=== PATIENT | male | born 1945 | race Caucasian/White ===

== ENCOUNTER 2017-10-12 08:45 | Outpatient (CLI) | payer OTHER, MEDICARE ==
[~2017-10-12 08:45] MED LIST: ATOR40TA PO; COLC0.6T66 PO; DILT180C66 PO; FENO145T38 PO; FOLI-43 PO; FURO-150 PO; GLIM4TAB79 PO; INSU100V12 SQ; LANS30CA56 PO; LOSA25TA96 PO; MELA3TAB PO; MULT1TAB74 PO; PIOG30TA2 PO; RIVA20TA PO
[2017-10-12 09:16] LABS: BASOPHILS % (AUTO) 0.2 % (0-1); EOSINOPHILS # (AUTO) 0.3 X10'3 (0-0.9); EOSINOPHILS % (AUTO) 2.7 % (0-6); HEMATOCRIT 40.8 % (42.0-52.0); HEMOGLOBIN 13.6 g/dl (14.0-17.9); LYMPHOCYTES # (AUTO) 1.4 X10'3 (1.1-4.8); LYMPHOCYTES % (AUTO) 12.9 % (21-51); MEAN CORPUSCULAR HEMOGLOBIN 31.5 PG (27.0-31.0); MEAN CORPUSCULAR HGB CONC 33.4 % (33.0-36.5); MEAN CORPUSCULAR VOLUME 94.3 FL (78-98); MEAN PLATELET VOLUME 8.3 FL (7.4-10.4); MONOCYTES # (AUTO) 0.9 X10'3 (0-0.9); NEUTROPHILS # (AUTO) 8.3 X10'3 (1.8-7.7); NEUTROPHILS % (AUTO) 76.2 % (42-75); PLATELET COUNT 307 X10'3 (140-440); RED BLOOD COUNT 4.33 X10'6 (4.70-6.10); RED CELL DISTRIBUTION WIDTH 14.1 % (11.5-14.5); WHITE BLOOD COUNT 10.9 X10'3 (4.5-11.0)
[2017-10-12 09:22] LABS: CLARITY,URINE CLEAR (Clear); COLOR,URINE STRAW (Yellow); GLUCOSE, URINE NEGATIVE (Neg); KETONES,URINE NEGATIVE (Neg); LEUKOCYTE ESTERASE ,URINE NEGATIVE (Neg); NITRITES, URINE NEGATIVE (Neg); OCCULT BLOOD,URINE TRACE-LYSED (Neg); PROTEIN,URINE 30 mg/dl (Neg); UROBILINOGEN,URINE 0.2 E.U/dL (0.2-1.0)
[2017-10-12 09:37] LABS: UA COLLECTION TYPE CLN CATCH MIDSTREAM
[2017-10-12 09:38] LABS: HYALINE CASTS 0-3 /LPF (NEGATIVE); MUCUS STRANDS FEW /LPF (Neg); SQUAMOUS EPITHELIAL CELL,UR FEW /LPF (FEW)
[2017-10-12 09:39] LABS: BACTERIA,URINE FEW /HPF (Neg); RBC,URINE 0-2 /HPF (0-2); WBC,URINE 0-4 /HPF (0-4)
[2017-10-12 09:49] LABS: ALANINE AMINOTRANSFERASE 32 U/L (12-78); ALBUMIN 4.1 G/DL (3.4-5.0); ALBUMIN/GLOBULIN RATIO 1.2 (1.1-1.5); ALKALINE PHOSPHATASE 63 IU/L (46-116); ANION GAP 7 (8-16); ASPARTATE AMINO TRANSFERASE 24 U/L (10-37); BILIRUBIN,TOTAL 0.8 MG/DL (0.1-1.0); BLOOD UREA NITROGEN 34 MG/DL (7-18); BUN/CREATININE RATIO 21.4 (5.4-32.0); CALCIUM 9.5 MG/DL (8.5-10.1); CHLORIDE 104 MMOL/L (99-107); CHOL/HDL RATIO 4.4 (0.00-4.99); CHOLESTEROL 150 MG/DL (0-200); CREATININE 1.59 MG/DL (0.60-1.10); GLUCOSE 161 MG/DL (70-104); HDL CHOLESTEROL 34 MG/DL (35-60); LDL CHOLESTEROL 100 MG/DL (50-100); SODIUM 140 MMOL/L (135-145); TOTAL CARBON DIOXIDE 28.6 MMOL/L (24-32); TOTAL PROTEIN 7.6 G/DL (6.4-8.2); TRIGLYCERIDES 135 MG/DL (20-135); eGFR 43 ML/MIN
[2017-10-12 09:50] LABS: HEMOGLOBIN A1C 8.8 % (4.5-6.2)
== END 2017-10-12 23:59 | disposition home or self-care (01) ==
LOC: LAB 08:45
PROVIDERS: ATTEND Internal Medicine
DX: I48.91 Unspecified atrial fibrillation (principal); E11.22 Type 2 diabetes mellitus with diabetic chronic kidney disease; I13.0 Hypertensive heart and chronic kidney disease with heart failure and stage 1 through stage 4 chronic kidney disease, or unspecified chronic kidney disease; N18.9 Chronic kidney disease, unspecified
CPT/HCPCS: 36415; 80053; 80061; 81001; 83036; 84550; 85025

== ENCOUNTER 2017-11-08 08:30 | Outpatient (CLI) | payer OTHER, MEDICARE ==
[2017-11-08 09:05] LABS: BASOPHILS % (AUTO) 0.3 % (0-1); EOSINOPHILS # (AUTO) 0.3 X10'3 (0-0.9); EOSINOPHILS % (AUTO) 5.5 % (0-6); HEMATOCRIT 40.3 % (42.0-52.0); HEMOGLOBIN 13.8 g/dl (14.0-17.9); LYMPHOCYTES # (AUTO) 1.7 X10'3 (1.1-4.8); LYMPHOCYTES % (AUTO) 28.2 % (21-51); MEAN CORPUSCULAR HEMOGLOBIN 31.8 PG (27.0-31.0); MEAN CORPUSCULAR HGB CONC 34.2 % (33.0-36.5); MEAN PLATELET VOLUME 8.1 FL (7.4-10.4); MONOCYTES # (AUTO) 0.6 X10'3 (0-0.9); MONOCYTES % (AUTO) 10.3 % (2-12); NEUTROPHILS # (AUTO) 3.3 X10'3 (1.8-7.7); NEUTROPHILS % (AUTO) 55.7 % (42-75); PLATELET COUNT 215 X10'3 (140-440); RED BLOOD COUNT 4.33 X10'6 (4.70-6.10); RED CELL DISTRIBUTION WIDTH 13.9 % (11.5-14.5); WHITE BLOOD COUNT 5.9 X10'3 (4.5-11.0)
[2017-11-08 09:21] LABS: ALANINE AMINOTRANSFERASE 35 U/L (12-78); ALBUMIN 4.4 G/DL (3.4-5.0); ALBUMIN/GLOBULIN RATIO 1.5 (1.1-1.5); ALKALINE PHOSPHATASE 45 IU/L (46-116); ANION GAP 8 (8-16); ASPARTATE AMINO TRANSFERASE 20 U/L (10-37); BILIRUBIN,TOTAL 0.6 MG/DL (0.1-1.0); BLOOD UREA NITROGEN 34 MG/DL (7-18); BUN/CREATININE RATIO 16.2 (5.4-32.0); CALCIUM 9.2 MG/DL (8.5-10.1); CHLORIDE 106 MMOL/L (99-107); CHOL/HDL RATIO 4.6 (0.00-4.99); CHOLESTEROL 138 MG/DL (0-200); GLUCOSE 161 MG/DL (70-104); HDL CHOLESTEROL 30 MG/DL (35-60); LDL CHOLESTEROL 79 MG/DL (50-100); POTASSIUM 4.5 MMOL/L (3.5-5.1); SODIUM 141 MMOL/L (135-145); TOTAL CARBON DIOXIDE 26.8 MMOL/L (24-32); TOTAL PROTEIN 7.3 G/DL (6.4-8.2); TRIGLYCERIDES 176 MG/DL (20-135); eGFR 31 ML/MIN
== END 2017-11-08 23:59 | disposition home or self-care (01) ==
LOC: LAB 08:30
PROVIDERS: ATTEND Internal Medicine
DX: E78.5 Hyperlipidemia, unspecified (principal); I13.0 Hypertensive heart and chronic kidney disease with heart failure and stage 1 through stage 4 chronic kidney disease, or unspecified chronic kidney disease; E11.22 Type 2 diabetes mellitus with diabetic chronic kidney disease; N18.9 Chronic kidney disease, unspecified
CPT/HCPCS: 36415; 80053; 80061; 85025

== ENCOUNTER 2017-11-08 08:40 | Outpatient (CLI) | payer OTHER, MEDICARE | END 2017-11-08 23:59 | disposition home or self-care (01) | LOC: RAD 08:40 | PROVIDERS: ATTEND Internal Medicine Critical Care Medicine | DX: J84.10 Pulmonary fibrosis, unspecified (principal); I13.0 Hypertensive heart and chronic kidney disease with heart failure and stage 1 through stage 4 chronic kidney disease, or unspecified chronic kidney disease; E11.22 Type 2 diabetes mellitus with diabetic chronic kidney disease; N18.9 Chronic kidney disease, unspecified; I50.9 Heart failure, unspecified | CPT/HCPCS: 71046 ==

== ENCOUNTER 2017-11-16 07:19 | Outpatient (CLI) | payer OTHER, MEDICARE ==
[~2017-11-16] VITALS: Ht 177.8 cm; Wt 108.0 kg
[2017-11-16] MEDS ORDERED: albuterol 2.5 MG/3 ML nebule NEB PRN (07:50)
== END 2017-11-16 23:59 | disposition home or self-care (01) ==
LOC: RT 07:19
PROVIDERS: ATTEND Internal Medicine Critical Care Medicine
DX: J84.10 Pulmonary fibrosis, unspecified (principal)
CPT/HCPCS: 94060; 94640; 94760

== ENCOUNTER 2018-01-02 08:48 | Outpatient (CLI) | payer OTHER, MEDICARE ==
[~2018-01-02 08:48] MED LIST changes: +ASPI-1265 PO; +CLOP75TA35 PO; +NITR0.4T51 SL
[2018-01-02 09:23] LABS: BASOPHILS % (AUTO) 0.3 % (0-1); EOSINOPHILS # (AUTO) 0.3 X10'3 (0-0.9); EOSINOPHILS % (AUTO) 4.5 % (0-6); HEMATOCRIT 38.3 % (42.0-52.0); HEMOGLOBIN 13.4 g/dl (14.0-17.9); LYMPHOCYTES # (AUTO) 1.6 X10'3 (1.1-4.8); LYMPHOCYTES % (AUTO) 26.1 % (21-51); MEAN CORPUSCULAR HEMOGLOBIN 31.9 PG (27.0-31.0); MEAN CORPUSCULAR HGB CONC 35.1 % (33.0-36.5); MEAN CORPUSCULAR VOLUME 91.1 FL (78-98); MEAN PLATELET VOLUME 8.2 FL (7.4-10.4); MONOCYTES # (AUTO) 0.9 X10'3 (0-0.9); MONOCYTES % (AUTO) 14.7 % (2-12); NEUTROPHILS # (AUTO) 3.3 X10'3 (1.8-7.7); NEUTROPHILS % (AUTO) 54.4 % (42-75); PLATELET COUNT 234 X10'3 (140-440); RED CELL DISTRIBUTION WIDTH 14.1 % (11.5-14.5)
[2018-01-02 09:24] LABS: CLARITY,URINE CLEAR (Clear); COLOR,URINE YELLOW (Yellow); GLUCOSE, URINE NEGATIVE (Neg); KETONES,URINE NEGATIVE (Neg); LEUKOCYTE ESTERASE ,URINE NEGATIVE (Neg); NITRITES, URINE NEGATIVE (Neg); OCCULT BLOOD,URINE NEGATIVE (Neg); PROTEIN,URINE TRACE mg/dl (Neg); UROBILINOGEN,URINE 0.2 E.U/dL (0.2-1.0)
[2018-01-02 09:34] LABS: UA COLLECTION TYPE CLN CATCH MIDSTREAM
[2018-01-02 09:35] LABS: MUCUS STRANDS NONE SEEN /LPF (Neg); SQUAMOUS EPITHELIAL CELL,UR NONE SEEN /LPF (FEW); TRANSITIONAL EPI CELLS,URINE FEW /HPF
[2018-01-02 09:37] LABS: BACTERIA,URINE NONE SEEN /HPF (Neg); RBC,URINE 0-2 /HPF (0-2); WBC,URINE 0-4 /HPF (0-4)
[2018-01-02 09:55] LABS: ALANINE AMINOTRANSFERASE 29 U/L (12-78); ALBUMIN/GLOBULIN RATIO 1.1 (1.1-1.5); ALKALINE PHOSPHATASE 54 IU/L (46-116); ANION GAP 9 (8-16); ASPARTATE AMINO TRANSFERASE 24 U/L (10-37); BILIRUBIN,TOTAL 0.4 MG/DL (0.1-1.0); BLOOD UREA NITROGEN 37 MG/DL (7-18); BUN/CREATININE RATIO 19.3 (5.4-32.0); CALCIUM 9.7 MG/DL (8.5-10.1); CHLORIDE 106 MMOL/L (99-107); CHOL/HDL RATIO 3.8 (0.00-4.99); CHOLESTEROL 117 MG/DL (0-200); CREATININE 1.92 MG/DL (0.60-1.10); GLUCOSE 138 MG/DL (70-104); HDL CHOLESTEROL 31 MG/DL (35-60); LDL CHOLESTEROL 69 MG/DL (50-100); POTASSIUM 4.3 MMOL/L (3.5-5.1); SODIUM 142 MMOL/L (135-145); TOTAL CARBON DIOXIDE 27.3 MMOL/L (24-32); TOTAL PROTEIN 7.5 G/DL (6.4-8.2); TRIGLYCERIDES 98 MG/DL (20-135); eGFR 34 ML/MIN
== END 2018-01-02 23:59 | disposition home or self-care (01) ==
LOC: LAB 08:48
PROVIDERS: ATTEND Internal Medicine
DX: N42.9 Disorder of prostate, unspecified (principal); I13.0 Hypertensive heart and chronic kidney disease with heart failure and stage 1 through stage 4 chronic kidney disease, or unspecified chronic kidney disease; I50.9 Heart failure, unspecified; E11.22 Type 2 diabetes mellitus with diabetic chronic kidney disease; N18.9 Chronic kidney disease, unspecified; E78.5 Hyperlipidemia, unspecified
CPT/HCPCS: 36415; 80053; 80061; 81001; 82043; 84550; 85025

== ENCOUNTER 2018-01-31 06:12 | Outpatient (CLI) | payer OTHER, MEDICARE ==
[2018-01-31 07:11] LABS: BASOPHILS % (AUTO) 0.5 % (0-1); EOSINOPHILS # (AUTO) 0.3 X10'3 (0-0.9); EOSINOPHILS % (AUTO) 4.6 % (0-6); HEMATOCRIT 40.8 % (42.0-52.0); HEMOGLOBIN 14.1 g/dl (14.0-17.9); LYMPHOCYTES # (AUTO) 1.6 X10'3 (1.1-4.8); LYMPHOCYTES % (AUTO) 28.7 % (21-51); MEAN CORPUSCULAR HEMOGLOBIN 31.8 PG (27.0-31.0); MEAN CORPUSCULAR HGB CONC 34.5 % (33.0-36.5); MEAN CORPUSCULAR VOLUME 92.1 FL (78-98); MEAN PLATELET VOLUME 8.3 FL (7.4-10.4); MONOCYTES # (AUTO) 0.8 X10'3 (0-0.9); MONOCYTES % (AUTO) 14.4 % (2-12); NEUTROPHILS # (AUTO) 2.9 X10'3 (1.8-7.7); NEUTROPHILS % (AUTO) 51.8 % (42-75); PLATELET COUNT 241 X10'3 (140-440); RED BLOOD COUNT 4.44 X10'6 (4.70-6.10); RED CELL DISTRIBUTION WIDTH 14.6 % (11.5-14.5); WHITE BLOOD COUNT 5.6 X10'3 (4.5-11.0)
[2018-01-31 07:21] LABS: CLARITY,URINE CLEAR (Clear); COLOR,URINE YELLOW (Yellow); GLUCOSE, URINE NEGATIVE (Neg); KETONES,URINE NEGATIVE (Neg); LEUKOCYTE ESTERASE ,URINE NEGATIVE (Neg); NITRITES, URINE NEGATIVE (Neg); OCCULT BLOOD,URINE NEGATIVE (Neg); PH,URINE 5.5 (4.8-8.0); PROTEIN,URINE TRACE mg/dl (Neg); UROBILINOGEN,URINE 0.2 E.U/dL (0.2-1.0)
[2018-01-31 07:33] LABS: UA COLLECTION TYPE VOIDED
[2018-01-31 07:35] LABS: ALANINE AMINOTRANSFERASE 27 U/L (12-78); ALBUMIN 4.5 G/DL (3.4-5.0); ALBUMIN/GLOBULIN RATIO 1.6 (1.1-1.5); ALKALINE PHOSPHATASE 50 IU/L (46-116); ANION GAP 11 (8-16); ASPARTATE AMINO TRANSFERASE 22 U/L (10-37); BILIRUBIN,TOTAL 0.7 MG/DL (0.1-1.0); BLOOD UREA NITROGEN 42 MG/DL (7-18); BUN/CREATININE RATIO 21.3 (5.4-32.0); CALCIUM 9.5 MG/DL (8.5-10.1); CHLORIDE 105 MMOL/L (99-107); CHOL/HDL RATIO 3.9 (0.00-4.99); CHOLESTEROL 131 MG/DL (0-200); CREATININE 1.97 MG/DL (0.60-1.10); GLUCOSE 153 MG/DL (70-104); HDL CHOLESTEROL 34 MG/DL (35-60); LDL CHOLESTEROL 81 MG/DL (50-100); POTASSIUM 4.5 MMOL/L (3.5-5.1); SODIUM 141 MMOL/L (135-145); TOTAL CARBON DIOXIDE 25.3 MMOL/L (24-32); TOTAL PROTEIN 7.4 G/DL (6.4-8.2); TRIGLYCERIDES 87 MG/DL (20-135); eGFR 33 ML/MIN
[2018-01-31 07:40] LABS: BACTERIA,URINE NONE SEEN /HPF (Neg); MUCUS STRANDS NONE SEEN /LPF (Neg); RBC,URINE NONE SEEN /HPF (0-2); SQUAMOUS EPITHELIAL CELL,UR NONE SEEN /LPF (FEW); WBC,URINE NONE SEEN /HPF (0-4)
== END 2018-01-31 23:59 | disposition home or self-care (01) ==
LOC: LAB 06:12
PROVIDERS: ATTEND Internal Medicine
DX: E11.9 Type 2 diabetes mellitus without complications (principal); I10 Essential (primary) hypertension; E78.5 Hyperlipidemia, unspecified
CPT/HCPCS: 36415; 80053; 80061; 81001; 82043; 84550; 85025

== ENCOUNTER 2018-03-27 11:41 | Outpatient (CLI) | payer OTHER, MEDICARE | END 2018-03-27 23:59 | disposition home or self-care (01) | LOC: CARD DIAG 11:41 | PROVIDERS: ATTEND Internal Medicine Cardiovascular Disease | DX: I08.3 Combined rheumatic disorders of mitral, aortic and tricuspid valves (principal); J84.10 Pulmonary fibrosis, unspecified; I48.0 Paroxysmal atrial fibrillation; I50.9 Heart failure, unspecified; E11.9 Type 2 diabetes mellitus without complications | CPT/HCPCS: 93306 ==

== ENCOUNTER 2018-05-16 08:16 | Outpatient (CLI) | payer OTHER, MEDICARE ==
[2018-05-16 09:15] LABS: BASOPHILS % (AUTO) 0.4 % (0-1); EOSINOPHILS # (AUTO) 0.1 X10'3 (0-0.9); HEMATOCRIT 45.1 % (42.0-52.0); HEMOGLOBIN 15.3 g/dl (14.0-17.9); LYMPHOCYTES # (AUTO) 1.6 X10'3 (1.1-4.8); LYMPHOCYTES % (AUTO) 22.6 % (21-51); MEAN CORPUSCULAR HEMOGLOBIN 31.3 PG (27.0-31.0); MEAN CORPUSCULAR HGB CONC 33.9 % (33.0-36.5); MEAN CORPUSCULAR VOLUME 92.4 FL (78-98); MEAN PLATELET VOLUME 8.8 FL (7.4-10.4); MONOCYTES # (AUTO) 0.8 X10'3 (0-0.9); MONOCYTES % (AUTO) 11.2 % (2-12); NEUTROPHILS # (AUTO) 4.6 X10'3 (1.8-7.7); NEUTROPHILS % (AUTO) 63.8 % (42-75); PLATELET COUNT 237 X10'3 (140-440); RED BLOOD COUNT 4.88 X10'6 (4.70-6.10); RED CELL DISTRIBUTION WIDTH 14.1 % (11.5-14.5); WHITE BLOOD COUNT 7.3 X10'3 (4.5-11.0)
[2018-05-16 09:34] LABS: ALANINE AMINOTRANSFERASE 34 U/L (12-78); ALBUMIN 4.1 G/DL (3.4-5.0); ALBUMIN/GLOBULIN RATIO 1.2 (1.1-1.5); ALKALINE PHOSPHATASE 66 IU/L (46-116); ANION GAP 11 (8-16); ASPARTATE AMINO TRANSFERASE 32 U/L (10-37); BILIRUBIN,TOTAL 0.6 MG/DL (0.1-1.0); BLOOD UREA NITROGEN 25 MG/DL (7-18); BUN/CREATININE RATIO 15.7 (5.4-32.0); CALCIUM 9.5 MG/DL (8.5-10.1); CHLORIDE 101 MMOL/L (99-107); CHOL/HDL RATIO 5.3 (0.00-4.99); CHOLESTEROL 165 MG/DL (0-200); CREATININE 1.59 MG/DL (0.60-1.10); GLUCOSE 144 MG/DL (70-104); HDL CHOLESTEROL 31 MG/DL (35-60); LDL CHOLESTEROL 109 MG/DL (50-100); POTASSIUM 3.9 MMOL/L (3.5-5.1); SODIUM 138 MMOL/L (135-145); TOTAL CARBON DIOXIDE 25.9 MMOL/L (24-32); TOTAL PROTEIN 7.6 G/DL (6.4-8.2); TRIGLYCERIDES 141 MG/DL (20-135); eGFR 43 ML/MIN
[2018-05-16 09:41] LABS: HEMOGLOBIN A1C 9.4 % (4.5-6.2)
[2018-05-17 11:29] LABS: PSA, ULTRASENSITIVE W/O SERIAL 0.668 ng/mL (0.000-4.000); VITAMIN D, 25-HYDROXY 28.7 ng/mL (30.0-100.0)
== END 2018-05-16 23:59 | disposition home or self-care (01) ==
LOC: LAB 08:16
PROVIDERS: ATTEND Internal Medicine
DX: M10.9 Gout, unspecified (principal); I13.0 Hypertensive heart and chronic kidney disease with heart failure and stage 1 through stage 4 chronic kidney disease, or unspecified chronic kidney disease; I50.9 Heart failure, unspecified; E11.22 Type 2 diabetes mellitus with diabetic chronic kidney disease; N18.2 Chronic kidney disease, stage 2 (mild); E78.5 Hyperlipidemia, unspecified; N42.9 Disorder of prostate, unspecified; Z79.899 Other long term (current) drug therapy; Z98.890 Other specified postprocedural states
CPT/HCPCS: 36415; 80053; 80061; 82306; 83036; 84153; 84550; 85025

== ENCOUNTER 2018-07-19 08:37 | Outpatient (CLI) | payer OTHER, MEDICARE ==
[2018-07-19 10:14] LABS: ALANINE AMINOTRANSFERASE 33 U/L (12-78); ALBUMIN 3.9 G/DL (3.4-5.0); ALKALINE PHOSPHATASE 71 IU/L (46-116); ANION GAP 10 (8-16); ASPARTATE AMINO TRANSFERASE 31 U/L (10-37); BILIRUBIN,TOTAL 0.5 MG/DL (0.1-1.0); BLOOD UREA NITROGEN 29 MG/DL (7-18); BUN/CREATININE RATIO 17.2 (5.4-32.0); CALCIUM 9.1 MG/DL (8.5-10.1); CHLORIDE 102 MMOL/L (99-107); CHOL/HDL RATIO 3.8 (0.00-4.99); CHOLESTEROL 129 MG/DL (0-200); CREATININE 1.69 MG/DL (0.60-1.10); GLUCOSE 205 MG/DL (70-104); HDL CHOLESTEROL 34 MG/DL (35-60); LDL CHOLESTEROL 82 MG/DL (50-100); POTASSIUM 4.4 MMOL/L (3.5-5.1); SODIUM 139 MMOL/L (135-145); TOTAL CARBON DIOXIDE 27.3 MMOL/L (24-32); TOTAL PROTEIN 7.7 G/DL (6.4-8.2); TRIGLYCERIDES 117 MG/DL (20-135); eGFR 40 ML/MIN
== END 2018-07-19 23:59 | disposition home or self-care (01) ==
LOC: LAB 08:37
PROVIDERS: ATTEND Internal Medicine
DX: E78.5 Hyperlipidemia, unspecified (principal); E11.8 Type 2 diabetes mellitus with unspecified complications; I11.0 Hypertensive heart disease with heart failure; I50.9 Heart failure, unspecified; I25.2 Old myocardial infarction; Z79.82 Long term (current) use of aspirin; Z79.4 Long term (current) use of insulin
CPT/HCPCS: 36415; 80053; 80061; 82043

== ENCOUNTER 2018-07-19 08:44 | Outpatient (CLI) | payer OTHER, MEDICARE ==
[2018-07-19 09:58] LABS: BASOPHILS % (AUTO) 0.4 % (0-1); EOSINOPHILS # (AUTO) 0.1 X10'3 (0-0.9); EOSINOPHILS % (AUTO) 3.2 % (0-6); HEMATOCRIT 42.6 % (42.0-52.0); HEMOGLOBIN 14.4 g/dl (14.0-17.9); LYMPHOCYTES # (AUTO) 1.3 X10'3 (1.1-4.8); LYMPHOCYTES % (AUTO) 29.1 % (21-51); MEAN CORPUSCULAR HEMOGLOBIN 31.7 PG (27.0-31.0); MEAN CORPUSCULAR HGB CONC 33.8 % (33.0-36.5); MEAN CORPUSCULAR VOLUME 93.7 FL (78-98); MEAN PLATELET VOLUME 8.7 FL (7.4-10.4); MONOCYTES # (AUTO) 0.6 X10'3 (0-0.9); MONOCYTES % (AUTO) 13.2 % (2-12); NEUTROPHILS # (AUTO) 2.3 X10'3 (1.8-7.7); NEUTROPHILS % (AUTO) 54.1 % (42-75); PLATELET COUNT 284 X10'3 (140-440); RED BLOOD COUNT 4.54 X10'6 (4.70-6.10); RED CELL DISTRIBUTION WIDTH 14.1 % (11.5-14.5); WHITE BLOOD COUNT 4.3 X10'3 (4.5-11.0)
[2018-07-19 10:24] LABS: MAGNESIUM 1.8 MG/DL (1.5-2.4)
[2018-07-19 10:30] LABS: HEMOGLOBIN A1C 9.9 % (4.5-6.2)
[2018-07-19 10:30] LABS: TOTAL PROTEIN,URINE RANDOM 20.9 MG/DL; UA PROTEIN/CREATININE RATIO 0.9 mg/mg Cr (0-0.16)
[2018-07-19 10:32] LABS: CLARITY,URINE CLEAR (Clear); COLOR,URINE STRAW (Yellow); GLUCOSE, URINE 100 mg/dl (Neg); KETONES,URINE NEGATIVE (Neg); LEUKOCYTE ESTERASE ,URINE NEGATIVE (Neg); NITRITES, URINE NEGATIVE (Neg); OCCULT BLOOD,URINE NEGATIVE (Neg); PH,URINE 5.5 (4.8-8.0); PROTEIN,URINE NEGATIVE (Neg); UA COLLECTION TYPE CLN CATCH MIDSTREAM; UROBILINOGEN,URINE 0.2 E.U/dL (0.2-1.0)
[2018-07-19 10:35] LABS: PHOSPHORUS 3.3 MG/DL (2.3-4.5)
[2018-07-20 06:58] LABS: PARATHYROID HORMONE 57.4 PG/ML (11-67)
== END 2018-07-19 23:59 | disposition home or self-care (01) ==
LOC: LAB 08:44
PROVIDERS: ATTEND Internal Medicine Critical Care Medicine
DX: E11.22 Type 2 diabetes mellitus with diabetic chronic kidney disease (principal); N18.3 Chronic kidney disease, stage 3 (moderate); D50.9 Iron deficiency anemia, unspecified; R80.9 Proteinuria, unspecified; E55.9 Vitamin D deficiency, unspecified; R94.4 Abnormal results of kidney function studies; E78.5 Hyperlipidemia, unspecified; M10.9 Gout, unspecified; I50.9 Heart failure, unspecified; I25.2 Old myocardial infarction; Z79.82 Long term (current) use of aspirin; Z79.4 Long term (current) use of insulin
CPT/HCPCS: 36415; 81003; 82306; 82570; 82728; 83036; 83540; 83550; 83735; 83970; 84100; 84156; 84550; 85025; 87088

== ENCOUNTER 2018-07-19 12:43 | Outpatient (CLI) | payer OTHER, MEDICARE ==
[~2018-07-19] VITALS: Ht 177.8 cm; Wt 105.7 kg
[2018-07-19] MEDS ORDERED: albuterol 2.5 MG/3 ML nebule NEB ONE (13:10)
== END 2018-07-19 23:59 | disposition home or self-care (01) ==
LOC: RT 12:43
PROVIDERS: ATTEND Internal Medicine Critical Care Medicine
DX: J84.10 Pulmonary fibrosis, unspecified (principal); I25.2 Old myocardial infarction; I50.9 Heart failure, unspecified; E11.9 Type 2 diabetes mellitus without complications; Z79.899 Other long term (current) drug therapy; Z79.82 Long term (current) use of aspirin; Z79.4 Long term (current) use of insulin
CPT/HCPCS: 94060; 94727; 94729; 94760

== ENCOUNTER 2018-10-06 08:00 | Outpatient (CLI) | payer OTHER ==
[2018-10-06 08:57] LABS: BASOPHILS % (AUTO) 0.3 % (0-1); EOSINOPHILS # (AUTO) 0.1 X10'3 (0-0.9); HEMATOCRIT 40.1 % (42.0-52.0); HEMOGLOBIN 13.2 g/dl (14.0-17.9); LYMPHOCYTES # (AUTO) 1.1 X10'3 (1.1-4.8); LYMPHOCYTES % (AUTO) 17.5 % (21-51); MEAN CORPUSCULAR HEMOGLOBIN 30.8 PG (27.0-31.0); MEAN CORPUSCULAR VOLUME 93.4 FL (78-98); MEAN PLATELET VOLUME 8.3 FL (7.4-10.4); MONOCYTES # (AUTO) 0.7 X10'3 (0-0.9); MONOCYTES % (AUTO) 11.9 % (2-12); NEUTROPHILS # (AUTO) 4.4 X10'3 (1.8-7.7); NEUTROPHILS % (AUTO) 68.3 % (42-75); PLATELET COUNT 306 X10'3 (140-440); RED CELL DISTRIBUTION WIDTH 13.6 % (11.5-14.5); WHITE BLOOD COUNT 6.3 X10'3 (4.5-11.0)
[2018-10-06 09:07] LABS: CLARITY,URINE CLEAR (Clear); COLOR,URINE YELLOW (Yellow); GLUCOSE, URINE NEGATIVE (Neg); KETONES,URINE NEGATIVE (Neg); LEUKOCYTE ESTERASE ,URINE NEGATIVE (Neg); NITRITES, URINE NEGATIVE (Neg); OCCULT BLOOD,URINE NEGATIVE (Neg); PROTEIN,URINE 100 mg/dl (Neg); UROBILINOGEN,URINE 0.2 E.U/dL (0.2-1.0)
[2018-10-06 09:13] LABS: UA COLLECTION TYPE NON-SPECIFIED
[2018-10-06 09:15] LABS: BACTERIA,URINE NONE SEEN /HPF (Neg); MUCUS STRANDS NONE SEEN /LPF (Neg); RBC,URINE NONE SEEN /HPF (0-2); SQUAMOUS EPITHELIAL CELL,UR NONE SEEN /LPF (FEW); WBC,URINE 0-4 /HPF (0-4)
[2018-10-06 09:23] LABS: ALANINE AMINOTRANSFERASE 34 U/L (12-78); ALBUMIN 3.6 G/DL (3.4-5.0); ALKALINE PHOSPHATASE 61 IU/L (46-116); ANION GAP 13 (8-16); ASPARTATE AMINO TRANSFERASE 34 U/L (10-37); BILIRUBIN,TOTAL 0.6 MG/DL (0.1-1.0); BLOOD UREA NITROGEN 26 MG/DL (7-18); BUN/CREATININE RATIO 16.6 (5.4-32.0); CHLORIDE 104 MMOL/L (99-107); CHOL/HDL RATIO 4.1 (0.00-4.99); CHOLESTEROL 119 MG/DL (0-200); CREATININE 1.57 MG/DL (0.60-1.10); GLUCOSE 146 MG/DL (70-104); HDL CHOLESTEROL 29 MG/DL (35-60); LDL CHOLESTEROL 73 MG/DL (50-100); POTASSIUM 3.9 MMOL/L (3.5-5.1); SODIUM 141 MMOL/L (135-145); TOTAL CARBON DIOXIDE 24.3 MMOL/L (24-32); TOTAL PROTEIN 7.1 G/DL (6.4-8.2); TRIGLYCERIDES 100 MG/DL (20-135); eGFR 43 ML/MIN
[2018-10-06 09:27] LABS: HEMOGLOBIN A1C 8.6 % (4.5-6.2)
== END 2018-10-06 23:59 | disposition home or self-care (01) ==
LOC: LAB 08:00
PROVIDERS: ATTEND Internal Medicine
DX: I13.0 Hypertensive heart and chronic kidney disease with heart failure and stage 1 through stage 4 chronic kidney disease, or unspecified chronic kidney disease (principal); E11.22 Type 2 diabetes mellitus with diabetic chronic kidney disease; N18.2 Chronic kidney disease, stage 2 (mild); I50.9 Heart failure, unspecified; I48.91 Unspecified atrial fibrillation; I25.2 Old myocardial infarction; M10.9 Gout, unspecified; Z98.890 Other specified postprocedural states; Z95.5 Presence of coronary angioplasty implant and graft; Z79.899 Other long term (current) drug therapy
CPT/HCPCS: 36415; 80053; 80061; 81001; 83036; 84550; 85025

== ENCOUNTER 2018-10-30 09:42 | Outpatient (CLI) | payer OTHER, MEDICARE ==
[2018-10-30] VITALS (8 sets, daily range): BP systolic 123–156; BP diastolic 65–110
[~2018-10-30] VITALS: Ht 177.8 cm; Wt 104.0 kg
[2018-10-30] MEDS ORDERED: regadenoson 0.4mg/5ml syringe IV ONE ×2 (10:55→12:05)
[2018-10-30] MEDS ORDERED: nitroGLYCERIN 0.4mg SUBLingual tab SL PRN (11:00)
[2018-10-30] MEDS ORDERED: aminophylline 250mg/10ml inj. IV PRN (11:00)
[2018-10-30] MEDS ORDERED: aminophylline inj. 10 ML IV ONE (12:05)
[2018-10-31] MEDS ORDERED: ACAR100T2 PO (14:37)
[2018-10-31] MEDS ORDERED: CLOP75TA33 PO (14:37)
[2018-10-31] MEDS ORDERED: LINA5TAB4 PO (14:37)
[2018-10-31] MEDS ORDERED: DILT240C92 PO (14:37)
[2018-10-31] MEDS ORDERED: INSU100I25 SQ (14:37)
[2018-10-31] MEDS ORDERED: EXEN2AUT PO (14:37)
[2018-10-31] MEDS ORDERED: POTA20TA19 PO (14:37)
== END 2018-10-30 23:59 | disposition home or self-care (01) ==
LOC: RAD 09:42
PROVIDERS: ATTEND Internal Medicine Cardiovascular Disease
DX: I51.7 Cardiomegaly (principal); G24.9 Dystonia, unspecified; I50.22 Chronic systolic (congestive) heart failure; I25.2 Old myocardial infarction; E11.9 Type 2 diabetes mellitus without complications; Z79.899 Other long term (current) drug therapy
CPT/HCPCS: 78452; 93017; A9500; J0280

== ENCOUNTER 2018-10-31 12:08 | Inpatient (IN) | payer OTHER, MEDICARE ==
[~2018-10-31] VITALS: Ht 177.8 cm; Wt 105.5 kg
[2018-10-31 13:12] LABS: BASOPHILS % (AUTO) 0.4 % (0-1); EOSINOPHILS # (AUTO) 0.2 X10'3 (0-0.9); EOSINOPHILS % (AUTO) 2.9 % (0-6); HEMATOCRIT 40.6 % (42.0-52.0); HEMOGLOBIN 13.8 g/dl (14.0-17.9); LYMPHOCYTES # (AUTO) 1.5 X10'3 (1.1-4.8); LYMPHOCYTES % (AUTO) 25.7 % (21-51); MEAN CORPUSCULAR HEMOGLOBIN 31.3 PG (27.0-31.0); MEAN PLATELET VOLUME 8.5 FL (7.4-10.4); MONOCYTES # (AUTO) 0.8 X10'3 (0-0.9); MONOCYTES % (AUTO) 13.2 % (2-12); NEUTROPHILS # (AUTO) 3.4 X10'3 (1.8-7.7); NEUTROPHILS % (AUTO) 57.8 % (42-75); PLATELET COUNT 254 X10'3 (140-440); RED BLOOD COUNT 4.41 X10'6 (4.70-6.10); RED CELL DISTRIBUTION WIDTH 14.7 % (11.5-14.5); WHITE BLOOD COUNT 5.9 X10'3 (4.5-11.0)
[2018-10-31 13:27] LABS: ALANINE AMINOTRANSFERASE 37 U/L (12-78); ALBUMIN/GLOBULIN RATIO 1.1 (1.1-1.5); ALKALINE PHOSPHATASE 65 IU/L (46-116); ANION GAP 10 (8-16); ASPARTATE AMINO TRANSFERASE 24 U/L (10-37); BILIRUBIN,TOTAL 0.6 MG/DL (0.1-1.0); BLOOD UREA NITROGEN 28 MG/DL (7-18); BUN/CREATININE RATIO 16.7 (5.4-32.0); CALCIUM 9.4 MG/DL (8.5-10.1); CHLORIDE 102 MMOL/L (99-107); CREATININE 1.68 MG/DL (0.60-1.10); GLUCOSE 220 MG/DL (70-104); POTASSIUM 4.3 MMOL/L (3.5-5.1); SODIUM 138 MMOL/L (135-145); TOTAL CARBON DIOXIDE 26.1 MMOL/L (24-32); TOTAL PROTEIN 7.7 G/DL (6.4-8.2); eGFR 40 ML/MIN
[2018-10-31 13:30] LABS: INR 1.3 INR; PARTIAL THROMBOPLASTIN TIME 32 SECONDS (22-32)
[2018-10-31] MEDS ORDERED: nitroGLYCERIN 0.4mg SUBLingual tab SL PRN (13:35)
[2018-10-31] MEDS ORDERED: heparin 10,000 units/1 ML INJ IV ONE (13:35)
[2018-10-31] MEDS ORDERED: aspirin 81mg tab.chew PO ONE (13:35)
[2018-10-31 14:02] LABS: D-DIMER 0.21 MG/L FEU (0-0.50)
[2018-10-31] MEDS: heparin 25,000 UNIT/250ml bag 250 ML IV SCH ×2 (14:10→23:16)
[2018-10-31] MEDS ORDERED: EXEN2AUT PO (14:37)
[2018-10-31] MEDS ORDERED: ACAR100T2 PO (14:37)
[2018-10-31] MEDS ORDERED: INSU100I25 SQ (14:37)
[2018-10-31] MEDS ORDERED: CLOP75TA33 PO (14:37)
[2018-10-31] MEDS ORDERED: LINA5TAB4 PO (14:37)
[2018-10-31] MEDS ORDERED: POTA20TA19 PO (14:37)
[2018-10-31] MEDS ORDERED: DILT240C92 PO (14:37)
[2018-10-31] MEDS ORDERED: potassium Cl 40MEQ/NS 500ml 500 ML IV PRN ×2 (15:40)
[2018-10-31] MEDS ORDERED: morphine 4 MG/ML inj SYRINge IV PRN (15:40)
[2018-10-31] MEDS ORDERED: magnesium 2GM in 50ml NS 50 ML IV PRN (15:40)
[2018-10-31] MEDS ORDERED: glucagon, human recombinant 1mg kit SUBCUT PRN (15:40)
[2018-10-31] MEDS ORDERED: dextrose 50%-water 50ml dispensing syringe IV PRN ×2 (15:40)
[2018-10-31] MEDS ORDERED: dextrose ORAL solution 15 GM/59 ML bottle PO PRN ×2 (15:40)
[2018-10-31] MEDS ORDERED: potassium Cl 20 mEq SR tablet PO PRN (15:40)
[2018-10-31] MEDS ORDERED: magnesium 4gm in 100ml NS 100 ML IV PRN (15:40)
[2018-10-31] MEDS ORDERED: ondansetron/PF 4mg/2ml inj IV PRN (15:40)
[2018-10-31] MEDS ORDERED: MESSAGE TO PHARMACY PO ONE (15:40)
--- NOTE | 2018-10-31 16:46 | NUR ---
Received report from DELILAH Love. Awaiting patient arrival to room 349b.
--- NOTE | 2018-10-31 17:24 | NUR ---
Received patient to room 349B accompanied by x1 staff and spouse. Patient is alert and oriented and in no apparent distress. He denies any chest pain or discomfort at this time. Oriented patient to room and call light. Call light placed within patient's reach, bed is low and locked.
[2018-10-31 17:28] VITALS: BP 127/87
[2018-10-31 18:00] VITALS: BP 141/97
--- NOTE | 2018-10-31 18:53 | NUR ---
Problems reprioritized. Patient report given, questions answered & plan of care reviewed with DELILAH Long.
--- NOTE | 2018-10-31 18:54 | NUR ---
Patient in room AD 349. I have received report from DELILAH Handy and had the opportunity to ask questions and assume patient care.
--- NOTE | 2018-10-31 21:30 | NUR ---
dr wesley called about patient status; she ordered to have trop x3 q6h if last 12 hr trop elevated. she also ordered to stop plavix and xeralto at this time since patient is on heparin gtt.
[2018-10-31] MEDS: insulin glargine (Lantus) pen - multi-dose SQ SCH (21:34)
[2018-10-31] MEDS: atorvastatin 20mg tablet PO SCH (21:36)
[2018-10-31] MEDS: Melatonin 3mg tablet PO SCH (21:36)
[2018-10-31] MEDS: furosemide 20MG tablet PO SCH (21:37)
[2018-10-31] MEDS: colchicine 0.6mg tablet PO SCH (21:37)
[2018-10-31] MEDS: acarbose 50mg tablet PO SCH (21:38)
[2018-10-31 22:00] VITALS: BP 103/67
--- NOTE | 2018-10-31 22:06 | NUR ---
Problems reprioritized. Patient report given, questions answered & plan of care reviewed with DELILAH Torres.
[2018-10-31] MEDS: heparin 10,000 units/1 ML INJ IV PRN (23:09)
--- NOTE | 2018-10-31 23:22 | NUR ---
PAGER ID: [phone] MESSAGE: pcu [id number]; Carlos lopez is having some cp of 3/10; ekg done not showing changes; he has no order for nitro. dr lupillo roach;led about putting nitro paste on. thanks yareli Addendum: 11/01/18 at 0106 by Marta Crow RN dr dobson arrived to floor assessed patient; ordered nitro paste and read ekg. no stemi after nitro paste placed patient reported no chest pain anymore bp 148/78
[2018-10-31] MEDS ORDERED: nitroGLYCERIN 1gm ointment UD TP PRN (23:30)
--- NOTE | 2018-11-01 01:05 | NUR ---
Spoke with Dr. Cheung while he was on the Telemetry unit regarding Troponin of 3.43 from lab draw at 0020. Dr. Cheung is texting Dr. Roque, forklift picker. Dr. Cheung orders new troponin level to be drawn again in six hours, 12 hours and 18 hours from the time of this value. No new orders at this time.
--- NOTE | 2018-11-01 01:41 | NUR ---
dr dobson came back to floor and ordered to place patient npo in case pt goes to flue dust laborer in am; dr dobson stated dr key has still not replied to his text Addendum: 11/01/18 at 0142 by Marta Crow RN patient reporting no chest pain at this time
[2018-11-01 03:00] VITALS: BP 125/74
--- NOTE | 2018-11-01 05:29 | NUR ---
DR HOLGUIN CALLED BACK STATING DR GARCIA CALLED BACK AND ORDERED PATIENT TO BE ON BOTH HEPARIN AND AGGRASTAT GTT
[2018-11-01] MEDS: tirofiban 5mg in NS 100mL 100 ML IV SCH ×3 (05:54→17:59)
[2018-11-01 06:13] LABS: BASOPHILS % (AUTO) 0.4 % (0-1); EOSINOPHILS # (AUTO) 0.2 X10'3 (0-0.9); EOSINOPHILS % (AUTO) 3.2 % (0-6); HEMATOCRIT 38.4 % (42.0-52.0); HEMOGLOBIN 13.1 g/dl (14.0-17.9); LYMPHOCYTES # (AUTO) 1.3 X10'3 (1.1-4.8); LYMPHOCYTES % (AUTO) 19.3 % (21-51); MEAN CORPUSCULAR HEMOGLOBIN 31.4 PG (27.0-31.0); MEAN CORPUSCULAR HGB CONC 34.2 % (33.0-36.5); MEAN CORPUSCULAR VOLUME 91.7 FL (78-98); MEAN PLATELET VOLUME 8.5 FL (7.4-10.4); MONOCYTES # (AUTO) 0.9 X10'3 (0-0.9); MONOCYTES % (AUTO) 12.7 % (2-12); NEUTROPHILS # (AUTO) 4.3 X10'3 (1.8-7.7); NEUTROPHILS % (AUTO) 64.4 % (42-75); PLATELET COUNT 228 X10'3 (140-440); RED BLOOD COUNT 4.18 X10'6 (4.70-6.10); RED CELL DISTRIBUTION WIDTH 14.5 % (11.5-14.5); WHITE BLOOD COUNT 6.7 X10'3 (4.5-11.0)
--- NOTE | 2018-11-01 06:26 | NUR ---
ORIENTEE Medication Administration: For this medication-pass time frame, all medication were reviewed, dispensed, administered and documented per hospital policy by MER MAZARIEGOS.
--- NOTE | 2018-11-01 06:26 | NUR ---
ORIENTEE documentation: I have reviewed and agree with all interventions, assessments performed and documented by MER MAZARIEGOS .
[2018-11-01 06:27] LABS: ALBUMIN 3.5 G/DL (3.4-5.0); ANION GAP 12 (8-16); BLOOD UREA NITROGEN 28 MG/DL (7-18); BUN/CREATININE RATIO 16.1 (5.4-32.0); CALCIUM 9.1 MG/DL (8.5-10.1); CHLORIDE 102 MMOL/L (99-107); CREATININE 1.74 MG/DL (0.60-1.10); GLUCOSE 187 MG/DL (70-104); MAGNESIUM 1.6 MG/DL (1.5-2.4); POTASSIUM 3.6 MMOL/L (3.5-5.1); SODIUM 139 MMOL/L (135-145); TOTAL CARBON DIOXIDE 24.7 MMOL/L (24-32); eGFR 38 ML/MIN
--- NOTE | 2018-11-01 06:28 | NUR ---
Problems reprioritized. Patient report given, questions answered & plan of care reviewed with Debby MAZARIEGOS and Mayte MAZARIEGOS. Patient is awake and comfortable. He continues to display no anxiety.
--- NOTE | 2018-11-01 06:31 | NUR ---
Patient in room PCU 3022. I have received report from Kathryn MAZARIEGOS and had the opportunity to ask questions and assume patient care.
[2018-11-01 07:00] VITALS: BP 123/65
[2018-11-01] MEDS ORDERED: rivaroxaban 20mg tablet PO SCH (07:30)
[2018-11-01] MEDS: K and/or MAG REPLACEMENT MC SCH (08:00)
[2018-11-01] MEDS ORDERED: diltiazem CD 120mg capsule (once-daily) PO SCH (08:00)
[2018-11-01] MEDS ORDERED: clopidogrel 75mg tablet PO SCH (08:00)
[2018-11-01] MEDS: furosemide 20MG tablet PO SCH ×3 (08:19→22:06)
[2018-11-01] MEDS: folic acid 1mg tablet PO SCH (08:19)
[2018-11-01] MEDS: potassium Cl 20 mEq SR tablet PO SCH (08:19)
[2018-11-01] MEDS: fenofibrate 145mg tablet PO SCH (08:19)
[2018-11-01] MEDS: multivitamins, therapeutics tablet PO SCH (08:20)
[2018-11-01] MEDS: losartan 25mg tablet PO SCH (08:20)
[2018-11-01] MEDS: pantoprazole 40mg Tablet.DR PO SCH (08:20)
[2018-11-01] MEDS: carVEDilol 12.5mg tablet PO SCH ×2 (08:23→22:05)
[2018-11-01] MEDS: acarbose 50mg tablet PO SCH ×2 (08:23→12:29)
[2018-11-01] MEDS: insulin Lispro (HumaLOG) vial - multi-dose SQ SCH ×2 (08:23→13:21)
[2018-11-01] MEDS: aspirin 81mg tab.chew PO SCH (09:51)
[2018-11-01] MEDS: sodium chloride 0.45% 1,000 ML IV SCH (10:04)
[2018-11-01 10:44] LABS: CHOL/HDL RATIO 4.6 (0.00-4.99); CHOLESTEROL 132 MG/DL (0-200); HDL CHOLESTEROL 29 MG/DL (35-60); LDL CHOLESTEROL 85 MG/DL (50-100); TRIGLYCERIDES 222 MG/DL (20-135)
[2018-11-01] MEDS: heparin 25,000 UNIT/250ml bag 250 ML IV SCH ×2 (12:29→14:37)
--- NOTE | 2018-11-01 14:03 | NUR ---
Initial: Pt admitted with CP found to have LVEF 10%. Pt with A1c 8.6 seen at bedside states he takes his DM meds per rx w/o difficulties and that he manages his DM by monitoring his CHO intake. Patient's A1c previously 9.9 07/19/18. Pt given written and verbal DM ed with referral to outpatient DM class and RD contact information. Pt endorses a good appetite that's evident with documented PO intake 75-100% meeting nutrient needs. Pt denies any food allergies, difficulties chewing/swallowing, or constipation/diarrhea. Pt requests double protein TID, d/w dietary. [facility] 10/30. Will continue to follow. Recommendations: 1) Continue with heart healthy CHO controlled diet 2) Double protein TID 3) Monitor need for additional bowel care 4) Wt per rx Addendum: 11/01/18 at [address] Amended: Links added.
[2018-11-01] MEDS: heparin 10,000 units/1 ML INJ IV PRN (14:35)
[2018-11-01 15:00] VITALS: BP 87/40
[2018-11-01 16:22] VITALS: BP 112/63
--- NOTE | 2018-11-01 18:22 | NUR ---
[place]rientee documentation: I have reviewed and agree with all interventions, assessments performed and documented by Mayte MAZARIEGOS. [place] Medication Administration: For this medication-pass time frame, all medication were reviewed, dispensed, administered and documented per hospital policy by Mayte MAZARIEGOS.
--- NOTE | 2018-11-01 19:00 | NUR ---
Problems reprioritized. Patient report given, questions answered & plan of care reviewed with Brian MAZARIEGOS.
--- NOTE | 2018-11-01 19:09 | NUR ---
Increasing creatinine levels Called Dr. Roque and reported that Creatinine levels currently 1.74, previously 1.68. Asked if he would like patient on bicarb or mucomyst, and Dr. Roque stated no he doesn't.
[2018-11-01 20:00] VITALS: BP 90/63
[2018-11-01] MEDS ORDERED: colchicine 0.6mg tablet PO SCH (21:00)
[2018-11-01] MEDS ORDERED: ATORVASTATIN CALCIUM 40 MG PO SCH (21:00)
[2018-11-01] MEDS ORDERED: Melatonin 3mg tablet PO SCH (21:00)
[2018-11-01] MEDS ORDERED: furosemide 20MG tablet PO SCH (21:00)
[2018-11-01] MEDS: atorvastatin 20mg tablet PO SCH (22:05)
[2018-11-01] MEDS: Melatonin 3mg tablet PO SCH (22:05)
[2018-11-01] MEDS: colchicine 0.6mg tablet PO SCH (22:06)
[2018-11-01] MEDS: insulin glargine (Lantus) pen - multi-dose SQ SCH (22:17)
[2018-11-01 23:00] VITALS: BP 117/57
[2018-11-02] VITALS (12 sets, daily range): BP systolic 91–132; BP diastolic 59–78
[2018-11-02 03:34] LABS: ALBUMIN 2.9 G/DL (3.4-5.0); ANION GAP 11 (8-16); BLOOD UREA NITROGEN 27 MG/DL (7-18); BUN/CREATININE RATIO 15.5 (5.4-32.0); CALCIUM 7.9 MG/DL (8.5-10.1); CHLORIDE 99 MMOL/L (99-107); CREATININE 1.74 MG/DL (0.60-1.10); GLUCOSE 171 MG/DL (70-104); MAGNESIUM 1.4 MG/DL (1.5-2.4); POTASSIUM 3.3 MMOL/L (3.5-5.1); SODIUM 134 MMOL/L (135-145); TOTAL CARBON DIOXIDE 23.7 MMOL/L (24-32); eGFR 38 ML/MIN
[2018-11-02] MEDS: sodium chloride 0.45% 1,000 ML IV SCH (04:57)
[2018-11-02] MEDS: tirofiban 5mg in NS 100mL 100 ML IV SCH (04:57)
[2018-11-02 05:08] LABS: BASOPHILS % (AUTO) 0.6 % (0-1); EOSINOPHILS # (AUTO) 0.2 X10'3 (0-0.9); EOSINOPHILS % (AUTO) 3.5 % (0-6); HEMATOCRIT 37.3 % (42.0-52.0); HEMOGLOBIN 12.8 g/dl (14.0-17.9); LYMPHOCYTES # (AUTO) 1.9 X10'3 (1.1-4.8); LYMPHOCYTES % (AUTO) 30.3 % (21-51); MEAN CORPUSCULAR HEMOGLOBIN 31.4 PG (27.0-31.0); MEAN CORPUSCULAR HGB CONC 34.3 g/dL (33.0-36.5); MEAN CORPUSCULAR VOLUME 91.3 FL (78-98); MEAN PLATELET VOLUME 9.9 FL (7.4-10.4); MONOCYTES # (AUTO) 0.9 X10'3 (0-0.9); MONOCYTES % (AUTO) 14.2 % (2-12); NEUTROPHILS # (AUTO) 3.2 X10'3 (1.8-7.7); NEUTROPHILS % (AUTO) 51.4 % (42-75); PLATELET COUNT 220 X10'3 (140-440); RED BLOOD COUNT 4.09 X10'6 (4.70-6.10); RED CELL DISTRIBUTION WIDTH 14.3 % (11.5-14.5); WHITE BLOOD COUNT 6.2 X10'3 (4.5-11.0)
[2018-11-02] MEDS ORDERED: LIDOcaine 1% (10mg/ml)w/preservative injection 20ml MDV ONE (05:58)
[2018-11-02] MEDS ORDERED: fentaNYL/PF 50MCG/1 ML 2ML syringe ONE (05:58)
[2018-11-02] MEDS ORDERED: iohexol 350MG/ML 100ml bottle IV ONE (05:58)
[2018-11-02] MEDS ORDERED: midazolam 2 mg/2 ml injection ONE (05:58)
--- NOTE | 2018-11-02 06:10 | NUR ---
Patient in room MED 310. I have received report from DELILAH DEL ANGEL, and had the opportunity to ask questions and assume patient care.
--- NOTE | 2018-11-02 06:29 | NUR ---
Problems reprioritized. Patient report given, questions answered & plan of care reviewed with DELILAH Hsu and DELILAH Weller.
[2018-11-02] MEDS ORDERED: iohexol 350 MG/ML 50ML vial IV ONE (06:41)
[2018-11-02] MEDS ORDERED: heparin 1,000unit/ml 10ml vial 10 ML ONE ×2 (06:46→07:53)
[2018-11-02] MEDS ORDERED: ticagrelor 90mg tablet ONE (07:05)
[2018-11-02] MEDS ORDERED: clopidogrel 300mg tablet ONE (07:10)
[2018-11-02] MEDS: pantoprazole 40mg Tablet.DR PO SCH (07:30)
[2018-11-02] MEDS ORDERED: losartan 25mg tablet PO SCH (08:00)
[2018-11-02] MEDS ORDERED: ondansetron/PF 4mg/2ml inj IV PRN (08:00)
[2018-11-02] MEDS: K and/or MAG REPLACEMENT MC SCH (08:00)
[2018-11-02] MEDS ORDERED: folic acid 1mg tablet PO SCH (08:00)
[2018-11-02] MEDS ORDERED: proCHLORperazine 10 MG/2 ml inj IV PRN (08:00)
[2018-11-02] MEDS ORDERED: fenofibrate 145mg tablet PO SCH (08:00)
[2018-11-02] MEDS ORDERED: OXAZEpam 15mg capsule PO PRN (08:00)
[2018-11-02] MEDS ORDERED: non-formulary drug (Multivitamins 1 TABLET) PO SCH (08:00)
[2018-11-02] MEDS ORDERED: non-formulary drug (Lansoprazole 1 CAP) PO SCH (08:00)
[2018-11-02] MEDS ORDERED: ticagrelor 90mg tablet PO SCH (08:00)
[2018-11-02] MEDS ORDERED: clopidogrel 75mg tablet PO SCH (08:00)
[2018-11-02] MEDS: aspirin 81mg tab.chew PO SCH (08:30)
[2018-11-02] MEDS: potassium Cl 20 mEq SR tablet PO SCH (09:04)
[2018-11-02] MEDS: losartan 25mg tablet PO SCH (09:04)
[2018-11-02] MEDS: multivitamins, therapeutics tablet PO SCH (09:05)
[2018-11-02] MEDS: furosemide 20MG tablet PO SCH ×3 (09:05→20:58)
[2018-11-02] MEDS: fenofibrate 145mg tablet PO SCH (09:05)
[2018-11-02] MEDS: carVEDilol 12.5mg tablet PO SCH ×2 (09:05→20:57)
[2018-11-02] MEDS: folic acid 1mg tablet PO SCH (09:05)
[2018-11-02] MEDS: magnesium Cl slow-release 64mg tablet PO PRN ×2 (09:11→17:37)
[2018-11-02] MEDS: potassium Cl 20 mEq SR tablet PO PRN ×3 (13:27→22:37)
[2018-11-02] MEDS: insulin Lispro (HumaLOG) vial - multi-dose SQ SCH ×2 (13:53→19:03)
--- NOTE | 2018-11-02 18:00 | NUR ---
Patient in room MED 310. I have received report from Aracelis and had the opportunity to ask questions and assume patient care.
--- NOTE | 2018-11-02 18:23 | NUR ---
Problems reprioritized. Patient report given, questions answered & plan of care reviewed with RAJINDER Ulloa RN.
[2018-11-02] MEDS: colchicine 0.6mg tablet PO SCH (20:57)
[2018-11-02] MEDS: atorvastatin 20mg tablet PO SCH (20:57)
[2018-11-02] MEDS: Melatonin 3mg tablet PO SCH (20:58)
[2018-11-02] MEDS: ticagrelor 90mg tablet PO SCH (21:49)
[2018-11-02] MEDS: insulin glargine (Lantus) pen - multi-dose SQ SCH (22:37)
--- NOTE | 2018-11-03 02:30 | NUR ---
Noted some potential bleeding to the R groin when pt checked. Fem stop placed. Pt tolerating well. Pulses good. Hourly checks being done.
[2018-11-03 05:17] LABS: ALBUMIN 3.5 G/DL (3.4-5.0); ANION GAP 13 (8-16); BLOOD UREA NITROGEN 33 MG/DL (7-18); CALCIUM 9.2 MG/DL (8.5-10.1); CHLORIDE 100 MMOL/L (99-107); CREATININE 1.74 MG/DL (0.60-1.10); GLUCOSE 199 MG/DL (70-104); MAGNESIUM 1.7 MG/DL (1.5-2.4); POTASSIUM 4.1 MMOL/L (3.5-5.1); SODIUM 135 MMOL/L (135-145); TOTAL CARBON DIOXIDE 22.2 MMOL/L (24-32); eGFR 38 ML/MIN
[2018-11-03 05:20] LABS: BASOPHILS % (AUTO) 0.2 % (0-1); EOSINOPHILS # (AUTO) 0.2 X10'3 (0-0.9); EOSINOPHILS % (AUTO) 2.9 % (0-6); HEMATOCRIT 37.9 % (42.0-52.0); HEMOGLOBIN 12.8 g/dl (14.0-17.9); LYMPHOCYTES # (AUTO) 1.6 X10'3 (1.1-4.8); MEAN CORPUSCULAR HEMOGLOBIN 31.1 PG (27.0-31.0); MEAN CORPUSCULAR HGB CONC 33.8 g/dL (33.0-36.5); MEAN CORPUSCULAR VOLUME 91.9 FL (78-98); MEAN PLATELET VOLUME 9.4 FL (7.4-10.4); MONOCYTES % (AUTO) 13.2 % (2-12); NEUTROPHILS # (AUTO) 4.8 X10'3 (1.8-7.7); NEUTROPHILS % (AUTO) 62.7 % (42-75); PLATELET COUNT 222 X10'3 (140-440); RED BLOOD COUNT 4.13 X10'6 (4.70-6.10); RED CELL DISTRIBUTION WIDTH 14.4 % (11.5-14.5); WHITE BLOOD COUNT 7.7 X10'3 (4.5-11.0)
[2018-11-03 06:00] VITALS: BP 127/73
--- NOTE | 2018-11-03 06:22 | NUR ---
Patient in room MED 310. I have received report from Chayo MAZARIEGOS and had the opportunity to ask questions and assume patient care.
--- NOTE | 2018-11-03 06:28 | NUR ---
Problems reprioritized. Patient report given, questions answered & plan of care reviewed with Art RN.
[2018-11-03] MEDS: pantoprazole 40mg Tablet.DR PO SCH (07:22)
[2018-11-03] MEDS: furosemide 20MG tablet PO SCH (07:22)
[2018-11-03] MEDS: multivitamins, therapeutics tablet PO SCH (07:22)
[2018-11-03] MEDS: folic acid 1mg tablet PO SCH (07:22)
[2018-11-03] MEDS: ticagrelor 90mg tablet PO SCH (07:23)
[2018-11-03] MEDS: losartan 25mg tablet PO SCH (07:23)
[2018-11-03] MEDS: carVEDilol 12.5mg tablet PO SCH (07:23)
[2018-11-03] MEDS: K and/or MAG REPLACEMENT MC SCH (08:00)
[2018-11-03] MEDS: potassium Cl 20 mEq SR tablet PO SCH (08:00)
[2018-11-03] MEDS: aspirin 81mg tab.chew PO SCH (08:24)
[2018-11-03] MEDS: fenofibrate 145mg tablet PO SCH (08:25)
[2018-11-03] MEDS: insulin Lispro (HumaLOG) vial - multi-dose SQ SCH (08:26)
[2018-11-03] MEDS ORDERED: CARV-50 PO (09:50)
[2018-11-03] MEDS ORDERED: SPIR25TA5 PO (09:50)
[2018-11-03] MEDS ORDERED: ASPI-1265 PO (09:50)
[2018-11-03] MEDS ORDERED: TICA90TA PO (09:50)
[2018-11-03] MEDS ORDERED: LOSA50TA64 PO (09:50)
[2018-11-03] MEDS ORDERED: RIVA15TA PO ×2 (10:20→10:27)
--- NOTE | 2018-11-03 12:00 | NUR ---
discharged education provided to pt and spouse. PIV removed; cannula intact. pt wheeled down to car with all belongings.
[2018-11-04] MEDS ORDERED: clopidogrel 75mg tablet PO SCH (08:00)
[2019-10-06] MEDS ORDERED: EXENATIDE 2 MG/0.85 ML IJ SCH (08:00)
== END 2018-11-03 12:05 | disposition home or self-care (01) | DRG 246 ==
LOC: ER 12:10 → ED HOLD 15:37 → SUR 3N 17:11 → CMPBEDREQ 19:49 → PCU 3S 22:17 → MED 3N 11-01 19:00
PROVIDERS: ADMIT Internal Medicine; ATTEND Internal Medicine
PROC: 4A023N7 Measurement of Cardiac Sampling and Pressure, Left Heart, Percutaneous Approach (ICD-10-PCS; principal; 2018-10-31)
PROC: 027034Z Dilation of Coronary Artery, One Artery with Drug-eluting Intraluminal Device, Percutaneous Approach (ICD-10-PCS; 2018-10-31)
PROC: B2111ZZ Fluoroscopy of Multiple Coronary Arteries using Low Osmolar Contrast (ICD-10-PCS; 2018-10-31)
PROC: B2131ZZ Fluoroscopy of Multiple Coronary Artery Bypass Grafts using Low Osmolar Contrast (ICD-10-PCS; 2018-10-31)
PROC: B2151ZZ Fluoroscopy of Left Heart using Low Osmolar Contrast (ICD-10-PCS; 2018-10-31)
DX: I21.4 Non-ST elevation (NSTEMI) myocardial infarction (principal); I50.43 Acute on chronic combined systolic (congestive) and diastolic (congestive) heart failure; I13.0 Hypertensive heart and chronic kidney disease with heart failure and stage 1 through stage 4 chronic kidney disease, or unspecified chronic kidney disease; E11.22 Type 2 diabetes mellitus with diabetic chronic kidney disease; E11.65 Type 2 diabetes mellitus with hyperglycemia; E78.5 Hyperlipidemia, unspecified; I25.10 Atherosclerotic heart disease of native coronary artery without angina pectoris; I25.5 Ischemic cardiomyopathy; I48.0 Paroxysmal atrial fibrillation; M10.9 Gout, unspecified; N18.9 Chronic kidney disease, unspecified; Z79.01 Long term (current) use of anticoagulants; Z79.02 Long term (current) use of antithrombotics/antiplatelets; Z79.4 Long term (current) use of insulin; Z79.82 Long term (current) use of aspirin; Z79.899 Other long term (current) drug therapy; Z82.3 Family history of stroke; Z82.49 Family history of ischemic heart disease and other diseases of the circulatory system; Z82.5 Family history of asthma and other chronic lower respiratory diseases; Z86.73 Personal history of transient ischemic attack (TIA), and cerebral infarction without residual deficits; Z95.1 Presence of aortocoronary bypass graft
CPT/HCPCS: 93306; 93459; 99291; C9604; 36415; 71045; 80048; 80053; 80061; 82948; 83735; 84484; 85025; 85379; 85610; 85730; 87070; 93005; 99152; 99153; A4620; A6257; C1725; C1769; C1874; G0378; J1644; J1815; J2001; J2250; J3010; J3246; Q9967

== ENCOUNTER 2018-11-21 11:59 | Outpatient (CLI) | payer OTHER, MEDICARE ==
[~2018-11-21 11:59] MED LIST changes: +ACAR100T2 PO; +CARV-50 PO; -CLOP75TA35 PO; -DILT180C66 PO; +EXEN2AUT PO; +INSU100I25 SQ; -INSU100V12 SQ; +LINA5TAB4 PO; +LOSA50TA64 PO; -NITR0.4T51 SL; -PIOG30TA2 PO; +RIVA15TA PO; -RIVA20TA PO; +SPIR25TA5 PO; +TICA90TA PO
== END 2018-11-21 23:59 | disposition home or self-care (01) ==
LOC: CARD DIAG 11:59
PROVIDERS: ATTEND Internal Medicine Cardiovascular Disease
DX: I08.1 Rheumatic disorders of both mitral and tricuspid valves (principal); I48.91 Unspecified atrial fibrillation; I11.0 Hypertensive heart disease with heart failure; I50.9 Heart failure, unspecified; E11.9 Type 2 diabetes mellitus without complications; Z95.5 Presence of coronary angioplasty implant and graft; Z95.1 Presence of aortocoronary bypass graft; Z79.82 Long term (current) use of aspirin; Z79.4 Long term (current) use of insulin
CPT/HCPCS: 93308

== ENCOUNTER 2018-11-29 08:34 | Outpatient (CLI) | payer OTHER, MEDICARE | END 2018-11-29 23:59 | disposition home or self-care (01) | LOC: LAB 08:34 | PROVIDERS: ATTEND Physician Assistant Medical | DX: Z00.00 Encounter for general adult medical examination without abnormal findings (principal); Z53.21 Procedure and treatment not carried out due to patient leaving prior to being seen by health care provider ==

== ENCOUNTER 2018-11-29 08:48 | Outpatient (CLI) | payer OTHER, MEDICARE ==
[2018-11-29 09:41] LABS: CLARITY,URINE CLEAR (Clear); COLOR,URINE YELLOW (Yellow); GLUCOSE, URINE 100 mg/dl (Neg); KETONES,URINE NEGATIVE (Neg); LEUKOCYTE ESTERASE ,URINE NEGATIVE (Neg); NITRITES, URINE NEGATIVE (Neg); OCCULT BLOOD,URINE NEGATIVE (Neg); PH,URINE 5.5 (4.8-8.0); PROTEIN,URINE NEGATIVE (Neg); UA COLLECTION TYPE NON-SPECIFIED; UROBILINOGEN,URINE 0.2 E.U/dL (0.2-1.0)
[2018-11-29 09:41] LABS: EOSINOPHILS # (AUTO) 0.2 X10'3 (0-0.9); LYMPHOCYTES # (AUTO) 1.2 X10'3 (1.1-4.8); NEUTROPHILS % (AUTO) 71.9 % (42-75)
[2018-11-29 09:43] LABS: BASOPHILS % (AUTO) 0.4 % (0-1); EOSINOPHILS % (AUTO) 2.4 % (0-6); HEMATOCRIT 41.1 % (42.0-52.0); HEMOGLOBIN 14.1 g/dl (14.0-17.9); LYMPHOCYTES % (AUTO) 13.6 % (21-51); MEAN CORPUSCULAR HEMOGLOBIN 31.1 PG (27.0-31.0); MEAN CORPUSCULAR HGB CONC 34.3 g/dL (33.0-36.5); MEAN CORPUSCULAR VOLUME 90.8 FL (78-98); MEAN PLATELET VOLUME 9.1 FL (7.4-10.4); MONOCYTES % (AUTO) 11.7 % (2-12); NEUTROPHILS # (AUTO) 6.4 X10'3 (1.8-7.7); PLATELET COUNT 258 X10'3 (140-440); RED BLOOD COUNT 4.53 X10'6 (4.70-6.10); RED CELL DISTRIBUTION WIDTH 14.6 % (11.5-14.5); WHITE BLOOD COUNT 8.9 X10'3 (4.5-11.0)
[2018-11-29 10:07] LABS: ALANINE AMINOTRANSFERASE 25 U/L (12-78); ALBUMIN 4.2 G/DL (3.4-5.0); ALBUMIN/GLOBULIN RATIO 1.2 (1.1-1.5); ALKALINE PHOSPHATASE 64 IU/L (46-116); ANION GAP 12 (8-16); ASPARTATE AMINO TRANSFERASE 30 U/L (10-37); BILIRUBIN,TOTAL 0.5 MG/DL (0.1-1.0); BLOOD UREA NITROGEN 42 MG/DL (7-18); BUN/CREATININE RATIO 19.8 (5.4-32.0); CALCIUM 9.4 MG/DL (8.5-10.1); CHLORIDE 98 MMOL/L (99-107); CHOL/HDL RATIO 5.1 (0.00-4.99); CHOLESTEROL 133 MG/DL (0-200); CREATININE 2.12 MG/DL (0.60-1.10); GLUCOSE 239 MG/DL (70-104); HDL CHOLESTEROL 26 MG/DL (35-60); LDL CHOLESTEROL 84 MG/DL (50-100); POTASSIUM 4.1 MMOL/L (3.5-5.1); SODIUM 134 MMOL/L (135-145); TOTAL CARBON DIOXIDE 24.3 MMOL/L (24-32); TOTAL PROTEIN 7.7 G/DL (6.4-8.2); TRIGLYCERIDES 214 MG/DL (20-135); eGFR 31 ML/MIN
[2018-11-29 10:17] LABS: GIANT PLATELET FEW; LARGE PLATELETS FEW; PLATELET ESTIMATE NORMAL
[2018-11-30 11:40] LABS: OCCULT BLOOD STOOL NEGATIVE (Neg)
[2018-11-30 13:30] LABS: PSA, ULTRASENSITIVE W/O SERIAL 0.739 ng/mL (0.000-4.000)
== END 2018-11-29 23:59 | disposition home or self-care (01) ==
LOC: LAB 08:48
PROVIDERS: ATTEND Internal Medicine
DX: E11.21 Type 2 diabetes mellitus with diabetic nephropathy (principal); E11.8 Type 2 diabetes mellitus with unspecified complications; I11.0 Hypertensive heart disease with heart failure; I50.9 Heart failure, unspecified; E78.5 Hyperlipidemia, unspecified; F03.90 Unspecified dementia, unspecified severity, without behavioral disturbance, psychotic disturbance, mood disturbance, and anxiety; I25.2 Old myocardial infarction; M10.9 Gout, unspecified; N42.9 Disorder of prostate, unspecified
CPT/HCPCS: 36415; 80053; 80061; 81003; 82043; 82272; 83880; 84153; 84550; 85025

== ENCOUNTER 2018-12-15 09:13 | Outpatient (CLI) | payer OTHER, MEDICARE ==
[2018-12-15 10:05] LABS: ALBUMIN 3.9 G/DL (3.4-5.0); ANION GAP 10 (8-16); BLOOD UREA NITROGEN 48 MG/DL (7-18); BUN/CREATININE RATIO 20.1 (5.4-32.0); CALCIUM 9.7 MG/DL (8.5-10.1); CHLORIDE 103 MMOL/L (99-107); CREATININE 2.39 MG/DL (0.60-1.10); GLUCOSE 249 MG/DL (70-104); POTASSIUM 4.6 MMOL/L (3.5-5.1); SODIUM 138 MMOL/L (135-145); TOTAL CARBON DIOXIDE 24.9 MMOL/L (24-32); eGFR 27 ML/MIN
== END 2018-12-15 23:59 | disposition home or self-care (01) ==
LOC: LAB 09:13
PROVIDERS: ATTEND Internal Medicine Cardiovascular Disease
DX: I11.0 Hypertensive heart disease with heart failure (principal); I50.40 Unspecified combined systolic (congestive) and diastolic (congestive) heart failure; R06.02 Shortness of breath; E11.9 Type 2 diabetes mellitus without complications; Z79.82 Long term (current) use of aspirin
CPT/HCPCS: 36415; 80048; 83880

== ENCOUNTER 2019-01-03 08:27 | Outpatient (CLI) | payer OTHER, MEDICARE ==
[2019-01-03 09:34] LABS: ALBUMIN 3.9 G/DL (3.4-5.0); ANION GAP 8 (8-16); BLOOD UREA NITROGEN 47 MG/DL (7-18); CALCIUM 9.9 MG/DL (8.5-10.1); CHLORIDE 102 MMOL/L (99-107); CREATININE 2.47 MG/DL (0.60-1.10); GLUCOSE 204 MG/DL (70-104); POTASSIUM 4.6 MMOL/L (3.5-5.1); SODIUM 137 MMOL/L (135-145); TOTAL CARBON DIOXIDE 26.8 MMOL/L (24-32); eGFR 26 ML/MIN
== END 2019-01-03 23:59 | disposition home or self-care (01) ==
LOC: LAB 08:27
PROVIDERS: ATTEND Internal Medicine Cardiovascular Disease
DX: R06.02 Shortness of breath (principal); I11.0 Hypertensive heart disease with heart failure; I50.9 Heart failure, unspecified; E11.9 Type 2 diabetes mellitus without complications
CPT/HCPCS: 36415; 80048; 83880

== ENCOUNTER 2019-02-07 08:16 | Outpatient (CLI) | payer OTHER, MEDICARE ==
[2019-02-07 09:35] LABS: BASOPHILS # (AUTO) 0.1 X10'3 (0-0.2); BASOPHILS % (AUTO) 0.8 % (0-1); EOSINOPHILS # (AUTO) 0.2 X10'3 (0-0.9); HEMATOCRIT 42.3 % (42.0-52.0); HEMOGLOBIN 14.6 g/dl (14.0-17.9); LYMPHOCYTES # (AUTO) 1.6 X10'3 (1.1-4.8); LYMPHOCYTES % (AUTO) 22.6 % (21-51); MEAN CORPUSCULAR HEMOGLOBIN 31.8 PG (27.0-31.0); MEAN CORPUSCULAR HGB CONC 34.6 g/dL (33.0-36.5); MEAN CORPUSCULAR VOLUME 91.9 FL (78-98); MEAN PLATELET VOLUME 9.3 FL (7.4-10.4); MONOCYTES % (AUTO) 14.4 % (2-12); NEUTROPHILS # (AUTO) 4.2 X10'3 (1.8-7.7); NEUTROPHILS % (AUTO) 59.2 % (42-75); PLATELET COUNT 252 X10'3 (140-440); RED CELL DISTRIBUTION WIDTH 15.1 % (11.5-14.5); WHITE BLOOD COUNT 7.1 X10'3 (4.5-11.0)
[2019-02-07 09:48] LABS: TOTAL PROTEIN,URINE RANDOM 19.8 MG/DL; UA PROTEIN/CREATININE RATIO 0.31 mg/mg Cr (0-0.16)
[2019-02-07 09:49] LABS: % IRON SATURATION 31 % (11-46); IRON 122 UG/DL (53-167); TOTAL IRON BINDING CAPACITY 393 UG/DL (259-388)
[2019-02-07 09:49] LABS: CLARITY,URINE CLEAR (Clear); COLOR,URINE YELLOW (Yellow); GLUCOSE, URINE NEGATIVE (Neg); KETONES,URINE NEGATIVE (Neg); LEUKOCYTE ESTERASE ,URINE NEGATIVE (Neg); NITRITES, URINE NEGATIVE (Neg); OCCULT BLOOD,URINE NEGATIVE (Neg); PH,URINE 5.5 (4.8-8.0); PROTEIN,URINE NEGATIVE (Neg); UROBILINOGEN,URINE 0.2 E.U/dL (0.2-1.0)
[2019-02-07 09:51] LABS: UA COLLECTION TYPE NON-SPECIFIED
[2019-02-07 10:00] LABS: ALBUMIN 4.1 G/DL (3.4-5.0); ANION GAP 9 (8-16); BLOOD UREA NITROGEN 52 MG/DL (7-18); BUN/CREATININE RATIO 22.8 (5.4-32.0); CALCIUM 9.5 MG/DL (8.5-10.1); CHLORIDE 102 MMOL/L (99-107); CREATININE 2.28 MG/DL (0.60-1.10); FERRITIN 96 NG/ML (26-388); GLUCOSE 195 MG/DL (70-104); MAGNESIUM 1.9 MG/DL (1.5-2.4); POTASSIUM 4.7 MMOL/L (3.5-5.1); SODIUM 138 MMOL/L (135-145); TOTAL CARBON DIOXIDE 26.6 MMOL/L (24-32); eGFR 28 ML/MIN
[2019-02-08 08:19] LABS: VITAMIN D, 25-HYDROXY 28.5 ng/mL (30.0-100.0)
[2019-02-08 13:12] LABS: PSA, ULTRASENSITIVE W/O SERIAL 0.653 ng/mL (0.000-4.000)
== END 2019-02-07 23:59 | disposition home or self-care (01) ==
LOC: LAB 08:16
PROVIDERS: ATTEND Internal Medicine Critical Care Medicine
DX: E11.22 Type 2 diabetes mellitus with diabetic chronic kidney disease (principal); N18.3 Chronic kidney disease, stage 3 (moderate); D63.1 Anemia in chronic kidney disease; D50.9 Iron deficiency anemia, unspecified; R80.9 Proteinuria, unspecified; E55.9 Vitamin D deficiency, unspecified; E83.52 Hypercalcemia; E83.42 Hypomagnesemia; R35.0 Frequency of micturition; N04.9 Nephrotic syndrome with unspecified morphologic changes; N39.0 Urinary tract infection, site not specified; E88.9 Metabolic disorder, unspecified; R97.20 Elevated prostate specific antigen [PSA]; E78.5 Hyperlipidemia, unspecified
CPT/HCPCS: 36415; 80069; 81003; 82306; 82570; 82728; 83036; 83540; 83550; 83735; 84153; 84156; 85025; 87088

== ENCOUNTER 2019-02-19 08:19 | Outpatient (CLI) | payer OTHER, MEDICARE ==
[2019-02-19 09:05] LABS: BASOPHILS % (AUTO) 0.8 % (0-1); EOSINOPHILS # (AUTO) 0.2 X10'3 (0-0.9); EOSINOPHILS % (AUTO) 3.3 % (0-6); HEMATOCRIT 41.4 % (42.0-52.0); LYMPHOCYTES # (AUTO) 1.4 X10'3 (1.1-4.8); MEAN CORPUSCULAR HEMOGLOBIN 31.5 PG (27.0-31.0); MEAN CORPUSCULAR HGB CONC 33.9 g/dL (33.0-36.5); MEAN CORPUSCULAR VOLUME 92.9 FL (78-98); MONOCYTES # (AUTO) 0.8 X10'3 (0-0.9); MONOCYTES % (AUTO) 14.8 % (2-12); NEUTROPHILS % (AUTO) 55.1 % (42-75); PLATELET COUNT 244 X10'3 (140-440); RED BLOOD COUNT 4.45 X10'6 (4.70-6.10); RED CELL DISTRIBUTION WIDTH 14.5 % (11.5-14.5); WHITE BLOOD COUNT 5.5 X10'3 (4.5-11.0)
[2019-02-19 09:12] LABS: ALANINE AMINOTRANSFERASE 31 U/L (12-78); ALBUMIN/GLOBULIN RATIO 1.2 (1.1-1.5); ALKALINE PHOSPHATASE 48 IU/L (46-116); ANION GAP 9 (8-16); ASPARTATE AMINO TRANSFERASE 21 U/L (10-37); BILIRUBIN,TOTAL 0.5 MG/DL (0.1-1.0); BLOOD UREA NITROGEN 45 MG/DL (7-18); BUN/CREATININE RATIO 18.2 (5.4-32.0); CALCIUM 9.1 MG/DL (8.5-10.1); CHLORIDE 102 MMOL/L (99-107); CHOL/HDL RATIO 5.7 (0.00-4.99); CHOLESTEROL 149 MG/DL (0-200); CREATININE 2.47 MG/DL (0.60-1.10); GLUCOSE 155 MG/DL (70-104); HDL CHOLESTEROL 26 MG/DL (35-60); LDL CHOLESTEROL 95 MG/DL (50-100); POTASSIUM 4.4 MMOL/L (3.5-5.1); SODIUM 139 MMOL/L (135-145); TOTAL CARBON DIOXIDE 28.1 MMOL/L (24-32); TOTAL PROTEIN 7.3 G/DL (6.4-8.2); TRIGLYCERIDES 207 MG/DL (20-135); eGFR 26 ML/MIN
[2019-02-19 09:29] LABS: CLARITY,URINE CLEAR (Clear); COLOR,URINE YELLOW (Yellow); GLUCOSE, URINE NEGATIVE (Neg); KETONES,URINE NEGATIVE (Neg); LEUKOCYTE ESTERASE ,URINE NEGATIVE (Neg); NITRITES, URINE NEGATIVE (Neg); OCCULT BLOOD,URINE NEGATIVE (Neg); PROTEIN,URINE NEGATIVE (Neg); UROBILINOGEN,URINE 0.2 E.U/dL (0.2-1.0)
[2019-02-19 09:38] LABS: UA COLLECTION TYPE NON-SPECIFIED
== END 2019-02-19 23:59 | disposition home or self-care (01) ==
LOC: LAB 08:19
PROVIDERS: ATTEND Internal Medicine
DX: E11.65 Type 2 diabetes mellitus with hyperglycemia (principal); E11.21 Type 2 diabetes mellitus with diabetic nephropathy; I48.91 Unspecified atrial fibrillation; I10 Essential (primary) hypertension; N42.9 Disorder of prostate, unspecified; E78.5 Hyperlipidemia, unspecified
CPT/HCPCS: 36415; 80053; 80061; 81003; 85025

== ENCOUNTER 2019-03-20 08:04 | Outpatient (CLI) | payer OTHER, MEDICARE ==
[2019-03-20 10:44] LABS: ALBUMIN 3.7 G/DL (3.4-5.0); ANION GAP 9 (8-16); BLOOD UREA NITROGEN 48 MG/DL (7-18); BUN/CREATININE RATIO 21.2 (5.4-32.0); CALCIUM 9.1 MG/DL (8.5-10.1); CHLORIDE 103 MMOL/L (99-107); CREATININE 2.26 MG/DL (0.60-1.10); GLUCOSE 130 MG/DL (70-104); SODIUM 135 MMOL/L (135-145); eGFR 28 ML/MIN
== END 2019-03-20 23:59 | disposition home or self-care (01) ==
LOC: LAB 08:04
PROVIDERS: ATTEND Internal Medicine Cardiovascular Disease
DX: R06.02 Shortness of breath (principal); I11.0 Hypertensive heart disease with heart failure; I50.9 Heart failure, unspecified; E11.9 Type 2 diabetes mellitus without complications
CPT/HCPCS: 36415; 80048; 83880

== ENCOUNTER 2019-04-12 11:54 | Outpatient (CLI) | payer OTHER, MEDICARE | END 2019-04-12 23:59 | disposition home or self-care (01) | LOC: CARD DIAG 11:54 | PROVIDERS: ATTEND Internal Medicine Cardiovascular Disease | DX: I08.8 Other rheumatic multiple valve diseases (principal) | CPT/HCPCS: 93306 ==

== ENCOUNTER 2019-04-20 07:40 | Outpatient (CLI) | payer OTHER, MEDICARE ==
[2019-04-20 08:26] LABS: BASOPHILS % (AUTO) 0.7 % (0-1); EOSINOPHILS # (AUTO) 0.2 X10'3 (0-0.9); EOSINOPHILS % (AUTO) 3.5 % (0-6); HEMATOCRIT 40.9 % (42.0-52.0); HEMOGLOBIN 13.7 g/dl (14.0-17.9); LYMPHOCYTES # (AUTO) 1.5 X10'3 (1.1-4.8); LYMPHOCYTES % (AUTO) 24.7 % (21-51); MEAN CORPUSCULAR HGB CONC 33.6 g/dL (33.0-36.5); MEAN CORPUSCULAR VOLUME 95.1 FL (78-98); MEAN PLATELET VOLUME 8.5 FL (7.4-10.4); MONOCYTES # (AUTO) 0.9 X10'3 (0-0.9); MONOCYTES % (AUTO) 14.8 % (2-12); NEUTROPHILS # (AUTO) 3.3 X10'3 (1.8-7.7); NEUTROPHILS % (AUTO) 56.3 % (42-75); PLATELET COUNT 224 X10'3 (140-440); RED BLOOD COUNT 4.29 X10'6 (4.70-6.10); RED CELL DISTRIBUTION WIDTH 14.6 % (11.5-14.5); WHITE BLOOD COUNT 5.9 X10'3 (4.5-11.0)
[2019-04-20 08:27] LABS: CLARITY,URINE CLEAR (Clear); COLOR,URINE YELLOW (Yellow); GLUCOSE, URINE NEGATIVE (Neg); KETONES,URINE NEGATIVE (Neg); LEUKOCYTE ESTERASE ,URINE NEGATIVE (Neg); NITRITES, URINE NEGATIVE (Neg); OCCULT BLOOD,URINE NEGATIVE (Neg); PROTEIN,URINE NEGATIVE (Neg); UROBILINOGEN,URINE 0.2 E.U/dL (0.2-1.0)
[2019-04-20 08:30] LABS: UA COLLECTION TYPE CLN CATCH MIDSTREAM
[2019-04-20 08:40] LABS: ALANINE AMINOTRANSFERASE 24 U/L (12-78); ALBUMIN 3.9 G/DL (3.4-5.0); ALBUMIN/GLOBULIN RATIO 1.2 (1.1-1.5); ALKALINE PHOSPHATASE 36 IU/L (46-116); ANION GAP 8 (8-16); ASPARTATE AMINO TRANSFERASE 16 U/L (10-37); BILIRUBIN,TOTAL 0.5 MG/DL (0.1-1.0); BLOOD UREA NITROGEN 33 MG/DL (7-18); BUN/CREATININE RATIO 17.2 (5.4-32.0); CALCIUM 9.3 MG/DL (8.5-10.1); CHLORIDE 108 MMOL/L (99-107); CHOL/HDL RATIO 4.2 (0.00-4.99); CHOLESTEROL 121 MG/DL (0-200); CREATININE 1.92 MG/DL (0.60-1.10); GLUCOSE 88 MG/DL (70-104); HDL CHOLESTEROL 29 MG/DL (35-60); LDL CHOLESTEROL 80 MG/DL (50-100); POTASSIUM 4.3 MMOL/L (3.5-5.1); SODIUM 142 MMOL/L (135-145); TOTAL PROTEIN 7.1 G/DL (6.4-8.2); TRIGLYCERIDES 95 MG/DL (20-135); eGFR 34 ML/MIN
[2019-04-20 08:50] LABS: HEMOGLOBIN A1C 7.3 % (4.5-6.2)
== END 2019-04-20 23:59 | disposition home or self-care (01) ==
LOC: LAB 07:40
PROVIDERS: ATTEND Internal Medicine
DX: E11.65 Type 2 diabetes mellitus with hyperglycemia (principal); E11.8 Type 2 diabetes mellitus with unspecified complications; I11.0 Hypertensive heart disease with heart failure; I50.9 Heart failure, unspecified; I48.91 Unspecified atrial fibrillation; E78.5 Hyperlipidemia, unspecified; M10.9 Gout, unspecified
CPT/HCPCS: 36415; 80053; 80061; 81003; 83036; 85025

== ENCOUNTER 2019-07-03 09:50 | Outpatient (CLI) | payer OTHER, MEDICARE ==
[~2019-07-03 09:50] MED LIST changes: +GLIM4TAB4 PO; -GLIM4TAB79 PO; -MELA3TAB PO; +MELA3TAB64 PO
[2019-07-03 10:39] LABS: BASOPHILS % (AUTO) 0.6 % (0-1); EOSINOPHILS # (AUTO) 0.2 X10'3 (0-0.9); EOSINOPHILS % (AUTO) 3.7 % (0-6); HEMATOCRIT 43.5 % (42.0-52.0); HEMOGLOBIN 14.8 g/dl (14.0-17.9); LYMPHOCYTES # (AUTO) 1.9 X10'3 (1.1-4.8); LYMPHOCYTES % (AUTO) 29.6 % (21-51); MEAN CORPUSCULAR HEMOGLOBIN 32.1 PG (27.0-31.0); MEAN CORPUSCULAR VOLUME 94.3 FL (78-98); MEAN PLATELET VOLUME 9.1 FL (7.4-10.4); MONOCYTES # (AUTO) 0.9 X10'3 (0-0.9); MONOCYTES % (AUTO) 13.2 % (2-12); NEUTROPHILS # (AUTO) 3.5 X10'3 (1.8-7.7); NEUTROPHILS % (AUTO) 52.9 % (42-75); PLATELET COUNT 264 X10'3 (140-440); RED BLOOD COUNT 4.61 X10'6 (4.70-6.10); RED CELL DISTRIBUTION WIDTH 13.8 % (11.5-14.5); WHITE BLOOD COUNT 6.6 X10'3 (4.5-11.0)
[2019-07-03 10:47] LABS: CLARITY,URINE CLEAR (Clear); COLOR,URINE YELLOW (Yellow); GLUCOSE, URINE NEGATIVE (Neg); KETONES,URINE NEGATIVE (Neg); LEUKOCYTE ESTERASE ,URINE NEGATIVE (Neg); NITRITES, URINE NEGATIVE (Neg); OCCULT BLOOD,URINE NEGATIVE (Neg); PROTEIN,URINE NEGATIVE (Neg); UROBILINOGEN,URINE 0.2 E.U/dL (0.2-1.0)
[2019-07-03 10:48] LABS: UA COLLECTION TYPE CLN CATCH MIDSTREAM
[2019-07-03 11:11] LABS: % IRON SATURATION 31 % (11-46); IRON 118 UG/DL (53-167); TOTAL IRON BINDING CAPACITY 381 UG/DL (259-388)
[2019-07-03 11:15] LABS: ALBUMIN 4.4 G/DL (3.4-5.0); ANION GAP 11 (8-16); BLOOD UREA NITROGEN 39 MG/DL (7-18); CALCIUM 8.9 MG/DL (8.5-10.1); CHLORIDE 106 MMOL/L (99-107); CREATININE 2.05 MG/DL (0.60-1.10); GLUCOSE 96 MG/DL (70-104); MAGNESIUM 1.8 MG/DL (1.5-2.4); PHOSPHORUS 3.6 MG/DL (2.3-4.5); POTASSIUM 4.2 MMOL/L (3.5-5.1); SODIUM 143 MMOL/L (135-145); eGFR 32 ML/MIN
[2019-07-03 11:21] LABS: FERRITIN 80 NG/ML (26-388)
[2019-07-03 11:32] LABS: TOTAL PROTEIN,URINE RANDOM 14.5 MG/DL; UA PROTEIN/CREATININE RATIO 0.27 mg/mg Cr (0-0.16)
== END 2019-07-03 23:59 | disposition home or self-care (01) ==
LOC: LAB 09:50
PROVIDERS: ATTEND Internal Medicine Critical Care Medicine
DX: E11.22 Type 2 diabetes mellitus with diabetic chronic kidney disease (principal); I12.9 Hypertensive chronic kidney disease with stage 1 through stage 4 chronic kidney disease, or unspecified chronic kidney disease; N18.3 Chronic kidney disease, stage 3 (moderate)
CPT/HCPCS: 36415; 80069; 81003; 82306; 82570; 82728; 83540; 83550; 83735; 84156; 85025; 87088

== ENCOUNTER 2019-07-17 08:36 | Outpatient (CLI) | payer OTHER, MEDICARE ==
[2019-07-17 09:34] LABS: BASOPHILS % (AUTO) 0.5 % (0-1); EOSINOPHILS # (AUTO) 0.1 X10'3 (0-0.9); EOSINOPHILS % (AUTO) 2.5 % (0-6); HEMATOCRIT 39.6 % (42.0-52.0); HEMOGLOBIN 13.6 g/dl (14.0-17.9); LYMPHOCYTES # (AUTO) 1.4 X10'3 (1.1-4.8); LYMPHOCYTES % (AUTO) 24.6 % (21-51); MEAN CORPUSCULAR HEMOGLOBIN 32.4 PG (27.0-31.0); MEAN CORPUSCULAR HGB CONC 34.3 g/dL (33.0-36.5); MEAN CORPUSCULAR VOLUME 94.6 FL (78-98); MEAN PLATELET VOLUME 9.1 FL (7.4-10.4); MONOCYTES # (AUTO) 0.8 X10'3 (0-0.9); MONOCYTES % (AUTO) 13.5 % (2-12); NEUTROPHILS # (AUTO) 3.5 X10'3 (1.8-7.7); NEUTROPHILS % (AUTO) 58.9 % (42-75); PLATELET COUNT 229 X10'3 (140-440); RED BLOOD COUNT 4.18 X10'6 (4.70-6.10); WHITE BLOOD COUNT 5.9 X10'3 (4.5-11.0)
[2019-07-17 09:34] LABS: CLARITY,URINE CLEAR (Clear); COLOR,URINE YELLOW (Yellow); GLUCOSE, URINE NEGATIVE (Neg); KETONES,URINE NEGATIVE (Neg); LEUKOCYTE ESTERASE ,URINE NEGATIVE (Neg); NITRITES, URINE NEGATIVE (Neg); OCCULT BLOOD,URINE NEGATIVE (Neg); PH,URINE 6.5 (4.8-8.0); PROTEIN,URINE TRACE mg/dl (Neg); UROBILINOGEN,URINE 0.2 E.U/dL (0.2-1.0)
[2019-07-17 09:42] LABS: HEMOGLOBIN A1C 7.3 % (4.5-6.2)
[2019-07-17 09:53] LABS: UA COLLECTION TYPE CLN CATCH MIDSTREAM
[2019-07-17 09:54] LABS: BACTERIA,URINE FEW /HPF (Neg); MUCUS STRANDS FEW /LPF (Neg); RBC,URINE 0-2 /HPF (0-2); SQUAMOUS EPITHELIAL CELL,UR FEW /LPF (FEW); WBC,URINE 0-4 /HPF (0-4)
[2019-07-17 10:02] LABS: ANION GAP 9 (8-16); CHLORIDE 106 MMOL/L (99-107); CHOL/HDL RATIO 5.2 (0.00-4.99); CHOLESTEROL 141 MG/DL (0-200); HDL CHOLESTEROL 27 MG/DL (35-60); LDL CHOLESTEROL 90 MG/DL (50-100); POTASSIUM 4.3 MMOL/L (3.5-5.1); SODIUM 141 MMOL/L (135-145); TOTAL CARBON DIOXIDE 26.3 MMOL/L (24-32); TRIGLYCERIDES 215 MG/DL (20-135)
== END 2019-07-17 23:59 | disposition home or self-care (01) ==
LOC: LAB 08:36
PROVIDERS: ATTEND Internal Medicine
DX: E11.21 Type 2 diabetes mellitus with diabetic nephropathy (principal); I11.0 Hypertensive heart disease with heart failure; I50.9 Heart failure, unspecified; I48.91 Unspecified atrial fibrillation; M10.9 Gout, unspecified; N42.9 Disorder of prostate, unspecified; F02.80 Dementia in other diseases classified elsewhere, unspecified severity, without behavioral disturbance, psychotic disturbance, mood disturbance, and anxiety
CPT/HCPCS: 36415; 80051; 80061; 81001; 83036; 84153; 84550; 85025

== ENCOUNTER 2019-07-18 13:57 | Outpatient (CLI) | payer OTHER, MEDICARE ==
[~2019-07-18] VITALS: Ht 177.8 cm; Wt 102.1 kg
[2019-07-18] MEDS ORDERED: albuterol 2.5 MG/3 ML nebule ONE (14:53)
== END 2019-07-18 23:59 | disposition home or self-care (01) ==
LOC: RT 13:57
PROVIDERS: ATTEND Internal Medicine Critical Care Medicine
DX: J84.10 Pulmonary fibrosis, unspecified (principal); J98.4 Other disorders of lung; I48.91 Unspecified atrial fibrillation; I13.0 Hypertensive heart and chronic kidney disease with heart failure and stage 1 through stage 4 chronic kidney disease, or unspecified chronic kidney disease; E11.22 Type 2 diabetes mellitus with diabetic chronic kidney disease; N18.3 Chronic kidney disease, stage 3 (moderate); I50.9 Heart failure, unspecified; M10.9 Gout, unspecified
CPT/HCPCS: 94060; 94727; 94729; 94760

== ENCOUNTER 2019-08-22 08:53 | Outpatient (CLI) | payer OTHER ==
[2019-08-22 10:11] LABS: ALBUMIN 3.8 G/DL (3.4-5.0); ANION GAP 10 (8-16); BLOOD UREA NITROGEN 31 MG/DL (7-18); BUN/CREATININE RATIO 15.7 (5.4-32.0); CHLORIDE 106 MMOL/L (99-107); CREATININE 1.97 MG/DL (0.60-1.10); GLUCOSE 195 MG/DL (70-104); POTASSIUM 4.3 MMOL/L (3.5-5.1); SODIUM 143 MMOL/L (135-145); TOTAL CARBON DIOXIDE 26.8 MMOL/L (24-32); eGFR 33 ML/MIN
== END 2019-08-22 23:59 | disposition home or self-care (01) ==
LOC: LAB 08:53
PROVIDERS: ATTEND Physician Assistant Medical
DX: I11.0 Hypertensive heart disease with heart failure (principal); I50.40 Unspecified combined systolic (congestive) and diastolic (congestive) heart failure; E11.9 Type 2 diabetes mellitus without complications
CPT/HCPCS: 36415; 80048; 83880

== ENCOUNTER 2019-10-02 10:02 | Emergency (ER) | payer OTHER ==
[~2019-10-02] VITALS: Ht 177.8 cm; Wt 109.1 kg
--- NOTE | 2019-10-02 12:04 | NUR ---
Assumed care of patient. Patient ambulated to room from lobby with steady gait. Family at bedside. Patient don gown, given warm blanket and placed on quality assurance monitor body.
[2019-10-02 12:09] LABS: BASOPHILS % (AUTO) 0.3 % (0-1); EOSINOPHILS # (AUTO) 0.2 X10'3 (0-0.9); EOSINOPHILS % (AUTO) 2.1 % (0-6); HEMATOCRIT 34.8 % (42.0-52.0); HEMOGLOBIN 11.9 g/dl (14.0-17.9); LYMPHOCYTES # (AUTO) 0.9 X10'3 (1.1-4.8); MEAN CORPUSCULAR HEMOGLOBIN 32.2 PG (27.0-31.0); MEAN CORPUSCULAR HGB CONC 34.1 g/dL (33.0-36.5); MEAN CORPUSCULAR VOLUME 94.4 FL (78-98); MEAN PLATELET VOLUME 9.6 FL (7.4-10.4); MONOCYTES # (AUTO) 1.2 X10'3 (0-0.9); MONOCYTES % (AUTO) 14.5 % (2-12); NEUTROPHILS # (AUTO) 6.2 X10'3 (1.8-7.7); NEUTROPHILS % (AUTO) 72.1 % (42-75); PLATELET COUNT 238 X10'3 (140-440); RED BLOOD COUNT 3.68 X10'6 (4.70-6.10); RED CELL DISTRIBUTION WIDTH 13.8 % (11.5-14.5); WHITE BLOOD COUNT 8.6 X10'3 (4.5-11.0)
[2019-10-02] MEDS ORDERED: ACET1TAB12 PO (12:18)
[2019-10-02] MEDS ORDERED: AZIT-63 PO (12:18)
[2019-10-02 12:19] VITALS: BP 134/105
[2019-10-02 12:24] LABS: ALANINE AMINOTRANSFERASE 27 U/L (12-78); ALBUMIN 3.5 G/DL (3.4-5.0); ALBUMIN/GLOBULIN RATIO 0.9 (1.1-1.5); ALKALINE PHOSPHATASE 53 IU/L (46-116); ANION GAP 9 (8-16); ASPARTATE AMINO TRANSFERASE 23 U/L (10-37); BILIRUBIN,TOTAL 0.7 MG/DL (0.1-1.0); BLOOD UREA NITROGEN 34 MG/DL (7-18); BUN/CREATININE RATIO 15.7 (5.4-32.0); CALCIUM 9.3 MG/DL (8.5-10.1); CHLORIDE 102 MMOL/L (99-107); CREATININE 2.17 MG/DL (0.60-1.10); GLUCOSE 154 MG/DL (70-104); SODIUM 140 MMOL/L (135-145); TOTAL PROTEIN 7.4 G/DL (6.4-8.2); eGFR 30 ML/MIN
== END 2019-10-02 12:26 | disposition home or self-care (01) ==
LOC: ER 10:03
DX: J40 Bronchitis, not specified as acute or chronic (principal); I48.91 Unspecified atrial fibrillation; I25.10 Atherosclerotic heart disease of native coronary artery without angina pectoris; I10 Essential (primary) hypertension; I25.2 Old myocardial infarction; E11.9 Type 2 diabetes mellitus without complications; Z90.49 Acquired absence of other specified parts of digestive tract; Z95.1 Presence of aortocoronary bypass graft; Z98.890 Other specified postprocedural states; Z79.82 Long term (current) use of aspirin; Z79.899 Other long term (current) drug therapy; Z79.2 Long term (current) use of antibiotics; Z79.4 Long term (current) use of insulin
CPT/HCPCS: 36415; 71046; 80053; 83605; 84484; 85025; 87040; 93005; 99284

== ENCOUNTER 2019-10-17 08:03 | Outpatient (CLI) | payer OTHER, MEDICARE ==
[2019-10-17] VITALS (7 sets, daily range): BP systolic 115–145; BP diastolic 70–114
[~2019-10-17] VITALS: Ht 177.8 cm; Wt 106.8 kg
[~2019-10-17 08:03] MED LIST changes: +ACET1TAB12 PO; +AZIT-63 PO; -GLIM4TAB4 PO; +GLIM4TAB7 PO
[2019-10-17] MEDS ORDERED: nitroGLYCERIN 0.4mg SUBLingual tab SL PRN (08:40)
[2019-10-17] MEDS ORDERED: aminophylline 250mg/10ml inj. IV PRN (08:40)
[2019-10-17] MEDS ORDERED: regadenoson 0.4mg/5ml syringe IV ONE (08:40)
[2019-10-17] MEDS ORDERED: normal saline 500ml IV soln 500 ML IV ONE (08:40)
--- NOTE | 2019-10-17 09:37 | NUR ---
BLOOD GLUCOSE ASSESSMENT 198 Addendum: 10/17/19 at 0938 by Odessa Eric RN Amended: Links added.
== END 2019-10-17 23:59 | disposition home or self-care (01) ==
LOC: RAD 08:03
PROVIDERS: ATTEND Internal Medicine Cardiovascular Disease
DX: I25.10 Atherosclerotic heart disease of native coronary artery without angina pectoris (principal); Z95.1 Presence of aortocoronary bypass graft
CPT/HCPCS: 78452; 82948; 93017; A9500; J2785; J7040

== ENCOUNTER 2019-10-29 07:59 | Outpatient (CLI) | payer OTHER, MEDICARE ==
[~2019-10-29 07:59] MED LIST changes: -AZIT-63 PO
[2019-10-29 08:30] LABS: CLARITY,URINE CLEAR (Clear); COLOR,URINE YELLOW (Yellow); GLUCOSE, URINE NEGATIVE (Neg); KETONES,URINE NEGATIVE (Neg); LEUKOCYTE ESTERASE ,URINE NEGATIVE (Neg); NITRITES, URINE NEGATIVE (Neg); OCCULT BLOOD,URINE NEGATIVE (Neg); PH,URINE 6.5 (4.8-8.0); PROTEIN,URINE NEGATIVE (Neg); UROBILINOGEN,URINE 0.2 E.U/dL (0.2-1.0)
[2019-10-29 08:30] LABS: BASOPHILS % (AUTO) 0.6 % (0-1); EOSINOPHILS # (AUTO) 0.2 X10'3 (0-0.9); EOSINOPHILS % (AUTO) 3.9 % (0-6); HEMATOCRIT 41.2 % (42.0-52.0); LYMPHOCYTES # (AUTO) 1.6 X10'3 (1.1-4.8); LYMPHOCYTES % (AUTO) 26.8 % (21-51); MEAN CORPUSCULAR HEMOGLOBIN 31.7 PG (27.0-31.0); MEAN CORPUSCULAR HGB CONC 33.9 g/dL (33.0-36.5); MEAN CORPUSCULAR VOLUME 93.5 FL (78-98); MEAN PLATELET VOLUME 8.4 FL (7.4-10.4); MONOCYTES # (AUTO) 0.7 X10'3 (0-0.9); MONOCYTES % (AUTO) 12.2 % (2-12); NEUTROPHILS # (AUTO) 3.4 X10'3 (1.8-7.7); NEUTROPHILS % (AUTO) 56.5 % (42-75); PLATELET COUNT 278 X10'3 (140-440); RED BLOOD COUNT 4.41 X10'6 (4.70-6.10); RED CELL DISTRIBUTION WIDTH 14.4 % (11.5-14.5); WHITE BLOOD COUNT 5.9 X10'3 (4.5-11.0)
[2019-10-29 08:33] LABS: UA COLLECTION TYPE CLN CATCH MIDSTREAM
[2019-10-29 09:02] LABS: ALANINE AMINOTRANSFERASE 26 U/L (12-78); ALBUMIN 3.8 G/DL (3.4-5.0); ALBUMIN/GLOBULIN RATIO 1.1 (1.1-1.5); ALKALINE PHOSPHATASE 53 IU/L (46-116); ANION GAP 6 (8-16); ASPARTATE AMINO TRANSFERASE 25 U/L (10-37); BILIRUBIN,TOTAL 0.5 MG/DL (0.1-1.0); BLOOD UREA NITROGEN 33 MG/DL (7-18); BUN/CREATININE RATIO 17.9 (5.4-32.0); CHLORIDE 106 MMOL/L (99-107); CHOL/HDL RATIO 5.2 (0.00-4.99); CHOLESTEROL 152 MG/DL (0-200); CREATININE 1.84 MG/DL (0.60-1.10); GLUCOSE 115 MG/DL (70-104); HDL CHOLESTEROL 29 MG/DL (35-60); LDL CHOLESTEROL 97 MG/DL (50-100); SODIUM 140 MMOL/L (135-145); TOTAL CARBON DIOXIDE 28.1 MMOL/L (24-32); TOTAL PROTEIN 7.3 G/DL (6.4-8.2); TRIGLYCERIDES 175 MG/DL (20-135); eGFR 36 ML/MIN
[2019-10-30 13:54] LABS: C-PEPTIDE, SERUM 4.4 ng/mL (1.1-4.4); INSULIN 4.7 uIU/mL (2.6-24.9)
== END 2019-10-29 23:59 | disposition home or self-care (01) ==
LOC: LAB 07:59
PROVIDERS: ATTEND Internal Medicine
DX: E11.65 Type 2 diabetes mellitus with hyperglycemia (principal); E78.5 Hyperlipidemia, unspecified; I10 Essential (primary) hypertension
CPT/HCPCS: 36415; 80053; 80061; 81003; 83525; 84681; 85025

== ENCOUNTER 2019-11-13 10:24 | Outpatient (CLI) | payer OTHER, MEDICARE ==
[2019-11-13 12:05] LABS: BASOPHILS % (AUTO) 0.7 % (0-1); EOSINOPHILS # (AUTO) 0.2 X10'3 (0-0.9); HEMOGLOBIN 14.3 g/dl (14.0-17.9); MEAN CORPUSCULAR VOLUME 92.6 FL (78-98)
[2019-11-13 12:06] LABS: HEMATOCRIT 41.6 % (42.0-52.0); LYMPHOCYTES % (AUTO) 33.1 % (21-51); MEAN CORPUSCULAR HEMOGLOBIN 31.9 PG (27.0-31.0); MEAN CORPUSCULAR HGB CONC 34.4 g/dL (33.0-36.5); MEAN PLATELET VOLUME 9.6 FL (7.4-10.4); MONOCYTES # (AUTO) 0.7 X10'3 (0-0.9); MONOCYTES % (AUTO) 10.8 % (2-12); NEUTROPHILS # (AUTO) 3.2 X10'3 (1.8-7.7); NEUTROPHILS % (AUTO) 52.4 % (42-75); RED BLOOD COUNT 4.49 X10'6 (4.70-6.10); RED CELL DISTRIBUTION WIDTH 14.3 % (11.5-14.5); WHITE BLOOD COUNT 6.1 X10'3 (4.5-11.0)
[2019-11-13 12:10] LABS: TOTAL PROTEIN,URINE RANDOM 34.3 MG/DL; UA PROTEIN/CREATININE RATIO 0.28 mg/mg Cr (0-0.16)
[2019-11-13 12:13] LABS: % IRON SATURATION 37 % (11-46); IRON 133 UG/DL (53-167); TOTAL IRON BINDING CAPACITY 361 UG/DL (259-388)
[2019-11-13 12:15] LABS: CLARITY,URINE CLEAR (Clear); COLOR,URINE YELLOW (Yellow); GLUCOSE, URINE NEGATIVE (Neg); KETONES,URINE NEGATIVE (Neg); LEUKOCYTE ESTERASE ,URINE NEGATIVE (Neg); NITRITES, URINE NEGATIVE (Neg); OCCULT BLOOD,URINE NEGATIVE (Neg); PROTEIN,URINE TRACE mg/dl (Neg); UROBILINOGEN,URINE 0.2 E.U/dL (0.2-1.0)
[2019-11-13 12:20] LABS: UA COLLECTION TYPE VOIDED
[2019-11-13 12:25] LABS: ALBUMIN 4.3 G/DL (3.4-5.0); ANION GAP 9 (8-16); BLOOD UREA NITROGEN 42 MG/DL (7-18); BUN/CREATININE RATIO 24.4 (5.4-32.0); CALCIUM 9.5 MG/DL (8.5-10.1); CHLORIDE 105 MMOL/L (99-107); CREATININE 1.72 MG/DL (0.60-1.10); FERRITIN 108 NG/ML (26-388); GLUCOSE 168 MG/DL (70-104); MAGNESIUM 1.8 MG/DL (1.5-2.4); PHOSPHORUS 3.3 MG/DL (2.3-4.5); POTASSIUM 4.6 MMOL/L (3.5-5.1); SODIUM 141 MMOL/L (135-145); TOTAL CARBON DIOXIDE 27.5 MMOL/L (24-32); eGFR 39 ML/MIN
[2019-11-13 12:44] LABS: PLATELET COUNT 255 X10'3 (140-440)
[2019-11-13 13:12] LABS: BACTERIA,URINE NONE SEEN /HPF (Neg); MUCUS STRANDS NONE SEEN /LPF (Neg); RBC,URINE NONE SEEN /HPF (0-2); SQUAMOUS EPITHELIAL CELL,UR FEW /LPF (FEW); WBC,URINE 0-4 /HPF (0-4)
== END 2019-11-13 23:59 | disposition home or self-care (01) ==
LOC: LAB 10:24
PROVIDERS: ATTEND Internal Medicine Critical Care Medicine
DX: N18.4 Chronic kidney disease, stage 4 (severe) (principal); E55.9 Vitamin D deficiency, unspecified; D63.1 Anemia in chronic kidney disease; R94.4 Abnormal results of kidney function studies; D50.8 Other iron deficiency anemias; R80.9 Proteinuria, unspecified
CPT/HCPCS: 36415; 80069; 81001; 82306; 82570; 82728; 83540; 83550; 83735; 84156; 85025; 87088

== ENCOUNTER 2019-12-25 10:52 | Outpatient (CLI) | payer OTHER, MEDICARE ==
[~2019-12-25 10:52] MED LIST changes: +MELA3TAB39 PO; -MELA3TAB64 PO
[2019-12-25 11:29] LABS: CLARITY,URINE CLEAR (Clear); COLOR,URINE YELLOW (Yellow); GLUCOSE, URINE 100 mg/dl (Neg); KETONES,URINE NEGATIVE (Neg); LEUKOCYTE ESTERASE ,URINE NEGATIVE (Neg); NITRITES, URINE NEGATIVE (Neg); OCCULT BLOOD,URINE NEGATIVE (Neg); PROTEIN,URINE NEGATIVE (Neg); UROBILINOGEN,URINE 0.2 E.U/dL (0.2-1.0)
[2019-12-25 11:30] LABS: BASOPHILS % (AUTO) 0.6 % (0-1); EOSINOPHILS # (AUTO) 0.2 X10'3 (0-0.9); EOSINOPHILS % (AUTO) 2.4 % (0-6); HEMATOCRIT 43.3 % (42.0-52.0); LYMPHOCYTES # (AUTO) 1.9 X10'3 (1.1-4.8); LYMPHOCYTES % (AUTO) 30.3 % (21-51); MEAN CORPUSCULAR HEMOGLOBIN 31.5 PG (27.0-31.0); MEAN CORPUSCULAR HGB CONC 34.5 g/dL (33.0-36.5); MEAN CORPUSCULAR VOLUME 91.3 FL (78-98); MEAN PLATELET VOLUME 9.3 FL (7.4-10.4); MONOCYTES # (AUTO) 0.8 X10'3 (0-0.9); MONOCYTES % (AUTO) 12.5 % (2-12); NEUTROPHILS # (AUTO) 3.5 X10'3 (1.8-7.7); NEUTROPHILS % (AUTO) 54.2 % (42-75); PLATELET COUNT 263 X10'3 (140-440); RED BLOOD COUNT 4.75 X10'6 (4.70-6.10); WHITE BLOOD COUNT 6.4 X10'3 (4.5-11.0)
[2019-12-25 11:33] LABS: UA COLLECTION TYPE VOIDED
[2019-12-25 12:15] LABS: HEMOGLOBIN A1C 10.3 % (4.5-6.2)
[2019-12-25 12:21] LABS: ALANINE AMINOTRANSFERASE 40 U/L (12-78); ALBUMIN 4.2 G/DL (3.4-5.0); ALBUMIN/GLOBULIN RATIO 1.1 (1.1-1.5); ALKALINE PHOSPHATASE 55 IU/L (46-116); ANION GAP 9 (8-16); ASPARTATE AMINO TRANSFERASE 36 U/L (10-37); BILIRUBIN,TOTAL 0.7 MG/DL (0.1-1.0); BLOOD UREA NITROGEN 40 MG/DL (7-18); BUN/CREATININE RATIO 19.7 (5.4-32.0); CALCIUM 9.8 MG/DL (8.5-10.1); CHLORIDE 102 MMOL/L (99-107); CHOL/HDL RATIO 6.8 (0.00-4.99); CHOLESTEROL 189 MG/DL (0-200); CREATININE 2.03 MG/DL (0.60-1.10); GLUCOSE 229 MG/DL (70-104); HDL CHOLESTEROL 28 MG/DL (35-60); LDL CHOLESTEROL 119 MG/DL (50-100); SODIUM 139 MMOL/L (135-145); TOTAL CARBON DIOXIDE 28.2 MMOL/L (24-32); TOTAL PROTEIN 7.9 G/DL (6.4-8.2); TRIGLYCERIDES 258 MG/DL (20-135); eGFR 32 ML/MIN
[2019-12-27 05:14] LABS: C-PEPTIDE, SERUM 4.6 ng/mL (1.1-4.4)
== END 2019-12-25 23:59 | disposition home or self-care (01) ==
LOC: LAB 10:52
PROVIDERS: ATTEND Internal Medicine
DX: E03.9 Hypothyroidism, unspecified (principal); N42.9 Disorder of prostate, unspecified; N39.0 Urinary tract infection, site not specified; I10 Essential (primary) hypertension; E78.5 Hyperlipidemia, unspecified; E11.21 Type 2 diabetes mellitus with diabetic nephropathy
CPT/HCPCS: 36415; 80053; 80061; 81003; 83036; 84153; 84402; 84403; 84439; 84443; 84681; 85025

== ENCOUNTER 2020-03-10 08:35 | Outpatient (CLI) | payer OTHER, MEDICARE ==
[~2020-03-10 08:35] MED LIST changes: +MULT-620 PO; -MULT1TAB74 PO
[2020-03-10 09:38] LABS: CLARITY,URINE CLEAR (Clear); COLOR,URINE YELLOW (Yellow); GLUCOSE, URINE NEGATIVE (Neg); KETONES,URINE NEGATIVE (Neg); LEUKOCYTE ESTERASE ,URINE NEGATIVE (Neg); NITRITES, URINE NEGATIVE (Neg); OCCULT BLOOD,URINE NEGATIVE (Neg); PROTEIN,URINE NEGATIVE (Neg); UROBILINOGEN,URINE 0.2 E.U/dL (0.2-1.0)
[2020-03-10 09:39] LABS: UA COLLECTION TYPE VOIDED
[2020-03-10 09:52] LABS: BASOPHILS % (AUTO) 0.6 % (0-1); EOSINOPHILS # (AUTO) 0.2 X10'3 (0-0.9); EOSINOPHILS % (AUTO) 3.4 % (0-6); HEMATOCRIT 43.5 % (42.0-52.0); HEMOGLOBIN 14.5 g/dl (14.0-17.9); LYMPHOCYTES # (AUTO) 1.5 X10'3 (1.1-4.8); LYMPHOCYTES % (AUTO) 23.1 % (21-51); MEAN CORPUSCULAR HEMOGLOBIN 30.6 PG (27.0-31.0); MEAN CORPUSCULAR HGB CONC 33.3 g/dL (33.0-36.5); MEAN PLATELET VOLUME 9.5 FL (7.4-10.4); MONOCYTES # (AUTO) 0.8 X10'3 (0-0.9); MONOCYTES % (AUTO) 12.4 % (2-12); NEUTROPHILS # (AUTO) 3.9 X10'3 (1.8-7.7); NEUTROPHILS % (AUTO) 60.5 % (42-75); PLATELET COUNT 242 X10'3 (140-440); RED BLOOD COUNT 4.73 X10'6 (4.70-6.10); RED CELL DISTRIBUTION WIDTH 14.2 % (11.5-14.5); WHITE BLOOD COUNT 6.4 X10'3 (4.5-11.0)
[2020-03-10 10:06] LABS: ALANINE AMINOTRANSFERASE 26 U/L (12-78); ALBUMIN/GLOBULIN RATIO 1.2 (1.1-1.5); ALKALINE PHOSPHATASE 56 IU/L (46-116); ANION GAP 8 (8-16); ASPARTATE AMINO TRANSFERASE 23 U/L (10-37); BILIRUBIN,TOTAL 0.7 MG/DL (0.1-1.0); BLOOD UREA NITROGEN 45 MG/DL (7-18); BUN/CREATININE RATIO 20.9 (5.4-32.0); CALCIUM 9.2 MG/DL (8.5-10.1); CHLORIDE 103 MMOL/L (99-107); CHOL/HDL RATIO 5.9 (0.00-4.99); CHOLESTEROL 164 MG/DL (0-200); CREATININE 2.15 MG/DL (0.60-1.10); GLUCOSE 201 MG/DL (70-104); HDL CHOLESTEROL 28 MG/DL (35-60); LDL CHOLESTEROL 110 MG/DL (50-100); POTASSIUM 4.5 MMOL/L (3.5-5.1); SODIUM 141 MMOL/L (135-145); TOTAL CARBON DIOXIDE 29.6 MMOL/L (24-32); TOTAL PROTEIN 7.4 G/DL (6.4-8.2); TRIGLYCERIDES 145 MG/DL (20-135); eGFR 30 ML/MIN
[2020-03-10 10:21] LABS: HEMOGLOBIN A1C 9.5 % (4.5-6.2)
== END 2020-03-10 23:59 | disposition home or self-care (01) ==
LOC: LAB 08:35
PROVIDERS: ATTEND Internal Medicine
DX: E11.8 Type 2 diabetes mellitus with unspecified complications (principal); I10 Essential (primary) hypertension; N39.0 Urinary tract infection, site not specified; E78.5 Hyperlipidemia, unspecified
CPT/HCPCS: 36415; 80053; 80061; 81003; 83036; 85025

== ENCOUNTER 2020-04-30 08:39 | Outpatient (CLI) | payer BC, MEDICARE ==
[2020-04-30 09:31] LABS: CLARITY,URINE CLEAR (Clear); COLOR,URINE STRAW (Yellow); GLUCOSE, URINE NEGATIVE (Neg); KETONES,URINE NEGATIVE (Neg); LEUKOCYTE ESTERASE ,URINE NEGATIVE (Neg); NITRITES, URINE NEGATIVE (Neg); OCCULT BLOOD,URINE NEGATIVE (Neg); PROTEIN,URINE NEGATIVE (Neg); UROBILINOGEN,URINE 0.2 E.U/dL (0.2-1.0)
[2020-04-30 09:33] LABS: TOTAL PROTEIN,URINE RANDOM 7.4 MG/DL; UA PROTEIN/CREATININE RATIO 0.24 mg/mg Cr (0-0.16)
[2020-04-30 09:35] LABS: BASOPHILS % (AUTO) 0.8 % (0-1); EOSINOPHILS # (AUTO) 0.1 X10'3 (0-0.9); EOSINOPHILS % (AUTO) 2.7 % (0-6); HEMATOCRIT 41.5 % (42.0-52.0); HEMOGLOBIN 13.8 g/dl (14.0-17.9); LYMPHOCYTES # (AUTO) 1.6 X10'3 (1.1-4.8); LYMPHOCYTES % (AUTO) 30.9 % (21-51); MEAN CORPUSCULAR HEMOGLOBIN 30.6 PG (27.0-31.0); MEAN CORPUSCULAR HGB CONC 33.4 g/dL (33.0-36.5); MEAN CORPUSCULAR VOLUME 91.6 FL (78-98); MEAN PLATELET VOLUME 9.3 FL (7.4-10.4); MONOCYTES # (AUTO) 0.7 X10'3 (0-0.9); MONOCYTES % (AUTO) 13.9 % (2-12); NEUTROPHILS # (AUTO) 2.7 X10'3 (1.8-7.7); NEUTROPHILS % (AUTO) 51.7 % (42-75); PLATELET COUNT 248 X10'3 (140-440); RED BLOOD COUNT 4.53 X10'6 (4.70-6.10); RED CELL DISTRIBUTION WIDTH 15.1 % (11.5-14.5); WHITE BLOOD COUNT 5.2 X10'3 (4.5-11.0)
[2020-04-30 09:45] LABS: UA COLLECTION TYPE VOIDED
[2020-04-30 09:46] LABS: % IRON SATURATION 28 % (11-46); IRON 104 UG/DL (53-167); TOTAL IRON BINDING CAPACITY 369 UG/DL (259-388)
[2020-04-30 10:03] LABS: ANION GAP 7 (8-16); BLOOD UREA NITROGEN 31 MG/DL (7-18); BUN/CREATININE RATIO 16.8 (5.4-32.0); CALCIUM 9.3 MG/DL (8.5-10.1); CHLORIDE 107 MMOL/L (99-107); CREATININE 1.85 MG/DL (0.60-1.10); GLUCOSE 63 MG/DL (70-104); MAGNESIUM 1.8 MG/DL (1.5-2.4); PHOSPHORUS 2.9 MG/DL (2.3-4.5); POTASSIUM 4.2 MMOL/L (3.5-5.1); SODIUM 141 MMOL/L (135-145); TOTAL CARBON DIOXIDE 26.7 MMOL/L (24-32); eGFR 36 ML/MIN
[2020-04-30 10:16] LABS: FERRITIN 87 NG/ML (26-388)
== END 2020-04-30 23:59 | disposition home or self-care (01) ==
LOC: LAB 08:39
PROVIDERS: ATTEND Internal Medicine Critical Care Medicine
DX: E11.22 Type 2 diabetes mellitus with diabetic chronic kidney disease (principal); N18.4 Chronic kidney disease, stage 4 (severe); D50.8 Other iron deficiency anemias; E55.9 Vitamin D deficiency, unspecified; R80.9 Proteinuria, unspecified; R82.79 Other abnormal findings on microbiological examination of urine; N39.0 Urinary tract infection, site not specified; E11.29 Type 2 diabetes mellitus with other diabetic kidney complication; R94.4 Abnormal results of kidney function studies
CPT/HCPCS: 36415; 80069; 81003; 82306; 82570; 82728; 83540; 83550; 83735; 83970; 84156; 85025

== ENCOUNTER 2020-05-19 10:22 | Outpatient (CLI) | payer BC, MEDICARE | END 2020-05-19 23:59 | disposition home or self-care (01) | LOC: CARD DIAG 10:22 | PROVIDERS: ATTEND Internal Medicine Cardiovascular Disease | DX: I08.0 Rheumatic disorders of both mitral and aortic valves (principal); I50.9 Heart failure, unspecified | CPT/HCPCS: 93306 ==

== ENCOUNTER 2020-05-19 10:40 | Outpatient (CLI) | payer BC, MEDICARE ==
[2020-05-19 11:31] LABS: BASOPHILS % (AUTO) 0.6 % (0-1); EOSINOPHILS # (AUTO) 0.2 X10'3 (0-0.9); EOSINOPHILS % (AUTO) 2.4 % (0-6); HEMATOCRIT 43.3 % (42.0-52.0); HEMOGLOBIN 14.6 g/dl (14.0-17.9); LYMPHOCYTES # (AUTO) 1.7 X10'3 (1.1-4.8); LYMPHOCYTES % (AUTO) 25.7 % (21-51); MEAN CORPUSCULAR HGB CONC 33.7 g/dL (33.0-36.5); MEAN CORPUSCULAR VOLUME 92.1 FL (78-98); MEAN PLATELET VOLUME 9.4 FL (7.4-10.4); MONOCYTES # (AUTO) 0.9 X10'3 (0-0.9); MONOCYTES % (AUTO) 12.6 % (2-12); NEUTROPHILS % (AUTO) 58.7 % (42-75); PLATELET COUNT 265 X10'3 (140-440); RED CELL DISTRIBUTION WIDTH 15.5 % (11.5-14.5); WHITE BLOOD COUNT 6.8 X10'3 (4.5-11.0)
[2020-05-19 11:31] LABS: CLARITY,URINE CLEAR (Clear); COLOR,URINE YELLOW (Yellow); GLUCOSE, URINE NEGATIVE (Neg); KETONES,URINE NEGATIVE (Neg); LEUKOCYTE ESTERASE ,URINE NEGATIVE (Neg); NITRITES, URINE NEGATIVE (Neg); OCCULT BLOOD,URINE NEGATIVE (Neg); PROTEIN,URINE NEGATIVE (Neg); UROBILINOGEN,URINE 0.2 E.U/dL (0.2-1.0)
[2020-05-19 11:32] LABS: UA COLLECTION TYPE CLN CATCH MIDSTREAM
[2020-05-19 11:33] LABS: HEMOGLOBIN A1C 9.2 % (4.5-6.2)
[2020-05-19 11:42] LABS: ALANINE AMINOTRANSFERASE 33 U/L (12-78); ALBUMIN/GLOBULIN RATIO 1.1 (1.1-1.5); ALKALINE PHOSPHATASE 44 IU/L (46-116); ANION GAP 8 (8-16); ASPARTATE AMINO TRANSFERASE 29 U/L (10-37); BILIRUBIN,TOTAL 0.6 MG/DL (0.1-1.0); BLOOD UREA NITROGEN 36 MG/DL (7-18); BUN/CREATININE RATIO 18.3 (5.4-32.0); CALCIUM 9.2 MG/DL (8.5-10.1); CHLORIDE 104 MMOL/L (99-107); CHOL/HDL RATIO 6.3 (0.00-4.99); CHOLESTEROL 188 MG/DL (0-200); CREATININE 1.97 MG/DL (0.60-1.10); GLUCOSE 65 MG/DL (70-104); HDL CHOLESTEROL 30 MG/DL (35-60); LDL CHOLESTEROL 135 MG/DL (50-100); POTASSIUM 3.8 MMOL/L (3.5-5.1); SODIUM 140 MMOL/L (135-145); TOTAL CARBON DIOXIDE 27.7 MMOL/L (24-32); TOTAL PROTEIN 7.6 G/DL (6.4-8.2); TRIGLYCERIDES 150 MG/DL (20-135); eGFR 33 ML/MIN
[2020-05-20 16:30] LABS: C-PEPTIDE, SERUM 1.2 ng/mL (1.1-4.4)
== END 2020-05-19 23:59 | disposition home or self-care (01) ==
LOC: LAB 10:40
PROVIDERS: ATTEND Internal Medicine
DX: I10 Essential (primary) hypertension (principal); E78.5 Hyperlipidemia, unspecified; E11.65 Type 2 diabetes mellitus with hyperglycemia; E11.21 Type 2 diabetes mellitus with diabetic nephropathy; E11.8 Type 2 diabetes mellitus with unspecified complications
CPT/HCPCS: 36415; 80053; 80061; 81003; 82043; 83036; 84681; 85025

== ENCOUNTER 2020-05-27 11:58 | Outpatient (CLI) | payer BC | END 2020-05-27 23:59 | disposition home or self-care (01) | LOC: RAD 11:58 | PROVIDERS: ATTEND Internal Medicine | DX: M19.011 Primary osteoarthritis, right shoulder (principal) | CPT/HCPCS: 73030 ==

== ENCOUNTER 2020-06-11 05:44 | Day surgery (SDC) | payer BC ==
[2020-06-10 11:31] LABS: BASOPHILS % (AUTO) 0.6 % (0-1); EOSINOPHILS # (AUTO) 0.1 X10'3 (0-0.9); EOSINOPHILS % (AUTO) 1.4 % (0-6); HEMOGLOBIN 13.8 g/dl (14.0-17.9); LYMPHOCYTES # (AUTO) 1.4 X10'3 (1.1-4.8); LYMPHOCYTES % (AUTO) 18.1 % (21-51); MEAN CORPUSCULAR HEMOGLOBIN 31.3 PG (27.0-31.0); MEAN CORPUSCULAR HGB CONC 33.6 g/dL (33.0-36.5); MEAN CORPUSCULAR VOLUME 93.2 FL (78-98); MEAN PLATELET VOLUME 9.6 FL (7.4-10.4); MONOCYTES # (AUTO) 0.7 X10'3 (0-0.9); MONOCYTES % (AUTO) 8.8 % (2-12); NEUTROPHILS # (AUTO) 5.7 X10'3 (1.8-7.7); NEUTROPHILS % (AUTO) 71.1 % (42-75); PLATELET COUNT 243 X10'3 (140-440); RED CELL DISTRIBUTION WIDTH 14.7 % (11.5-14.5)
[2020-06-10 11:46] LABS: PARTIAL THROMBOPLASTIN TIME 29 SECONDS (22-32)
[2020-06-10 11:47] LABS: ALBUMIN 4.1 G/DL (3.4-5.0); ANION GAP 9 (8-16); BLOOD UREA NITROGEN 39 MG/DL (7-18); BUN/CREATININE RATIO 18.8 (5.4-32.0); CALCIUM 9.2 MG/DL (8.5-10.1); CHLORIDE 104 MMOL/L (99-107); CREATININE 2.08 MG/DL (0.60-1.10); GLUCOSE 81 MG/DL (70-104); POTASSIUM 4.4 MMOL/L (3.5-5.1); SODIUM 140 MMOL/L (135-145); TOTAL CARBON DIOXIDE 27.4 MMOL/L (24-32); eGFR 31 ML/MIN
[2020-06-11] VITALS (14 sets, daily range): BP systolic 119–168; BP diastolic 51–84
[~2020-06-11] VITALS: Ht 177.8 cm; Wt 111.6 kg
[2020-06-11] MEDS ORDERED: LORazepam 0.5 MG tablet PO PRN (06:05)
[2020-06-11] MEDS ORDERED: normal saline 1,000 ML IV SCH (06:05)
[2020-06-11] MEDS ORDERED: diphenhydrAMINE 25mg capsule PO PRN (06:05)
[2020-06-11] MEDS ORDERED: sodium bicarbonate (8.4%) inj. 150 ML in dextrose 5%-water 1,000 ML IV ONE (06:35)
[2020-06-11] MEDS ORDERED: HUM7525 SQ (06:50)
[2020-06-11] MEDS ORDERED: RIVA15TA PO (06:50)
[2020-06-11] MEDS ORDERED: ASPI-1265 PO (06:50)
[2020-06-11] MEDS ORDERED: CARV12.5 PO (06:50)
[2020-06-11] MEDS ORDERED: INSU100I25 SQ (06:50)
[2020-06-11] MEDS ORDERED: CLOP75TA15 PO (06:50)
[2020-06-11] MEDS ORDERED: EPLE25TA4 PO (06:55)
[2020-06-11] MEDS ORDERED: SACU1TAB PO (06:55)
[2020-06-11] MEDS ORDERED: CHOL20004 PO (06:55)
[2020-06-11] MEDS ORDERED: acetylcysteine 200 MG/ml 4ml vial PO SCH ×2 (07:05→10:45)
[2020-06-11] MEDS ORDERED: fentaNYL/PF 50MCG/1 ML 2ML syringe ONE (07:33)
[2020-06-11] MEDS ORDERED: LIDOcaine 1% (10mg/ml)w/preservative injection 20ml MDV ONE (07:33)
[2020-06-11] MEDS ORDERED: verapamil 2.5 mg/ml inj IV ONE (07:33)
[2020-06-11] MEDS ORDERED: midazolam 2 mg/2 ml injection ONE (07:33)
[2020-06-11] MEDS ORDERED: heparin 1,000unit/ml 10ml vial 10 ML ONE (07:34)
[2020-06-11] MEDS ORDERED: iohexol 350MG/ML 100ml bottle IV ONE ×3 (07:34→09:18)
[2020-06-11] MEDS ORDERED: nitroGLYCERIN-Tridil 50MG/D5W 250 ML IV ONE (07:34)
[2020-06-11] MEDS ORDERED: iohexol 350 MG/ML 50ML vial IV ONE (07:34)
[2020-06-11] MEDS ORDERED: heparin 1,000 UNITS/NS 500ml 500 ML ONE (08:56)
[2020-06-11] MEDS ORDERED: sodium bicarbonate (8.4%) inj. 150 ML in dextrose 5%-water 1,000 ML IV SCH (10:25)
--- NOTE | 2020-06-11 11:01 | NUR ---
Mucomyst administered after procedure as ordered.
--- NOTE | 2020-06-11 11:40 | NUR ---
Pt voided clear, yellow 500ml.
--- NOTE | 2020-06-11 12:00 | NUR ---
at bedside Addendum: 06/11/20 at 1201 by Eun Ellington RN MD Babin.
--- NOTE | 2020-06-11 14:43 | NUR ---
Requested discharge time or plan of care for pt from MD Anthony MD is going to discuss pt with Dr. Babin and will call back with DC time.
--- NOTE | 2020-06-11 18:01 | NUR ---
Problems reprioritized. Patient report given, questions answered & plan of care reviewed with Hazel MAZARIEGOS.
== END 2020-06-11 19:32 | disposition home or self-care (01) ==
LOC: SSTAY O 05:44
PROVIDERS: ATTEND Internal Medicine Cardiovascular Disease
DX: I25.10 Atherosclerotic heart disease of native coronary artery without angina pectoris (principal); R07.9 Chest pain, unspecified; I11.0 Hypertensive heart disease with heart failure; I50.22 Chronic systolic (congestive) heart failure; Z95.5 Presence of coronary angioplasty implant and graft; E78.5 Hyperlipidemia, unspecified; R06.02 Shortness of breath
CPT/HCPCS: 36415; 80048; 82948; 85025; 85610; 85730; 93005; 93461; 93567; C1769; C1894; J1644; J2001; J2250; J3010; J7030; Q0163; Q9967; 99152; 99153; A5120; C1751; J3490

== ENCOUNTER → 2020-07-11 | Outpatient (CLI) | payer BC ==
[~2020-07-11] MED LIST changes: -ACAR100T2 PO; -ACET1TAB12 PO; -CARV-50 PO; +CARV12.5 PO; +CHOL20004 PO; +CLOP75TA15 PO; +EPLE25TA4 PO; -EXEN2AUT PO; -GLIM4TAB7 PO; +HUM7525 SQ; -LINA5TAB4 PO; -LOSA25TA96 PO; -LOSA50TA64 PO; +SACU1TAB PO; -SPIR25TA5 PO; -TICA90TA PO
[2020-07-11 09:19] LABS: BASOPHILS % (AUTO) 0.6 % (0-1); EOSINOPHILS # (AUTO) 0.2 X10'3 (0-0.9); EOSINOPHILS % (AUTO) 3.3 % (0-6); HEMATOCRIT 41.4 % (42.0-52.0); HEMOGLOBIN 13.8 g/dl (14.0-17.9); LYMPHOCYTES # (AUTO) 1.5 X10'3 (1.1-4.8); LYMPHOCYTES % (AUTO) 23.3 % (21-51); MEAN CORPUSCULAR HEMOGLOBIN 31.3 PG (27.0-31.0); MEAN CORPUSCULAR HGB CONC 33.4 g/dL (33.0-36.5); MEAN PLATELET VOLUME 9.1 FL (7.4-10.4); MONOCYTES # (AUTO) 0.8 X10'3 (0-0.9); MONOCYTES % (AUTO) 12.7 % (2-12); NEUTROPHILS # (AUTO) 3.8 X10'3 (1.8-7.7); NEUTROPHILS % (AUTO) 60.1 % (42-75); PLATELET COUNT 234 X10'3 (140-440); RED BLOOD COUNT 4.41 X10'6 (4.70-6.10); RED CELL DISTRIBUTION WIDTH 14.4 % (11.5-14.5); WHITE BLOOD COUNT 6.3 X10'3 (4.5-11.0)
[2020-07-11 09:29] LABS: CLARITY,URINE CLEAR (Clear); COLOR,URINE YELLOW (Yellow); GLUCOSE, URINE 100 mg/dl (Neg); KETONES,URINE NEGATIVE (Neg); LEUKOCYTE ESTERASE ,URINE NEGATIVE (Neg); NITRITES, URINE NEGATIVE (Neg); OCCULT BLOOD,URINE NEGATIVE (Neg); PROTEIN,URINE NEGATIVE (Neg); UROBILINOGEN,URINE 0.2 E.U/dL (0.2-1.0)
[2020-07-11 09:32] LABS: UA COLLECTION TYPE NON-SPECIFIED
[2020-07-11 09:41] LABS: ALANINE AMINOTRANSFERASE 34 U/L (12-78); ALBUMIN/GLOBULIN RATIO 1.2 (1.1-1.5); ALKALINE PHOSPHATASE 47 IU/L (46-116); ANION GAP 5 (8-16); ASPARTATE AMINO TRANSFERASE 26 U/L (10-37); BILIRUBIN,TOTAL 0.5 MG/DL (0.1-1.0); BLOOD UREA NITROGEN 44 MG/DL (7-18); BUN/CREATININE RATIO 20.1 (5.4-32.0); CHLORIDE 106 MMOL/L (99-107); CHOL/HDL RATIO 5.9 (0.00-4.99); CHOLESTEROL 159 MG/DL (0-200); CREATININE 2.19 MG/DL (0.60-1.10); GLUCOSE 204 MG/DL (70-104); HDL CHOLESTEROL 27 MG/DL (35-60); HEMOGLOBIN A1C 8.3 % (4.5-6.2); LDL CHOLESTEROL 107 MG/DL (50-100); POTASSIUM 4.5 MMOL/L (3.5-5.1); SODIUM 140 MMOL/L (135-145); TOTAL CARBON DIOXIDE 28.6 MMOL/L (24-32); TOTAL PROTEIN 7.4 G/DL (6.4-8.2); TRIGLYCERIDES 154 MG/DL (20-135); eGFR 29 ML/MIN
[2020-07-12 14:40] LABS: PSA, FREE 0.28 ng/mL
== END | disposition home or self-care (01) ==
LOC: LAB 08:51
PROVIDERS: ATTEND Internal Medicine Cardiovascular Disease
DX: I10 Essential (primary) hypertension (principal); E11.9 Type 2 diabetes mellitus without complications; N39.0 Urinary tract infection, site not specified; N42.9 Disorder of prostate, unspecified; E78.5 Hyperlipidemia, unspecified
CPT/HCPCS: 36415; 80053; 80061; 81003; 82043; 83036; 83880; 84153; 84154; 85025

== ENCOUNTER 2020-07-23 05:48 | Inpatient (IN) | payer BC ==
[2020-07-22 10:25] LABS: BASOPHILS # (AUTO) 0.1 X10'3 (0-0.2); BASOPHILS % (AUTO) 0.8 % (0-1); EOSINOPHILS # (AUTO) 0.2 X10'3 (0-0.9); EOSINOPHILS % (AUTO) 3.3 % (0-6); HEMATOCRIT 41.8 % (42.0-52.0); HEMOGLOBIN 14.1 g/dl (14.0-17.9); LYMPHOCYTES # (AUTO) 1.9 X10'3 (1.1-4.8); LYMPHOCYTES % (AUTO) 26.2 % (21-51); MEAN CORPUSCULAR HEMOGLOBIN 31.5 PG (27.0-31.0); MEAN CORPUSCULAR HGB CONC 33.7 g/dL (33.0-36.5); MEAN CORPUSCULAR VOLUME 93.6 FL (78-98); MEAN PLATELET VOLUME 9.5 FL (7.4-10.4); MONOCYTES % (AUTO) 13.4 % (2-12); NEUTROPHILS # (AUTO) 4.1 X10'3 (1.8-7.7); NEUTROPHILS % (AUTO) 56.3 % (42-75); PLATELET COUNT 247 X10'3 (140-440); RED BLOOD COUNT 4.46 X10'6 (4.70-6.10); RED CELL DISTRIBUTION WIDTH 14.3 % (11.5-14.5); WHITE BLOOD COUNT 7.2 X10'3 (4.5-11.0)
[2020-07-22 10:38] LABS: PARTIAL THROMBOPLASTIN TIME 23 SECONDS (22-32)
[2020-07-22 11:02] LABS: ALBUMIN 4.1 G/DL (3.4-5.0); ANION GAP 10 (8-16); BLOOD UREA NITROGEN 46 MG/DL (7-18); BUN/CREATININE RATIO 20.7 (5.4-32.0); CALCIUM 9.6 MG/DL (8.5-10.1); CHLORIDE 102 MMOL/L (99-107); CREATININE 2.22 MG/DL (0.60-1.10); GLUCOSE 133 MG/DL (70-104); POTASSIUM 4.1 MMOL/L (3.5-5.1); SODIUM 140 MMOL/L (135-145); TOTAL CARBON DIOXIDE 27.6 MMOL/L (24-32); eGFR 29 ML/MIN
[2020-07-23] VITALS (19 sets, daily range): BP systolic 79–148; BP diastolic 46–90
[~2020-07-23] VITALS: Ht 177.8 cm; Wt 111.1 kg
[2020-07-23] MEDS ORDERED: LORazepam 0.5 MG tablet PO PRN (06:00)
[2020-07-23] MEDS ORDERED: diphenhydrAMINE 25mg capsule PO PRN (06:00)
[2020-07-23] MEDS ORDERED: ISOS30TA6 PO (06:07)
[2020-07-23] MEDS ORDERED: sodium bicarbonate (8.4%) inj. 150 MEQ in dextrose 5%-water 1,000 ML IV SCH (06:30)
[2020-07-23] MEDS: acetylcysteine 200 MG/ml 4ml vial PO SCH ×3 (06:38→21:18)
[2020-07-23] MEDS: normal saline 1,000 ML IV SCH ×3 (06:41→21:45)
[2020-07-23] MEDS ORDERED: nitroGLYCERIN-Tridil 50MG/D5W 250 ML IV ONE (07:20)
[2020-07-23] MEDS ORDERED: fentaNYL/PF 50MCG/1 ML 2ML syringe ONE ×2 (07:20→09:20)
[2020-07-23] MEDS ORDERED: LIDOcaine 1% (10mg/ml)w/preservative injection 20ml MDV ONE (07:20)
[2020-07-23] MEDS ORDERED: midazolam 2 mg/2 ml injection ONE ×2 (07:20→09:20)
[2020-07-23] MEDS ORDERED: iohexol 350 MG/ML 50ML vial IV ONE (07:21)
[2020-07-23] MEDS ORDERED: iohexol 350MG/ML 100ml bottle IV ONE (07:21)
[2020-07-23] MEDS ORDERED: heparin 1,000unit/ml 10ml vial 10 ML ONE ×2 (07:21→09:33)
[2020-07-23] MEDS ORDERED: heparin 25,000 UNIT/250ml bag 250 ML IV ONE (07:43)
--- NOTE | 2020-07-23 08:10 | NUR ---
Pt left floor for procedure.
[2020-07-23] MEDS ORDERED: heparin 1,000 UNITS/NS 500ml 500 ML ONE (08:21)
[2020-07-23] MEDS ORDERED: sodium bicarbonate (8.4%) inj. 150 MEQ in dextrose 5%-water 1,000 ML IV ONE ×2 (09:56→12:00)
[2020-07-23] MEDS ORDERED: clopidogrel 300mg tablet ONE (10:39)
--- NOTE | 2020-07-23 11:04 | NUR ---
pt arrived from [facility] at 1104. drowsy, but oriented. VS WNL's. will fax [facility] orders and obtain EKG.
[2020-07-23] MEDS ORDERED: aspirin 81mg tab.chew PO ONE (11:35)
[2020-07-23 12:25] LABS: HEMATOCRIT 32.1 % (42.0-52.0); MEAN CORPUSCULAR HEMOGLOBIN 31.9 PG (27.0-31.0); MEAN CORPUSCULAR HGB CONC 34.3 g/dL (33.0-36.5); MEAN CORPUSCULAR VOLUME 93.1 FL (78-98); MEAN PLATELET VOLUME 9.5 FL (7.4-10.4); PLATELET COUNT 178 X10'3 (140-440); RED BLOOD COUNT 3.44 X10'6 (4.70-6.10); RED CELL DISTRIBUTION WIDTH 13.9 % (11.5-14.5); WHITE BLOOD COUNT 5.4 X10'3 (4.5-11.0)
[2020-07-23] MEDS ORDERED: HYDROmorphone 1 mg/ml syringe ONE (12:48)
[2020-07-23] MEDS ORDERED: insulin Lispro (HumaLOG) vial - multi-dose SQ SCH (13:00)
[2020-07-23] MEDS ORDERED: dextrose 50%-water 50ml dispensing syringe IV PRN ×2 (14:00)
[2020-07-23] MEDS ORDERED: glucagon, human recombinant 1mg kit SUBCUT PRN (14:00)
[2020-07-23] MEDS ORDERED: dextrose ORAL solution 15 GM/59 ML bottle PO PRN ×2 (14:00)
[2020-07-23] MEDS: insulin Lispro (HumaLOG) vial - multi-dose SQ SCH ×3 (14:33→21:24)
--- NOTE | 2020-07-23 15:00 | NUR ---
tender labor RN's present to perform sheath removal and holding manual pressure from 1245 to 1400. femstop placed at 1400. pt tolerating well.
[2020-07-23 16:28] LABS: HEMATOCRIT 31.8 % (42.0-52.0); HEMOGLOBIN 10.9 g/dl (14.0-17.9); MEAN CORPUSCULAR HEMOGLOBIN 31.9 PG (27.0-31.0); MEAN CORPUSCULAR HGB CONC 34.2 g/dL (33.0-36.5); MEAN CORPUSCULAR VOLUME 93.4 FL (78-98); MEAN PLATELET VOLUME 9.2 FL (7.4-10.4); PLATELET COUNT 188 X10'3 (140-440); RED BLOOD COUNT 3.41 X10'6 (4.70-6.10); WHITE BLOOD COUNT 7.6 X10'3 (4.5-11.0)
--- NOTE | 2020-07-23 19:00 | NUR ---
Dr. Smith came & checked the pt; order to keep the Femostop until morning, but reduce the pressure. Charge nurse aware.
[2020-07-23] MEDS: carVEDilol 12.5mg tablet PO SCH (19:09)
[2020-07-23] MEDS: colchicine 0.6mg tablet PO SCH (20:20)
[2020-07-23] MEDS: atorvastatin 20mg tablet PO SCH (20:20)
[2020-07-23] MEDS: Melatonin 3mg tablet PO SCH (20:20)
[2020-07-23] MEDS: sacubitril/valsartan 24mg-26mg tablet PO SCH (21:18)
[2020-07-23] MEDS: insulin glargine (Lantus) pen - multi-dose SQ SCH (21:23)
[2020-07-24] VITALS (22 sets, daily range): BP systolic 83–134; BP diastolic 41–73
[2020-07-24] MEDS: HYDROcodone/acetaminophen 10/325mg tab PO PRN ×3 (00:31→19:21)
[2020-07-24 05:22] LABS: BASOPHILS % (AUTO) 0.5 % (0-1); EOSINOPHILS # (AUTO) 0.1 X10'3 (0-0.9); EOSINOPHILS % (AUTO) 2.1 % (0-6); HEMATOCRIT 29.3 % (42.0-52.0); HEMOGLOBIN 9.9 g/dl (14.0-17.9); LYMPHOCYTES # (AUTO) 1.4 X10'3 (1.1-4.8); LYMPHOCYTES % (AUTO) 21.6 % (21-51); MEAN CORPUSCULAR HEMOGLOBIN 31.6 PG (27.0-31.0); MEAN CORPUSCULAR HGB CONC 33.9 g/dL (33.0-36.5); MEAN CORPUSCULAR VOLUME 93.3 FL (78-98); MEAN PLATELET VOLUME 10.1 FL (7.4-10.4); MONOCYTES # (AUTO) 0.9 X10'3 (0-0.9); MONOCYTES % (AUTO) 13.5 % (2-12); NEUTROPHILS % (AUTO) 62.3 % (42-75); PLATELET COUNT 172 X10'3 (140-440); RED BLOOD COUNT 3.14 X10'6 (4.70-6.10); RED CELL DISTRIBUTION WIDTH 13.8 % (11.5-14.5); WHITE BLOOD COUNT 6.5 X10'3 (4.5-11.0)
[2020-07-24 05:41] LABS: ALANINE AMINOTRANSFERASE 29 U/L (12-78); ALBUMIN 3.1 G/DL (3.4-5.0); ALBUMIN/GLOBULIN RATIO 1.2 (1.1-1.5); ALKALINE PHOSPHATASE 36 IU/L (46-116); ANION GAP 6 (8-16); ASPARTATE AMINO TRANSFERASE 24 U/L (10-37); BILIRUBIN,TOTAL 0.5 MG/DL (0.1-1.0); BLOOD UREA NITROGEN 33 MG/DL (7-18); BUN/CREATININE RATIO 17.6 (5.4-32.0); CHLORIDE 107 MMOL/L (99-107); CHOLESTEROL 126 MG/DL (0-200); CREATININE 1.87 MG/DL (0.60-1.10); GLUCOSE 184 MG/DL (70-104); HDL CHOLESTEROL 21 MG/DL (35-60); LDL CHOLESTEROL 77 MG/DL (50-100); POTASSIUM 3.7 MMOL/L (3.5-5.1); SODIUM 144 MMOL/L (135-145); TOTAL CARBON DIOXIDE 31.1 MMOL/L (24-32); TOTAL PROTEIN 5.7 G/DL (6.4-8.2); TRIGLYCERIDES 200 MG/DL (20-135); eGFR 35 ML/MIN
--- NOTE | 2020-07-24 06:30 | NUR ---
Problems reprioritized. Patient report given, questions answered & plan of care reviewed with DELILAH Fregoso.
--- NOTE | 2020-07-24 06:38 | NUR ---
Patient in room CICU 2016. I have received report from DELILAH Fregoso and had the opportunity to ask questions and assume patient care.
[2020-07-24] MEDS ORDERED: furosemide 20MG tablet PO SCH (08:00)
[2020-07-24] MEDS ORDERED: clopidogrel 75mg tablet PO SCH (08:00)
[2020-07-24] MEDS ORDERED: insulin glargine (Lantus) pen - multi-dose SQ SCH (08:00)
[2020-07-24] MEDS ORDERED: isosorbide mononitrate 30mg tab.SR.24H PO SCH (08:00)
[2020-07-24] MEDS: sacubitril/valsartan 24mg-26mg tablet PO SCH (08:24)
[2020-07-24] MEDS: vitamin D (cholecalciferol) 1,000 unit tablet PO SCH (08:25)
[2020-07-24] MEDS: aspirin 325mg tablet PO SCH (08:25)
[2020-07-24] MEDS: aspirin 81mg tab.chew PO SCH (08:26)
[2020-07-24] MEDS: clopidogrel 75mg tablet PO SCH (08:26)
[2020-07-24] MEDS: carVEDilol 12.5mg tablet PO SCH ×2 (08:26→19:30)
[2020-07-24] MEDS: fenofibrate 145mg tablet PO SCH (08:27)
[2020-07-24] MEDS: acetylcysteine 200 MG/ml 4ml vial PO SCH ×2 (08:28→19:22)
[2020-07-24] MEDS: multivitamins, therapeutics tablet PO SCH (08:28)
[2020-07-24] MEDS: insulin Lispro (HumaLOG) vial - multi-dose SQ SCH ×4 (08:39→20:55)
[2020-07-24] MEDS: folic acid 1mg tablet PO SCH (08:42)
[2020-07-24] MEDS ORDERED: magnesium Cl slow-release 64mg tablet PO PRN (10:35)
[2020-07-24] MEDS ORDERED: magnesium 2GM in 50ml NS 50 ML IV PRN (10:35)
[2020-07-24] MEDS ORDERED: K, MAG and/or Phos replacement - Verify level? MC SCH (10:35)
[2020-07-24] MEDS ORDERED: potassium Cl 20 mEq SR tablet PO PRN ×2 (10:35)
[2020-07-24] MEDS ORDERED: sodium phosphate inj. 15 MMOL in dextrose 5%-water 250 ML IV PRN (10:35)
[2020-07-24] MEDS ORDERED: potassium Cl 20mEq/100mL bag 100 ML IV PRN ×2 (10:35)
[2020-07-24] MEDS ORDERED: Neutra Phos packet PO PRN (10:35)
[2020-07-24] MEDS ORDERED: magnesium 4gm in 100ml NS 100 ML IV PRN (10:35)
[2020-07-24] MEDS ORDERED: potassium CL 10mEq/100ml bag 100 ML IV PRN ×2 (10:35)
[2020-07-24] MEDS ORDERED: sodium phosphate inj. 30 MMOL in dextrose 5%-water 250 ML IV PRN (10:35)
[2020-07-24] MEDS: normal saline 1,000 ML IV SCH ×2 (11:14→19:28)
[2020-07-24 13:25] LABS: HEMATOCRIT 28.3 % (42.0-52.0); HEMOGLOBIN 9.5 g/dl (14.0-17.9); MEAN CORPUSCULAR HEMOGLOBIN 31.5 PG (27.0-31.0); MEAN CORPUSCULAR HGB CONC 33.7 g/dL (33.0-36.5); MEAN CORPUSCULAR VOLUME 93.5 FL (78-98); MEAN PLATELET VOLUME 9.5 FL (7.4-10.4); PLATELET COUNT 198 X10'3 (140-440); RED BLOOD COUNT 3.03 X10'6 (4.70-6.10); WHITE BLOOD COUNT 6.5 X10'3 (4.5-11.0)
--- NOTE | 2020-07-24 13:55 | NUR ---
New orders from Anthony to continue carvedilol BID, give 40mg lasix in AM and 20mg at noon, start valsartan in AM at 1200 daily and hold isosorbide Addendum: 07/24/20 at 1833 by Zenobia Nicholas RN Give 500cc bolus per Anthony
[2020-07-24] MEDS: lansoprazole 15mg solutab PO SCH (14:49)
--- NOTE | 2020-07-24 15:00 | NUR ---
Per Anthony, discharge pt 07/24 but was too late in the day. D/c patient in AM. Monitor BP.
--- NOTE | 2020-07-24 18:20 | NUR ---
Patient in room CICU 2016. I have received report from Zenobia MAZARIEGOS and had the opportunity to ask questions and assume patient care.Patient was given 500 ml bolus NS by Zenobia for low SBP on her shift-orders put in later, orders put in for 1000 ml. Only 500 mls were given. Vitasl signs coming on to shift are HR 99, BP 101/66, 96 SaO2 96 on room air, RR 19. Temp taken, 98.6.
--- NOTE | 2020-07-24 18:23 | NUR ---
Problems reprioritized. Patient report given, questions answered & plan of care reviewed with DELILAH Reyes.
[2020-07-24] MEDS ORDERED: normal saline 1000ml 1,000 ML IV ONE (18:35)
--- NOTE | 2020-07-24 20:00 | NUR ---
survey rodman Jennifer spoke with MD Cruz, patient to finish one liter NS, then DC IV fluids, no blood pressure meds to be given, held coreg. Patient stable, blood pressure >100 SBP currentl;rodo Rabago RN
[2020-07-24] MEDS: colchicine 0.6mg tablet PO SCH (20:43)
[2020-07-24] MEDS: insulin glargine (Lantus) pen - multi-dose SQ SCH (20:49)
[2020-07-24] MEDS: Melatonin 3mg tablet PO SCH (21:03)
[2020-07-24] MEDS: atorvastatin 20mg tablet PO SCH (21:03)
[2020-07-25] VITALS (22 sets, daily range): BP systolic 103–151; BP diastolic 48–83
[2020-07-25] MEDS: HYDROcodone/acetaminophen 10/325mg tab PO PRN ×2 (03:44→19:33)
[2020-07-25 05:22] LABS: BASOPHILS % (AUTO) 0.4 % (0-1); EOSINOPHILS # (AUTO) 0.1 X10'3 (0-0.9); EOSINOPHILS % (AUTO) 1.7 % (0-6); HEMATOCRIT 25.2 % (42.0-52.0); HEMOGLOBIN 8.6 g/dl (14.0-17.9); LYMPHOCYTES # (AUTO) 1.2 X10'3 (1.1-4.8); LYMPHOCYTES % (AUTO) 15.9 % (21-51); MEAN CORPUSCULAR HGB CONC 34.1 g/dL (33.0-36.5); MEAN CORPUSCULAR VOLUME 93.9 FL (78-98); MEAN PLATELET VOLUME 9.9 FL (7.4-10.4); MONOCYTES % (AUTO) 13.9 % (2-12); NEUTROPHILS % (AUTO) 68.1 % (42-75); PLATELET COUNT 165 X10'3 (140-440); RED BLOOD COUNT 2.68 X10'6 (4.70-6.10); RED CELL DISTRIBUTION WIDTH 13.6 % (11.5-14.5); WHITE BLOOD COUNT 7.3 X10'3 (4.5-11.0)
[2020-07-25 05:26] LABS: ANION GAP 8 (8-16); BLOOD UREA NITROGEN 32 MG/DL (7-18); BUN/CREATININE RATIO 16.4 (5.4-32.0); CALCIUM 8.4 MG/DL (8.5-10.1); CHLORIDE 104 MMOL/L (99-107); CREATININE 1.95 MG/DL (0.60-1.10); GLUCOSE 178 MG/DL (70-104); POTASSIUM 4.1 MMOL/L (3.5-5.1); SODIUM 139 MMOL/L (135-145); TOTAL CARBON DIOXIDE 26.8 MMOL/L (24-32); eGFR 34 ML/MIN
--- NOTE | 2020-07-25 06:31 | NUR ---
Patient in room CICU 2016. I have received report from DELILAH Reyes and had the opportunity to ask questions and assume patient care.
--- NOTE | 2020-07-25 06:34 | NUR ---
Problems reprioritized. Patient report given, questions answered & plan of care reviewed with Tristen MAZARIEGOS.
[2020-07-25] MEDS ORDERED: ASPI-1264 PO (07:39)
[2020-07-25] MEDS: aspirin 81mg tab.chew PO SCH (07:56)
[2020-07-25] MEDS: furosemide 20MG tablet PO SCH ×2 (08:00→12:00)
[2020-07-25] MEDS: carVEDilol 12.5mg tablet PO SCH ×2 (08:00→20:56)
[2020-07-25] MEDS ORDERED: FERR325T28 PO (08:26)
--- NOTE | 2020-07-25 08:26 | NUR ---
Per Dr Cruz hold BP meds.
[2020-07-25] MEDS: vitamin D (cholecalciferol) 1,000 unit tablet PO SCH (08:50)
[2020-07-25] MEDS: aspirin 325mg tablet PO SCH (08:50)
[2020-07-25] MEDS: lansoprazole 15mg solutab PO SCH (08:51)
[2020-07-25] MEDS: clopidogrel 75mg tablet PO SCH (08:51)
[2020-07-25] MEDS: fenofibrate 145mg tablet PO SCH (08:51)
[2020-07-25] MEDS: multivitamins, therapeutics tablet PO SCH (08:51)
[2020-07-25] MEDS: folic acid 1mg tablet PO SCH (08:51)
[2020-07-25] MEDS: acetylcysteine 200 MG/ml 4ml vial PO SCH ×2 (08:54→21:04)
[2020-07-25] MEDS: insulin Lispro (HumaLOG) vial - multi-dose SQ SCH ×3 (09:01→19:38)
--- NOTE | 2020-07-25 09:39 | NUR ---
0.25mg Digoxin IV now and another dose in 6hrs. half of patient's Coreg dose if BP holding up in the evening.
[2020-07-25] MEDS ORDERED: digoxin 250mcg/ml 2ml ampule IV ONE ×2 (09:40→15:40)
[2020-07-25 10:56] LABS: ALANINE AMINOTRANSFERASE 29 U/L (12-78); ALBUMIN/GLOBULIN RATIO 1.1 (1.1-1.5); ALKALINE PHOSPHATASE 38 IU/L (46-116); ASPARTATE AMINO TRANSFERASE 26 U/L (10-37); BILIRUBIN,DIRECT 0.2 MG/DL (0-0.3); BILIRUBIN,TOTAL 0.5 MG/DL (0.1-1.0); TOTAL PROTEIN 5.7 G/DL (6.4-8.2)
[2020-07-25] MEDS: sacubitril/valsartan 24mg-26mg tablet PO SCH (12:00)
[2020-07-25] MEDS ORDERED: carVEDilol 3.125mg tablet PO ONE (13:00)
--- NOTE | 2020-07-25 13:52 | NUR ---
O2 Sat at rest on room air:_95__% If below 89%: Recovery O2 Sat at rest on ___LPM:___%:___% via (mask/nasal cannula, etc..) No further documentation is necessary. If O2 Sat did not drop below 89% on room air,ambulate patient on room air. O2 Sat while ambulating on room air:_84__% Recovery O2 Sat while ambulating on __2_LPM:_95__% No further documentation is necessary. If patient does not drop below 89% while ambulating, he/she does not qualify for home O2.
--- NOTE | 2020-07-25 16:21 | NUR ---
Patient in room CICU 2016. I have received report from DELILAH Ramon and had the opportunity to ask questions and assume patient care.
[2020-07-25] MEDS ORDERED: carvedilol 6.25mg tablet PO ONE (16:25)
[2020-07-25] MEDS ORDERED: rivaroxaban 15mg tablet PO SCH (18:00)
--- NOTE | 2020-07-25 18:30 | NUR ---
Problems reprioritized. Patient report given, questions answered & plan of care reviewed with DELILAH Beckford.
--- NOTE | 2020-07-25 20:30 | NUR ---
[facility] delivered home O2. Instructions given. Patient stated understanding. Home 02 at bedside.
[2020-07-25] MEDS: atorvastatin 20mg tablet PO SCH (20:56)
[2020-07-25] MEDS: colchicine 0.6mg tablet PO SCH (20:56)
[2020-07-25] MEDS: Melatonin 3mg tablet PO SCH (20:56)
[2020-07-25] MEDS: ferrous sulfate 325mg tablet PO SCH (20:56)
[2020-07-25] MEDS: insulin glargine (Lantus) pen - multi-dose SQ SCH (21:12)
--- NOTE | 2020-07-25 22:00 | NUR ---
pts home O2 was delivered to bedside.
[2020-07-26] VITALS (7 sets, daily range): BP systolic 98–143; BP diastolic 32–70
[2020-07-26] MEDS: HYDROcodone/acetaminophen 10/325mg tab PO PRN (02:49)
[2020-07-26 05:33] LABS: BASOPHILS % (AUTO) 0.5 % (0-1); EOSINOPHILS # (AUTO) 0.2 X10'3 (0-0.9); EOSINOPHILS % (AUTO) 2.1 % (0-6); HEMATOCRIT 23.9 % (42.0-52.0); HEMOGLOBIN 8.2 g/dl (14.0-17.9); LYMPHOCYTES # (AUTO) 1.2 X10'3 (1.1-4.8); MEAN CORPUSCULAR HEMOGLOBIN 32.3 PG (27.0-31.0); MEAN CORPUSCULAR HGB CONC 34.5 g/dL (33.0-36.5); MEAN CORPUSCULAR VOLUME 93.4 FL (78-98); MEAN PLATELET VOLUME 9.7 FL (7.4-10.4); MONOCYTES # (AUTO) 1.2 X10'3 (0-0.9); MONOCYTES % (AUTO) 16.7 % (2-12); NEUTROPHILS # (AUTO) 4.6 X10'3 (1.8-7.7); NEUTROPHILS % (AUTO) 63.7 % (42-75); PLATELET COUNT 156 X10'3 (140-440); RED BLOOD COUNT 2.56 X10'6 (4.70-6.10); RED CELL DISTRIBUTION WIDTH 13.9 % (11.5-14.5); WHITE BLOOD COUNT 7.2 X10'3 (4.5-11.0)
[2020-07-26 06:06] LABS: ALANINE AMINOTRANSFERASE 28 U/L (12-78); ALBUMIN 2.9 G/DL (3.4-5.0); ALBUMIN/GLOBULIN RATIO 0.9 (1.1-1.5); ALKALINE PHOSPHATASE 38 IU/L (46-116); ANION GAP 9 (8-16); ASPARTATE AMINO TRANSFERASE 26 U/L (10-37); BILIRUBIN,TOTAL 0.6 MG/DL (0.1-1.0); BLOOD UREA NITROGEN 40 MG/DL (7-18); BUN/CREATININE RATIO 16.4 (5.4-32.0); CALCIUM 8.7 MG/DL (8.5-10.1); CHLORIDE 101 MMOL/L (99-107); CREATININE 2.44 MG/DL (0.60-1.10); GLUCOSE 148 MG/DL (70-104); POTASSIUM 4.4 MMOL/L (3.5-5.1); SODIUM 138 MMOL/L (135-145); TOTAL CARBON DIOXIDE 27.8 MMOL/L (24-32); eGFR 26 ML/MIN
[2020-07-26] MEDS: carVEDilol 12.5mg tablet PO SCH (08:00)
[2020-07-26] MEDS: furosemide 20MG tablet PO SCH ×2 (08:00→12:00)
[2020-07-26] MEDS: sacubitril/valsartan 24mg-26mg tablet PO SCH (08:00)
[2020-07-26] MEDS: ferrous sulfate 325mg tablet PO SCH (09:29)
[2020-07-26] MEDS: vitamin D (cholecalciferol) 1,000 unit tablet PO SCH (09:29)
[2020-07-26] MEDS: folic acid 1mg tablet PO SCH (09:30)
[2020-07-26] MEDS: fenofibrate 145mg tablet PO SCH (09:30)
[2020-07-26] MEDS: multivitamins, therapeutics tablet PO SCH (09:30)
[2020-07-26] MEDS: lansoprazole 15mg solutab PO SCH (09:32)
[2020-07-26] MEDS: clopidogrel 75mg tablet PO SCH (09:35)
[2020-07-26] MEDS: aspirin 325mg tablet PO SCH (09:35)
[2020-07-26] MEDS: aspirin 81mg tab.chew PO SCH (09:35)
--- NOTE | 2020-07-26 11:45 | NUR ---
Dr. Cruz in to see the patient. Orders for d/c. Specific orders on heart medications and Xarelto to be discussed with the patient and his and were also entered into the patient's discharge instructions. Orders to apply a pressure dressing to left groin.
[2020-07-26] MEDS ORDERED: carvedilol 6.25mg tablet PO ONE ×2 (11:55→14:10)
[2020-07-26] MEDS ORDERED: SACU1TAB PO (14:11)
[2020-07-26] MEDS ORDERED: ASPI-1265 PO (14:11)
--- NOTE | 2020-07-26 15:30 | NUR ---
Pressure dressing applied to left groin per Dr. Cruz's orders. Patient tolerated well.
--- NOTE | 2020-07-26 15:55 | NUR ---
Educated patient's Florence on how to use the home O2 machine. Florence verbalized an understanding.
--- NOTE | 2020-07-26 15:55 | NUR ---
PATIENT STABLE AND APPROPRIATE FOR DISCHARGE, IV TAKEN OUT, REMOVED FOR HEART MONITORING, EDUCATION GIVEN WITH PRESENT, ALL BELONGINGS SENT WITH PATIENT, NEW MEDS E-SCRIPTED TO PREFERRED PHARMACY, PATIENT TAKEN TO LOBBY TO AN AWAITING CAR WHERE WILL TAKE PATIENT HOME
== END 2020-07-26 15:55 | disposition home or self-care (01) | DRG 215 ==
LOC: SSTAY O 05:48 → CICU 2S 15:50 → SSTAY O 07-25 03:52 → CICU 2S 07-25 03:52 → MED 3N 07-25 16:46
PROVIDERS: ADMIT Internal Medicine Cardiovascular Disease; ATTEND Internal Medicine Cardiovascular Disease
PROC: 4A023N7 Measurement of Cardiac Sampling and Pressure, Left Heart, Percutaneous Approach (ICD-10-PCS; principal; 2020-07-23)
PROC: 02HA3RJ Insertion of Short-term External Heart Assist System into Heart, Intraoperative, Percutaneous Approach (ICD-10-PCS; 2020-07-23)
PROC: 5A0221D Assistance with Cardiac Output using Impeller Pump, Continuous (ICD-10-PCS; 2020-07-23)
PROC: 027035Z Dilation of Coronary Artery, One Artery with Two Drug-eluting Intraluminal Devices, Percutaneous Approach (ICD-10-PCS; 2020-07-23)
PROC: B2111ZZ Fluoroscopy of Multiple Coronary Arteries using Low Osmolar Contrast (ICD-10-PCS; 2020-07-23)
PROC: B2131ZZ Fluoroscopy of Multiple Coronary Artery Bypass Grafts using Low Osmolar Contrast (ICD-10-PCS; 2020-07-23)
DX: I25.10 Atherosclerotic heart disease of native coronary artery without angina pectoris (principal); I48.20 Chronic atrial fibrillation, unspecified; I50.32 Chronic diastolic (congestive) heart failure; I13.0 Hypertensive heart and chronic kidney disease with heart failure and stage 1 through stage 4 chronic kidney disease, or unspecified chronic kidney disease; E66.9 Obesity, unspecified; E11.22 Type 2 diabetes mellitus with diabetic chronic kidney disease; N18.9 Chronic kidney disease, unspecified; E78.5 Hyperlipidemia, unspecified; I95.9 Hypotension, unspecified; Z95.1 Presence of aortocoronary bypass graft; Z95.5 Presence of coronary angioplasty implant and graft; Z68.35 Body mass index [BMI] 35.0-35.9, adult
CPT/HCPCS: 33990; 33992; C9604; 36415; 76937; 80048; 80053; 80061; 80076; 82948; 83880; 85025; 85027; 85610; 85730; 87081; 93005; 97116; 97161; 97530; 99152; 99153; A4620; A6258; C1725; C1751; C1760; C1769; C1874; C1894; G0378; J1160; J1170; J1644; J1815; J2001; J2250; J3010; J3490; J7030; J7040; Q0163; Q9967

== ENCOUNTER 2020-08-01 23:26 | Inpatient (IN) | payer BC, MEDICARE ==
[~2020-08-01] VITALS: Ht 177.8 cm; Wt 110.1 kg
[~2020-08-01 23:26] MED LIST changes: -EPLE25TA4 PO; +FERR325T28 PO
--- NOTE | 2020-08-01 23:45 | NUR ---
SKYE: [phone]
--- NOTE | 2020-08-01 23:46 | NUR ---
INFORMED RN THAT PT HAD THE IMPELLA PROCEDURE HERE AND HAD 2 STENTS PLACED ON TUESDAY BY JONO. PT WAS DC'D ON TUESDAY AND SUSPECTED AN INFECTION DEVELOPED SO SHE BROUGHT HIM TO PCP TAMIE TODAY WHERE A CULTURE WAS TAKEN OF WOUND. PT HAS SIGNIFICANT CARDIAC HX INCLUDING BYPASS, MULTIPLE PREVIOUS STENTS, EF OF 45. EAGER TO COME BACK. EDUCATED THAT WE WERE NOT ALLOWING VISITORS AT THIS TIME. CONTACT NUMBER COLLECTED. WOULD LIKE TO BE UPDATED REGULARLY WITH PLAN OF CARE.
[2020-08-02] MEDS ORDERED: dexamethasone sod phosphate 10mg/ml inj IV STA (00:14)
--- NOTE | 2020-08-02 00:30 | NUR ---
pt pale and diaphoretic - accu check shows 35 - MD notified, 1 amp dextrose override and administered. will recheck sugar
[2020-08-02] MEDS ORDERED: dextrose 50%-water 50ml dispensing syringe IV ONE (00:35)
--- NOTE | 2020-08-02 00:36 | NUR ---
wound dressing applied by MD Mendoza
[2020-08-02 00:37] LABS: EOSINOPHILS # (AUTO) 0.2 X10'3 (0-0.9); MEAN CORPUSCULAR VOLUME 93.7 FL (78-98); MONOCYTES # (AUTO) 0.9 X10'3 (0-0.9); RED CELL DISTRIBUTION WIDTH 14.3 % (11.5-14.5); WHITE BLOOD COUNT 6.1 X10'3 (4.5-11.0)
[2020-08-02 00:39] LABS: BASOPHILS % (AUTO) 0.8 % (0-1); EOSINOPHILS % (AUTO) 3.8 % (0-6); HEMATOCRIT 22.9 % (42.0-52.0); HEMOGLOBIN 7.9 g/dl (14.0-17.9); LYMPHOCYTES # (AUTO) 1.4 X10'3 (1.1-4.8); LYMPHOCYTES % (AUTO) 23.9 % (21-51); MEAN CORPUSCULAR HEMOGLOBIN 32.3 PG (27.0-31.0); MEAN CORPUSCULAR HGB CONC 34.4 g/dL (33.0-36.5); MEAN PLATELET VOLUME 8.4 FL (7.4-10.4); NEUTROPHILS # (AUTO) 3.4 X10'3 (1.8-7.7); NEUTROPHILS % (AUTO) 56.5 % (42-75); PLATELET COUNT 375 X10'3 (140-440); RED BLOOD COUNT 2.44 X10'6 (4.70-6.10)
[2020-08-02 00:45] LABS: PARTIAL THROMBOPLASTIN TIME 25 SECONDS (22-32)
[2020-08-02 00:46] LABS: ALANINE AMINOTRANSFERASE 19 U/L (12-78); ALBUMIN 2.8 G/DL (3.4-5.0); ALBUMIN/GLOBULIN RATIO 0.7 (1.1-1.5); ALKALINE PHOSPHATASE 42 IU/L (46-116); ANION GAP 12 (8-16); ASPARTATE AMINO TRANSFERASE 10 U/L (10-37); BILIRUBIN,TOTAL 0.6 MG/DL (0.1-1.0); BLOOD UREA NITROGEN 42 MG/DL (7-18); BUN/CREATININE RATIO 20.3 (5.4-32.0); CHLORIDE 106 MMOL/L (99-107); CREATININE 2.07 MG/DL (0.60-1.10); GLUCOSE 57 MG/DL (70-104); POTASSIUM 3.6 MMOL/L (3.5-5.1); SODIUM 145 MMOL/L (135-145); TOTAL CARBON DIOXIDE 26.6 MMOL/L (24-32); TOTAL PROTEIN 6.6 G/DL (6.4-8.2); eGFR 31 ML/MIN
[2020-08-02 01:01] LABS: ELLIPTOCYTES 1+; GIANT PLATELET FEW; PLATELET ESTIMATE NORMAL; TOTAL CELLS COUNTED 100
[2020-08-02] MEDS ORDERED: CEPH-572 PO (01:04)
[2020-08-02] MEDS ORDERED: CEPH-571 PO (01:04)
[2020-08-02] MEDS ORDERED: potassium Cl 20 mEq SR tablet PO PRN ×2 (01:40)
[2020-08-02] MEDS ORDERED: normal saline 1000ml 1,000 ML IV SCH (01:40)
[2020-08-02] MEDS ORDERED: potassium CL 10mEq/100ml bag 100 ML IV PRN ×2 (01:40)
[2020-08-02] MEDS ORDERED: magnesium 4gm in 100ml NS 100 ML IV PRN (01:40)
[2020-08-02] MEDS ORDERED: acetaminophen 325mg tablet PO PRN (01:40)
[2020-08-02] MEDS ORDERED: magnesium Cl slow-release 64mg tablet PO PRN (01:40)
[2020-08-02] MEDS ORDERED: mag hydrox/Alum hydrox/simeth 30ml oral suspension PO PRN (01:40)
[2020-08-02] MEDS ORDERED: magnesium 2GM in 50ml NS 50 ML IV PRN (01:40)
[2020-08-02] MEDS ORDERED: ondansetron/PF 4mg/2ml inj IV PRN (01:40)
[2020-08-02] MEDS ORDERED: dextrose 50%-water 50ml dispensing syringe IV PRN ×2 (01:45)
[2020-08-02] MEDS ORDERED: MESSAGE TO PHARMACY PO ONE (01:45)
[2020-08-02] MEDS ORDERED: glucagon, human recombinant 1mg kit SUBCUT PRN (01:45)
[2020-08-02] MEDS ORDERED: dextrose ORAL solution 15 GM/59 ML bottle PO PRN (01:45)
--- NOTE | 2020-08-02 01:55 | NUR ---
checked pt blood sugar, new sugar was 54 and then 66 after repeat. provided yogurt for snack and informed edmd henrry of blood sugar. 1 amp d50 ordered-pulled from active med list and administered. pt asymptomatic and staets "i feel fine"
--- NOTE | 2020-08-02 03:25 | NUR ---
Dr. Sosa notified of how his sugars drop, she is going to put in an IV soln order.
[2020-08-02] MEDS: dextrose 5%-normal saline 1,000 ML IV SCH ×2 (03:29→23:25)
[2020-08-02 04:10] VITALS: BP 143/85
--- NOTE | 2020-08-02 05:20 | NUR ---
SPOKE WITH DR MCKEON (ER MD) AND ASKED IF HE NOTICED THE HEMATOMA ON PTS LEFT GROIN NEAR WOUND, HE SAID HE DID NOT. I TOLD HIM I MARKED IT WITH SURGICAL MARKER AND HE TOLD ME IF IT GETS ANY BIGGER IN THE NEXT HALF HOUR TO CONTACT THE HOSPITALIST TO ORDER A CT SCAN TO LOOK FOR ANEURISM.
--- NOTE | 2020-08-02 05:25 | NUR ---
PAGED DR JOSE: PAGER ID: [phone] MESSAGE: PT VLADISLAV IN 310: HEMATOMA NOTED ON RIGHT GROIN, ER DOC SAID HE DID NOT NOTICE IT BEING THERE. PLEASE CALL TO ADISE FURTHER. [phone]
--- NOTE | 2020-08-02 05:36 | NUR ---
DR JOSE CAME AND SPOKE WITH ME, STATED SHE WILL ORDER A CT SCAN FOR PT. WILL CONTINUE TO MONITOR PTS HEMATOMA AND STATUS.
[2020-08-02 06:00] VITALS: BP 142/116
[2020-08-02 08:00] VITALS: BP 142/112
[2020-08-02] MEDS: K and/or MAG REPLACEMENT MC SCH (08:00)
--- NOTE | 2020-08-02 08:00 | NUR ---
HOB UP, NO C/O PAIN,SOB AND ,OR, NAUSEA THIS AM.SPEECH CLEAR AND APPROPRIATE ; HOWEVER, RT SIDE OF UPPER AND LOWER EXTREMITY WEAK.TONGUE DEVIATES TO THE RIGHT. RT SIDE OF MOUTH DROOP NOTED. RIGHT SIDE SHOULDER SHRUG LESS THAN LEFT. PATIENT C/O NUMBNESS IN RIGHT THIGH. SLIGHT RT SIDE PALM DRIFT NOTED.PATIENT STATES "THESE SYMPTOMS BEGAN AFTER HIS HEART CATH LAST TUESDAY." Addendum: 08/02/20 at 2009 by Patrica Koo RN Amended: Links added.
[2020-08-02 11:38] LABS: HEMATOCRIT 25.1 % (42.0-52.0); HEMOGLOBIN 8.5 g/dl (14.0-17.9); MEAN CORPUSCULAR HEMOGLOBIN 31.9 PG (27.0-31.0); MEAN CORPUSCULAR HGB CONC 33.8 g/dL (33.0-36.5); MEAN CORPUSCULAR VOLUME 94.4 FL (78-98); MEAN PLATELET VOLUME 8.5 FL (7.4-10.4); PLATELET COUNT 411 X10'3 (140-440); RED BLOOD COUNT 2.66 X10'6 (4.70-6.10); RED CELL DISTRIBUTION WIDTH 14.4 % (11.5-14.5); WHITE BLOOD COUNT 5.4 X10'3 (4.5-11.0)
[2020-08-02] MEDS ORDERED: [UNRECOGNIZED DRUG - CODE] PO (12:06)
[2020-08-02] MEDS ORDERED: SACU1TAB PO (12:07)
[2020-08-02] MEDS ORDERED: FERR-29 PO (12:08)
[2020-08-02] MEDS ORDERED: ERGO500056 PO (12:17)
[2020-08-02] MEDS: aspirin 325mg tablet PO SCH (12:30)
[2020-08-02] MEDS: clopidogrel 75mg tablet PO SCH (12:30)
[2020-08-02] MEDS ORDERED: TRAZ-251 PO (12:58)
--- NOTE | 2020-08-02 13:45 | NUR ---
Pt with T2DM, current A1c is 8.9%. Written DM education and RD contact information placed in patient's chart. Will remain available. Addendum: 08/02/20 at [address] Amended: Links added.
[2020-08-02 14:00] VITALS: BP 134/105
[2020-08-02] MEDS ORDERED: insulin Lispro (HumaLOG) vial - multi-dose SQ ONE (18:59)
[2020-08-02] MEDS ORDERED: heparin 10,000 units/1 ML INJ IV ONE (18:59)
[2020-08-02] MEDS ORDERED: ceFOXitin 2GM-NS 100mL ADDvant 100 ML IV ONE (19:10)
[2020-08-02] MEDS ORDERED: HUM PROTHROMBIN CPLX(PCC)4FACT 2,000 UNIT IV ONE (19:35)
[2020-08-02] MEDS ORDERED: ceFOXitin sod/dextrose 2g/50ml 50 ML IV ONE (19:38)
[2020-08-02] MEDS ORDERED: midazolam 2 mg/2 ml injection IV ONE (19:42)
[2020-08-02] MEDS ORDERED: fentaNYL /PF 50mcg/ml 5ml ampule IV ONE (19:46)
--- NOTE | 2020-08-02 20:04 | NUR ---
pt was taken for surgery at 1930, in no acute distress
[2020-08-02] MEDS ORDERED: heparin 10,000 units/1 ML INJ IR ONE (20:40)
[2020-08-02] MEDS ORDERED: ceFOXitin 1000 MG inj IV ONE ×2 (20:52)
[2020-08-02] MEDS ORDERED: non-formulary drug (Insulin Aspart (Novolog) 10 UNITS) SQ SCH (21:00)
[2020-08-02] MEDS ORDERED: HUM PROTHROMBIN CPLX(PCC)4FACT 1,000 UNIT VIAL IV ONE (21:00)
[2020-08-02] MEDS ORDERED: rocuronium 10mg/ml inj IV ONE ×2 (21:00)
[2020-08-02] MEDS ORDERED: etomidate 2mg/ml inj. IV ONE (21:00)
[2020-08-02] MEDS ORDERED: vancomycin 1,000mg inj IV ONE (21:39)
[2020-08-02 22:00] LABS: ABG BASE EXCESS -3.4 mmol/L (-2.0-2.0); ABG HCO3 19.2 mmol/L (22.0-26.0); ABG OXYGEN SATURATION 98.6 % (94-97); ABG PCO2 (T) 25.8 mmHg (35.0-48.0); ABG PO2 (T) 147.2 mmHg (75.0-100.0); FCOHb 0.1 % (0.0-3.9); FMetHb 0.2 % (0.0-1.5); FO2Hb 98.3 % (94-97); PATIENT TEMPERATURE 36.7; TOTAL HEMOGLOBIN 9.1 G/dl (14.0-18.0)
[2020-08-02] MEDS ORDERED: acetaminophen 1000 MG/100ml vial IV ONE (23:19)
[2020-08-02] MEDS ORDERED: BUPIVACAINE liposomal/PF 13.3 MG/ML vial IM ONE (23:19)
[2020-08-02] MEDS ORDERED: BUPIVAcaine/PF 2.5 mg/ml (0.25%) 30ml vial IJ ONE (23:19)
[2020-08-02] MEDS ORDERED: furosemide 40mg/4ml inj IV ONE (23:19)
[2020-08-02 23:47] LABS: BASOPHILS # (AUTO) 0.1 X10'3 (0-0.2); BASOPHILS % (AUTO) 0.5 % (0-1); EOSINOPHILS % (AUTO) 0.3 % (0-6); HEMATOCRIT 28.3 % (42.0-52.0); HEMOGLOBIN 9.5 g/dl (14.0-17.9); LYMPHOCYTES # (AUTO) 0.9 X10'3 (1.1-4.8); LYMPHOCYTES % (AUTO) 7.3 % (21-51); MEAN CORPUSCULAR HEMOGLOBIN 31.5 PG (27.0-31.0); MEAN CORPUSCULAR HGB CONC 33.7 g/dL (33.0-36.5); MEAN CORPUSCULAR VOLUME 93.4 FL (78-98); MEAN PLATELET VOLUME 8.5 FL (7.4-10.4); MONOCYTES # (AUTO) 0.9 X10'3 (0-0.9); MONOCYTES % (AUTO) 7.6 % (2-12); NEUTROPHILS # (AUTO) 9.9 X10'3 (1.8-7.7); NEUTROPHILS % (AUTO) 84.3 % (42-75); PLATELET COUNT 363 X10'3 (140-440); RED BLOOD COUNT 3.03 X10'6 (4.70-6.10); RED CELL DISTRIBUTION WIDTH 15.2 % (11.5-14.5); WHITE BLOOD COUNT 11.7 X10'3 (4.5-11.0)
[2020-08-02 23:49] LABS: PARTIAL THROMBOPLASTIN TIME 50 SECONDS (22-32)
[2020-08-03] VITALS (31 sets, daily range): BP systolic 103–171; BP diastolic 49–100
[2020-08-03] MEDS ORDERED: midazolam 100mg in NS 100ml 100 ML IV PRN (00:05)
[2020-08-03] MEDS ORDERED: FENTANYL-0.9 % NACL/PF 100 ML IV PRN (00:05)
[2020-08-03] MEDS ORDERED: morphine 4 MG/ML inj SYRINge IV ONE (00:14)
--- NOTE | 2020-08-03 00:25 | NUR ---
Received from OR via BED, accompanied by Anesthesiologist JENNIFER and report given by Anesthesiolgist. PT SEDATED. ON VENTILATOR. ETT 25 AT LIP. ; RADIAL ART LINE, CVL RIJ. [place] DSG CDI, WOUND VAC DSG TO L GROIN INTACT, GOOD SEAL. SX AT 75 LOW CONTINUOUS. CXR DONE FOR TUBE PLACEMENT. OGT PLACED. FC PATENT. VSS, HYPERTENSIVE. TITRATING PAIN MEDS AND STARTING CARDENE GTT TO KEEP SBP [address] FULTON.
[2020-08-03] MEDS ORDERED: morphine 4 MG/ML inj SYRINge ONE (00:31)
[2020-08-03] MEDS ORDERED: niCARDipine-NS 40mg/200ml IVPB 200 ML IV ONE (00:35)
--- NOTE | 2020-08-03 00:40 | NUR ---
Report GIVEN to receiving nurse. Transferred CARE. VSS STABLE, SBP <120, CARDENE DCD. Special Issues communicated to receiving nurse.
[2020-08-03] MEDS ORDERED: ipratropium/albuterol 3ml nebule NEB PRN (01:30)
[2020-08-03] MEDS: insulin glargine (Lantus) pen - multi-dose SQ SCH ×2 (02:45→21:00)
[2020-08-03] MEDS: sacubitril/valsartan 24mg-26mg tablet PO SCH ×3 (02:45→19:46)
[2020-08-03] MEDS: carVEDilol 12.5mg tablet PO SCH ×3 (02:46→19:46)
[2020-08-03] MEDS: K and/or MAG REPLACEMENT MC SCH ×3 (02:48→20:00)
[2020-08-03 03:11] LABS: BASOPHILS % (AUTO) 0.2 % (0-1); EOSINOPHILS % (AUTO) 0 % (0-6); HEMATOCRIT 30.1 % (42.0-52.0); HEMOGLOBIN 10.4 g/dl (14.0-17.9); LYMPHOCYTES # (AUTO) 0.7 X10'3 (1.1-4.8); LYMPHOCYTES % (AUTO) 7.3 % (21-51); MEAN CORPUSCULAR HEMOGLOBIN 31.8 PG (27.0-31.0); MEAN CORPUSCULAR HGB CONC 34.6 g/dL (33.0-36.5); MEAN CORPUSCULAR VOLUME 91.7 FL (78-98); MEAN PLATELET VOLUME 8.3 FL (7.4-10.4); MONOCYTES # (AUTO) 0.8 X10'3 (0-0.9); MONOCYTES % (AUTO) 8.9 % (2-12); NEUTROPHILS # (AUTO) 7.9 X10'3 (1.8-7.7); NEUTROPHILS % (AUTO) 83.6 % (42-75); PLATELET COUNT 321 X10'3 (140-440); RED BLOOD COUNT 3.28 X10'6 (4.70-6.10); RED CELL DISTRIBUTION WIDTH 14.6 % (11.5-14.5); WHITE BLOOD COUNT 9.5 X10'3 (4.5-11.0)
[2020-08-03 03:20] LABS: ALANINE AMINOTRANSFERASE 17 U/L (12-78); ALBUMIN 2.5 G/DL (3.4-5.0); ALBUMIN/GLOBULIN RATIO 0.8 (1.1-1.5); ALKALINE PHOSPHATASE 35 IU/L (46-116); ANION GAP 10 (8-16); ASPARTATE AMINO TRANSFERASE 14 U/L (10-37); BLOOD UREA NITROGEN 37 MG/DL (7-18); BUN/CREATININE RATIO 18.8 (5.4-32.0); CALCIUM 8.4 MG/DL (8.5-10.1); CHLORIDE 109 MMOL/L (99-107); CREATININE 1.97 MG/DL (0.60-1.10); GLUCOSE 213 MG/DL (70-104); MAGNESIUM 1.9 MG/DL (1.5-2.4); PHOSPHORUS 3.5 MG/DL (2.3-4.5); POTASSIUM 4.6 MMOL/L (3.5-5.1); SODIUM 142 MMOL/L (135-145); TOTAL CARBON DIOXIDE 23.5 MMOL/L (24-32); TOTAL PROTEIN 5.8 G/DL (6.4-8.2); eGFR 33 ML/MIN
--- NOTE | 2020-08-03 04:01 | NUR ---
0140:Patient in room CICU 2015. I have received report from addictions recovery specialist and had the opportunity to ask questions and assume patient care. Addendum: 08/03/20 at 0402 by Aretha Rubin RN Amended: Links added.
[2020-08-03 05:16] LABS: ABG BASE EXCESS -1.2 mmol/L (-2.0-2.0); ABG HCO3 22.4 mmol/L (22.0-26.0); ABG PCO2 (T) 32.4 mmHg (35.0-48.0); ABG PO2 (T) 97.1 mmHg (75.0-100.0); FCOHb 0.8 % (0.0-3.9); FMetHb 0.3 % (0.0-1.5); FO2Hb 95.9 % (94-97); PATIENT TEMPERATURE 36.1; PEEP 5 cm H2O; RESPIRATORY RATE 14 b/min; TIDAL VOLUME 650 mL; TOTAL HEMOGLOBIN 10.5 G/dl (14.0-18.0)
--- NOTE | 2020-08-03 06:22 | NUR ---
Problems reprioritized. Patient report given, questions answered & plan of care reviewed with Leeas MAZARIEGOS. Addendum: 08/03/20 at 0641 by Aretha Rubin RN amend:report given to Adrienne MAZARIEGOS
--- NOTE | 2020-08-03 06:30 | NUR ---
Patient in room CICU 2014. I have received report from DELILAH Carias and had the opportunity to ask questions and assume patient care.
--- NOTE | 2020-08-03 07:27 | NUR ---
Sedation vacation begun at 0720, not opening eyes yet to voice or following commands
--- NOTE | 2020-08-03 07:49 | NUR ---
Patient awake, nodding head appropriately, trying to reach for ET tube and reoriented to his environment. Seen by RT who placed on CPAP mode and fiO2 titrated down from 50% to 40%, maintaining O2 saturation at 96-97%. Rec call from Florence and updated her on his condition.
[2020-08-03] MEDS ORDERED: Insulin Detemir pen SQ SCH (08:00)
[2020-08-03] MEDS ORDERED: furosemide 40mg/4ml inj IV ONE (08:35)
[2020-08-03] MEDS: aspirin 325mg tablet PO SCH ×2 (09:18→10:43)
[2020-08-03] MEDS: piperacillin/tazo 3.375gm/50ml 50 ML IV SCH ×2 (09:19→15:53)
[2020-08-03] MEDS: clopidogrel 75mg tablet PO SCH ×2 (09:19→10:43)
[2020-08-03] MEDS ORDERED: racepinephrine 11.25mg/0.5ml nebule IH PRN (12:05)
--- NOTE | 2020-08-03 12:30 | NUR ---
Patient awake and alert, following commands. Passed weaning parameters for extubation and rec orders per Dr Daniel.
[2020-08-03] MEDS: insulin Lispro (HumaLOG) vial - multi-dose SQ SCH (15:02)
--- NOTE | 2020-08-03 18:30 | NUR ---
Patient in room CICU 2014. I have received report from Adrienne MAZARIEGOS and had the opportunity to ask questions and assume patient care.
[2020-08-03] MEDS: lactobacillus rhamnosus 10,000 MMU CELLS/CAPSULE PO SCH (20:00)
[2020-08-03] MEDS: HYDROcodone/acetaminophen 5mg/325mg tablet PO PRN (23:56)
[2020-08-04] VITALS (15 sets, daily range): BP systolic 93–150; BP diastolic 40–70
[2020-08-04] MEDS: piperacillin/tazo 3.375gm/50ml 50 ML IV SCH ×4 (00:51→23:11)
[2020-08-04] MEDS ORDERED: mineral oil/petrolatum ophthal oint EACHEYE SCH (02:00)
[2020-08-04] MEDS: mineral oil/petrolatum ophthal oint EACHEYE SCH ×5 (02:00→23:07)
[2020-08-04 02:37] LABS: BASOPHILS % (AUTO) 0.3 % (0-1); EOSINOPHILS % (AUTO) 0.1 % (0-6); HEMATOCRIT 31.6 % (42.0-52.0); HEMOGLOBIN 10.5 g/dl (14.0-17.9); LYMPHOCYTES # (AUTO) 0.9 X10'3 (1.1-4.8); LYMPHOCYTES % (AUTO) 6.5 % (21-51); MEAN CORPUSCULAR HEMOGLOBIN 30.9 PG (27.0-31.0); MEAN CORPUSCULAR HGB CONC 33.2 g/dL (33.0-36.5); MEAN CORPUSCULAR VOLUME 93.1 FL (78-98); MEAN PLATELET VOLUME 7.8 FL (7.4-10.4); MONOCYTES # (AUTO) 1.4 X10'3 (0-0.9); MONOCYTES % (AUTO) 10.7 % (2-12); NEUTROPHILS % (AUTO) 82.4 % (42-75); PLATELET COUNT 329 X10'3 (140-440); RED CELL DISTRIBUTION WIDTH 15.1 % (11.5-14.5); WHITE BLOOD COUNT 13.4 X10'3 (4.5-11.0)
[2020-08-04 02:53] LABS: ALANINE AMINOTRANSFERASE 15 U/L (12-78); ALBUMIN 2.6 G/DL (3.4-5.0); ALBUMIN/GLOBULIN RATIO 0.7 (1.1-1.5); ALKALINE PHOSPHATASE 39 IU/L (46-116); ANION GAP 11 (8-16); ASPARTATE AMINO TRANSFERASE 13 U/L (10-37); BILIRUBIN,TOTAL 0.9 MG/DL (0.1-1.0); BLOOD UREA NITROGEN 41 MG/DL (7-18); BUN/CREATININE RATIO 19.8 (5.4-32.0); CALCIUM 8.7 MG/DL (8.5-10.1); CHLORIDE 110 MMOL/L (99-107); CREATININE 2.07 MG/DL (0.60-1.10); GLUCOSE 201 MG/DL (70-104); MAGNESIUM 2.1 MG/DL (1.5-2.4); POTASSIUM 4.1 MMOL/L (3.5-5.1); SODIUM 144 MMOL/L (135-145); TOTAL CARBON DIOXIDE 22.9 MMOL/L (24-32); TOTAL PROTEIN 6.4 G/DL (6.4-8.2); eGFR 31 ML/MIN
--- NOTE | 2020-08-04 06:05 | NUR ---
Orientee documentation: I have reviewed and agree with all interventions, assessments performed and documented by Kirstin MAZARIEGOS. [place] Medication Administration: For this medication-pass time frame, all medication were reviewed, dispensed, administered and documented per hospital policy by Kirstin MAZARIEGOS.
--- NOTE | 2020-08-04 06:06 | NUR ---
Problems reprioritized. Patient report given, questions answered & plan of care reviewed with Adrienne MAZARIEGOS.
--- NOTE | 2020-08-04 06:30 | NUR ---
Assumed care of patient, received report from noc RN
--- NOTE | 2020-08-04 07:30 | NUR ---
Swallow eval completed by ST, nectar thick liquids and puree diet
[2020-08-04] MEDS: aspirin 325mg tablet PO SCH (07:56)
[2020-08-04] MEDS: sacubitril/valsartan 24mg-26mg tablet PO SCH ×2 (07:56→20:39)
[2020-08-04] MEDS: carVEDilol 12.5mg tablet PO SCH ×2 (07:57→20:37)
[2020-08-04] MEDS: lactobacillus rhamnosus 10,000 MMU CELLS/CAPSULE PO SCH ×2 (07:57→20:38)
[2020-08-04] MEDS: clopidogrel 75mg tablet PO SCH (07:57)
[2020-08-04] MEDS: K and/or MAG REPLACEMENT MC SCH ×2 (08:00→20:00)
[2020-08-04] MEDS: magnesium hydroxide 30ml (MOM) UD suspension PO PRN (08:03)
[2020-08-04] MEDS: insulin Lispro (HumaLOG) vial - multi-dose SQ SCH ×2 (08:20→13:05)
[2020-08-04] MEDS: HYDROcodone/acetaminophen 5mg/325mg tablet PO PRN ×2 (09:16→20:39)
--- NOTE | 2020-08-04 12:30 | NUR ---
left radial art line and right internal jugular cvl discontinued per md orders without bleeding or hematomas.
--- NOTE | 2020-08-04 14:30 | NUR ---
Dr Medina rounded on patient, updated on patient condition. Order for physical therapy ok'd for activity as tolerated. Physical therapy paged
[2020-08-04] MEDS: rivaroxaban 15mg tablet PO SCH (15:15)
--- NOTE | 2020-08-04 15:38 | NUR ---
Nutrition consult: Pt s/p R groin pseudoaneurysm repair, endarterectomy, and sartorius flap w/ wound vac placement per RN at rounds. Hx recent heart cath and stroke resulting in R sided weakness at this time which is patient's dominant side per RN. RN reports no shakiness simply weakness so adaptive wear likely not indicated at this time. S/p MEDICAL LAB ASSISTANT BSS today placed on pureed/nectar thick/carb controlled diet. RN reports poor PO 0-25% meals this admit not meeting wound healing needs; RD recommends Glucerna TIDWM to hopefully improve protein/kcal intake. notified. LBM 08/01 receiving routine colace and takes stool softeners at home per RN. Will monitor for PO/ONS acceptance and additional protein/kcal needs this admit. Rec: 1. continue carb controlled/pureed/nectar thick diet per MEDICAL LAB ASSISTANT/MD recs; assistance w/ meals given R side weakness s/p prior stroke 2. Glucerna TIDWM 3. routine bowel care 4. weekly wts 5. MVI for wound healing needs post-op Addendum: 08/04/20 at [address] Amended: Links added.
--- NOTE | 2020-08-04 15:50 | NUR ---
Patient in room MED 315. I have received report from AUTO TECHNICIAN MECHANIC and had the opportunity to ask questions and assume patient care.
--- NOTE | 2020-08-04 16:00 | NUR ---
Pt brought to room 315 via [employer]. He was oriented to room, call light, TV, And he denied any current needs. Assessment completed this nurse agrees with JET PILOTassociate director financial aid from earlier with notable. He denied any pain at this time. Hale catheter patent and draining with gravity. Wound Vac patent and set at 75 continuous. VS are stable.
--- NOTE | 2020-08-04 16:20 | NUR ---
Initial Vital Signs after moving to room 315 T 98.1 oral HR 85 RR 22 O2 sats 99 on 2 LO2 nc BP 117/71 denies any pain.
--- NOTE | 2020-08-04 18:37 | NUR ---
Problems reprioritized. Patient report given, questions answered & plan of care reviewed with He MAZARIEGOS.
--- NOTE | 2020-08-04 18:45 | NUR ---
Patient in room MED 315. I have received report from Dirk, and had the opportunity to ask questions and assume patient care.
--- NOTE | 2020-08-04 19:42 | NUR ---
No blood sugar coverage for dinner because the patient had his dinner over 45 minutes ago. Will recheck his blood sugar at 2100 and administer the Lantus accordingly.
[2020-08-04] MEDS: atorvastatin 20mg tablet PO SCH (20:36)
[2020-08-04] MEDS: ferrous sulfate 325mg tablet PO SCH (20:37)
[2020-08-04] MEDS: colchicine 0.6mg tablet PO SCH (20:37)
[2020-08-04] MEDS: traZODone 50mg tablet PO SCH (20:37)
[2020-08-04] MEDS: docusate sod 100mg capsule PO SCH (20:37)
[2020-08-04] MEDS: Melatonin 3mg tablet PO SCH (20:38)
[2020-08-04] MEDS: insulin glargine (Lantus) pen - multi-dose SQ SCH (20:59)
[2020-08-05 02:00] VITALS: BP 105/63
[2020-08-05 06:00] VITALS: BP 97/70
[2020-08-05 06:06] LABS: BASOPHILS % (AUTO) 0.2 % (0-1); EOSINOPHILS # (AUTO) 0.2 X10'3 (0-0.9); EOSINOPHILS % (AUTO) 2.2 % (0-6); HEMATOCRIT 28.9 % (42.0-52.0); HEMOGLOBIN 9.8 g/dl (14.0-17.9); LYMPHOCYTES % (AUTO) 8.7 % (21-51); MEAN CORPUSCULAR HEMOGLOBIN 32.3 PG (27.0-31.0); MEAN CORPUSCULAR VOLUME 95.1 FL (78-98); MEAN PLATELET VOLUME 8.4 FL (7.4-10.4); MONOCYTES # (AUTO) 0.7 X10'3 (0-0.9); MONOCYTES % (AUTO) 6.6 % (2-12); NEUTROPHILS # (AUTO) 9.2 X10'3 (1.8-7.7); NEUTROPHILS % (AUTO) 82.3 % (42-75); PLATELET COUNT 298 X10'3 (140-440); RED BLOOD COUNT 3.04 X10'6 (4.70-6.10); RED CELL DISTRIBUTION WIDTH 14.9 % (11.5-14.5); WHITE BLOOD COUNT 11.2 X10'3 (4.5-11.0)
--- NOTE | 2020-08-05 06:24 | NUR ---
Problems reprioritized. Patient report given to Marissa, questions answered & plan of care reviewed with
--- NOTE | 2020-08-05 06:27 | NUR ---
Patient in room MED 315. I have received report from DELILAH HERRMANN and had the opportunity to ask questions and assume patient care.
[2020-08-05 06:31] LABS: ALANINE AMINOTRANSFERASE 11 U/L (12-78); ALBUMIN 2.2 G/DL (3.4-5.0); ALBUMIN/GLOBULIN RATIO 0.6 (1.1-1.5); ALKALINE PHOSPHATASE 46 IU/L (46-116); ANION GAP 9 (8-16); ASPARTATE AMINO TRANSFERASE 9 U/L (10-37); BILIRUBIN,TOTAL 0.6 MG/DL (0.1-1.0); BLOOD UREA NITROGEN 40 MG/DL (7-18); CALCIUM 8.8 MG/DL (8.5-10.1); CHLORIDE 107 MMOL/L (99-107); CREATININE 1.82 MG/DL (0.60-1.10); GLUCOSE 168 MG/DL (70-104); MAGNESIUM 2.4 MG/DL (1.5-2.4); SODIUM 141 MMOL/L (135-145); TOTAL PROTEIN 6.1 G/DL (6.4-8.2); eGFR 36 ML/MIN
[2020-08-05] MEDS ORDERED: pantoprazole 40mg Tablet.DR PO SCH (07:30)
[2020-08-05] MEDS: K and/or MAG REPLACEMENT MC SCH ×2 (08:00→20:00)
[2020-08-05] MEDS: piperacillin/tazo 3.375gm/50ml 50 ML IV SCH ×3 (08:00→23:53)
[2020-08-05] MEDS: mineral oil/petrolatum ophthal oint EACHEYE SCH ×3 (08:00→20:00)
[2020-08-05] MEDS: furosemide 20MG tablet PO SCH (08:58)
[2020-08-05] MEDS: ferrous sulfate 325mg tablet PO SCH ×2 (08:58→20:16)
[2020-08-05] MEDS: sacubitril/valsartan 24mg-26mg tablet PO SCH ×2 (08:58→20:16)
[2020-08-05] MEDS: vitamin D (cholecalciferol) 1,000 unit tablet PO SCH (08:59)
[2020-08-05] MEDS: lactobacillus rhamnosus 10,000 MMU CELLS/CAPSULE PO SCH ×2 (08:59→20:16)
[2020-08-05] MEDS: fenofibrate 145mg tablet PO SCH (08:59)
[2020-08-05] MEDS: multivitamins, therapeutics tablet PO SCH (08:59)
[2020-08-05] MEDS: carVEDilol 12.5mg tablet PO SCH ×2 (08:59→20:17)
[2020-08-05] MEDS: aspirin 325mg tablet PO SCH (08:59)
[2020-08-05] MEDS: docusate sod 100mg capsule PO SCH ×2 (08:59→20:17)
[2020-08-05] MEDS: folic acid 1mg tablet PO SCH (09:00)
[2020-08-05] MEDS: rivaroxaban 15mg tablet PO SCH (09:00)
[2020-08-05] MEDS: pantoprazole 40mg Tablet.DR PO SCH (09:00)
[2020-08-05] MEDS: clopidogrel 75mg tablet PO SCH (09:05)
[2020-08-05] MEDS: insulin Lispro (HumaLOG) vial - multi-dose SQ SCH ×3 (09:10→18:57)
[2020-08-05 10:00] VITALS: BP 119/64
[2020-08-05 14:00] VITALS: BP 134/77
[2020-08-05] MEDS: magnesium hydroxide 30ml (MOM) UD suspension PO PRN (16:51)
[2020-08-05 18:00] VITALS: BP 143/76
--- NOTE | 2020-08-05 19:01 | NUR ---
Problems reprioritized. Patient report given, questions answered & plan of care reviewed with DELILAH HERRMANN.
[2020-08-05] MEDS: colchicine 0.6mg tablet PO SCH (20:16)
[2020-08-05] MEDS: traZODone 50mg tablet PO SCH (20:16)
[2020-08-05] MEDS: HYDROcodone/acetaminophen 5mg/325mg tablet PO PRN (20:16)
[2020-08-05] MEDS: atorvastatin 20mg tablet PO SCH (20:16)
[2020-08-05] MEDS: Melatonin 3mg tablet PO SCH (20:17)
[2020-08-05] MEDS: insulin glargine (Lantus) pen - multi-dose SQ SCH (21:40)
[2020-08-05 22:00] VITALS: BP 108/55
[2020-08-06] MEDS: mineral oil/petrolatum ophthal oint EACHEYE SCH ×4 (01:51→20:00)
[2020-08-06 02:00] VITALS: BP 147/59
[2020-08-06 06:26] LABS: BASOPHILS % (AUTO) 0.4 % (0-1); EOSINOPHILS # (AUTO) 0.3 X10'3 (0-0.9); EOSINOPHILS % (AUTO) 3.5 % (0-6); HEMATOCRIT 29.3 % (42.0-52.0); HEMOGLOBIN 10.1 g/dl (14.0-17.9); LYMPHOCYTES # (AUTO) 0.9 X10'3 (1.1-4.8); LYMPHOCYTES % (AUTO) 10.1 % (21-51); MEAN CORPUSCULAR HEMOGLOBIN 32.6 PG (27.0-31.0); MEAN CORPUSCULAR HGB CONC 34.4 g/dL (33.0-36.5); MEAN CORPUSCULAR VOLUME 94.7 FL (78-98); MEAN PLATELET VOLUME 8.1 FL (7.4-10.4); MONOCYTES # (AUTO) 0.6 X10'3 (0-0.9); MONOCYTES % (AUTO) 7.4 % (2-12); NEUTROPHILS # (AUTO) 6.8 X10'3 (1.8-7.7); NEUTROPHILS % (AUTO) 78.6 % (42-75); PLATELET COUNT 309 X10'3 (140-440); RED BLOOD COUNT 3.09 X10'6 (4.70-6.10); WHITE BLOOD COUNT 8.7 X10'3 (4.5-11.0)
--- NOTE | 2020-08-06 06:39 | NUR ---
Problems reprioritized. Patient report given Gallo, questions answered & plan of care reviewed with .
[2020-08-06 07:00] VITALS: BP_SYST 125
[2020-08-06 07:01] LABS: ALANINE AMINOTRANSFERASE 18 U/L (12-78); ALBUMIN/GLOBULIN RATIO 0.5 (1.1-1.5); ALKALINE PHOSPHATASE 52 IU/L (46-116); ANION GAP 10 (8-16); ASPARTATE AMINO TRANSFERASE 14 U/L (10-37); BILIRUBIN,TOTAL 0.6 MG/DL (0.1-1.0); BLOOD UREA NITROGEN 37 MG/DL (7-18); BUN/CREATININE RATIO 23.4 (5.4-32.0); CALCIUM 8.7 MG/DL (8.5-10.1); CHLORIDE 105 MMOL/L (99-107); CREATININE 1.58 MG/DL (0.60-1.10); GLUCOSE 163 MG/DL (70-104); MAGNESIUM 2.3 MG/DL (1.5-2.4); SODIUM 141 MMOL/L (135-145); TOTAL CARBON DIOXIDE 25.6 MMOL/L (24-32); TOTAL PROTEIN 6.2 G/DL (6.4-8.2); eGFR 43 ML/MIN
--- NOTE | 2020-08-06 07:02 | NUR ---
Patient in room MED 315. I have received report from DELILAH Cutler and had the opportunity to ask questions and assume patient care.
[2020-08-06] MEDS: K and/or MAG REPLACEMENT MC SCH ×2 (08:00→20:00)
[2020-08-06] MEDS: aspirin 325mg tablet PO SCH (08:12)
[2020-08-06] MEDS: multivitamins, therapeutics tablet PO SCH (08:12)
[2020-08-06] MEDS: furosemide 20MG tablet PO SCH (08:13)
[2020-08-06] MEDS: sacubitril/valsartan 24mg-26mg tablet PO SCH ×2 (08:13→20:48)
[2020-08-06] MEDS: folic acid 1mg tablet PO SCH (08:13)
[2020-08-06] MEDS: clopidogrel 75mg tablet PO SCH (08:14)
[2020-08-06] MEDS: fenofibrate 145mg tablet PO SCH (08:14)
[2020-08-06] MEDS: rivaroxaban 15mg tablet PO SCH (08:15)
[2020-08-06] MEDS: pantoprazole 40mg Tablet.DR PO SCH (08:16)
[2020-08-06] MEDS: carVEDilol 12.5mg tablet PO SCH ×2 (08:16→20:48)
[2020-08-06] MEDS: lactobacillus rhamnosus 10,000 MMU CELLS/CAPSULE PO SCH ×2 (08:18→20:46)
[2020-08-06] MEDS: piperacillin/tazo 3.375gm/50ml 50 ML IV SCH ×2 (08:18→16:02)
[2020-08-06] MEDS: vitamin D (cholecalciferol) 1,000 unit tablet PO SCH (08:18)
[2020-08-06] MEDS: ferrous sulfate 325mg tablet PO SCH ×2 (08:18→20:46)
[2020-08-06] MEDS: docusate sod 100mg capsule PO SCH ×2 (08:19→20:45)
[2020-08-06] MEDS: magnesium hydroxide 30ml (MOM) UD suspension PO PRN (08:58)
[2020-08-06] MEDS: HYDROcodone/acetaminophen 5mg/325mg tablet PO PRN ×2 (08:58→19:12)
--- NOTE | 2020-08-06 09:14 | NUR ---
striker off at bedside.
[2020-08-06] MEDS: insulin Lispro (HumaLOG) vial - multi-dose SQ SCH ×2 (14:29→19:08)
[2020-08-06] MEDS ORDERED: furosemide 20 MG/2 ML vial IV ONE (15:30)
[2020-08-06 16:03] VITALS: BP 135/88
[2020-08-06 18:00] VITALS: BP 132/86
--- NOTE | 2020-08-06 18:50 | NUR ---
Problems reprioritized. Patient report given, questions answered & plan of care reviewed with DELILAH Domingo.
[2020-08-06] MEDS: insulin glargine (Lantus) pen - multi-dose SQ SCH (20:41)
[2020-08-06] MEDS: atorvastatin 20mg tablet PO SCH (20:47)
[2020-08-06] MEDS: Melatonin 3mg tablet PO SCH (20:47)
[2020-08-06] MEDS: traZODone 50mg tablet PO SCH (20:47)
[2020-08-06] MEDS: colchicine 0.6mg tablet PO SCH (20:48)
[2020-08-06 22:00] VITALS: BP 130/77
[2020-08-07] MEDS: piperacillin/tazo 3.375gm/50ml 50 ML IV SCH ×3 (00:14→15:30)
[2020-08-07] MEDS: mineral oil/petrolatum ophthal oint EACHEYE SCH ×4 (01:10→20:00)
[2020-08-07 02:00] VITALS: BP 122/66
[2020-08-07] MEDS: HYDROcodone/acetaminophen 5mg/325mg tablet PO PRN ×2 (04:49→11:14)
[2020-08-07 06:00] VITALS: BP 136/55
[2020-08-07 06:00] LABS: BASOPHILS % (AUTO) 0.6 % (0-1); EOSINOPHILS # (AUTO) 0.3 X10'3 (0-0.9); EOSINOPHILS % (AUTO) 3.9 % (0-6); HEMATOCRIT 29.5 % (42.0-52.0); LYMPHOCYTES % (AUTO) 13.6 % (21-51); MEAN CORPUSCULAR HEMOGLOBIN 32.2 PG (27.0-31.0); MEAN CORPUSCULAR HGB CONC 34.1 g/dL (33.0-36.5); MEAN CORPUSCULAR VOLUME 94.6 FL (78-98); MEAN PLATELET VOLUME 8.6 FL (7.4-10.4); MONOCYTES # (AUTO) 0.8 X10'3 (0-0.9); MONOCYTES % (AUTO) 10.5 % (2-12); NEUTROPHILS # (AUTO) 5.2 X10'3 (1.8-7.7); NEUTROPHILS % (AUTO) 71.4 % (42-75); PLATELET COUNT 366 X10'3 (140-440); RED BLOOD COUNT 3.12 X10'6 (4.70-6.10); RED CELL DISTRIBUTION WIDTH 14.7 % (11.5-14.5); WHITE BLOOD COUNT 7.3 X10'3 (4.5-11.0)
[2020-08-07 06:12] LABS: ALANINE AMINOTRANSFERASE 22 U/L (12-78); ALBUMIN/GLOBULIN RATIO 0.5 (1.1-1.5); ALKALINE PHOSPHATASE 55 IU/L (46-116); ANION GAP 8 (8-16); ASPARTATE AMINO TRANSFERASE 21 U/L (10-37); BILIRUBIN,TOTAL 0.6 MG/DL (0.1-1.0); BLOOD UREA NITROGEN 34 MG/DL (7-18); BUN/CREATININE RATIO 21.8 (5.4-32.0); CALCIUM 8.7 MG/DL (8.5-10.1); CHLORIDE 103 MMOL/L (99-107); CREATININE 1.56 MG/DL (0.60-1.10); GLUCOSE 162 MG/DL (70-104); MAGNESIUM 2.2 MG/DL (1.5-2.4); POTASSIUM 4.1 MMOL/L (3.5-5.1); SODIUM 140 MMOL/L (135-145); TOTAL PROTEIN 6.2 G/DL (6.4-8.2); eGFR 43 ML/MIN
--- NOTE | 2020-08-07 06:15 | NUR ---
Patient in room MED 315. I have received report from mary ann Domingo and had the opportunity to ask questions and assume patient care.
--- NOTE | 2020-08-07 06:25 | NUR ---
Problems reprioritized. Patient report given, questions answered & plan of care reviewed with Betsey MAZARIEGOS.
[2020-08-07] MEDS: K and/or MAG REPLACEMENT MC SCH ×2 (08:00→20:00)
[2020-08-07] MEDS: pantoprazole 40mg Tablet.DR PO SCH (08:55)
[2020-08-07] MEDS: lactobacillus rhamnosus 10,000 MMU CELLS/CAPSULE PO SCH ×2 (08:56→21:04)
[2020-08-07] MEDS: carVEDilol 12.5mg tablet PO SCH ×2 (08:56→21:04)
[2020-08-07] MEDS: furosemide 20MG tablet PO SCH (08:56)
[2020-08-07] MEDS: fenofibrate 145mg tablet PO SCH (08:57)
[2020-08-07] MEDS: docusate sod 100mg capsule PO SCH ×2 (08:57→21:04)
[2020-08-07] MEDS: magnesium hydroxide 30ml (MOM) UD suspension PO PRN (08:57)
[2020-08-07] MEDS: rivaroxaban 15mg tablet PO SCH (08:57)
[2020-08-07] MEDS: clopidogrel 75mg tablet PO SCH (08:57)
[2020-08-07] MEDS: ferrous sulfate 325mg tablet PO SCH ×2 (08:58→21:00)
[2020-08-07] MEDS: multivitamins, therapeutics tablet PO SCH (08:58)
[2020-08-07] MEDS: vitamin D (cholecalciferol) 1,000 unit tablet PO SCH (08:58)
[2020-08-07] MEDS: folic acid 1mg tablet PO SCH (08:58)
[2020-08-07] MEDS: aspirin 325mg tablet PO SCH (09:55)
[2020-08-07] MEDS: sacubitril/valsartan 24mg-26mg tablet PO SCH ×2 (09:56→21:04)
[2020-08-07 10:00] VITALS: BP 124/78
[2020-08-07] MEDS: insulin Lispro (HumaLOG) vial - multi-dose SQ SCH ×2 (10:06→19:22)
[2020-08-07 14:00] VITALS: BP 128/72
--- NOTE | 2020-08-07 15:19 | NUR ---
Reassessment: pt on minced and moist diet per ST recs. Pt s/p R groin pseudoaneurysm repair, endarterectomy, per WO pt has full thickness surgical wound to groin with muscle visible and wound vac. Last BM 08/05 receiving routine colace. Eating 50% average. Met with pt at bedside, reports normal appetite and is satisfied with meals. Glucerna has not been verified yet, continue to recommend ONS for additional protein. Rec: 1. continue carb controlled, minced moist diet texture per [facility] recs 2. Glucerna TIDWM 3. routine bowel care 4. weekly wts 5. MVI for wound healing needs post-op Addendum: 08/07/20 at [address] Amended: Links added.
[2020-08-07] MEDS: methylnaltrexone br 12mg/0.6ml inj***SubQ only SQ SCH (15:28)
[2020-08-07] MEDS: HYDROcodone/acetaminophen 10/325mg tab PO PRN ×2 (15:29→21:11)
--- NOTE | 2020-08-07 16:54 | NUR ---
[facility] INFORMATION: REF: [id number] LOT: [id number] EXP: 10/02/20
--- NOTE | 2020-08-07 18:45 | NUR ---
Problems reprioritized. Patient report given, questions answered & plan of care reviewed with DELILAH MELTON.
[2020-08-07 19:00] VITALS: BP 130/71
[2020-08-07] MEDS: atorvastatin 20mg tablet PO SCH (21:03)
[2020-08-07] MEDS: Melatonin 3mg tablet PO SCH (21:04)
[2020-08-07] MEDS: traZODone 50mg tablet PO SCH (21:04)
[2020-08-07] MEDS: colchicine 0.6mg tablet PO SCH (21:04)
[2020-08-07] MEDS: insulin glargine (Lantus) pen - multi-dose SQ SCH (21:27)
[2020-08-07 23:00] VITALS: BP 112/62
[2020-08-08] MEDS: piperacillin/tazo 3.375gm/50ml 50 ML IV SCH (00:48)
[2020-08-08] MEDS: mineral oil/petrolatum ophthal oint EACHEYE SCH ×4 (02:00→19:14)
[2020-08-08] MEDS: HYDROcodone/acetaminophen 10/325mg tab PO PRN ×4 (02:45→19:14)
[2020-08-08 03:00] VITALS: BP 106/65
[2020-08-08 06:00] VITALS: BP 134/74
--- NOTE | 2020-08-08 06:14 | NUR ---
Patient in room MED 315. I have received report from DELILAH Pierre and had the opportunity to ask questions and assume patient care.
[2020-08-08] MEDS: K and/or MAG REPLACEMENT MC SCH ×2 (08:00→19:15)
[2020-08-08] MEDS: NUT.TX.GLUC.INTOLER,LAC-FR,SOY (GLUCERNA) 237 ML PO SCH ×3 (08:00→18:20)
[2020-08-08] MEDS: carVEDilol 12.5mg tablet PO SCH ×2 (08:25→19:13)
[2020-08-08] MEDS: lactobacillus rhamnosus 10,000 MMU CELLS/CAPSULE PO SCH ×2 (08:25→19:13)
[2020-08-08] MEDS: folic acid 1mg tablet PO SCH (08:25)
[2020-08-08] MEDS: sacubitril/valsartan 24mg-26mg tablet PO SCH ×2 (08:25→19:13)
[2020-08-08] MEDS: fenofibrate 145mg tablet PO SCH (08:25)
[2020-08-08] MEDS: ferrous sulfate 325mg tablet PO SCH (08:25)
[2020-08-08] MEDS: multivitamins, therapeutics tablet PO SCH (08:25)
[2020-08-08] MEDS: aspirin 325mg tablet PO SCH (08:25)
[2020-08-08] MEDS: pantoprazole 40mg Tablet.DR PO SCH (08:25)
[2020-08-08] MEDS: rivaroxaban 15mg tablet PO SCH (08:25)
[2020-08-08] MEDS: clopidogrel 75mg tablet PO SCH (08:26)
[2020-08-08] MEDS: furosemide 20MG tablet PO SCH (08:26)
[2020-08-08] MEDS: docusate sod 100mg capsule PO SCH ×2 (08:26→19:13)
[2020-08-08] MEDS: vitamin D (cholecalciferol) 1,000 unit tablet PO SCH (08:26)
[2020-08-08] MEDS: insulin Lispro (HumaLOG) vial - multi-dose SQ SCH ×3 (09:32→22:04)
[2020-08-08] MEDS ORDERED: piperacillin/tazo 3.375gm/50ml 50 ML IV ONE (10:50)
[2020-08-08 15:00] VITALS: BP 115/67
[2020-08-08 18:00] VITALS: BP 128/48
--- NOTE | 2020-08-08 18:13 | NUR ---
Problems reprioritized. Patient report given, questions answered & plan of care reviewed with DELILAH Beckford.
--- NOTE | 2020-08-08 21:35 | NUR ---
DINNER TIME INSULIN NOT ADMINISTERED DUE TO MED NOT BEING AVAILABLE. SENT NOTE TO PHARMACY, RECEIVED MED IN TIME FOR NIGHT TIME DOSE.
[2020-08-08] MEDS: colchicine 0.6mg tablet PO SCH (21:52)
[2020-08-08] MEDS: traZODone 50mg tablet PO SCH (21:52)
[2020-08-08] MEDS: atorvastatin 20mg tablet PO SCH (21:53)
[2020-08-08] MEDS: Melatonin 3mg tablet PO SCH (21:53)
[2020-08-08 22:00] VITALS: BP 129/69
[2020-08-08] MEDS: insulin glargine (Lantus) pen - multi-dose SQ SCH (22:03)
[2020-08-09] MEDS: HYDROcodone/acetaminophen 10/325mg tab PO PRN ×4 (00:06→20:54)
[2020-08-09] MEDS: piperacillin/tazo 3.375gm/50ml 50 ML IV SCH ×4 (00:07→23:39)
[2020-08-09 02:00] VITALS: BP 131/64
[2020-08-09] MEDS: mineral oil/petrolatum ophthal oint EACHEYE SCH ×4 (02:00→20:00)
[2020-08-09 05:11] LABS: ALBUMIN 1.9 G/DL (3.4-5.0); ANION GAP 6 (8-16); BLOOD UREA NITROGEN 34 MG/DL (7-18); BUN/CREATININE RATIO 21.9 (5.4-32.0); CALCIUM 8.9 MG/DL (8.5-10.1); CHLORIDE 101 MMOL/L (99-107); CREATININE 1.55 MG/DL (0.60-1.10); GLUCOSE 176 MG/DL (70-104); MAGNESIUM 2.4 MG/DL (1.5-2.4); SODIUM 135 MMOL/L (135-145); TOTAL CARBON DIOXIDE 27.7 MMOL/L (24-32); eGFR 44 ML/MIN
[2020-08-09 06:00] VITALS: BP 129/73
--- NOTE | 2020-08-09 06:08 | NUR ---
Patient in room MED 315. I have received report from DELILAH Beckford and had the opportunity to ask questions and assume patient care.
[2020-08-09] MEDS: K and/or MAG REPLACEMENT MC SCH ×2 (07:05→20:00)
[2020-08-09] MEDS: NUT.TX.GLUC.INTOLER,LAC-FR,SOY (GLUCERNA) 237 ML PO SCH ×3 (07:24→18:10)
[2020-08-09] MEDS: methylnaltrexone br 12mg/0.6ml inj***SubQ only SQ SCH (07:39)
[2020-08-09] MEDS: aspirin 325mg tablet PO SCH (07:39)
[2020-08-09] MEDS: docusate sod 100mg capsule PO SCH ×2 (07:39→20:54)
[2020-08-09] MEDS: carVEDilol 12.5mg tablet PO SCH ×2 (07:40→20:00)
[2020-08-09] MEDS: ferrous sulfate 325mg tablet PO SCH (07:40)
[2020-08-09] MEDS: fenofibrate 145mg tablet PO SCH (07:40)
[2020-08-09] MEDS: folic acid 1mg tablet PO SCH (07:40)
[2020-08-09] MEDS: lactobacillus rhamnosus 10,000 MMU CELLS/CAPSULE PO SCH ×2 (07:40→20:54)
[2020-08-09] MEDS: rivaroxaban 15mg tablet PO SCH (07:40)
[2020-08-09] MEDS: clopidogrel 75mg tablet PO SCH (07:40)
[2020-08-09] MEDS: vitamin D (cholecalciferol) 1,000 unit tablet PO SCH (07:40)
[2020-08-09] MEDS: furosemide 20MG tablet PO SCH (07:40)
[2020-08-09] MEDS: multivitamins, therapeutics tablet PO SCH (07:40)
[2020-08-09] MEDS: sacubitril/valsartan 24mg-26mg tablet PO SCH ×2 (07:41→20:00)
[2020-08-09] MEDS: pantoprazole 40mg Tablet.DR PO SCH (07:45)
[2020-08-09] MEDS: insulin Lispro (HumaLOG) vial - multi-dose SQ SCH ×3 (08:35→19:07)
[2020-08-09 11:00] VITALS: BP 130/60
[2020-08-09 11:44] LABS: BASOPHILS # (AUTO) 0.1 X10'3 (0-0.2); EOSINOPHILS # (AUTO) 0.3 X10'3 (0-0.9); HEMATOCRIT 30.4 % (42.0-52.0); HEMOGLOBIN 10.3 g/dl (14.0-17.9); LYMPHOCYTES # (AUTO) 0.9 X10'3 (1.1-4.8); LYMPHOCYTES % (AUTO) 11.2 % (21-51); MEAN CORPUSCULAR HEMOGLOBIN 31.8 PG (27.0-31.0); MEAN CORPUSCULAR VOLUME 93.7 FL (78-98); MEAN PLATELET VOLUME 8.2 FL (7.4-10.4); MONOCYTES % (AUTO) 11.7 % (2-12); NEUTROPHILS # (AUTO) 6.2 X10'3 (1.8-7.7); NEUTROPHILS % (AUTO) 73.1 % (42-75); PLATELET COUNT 379 X10'3 (140-440); RED BLOOD COUNT 3.24 X10'6 (4.70-6.10); RED CELL DISTRIBUTION WIDTH 14.5 % (11.5-14.5); WHITE BLOOD COUNT 8.5 X10'3 (4.5-11.0)
[2020-08-09] MEDS ORDERED: potassium Cl 20 mEq SR tablet PO STA (12:47)
[2020-08-09] MEDS ORDERED: furosemide 40mg/4ml inj IV ONE (12:50)
[2020-08-09 15:00] VITALS: BP 107/55
--- NOTE | 2020-08-09 17:54 | NUR ---
Patient in room MED 315. I have received report from Tristen MAZARIEGOS and had the opportunity to ask questions and assume patient care.
[2020-08-09 18:00] VITALS: BP 107/55
--- NOTE | 2020-08-09 18:10 | NUR ---
Problems reprioritized. Patient report given, questions answered & plan of care reviewed with DELILAH Reyes.
[2020-08-09] MEDS: atorvastatin 20mg tablet PO SCH (20:53)
[2020-08-09] MEDS: colchicine 0.6mg tablet PO SCH (20:54)
[2020-08-09] MEDS: traZODone 50mg tablet PO SCH (20:54)
[2020-08-09] MEDS: Melatonin 3mg tablet PO SCH (20:55)
[2020-08-09] MEDS: insulin glargine (Lantus) pen - multi-dose SQ SCH (21:11)
[2020-08-09 22:00] VITALS: BP 101/65
[2020-08-10 02:00] VITALS: BP 137/74
[2020-08-10] MEDS: mineral oil/petrolatum ophthal oint EACHEYE SCH ×2 (02:00→08:00)
--- NOTE | 2020-08-10 02:51 | NUR ---
PAGER ID: [phone] MESSAGE: [id number] Carlos Hallman- no AM labs ordered-Patient has pseudoaneurysm, electrolyte replacement orders; may we order a BMP and CBC? Amy Mattson [phone]
[2020-08-10 06:00] VITALS: BP 136/74
--- NOTE | 2020-08-10 06:15 | NUR ---
Patient in room MED 315. I have received report from mary ann Reyes and had the opportunity to ask questions and assume patient care.
[2020-08-10 06:24] LABS: BASOPHILS # (AUTO) 0.1 X10'3 (0-0.2); BASOPHILS % (AUTO) 1.4 % (0-1); EOSINOPHILS # (AUTO) 0.3 X10'3 (0-0.9); EOSINOPHILS % (AUTO) 3.2 % (0-6); HEMATOCRIT 32.2 % (42.0-52.0); HEMOGLOBIN 10.8 g/dl (14.0-17.9); LYMPHOCYTES # (AUTO) 1.3 X10'3 (1.1-4.8); LYMPHOCYTES % (AUTO) 16.2 % (21-51); MEAN CORPUSCULAR HEMOGLOBIN 31.2 PG (27.0-31.0); MEAN CORPUSCULAR HGB CONC 33.5 g/dL (33.0-36.5); MEAN CORPUSCULAR VOLUME 93.3 FL (78-98); MEAN PLATELET VOLUME 9.2 FL (7.4-10.4); MONOCYTES % (AUTO) 12.5 % (2-12); NEUTROPHILS # (AUTO) 5.2 X10'3 (1.8-7.7); NEUTROPHILS % (AUTO) 66.7 % (42-75); PLATELET COUNT 384 X10'3 (140-440); RED BLOOD COUNT 3.45 X10'6 (4.70-6.10); WHITE BLOOD COUNT 7.8 X10'3 (4.5-11.0)
[2020-08-10 06:32] LABS: ALBUMIN 2.1 G/DL (3.4-5.0); ANION GAP 7 (8-16); BLOOD UREA NITROGEN 33 MG/DL (7-18); BUN/CREATININE RATIO 20.5 (5.4-32.0); CHLORIDE 101 MMOL/L (99-107); CREATININE 1.61 MG/DL (0.60-1.10); GLUCOSE 142 MG/DL (70-104); MAGNESIUM 1.9 MG/DL (1.5-2.4); POTASSIUM 3.8 MMOL/L (3.5-5.1); SODIUM 136 MMOL/L (135-145); TOTAL CARBON DIOXIDE 27.9 MMOL/L (24-32); eGFR 42 ML/MIN
--- NOTE | 2020-08-10 06:35 | NUR ---
Patient in room MED 315. I have received report from Ebonie MAZARIEGOS and had the opportunity to ask questions and assume patient care.
[2020-08-10] MEDS: K and/or MAG REPLACEMENT MC SCH ×2 (08:00→20:00)
[2020-08-10] MEDS: NUT.TX.GLUC.INTOLER,LAC-FR,SOY (GLUCERNA) 237 ML PO SCH ×3 (08:00→18:00)
[2020-08-10] MEDS: piperacillin/tazo 3.375gm/50ml 50 ML IV SCH ×3 (08:59→23:52)
[2020-08-10] MEDS: fenofibrate 145mg tablet PO SCH (08:59)
[2020-08-10] MEDS: vitamin D (cholecalciferol) 1,000 unit tablet PO SCH (09:00)
[2020-08-10] MEDS: furosemide 20MG tablet PO SCH (09:00)
[2020-08-10] MEDS: docusate sod 100mg capsule PO SCH ×2 (09:00→20:02)
[2020-08-10] MEDS: aspirin 325mg tablet PO SCH (09:01)
[2020-08-10] MEDS: rivaroxaban 15mg tablet PO SCH (09:01)
[2020-08-10] MEDS: sacubitril/valsartan 24mg-26mg tablet PO SCH ×2 (09:01→20:02)
[2020-08-10] MEDS: carVEDilol 12.5mg tablet PO SCH ×2 (09:01→20:02)
[2020-08-10] MEDS: pantoprazole 40mg Tablet.DR PO SCH (09:01)
[2020-08-10] MEDS: folic acid 1mg tablet PO SCH (09:02)
[2020-08-10] MEDS: multivitamins, therapeutics tablet PO SCH (09:02)
[2020-08-10] MEDS: lactobacillus rhamnosus 10,000 MMU CELLS/CAPSULE PO SCH ×2 (09:02→20:02)
[2020-08-10] MEDS: ferrous sulfate 325mg tablet PO SCH (09:02)
[2020-08-10] MEDS: clopidogrel 75mg tablet PO SCH (09:02)
[2020-08-10] MEDS: insulin Lispro (HumaLOG) vial - multi-dose SQ SCH ×2 (09:21→14:12)
[2020-08-10 10:00] VITALS: BP 104/57
--- NOTE | 2020-08-10 11:27 | NUR ---
Reassessment: pt on minced and moist diet per ST recs. Pt s/p R groin pseudoaneurysm repair, endarterectomy, per WO pt has full thickness surgical wound to groin with muscle visible and wound vac. Last BM 08/09 receiving routine colace. Eating 75% average, improvement since last assessment. Had met with pt at bedside, reported normal appetite and is satisfied with meals. Now receiving glucerna and drinking 100% providing additional 600 calories and 30 g protein daily. Rec: 1. continue carb controlled, minced moist diet texture per [facility] recs 2. Glucerna TIDWM 3. routine bowel care 4. weekly wts 5. MVI for wound healing needs post-op Addendum: 08/10/20 at [address] Amended: Links added.
[2020-08-10] MEDS: HYDROcodone/acetaminophen 5mg/325mg tablet PO PRN (11:35)
[2020-08-10 14:00] VITALS: BP 110/44
[2020-08-10 18:00] VITALS: BP 112/44
--- NOTE | 2020-08-10 18:13 | NUR ---
Problems reprioritized. Patient report given, questions answered & plan of care reviewed with mary ann Cutler.
--- NOTE | 2020-08-10 18:15 | NUR ---
Patient in room MED 315. I have received report from Kayley, and had the opportunity to ask questions and assume patient care.
--- NOTE | 2020-08-10 18:20 | NUR ---
Patient in room MED 315. I have received report from Kayley, and had the opportunity to ask questions and assume patient care.
--- NOTE | 2020-08-10 18:59 | NUR ---
Patient had his dinner over 45 minutes ago. His dinner blood sugar was 108. Will recheck his blood sugar at 2100. Patient is alert, oriented x4.
--- NOTE | 2020-08-10 19:00 | NUR ---
Patient has taken 100% of the glucerna.
[2020-08-10] MEDS: Melatonin 3mg tablet PO SCH (20:02)
[2020-08-10] MEDS: colchicine 0.6mg tablet PO SCH (20:02)
[2020-08-10] MEDS: traZODone 50mg tablet PO SCH (20:02)
[2020-08-10] MEDS: atorvastatin 20mg tablet PO SCH (20:02)
[2020-08-10] MEDS: HYDROcodone/acetaminophen 10/325mg tab PO PRN (20:06)
[2020-08-10] MEDS: insulin glargine (Lantus) pen - multi-dose SQ SCH (21:33)
[2020-08-10 22:00] VITALS: BP 126/56
[2020-08-11] MEDS: HYDROcodone/acetaminophen 10/325mg tab PO PRN ×2 (00:10→20:49)
--- NOTE | 2020-08-11 00:34 | NUR ---
Patient reported itching around the wound vac sponge in left groin. The left groin check, there are some blood around the sponge which was noticed from the beginning of the shift, looks like old dark blood. The area around the sponge in the left groin marked. No air leak in the wound vac, in continuous mode at 75. Will monitor the site for any changes for bleeding. Patient is alert, oriented X4.
--- NOTE | 2020-08-11 01:10 | NUR ---
Patient refused to be reposition at this time.
--- NOTE | 2020-08-11 01:48 | NUR ---
Patient is resting well. The left groin examined. No change in the marking around the sponge.
--- NOTE | 2020-08-11 01:49 | NUR ---
patient is non-complaint with the call light for help. Bed alarm is on for patient's safety. Addendum: 08/11/20 at 0533 by He Chan RN wrong patient. the note is for patient in room 12.
[2020-08-11 02:00] VITALS: BP 92/51
--- NOTE | 2020-08-11 05:33 | NUR ---
carpenter care completed. corrosion control technician the carpenter bag.
[2020-08-11 06:00] VITALS: BP 98/53
--- NOTE | 2020-08-11 06:29 | NUR ---
Patient in room MED 315. I have received report from mary ann malagon and had the opportunity to ask questions and assume patient care.
--- NOTE | 2020-08-11 06:40 | NUR ---
Problems reprioritized. Patient report given to Sarabjit, questions answered & plan of care reviewed with . Addendum: 08/12/20 at 0624 by He Chan RN Patient report given to Kayley.'
[2020-08-11 06:49] LABS: BASOPHILS # (AUTO) 0.1 X10'3 (0-0.2); BASOPHILS % (AUTO) 0.9 % (0-1); EOSINOPHILS # (AUTO) 0.2 X10'3 (0-0.9); EOSINOPHILS % (AUTO) 3.4 % (0-6); HEMATOCRIT 30.1 % (42.0-52.0); HEMOGLOBIN 10.4 g/dl (14.0-17.9); LYMPHOCYTES # (AUTO) 1.2 X10'3 (1.1-4.8); MEAN CORPUSCULAR HGB CONC 34.4 g/dL (33.0-36.5); MEAN CORPUSCULAR VOLUME 93.1 FL (78-98); MEAN PLATELET VOLUME 8.4 FL (7.4-10.4); MONOCYTES % (AUTO) 14.9 % (2-12); NEUTROPHILS # (AUTO) 4.3 X10'3 (1.8-7.7); NEUTROPHILS % (AUTO) 63.8 % (42-75); PLATELET COUNT 390 X10'3 (140-440); RED BLOOD COUNT 3.24 X10'6 (4.70-6.10); RED CELL DISTRIBUTION WIDTH 14.8 % (11.5-14.5); WHITE BLOOD COUNT 6.8 X10'3 (4.5-11.0)
[2020-08-11 06:54] LABS: ALBUMIN 2.1 G/DL (3.4-5.0); ANION GAP 5 (8-16); BLOOD UREA NITROGEN 35 MG/DL (7-18); BUN/CREATININE RATIO 18.2 (5.4-32.0); CALCIUM 8.8 MG/DL (8.5-10.1); CHLORIDE 102 MMOL/L (99-107); CREATININE 1.92 MG/DL (0.60-1.10); GLUCOSE 180 MG/DL (70-104); MAGNESIUM 1.9 MG/DL (1.5-2.4); SODIUM 135 MMOL/L (135-145); TOTAL CARBON DIOXIDE 27.6 MMOL/L (24-32); eGFR 34 ML/MIN
[2020-08-11] MEDS: NUT.TX.GLUC.INTOLER,LAC-FR,SOY (GLUCERNA) 237 ML PO SCH ×3 (08:00→18:00)
[2020-08-11] MEDS: K and/or MAG REPLACEMENT MC SCH ×2 (08:00→20:00)
[2020-08-11] MEDS: HYDROmorphone inj. 0.5 MG/0.5 ML DISP.SYRIN IV PRN (09:15)
[2020-08-11] MEDS: multivitamins, therapeutics tablet PO SCH (09:23)
[2020-08-11] MEDS: vitamin D (cholecalciferol) 1,000 unit tablet PO SCH (09:23)
[2020-08-11] MEDS: furosemide 20MG tablet PO SCH (09:24)
[2020-08-11] MEDS: aspirin 325mg tablet PO SCH (09:24)
[2020-08-11] MEDS: ferrous sulfate 325mg tablet PO SCH (09:24)
[2020-08-11] MEDS: docusate sod 100mg capsule PO SCH ×2 (09:24→20:49)
[2020-08-11] MEDS: carVEDilol 12.5mg tablet PO SCH ×2 (09:24→20:49)
[2020-08-11] MEDS: clopidogrel 75mg tablet PO SCH (09:24)
[2020-08-11] MEDS: rivaroxaban 15mg tablet PO SCH (09:25)
[2020-08-11] MEDS: folic acid 1mg tablet PO SCH (09:25)
[2020-08-11] MEDS: sacubitril/valsartan 24mg-26mg tablet PO SCH ×2 (09:25→20:48)
[2020-08-11] MEDS: fenofibrate 145mg tablet PO SCH (09:25)
[2020-08-11] MEDS: lactobacillus rhamnosus 10,000 MMU CELLS/CAPSULE PO SCH ×2 (09:25→20:49)
[2020-08-11] MEDS: piperacillin/tazo 3.375gm/50ml 50 ML IV SCH ×2 (09:25→17:37)
[2020-08-11] MEDS: methylnaltrexone br 12mg/0.6ml inj***SubQ only SQ SCH (09:26)
[2020-08-11] MEDS ORDERED: silver nitrate applicator stick TP ONE (09:30)
[2020-08-11] MEDS: insulin Lispro (HumaLOG) vial - multi-dose SQ SCH ×3 (09:49→19:30)
[2020-08-11 10:00] VITALS: BP 113/73
[2020-08-11] MEDS: pantoprazole 40mg Tablet.DR PO SCH (10:47)
[2020-08-11] MEDS: HYDROcodone/acetaminophen 5mg/325mg tablet PO PRN (13:04)
[2020-08-11 14:00] VITALS: BP 132/61
[2020-08-11 18:00] VITALS: BP 112/55
--- NOTE | 2020-08-11 18:15 | NUR ---
Problems reprioritized. Patient report given, questions answered & plan of care reviewed with DELILAH Cutler.
--- NOTE | 2020-08-11 18:20 | NUR ---
Patient in room MED 315. I have received report from Kayley, and had the opportunity to ask questions and assume patient care.
[2020-08-11] MEDS: colchicine 0.6mg tablet PO SCH (20:48)
[2020-08-11] MEDS: Melatonin 3mg tablet PO SCH (20:48)
[2020-08-11] MEDS: atorvastatin 20mg tablet PO SCH (20:49)
[2020-08-11] MEDS: traZODone 50mg tablet PO SCH (20:49)
[2020-08-11] MEDS: insulin glargine (Lantus) pen - multi-dose SQ SCH (21:08)
[2020-08-11 22:00] VITALS: BP 109/49
[2020-08-12] MEDS: piperacillin/tazo 3.375gm/50ml 50 ML IV SCH ×4 (00:02→23:41)
[2020-08-12] MEDS: HYDROcodone/acetaminophen 10/325mg tab PO PRN ×3 (00:03→19:39)
[2020-08-12 02:00] VITALS: BP 96/46
[2020-08-12 06:10] LABS: BASOPHILS # (AUTO) 0.1 X10'3 (0-0.2); EOSINOPHILS # (AUTO) 0.3 X10'3 (0-0.9); EOSINOPHILS % (AUTO) 4.2 % (0-6); HEMATOCRIT 30.2 % (42.0-52.0); HEMOGLOBIN 10.1 g/dl (14.0-17.9); LYMPHOCYTES # (AUTO) 1.3 X10'3 (1.1-4.8); LYMPHOCYTES % (AUTO) 20.7 % (21-51); MEAN CORPUSCULAR HEMOGLOBIN 31.3 PG (27.0-31.0); MEAN CORPUSCULAR HGB CONC 33.6 g/dL (33.0-36.5); MEAN CORPUSCULAR VOLUME 93.2 FL (78-98); MEAN PLATELET VOLUME 8.5 FL (7.4-10.4); MONOCYTES % (AUTO) 14.9 % (2-12); NEUTROPHILS # (AUTO) 3.8 X10'3 (1.8-7.7); NEUTROPHILS % (AUTO) 59.2 % (42-75); PLATELET COUNT 420 X10'3 (140-440); RED BLOOD COUNT 3.24 X10'6 (4.70-6.10); RED CELL DISTRIBUTION WIDTH 14.8 % (11.5-14.5); WHITE BLOOD COUNT 6.5 X10'3 (4.5-11.0)
[2020-08-12 06:15] LABS: ALBUMIN 2.2 G/DL (3.4-5.0); ANION GAP 6 (8-16); BLOOD UREA NITROGEN 40 MG/DL (7-18); CALCIUM 9.2 MG/DL (8.5-10.1); CHLORIDE 100 MMOL/L (99-107); GLUCOSE 114 MG/DL (70-104); MAGNESIUM 2.1 MG/DL (1.5-2.4); SODIUM 133 MMOL/L (135-145); TOTAL CARBON DIOXIDE 26.9 MMOL/L (24-32); eGFR 31 ML/MIN
--- NOTE | 2020-08-12 06:15 | NUR ---
Patient in room MED 315. I have received report from manas reese and had the opportunity to ask questions and assume patient care.
--- NOTE | 2020-08-12 06:22 | NUR ---
Problems reprioritized. Patient report given to Kayley, questions answered & plan of care reviewed with .
[2020-08-12] MEDS: NUT.TX.GLUC.INTOLER,LAC-FR,SOY (GLUCERNA) 237 ML PO SCH ×3 (08:00→18:00)
[2020-08-12] MEDS: K and/or MAG REPLACEMENT MC SCH ×2 (08:00→20:00)
[2020-08-12] MEDS: vitamin D (cholecalciferol) 1,000 unit tablet PO SCH (09:09)
[2020-08-12] MEDS: pantoprazole 40mg Tablet.DR PO SCH (09:10)
[2020-08-12] MEDS: rivaroxaban 15mg tablet PO SCH (09:10)
[2020-08-12] MEDS: clopidogrel 75mg tablet PO SCH (09:10)
[2020-08-12] MEDS: sacubitril/valsartan 24mg-26mg tablet PO SCH ×2 (09:10→20:00)
[2020-08-12] MEDS: docusate sod 100mg capsule PO SCH ×2 (09:10→22:34)
[2020-08-12] MEDS: furosemide 20MG tablet PO SCH (09:10)
[2020-08-12] MEDS: aspirin 325mg tablet PO SCH (09:10)
[2020-08-12] MEDS: folic acid 1mg tablet PO SCH (09:11)
[2020-08-12] MEDS: multivitamins, therapeutics tablet PO SCH (09:11)
[2020-08-12] MEDS: fenofibrate 145mg tablet PO SCH (09:11)
[2020-08-12] MEDS: carVEDilol 12.5mg tablet PO SCH ×2 (09:11→20:00)
[2020-08-12] MEDS: ferrous sulfate 325mg tablet PO SCH (09:11)
[2020-08-12] MEDS: lactobacillus rhamnosus 10,000 MMU CELLS/CAPSULE PO SCH ×2 (09:11→22:33)
[2020-08-12] MEDS: insulin Lispro (HumaLOG) vial - multi-dose SQ SCH ×3 (10:54→19:43)
[2020-08-12] MEDS ORDERED: magnesium hydroxide 30ml (MOM) UD suspension PO ONE (16:15)
[2020-08-12 18:00] VITALS: BP 95/48
--- NOTE | 2020-08-12 18:45 | NUR ---
Problems reprioritized. Patient report given, questions answered & plan of care reviewed with jossy.
[2020-08-12 22:00] VITALS: BP 98/47
[2020-08-12] MEDS: traZODone 50mg tablet PO SCH (22:34)
[2020-08-12] MEDS: atorvastatin 20mg tablet PO SCH (22:34)
[2020-08-12] MEDS: Melatonin 3mg tablet PO SCH (22:34)
[2020-08-12] MEDS: colchicine 0.6mg tablet PO SCH (22:35)
[2020-08-12] MEDS: insulin glargine (Lantus) pen - multi-dose SQ SCH (22:39)
[2020-08-13] MEDS: HYDROcodone/acetaminophen 10/325mg tab PO PRN ×3 (00:27→21:29)
[2020-08-13 02:00] VITALS: BP 95/38
[2020-08-13 06:00] VITALS: BP 109/53
[2020-08-13 06:15] LABS: BASOPHILS # (AUTO) 0.1 X10'3 (0-0.2); BASOPHILS % (AUTO) 1.2 % (0-1); EOSINOPHILS # (AUTO) 0.3 X10'3 (0-0.9); EOSINOPHILS % (AUTO) 4.7 % (0-6); HEMATOCRIT 29.3 % (42.0-52.0); LYMPHOCYTES # (AUTO) 1.3 X10'3 (1.1-4.8); LYMPHOCYTES % (AUTO) 20.7 % (21-51); MEAN CORPUSCULAR HEMOGLOBIN 31.7 PG (27.0-31.0); MEAN PLATELET VOLUME 8.5 FL (7.4-10.4); MONOCYTES # (AUTO) 0.9 X10'3 (0-0.9); MONOCYTES % (AUTO) 14.5 % (2-12); NEUTROPHILS # (AUTO) 3.6 X10'3 (1.8-7.7); NEUTROPHILS % (AUTO) 58.9 % (42-75); PLATELET COUNT 417 X10'3 (140-440); RED BLOOD COUNT 3.15 X10'6 (4.70-6.10); RED CELL DISTRIBUTION WIDTH 14.5 % (11.5-14.5); WHITE BLOOD COUNT 6.2 X10'3 (4.5-11.0)
[2020-08-13 06:34] LABS: ALBUMIN 2.2 G/DL (3.4-5.0); ANION GAP 8 (8-16); BLOOD UREA NITROGEN 39 MG/DL (7-18); BUN/CREATININE RATIO 18.1 (5.4-32.0); CALCIUM 9.2 MG/DL (8.5-10.1); CHLORIDE 104 MMOL/L (99-107); CREATININE 2.16 MG/DL (0.60-1.10); GLUCOSE 110 MG/DL (70-104); MAGNESIUM 2.2 MG/DL (1.5-2.4); POTASSIUM 4.2 MMOL/L (3.5-5.1); SODIUM 140 MMOL/L (135-145); TOTAL CARBON DIOXIDE 28.5 MMOL/L (24-32); eGFR 30 ML/MIN
[2020-08-13] MEDS: K and/or MAG REPLACEMENT MC SCH ×2 (08:00→20:00)
[2020-08-13] MEDS: lactobacillus rhamnosus 10,000 MMU CELLS/CAPSULE PO SCH ×2 (08:07→20:46)
[2020-08-13] MEDS: vitamin D (cholecalciferol) 1,000 unit tablet PO SCH (08:09)
[2020-08-13] MEDS: docusate sod 100mg capsule PO SCH ×2 (08:10→20:46)
[2020-08-13] MEDS: clopidogrel 75mg tablet PO SCH (08:11)
[2020-08-13] MEDS: fenofibrate 145mg tablet PO SCH (08:11)
[2020-08-13] MEDS: ferrous sulfate 325mg tablet PO SCH (08:11)
[2020-08-13] MEDS: multivitamins, therapeutics tablet PO SCH (08:11)
[2020-08-13] MEDS: pantoprazole 40mg Tablet.DR PO SCH (08:11)
[2020-08-13] MEDS: carVEDilol 12.5mg tablet PO SCH ×2 (08:11→20:00)
[2020-08-13] MEDS: rivaroxaban 15mg tablet PO SCH (08:11)
[2020-08-13] MEDS: furosemide 20MG tablet PO SCH (08:12)
[2020-08-13] MEDS: methylnaltrexone br 12mg/0.6ml inj***SubQ only SQ SCH (08:13)
[2020-08-13] MEDS: piperacillin/tazo 3.375gm/50ml 50 ML IV SCH ×2 (08:13→16:55)
[2020-08-13] MEDS: folic acid 1mg tablet PO SCH (08:13)
[2020-08-13] MEDS: aspirin 325mg tablet PO SCH (08:18)
[2020-08-13] MEDS: sacubitril/valsartan 24mg-26mg tablet PO SCH ×2 (08:18→20:00)
[2020-08-13] MEDS: HYDROmorphone inj. 0.5 MG/0.5 ML DISP.SYRIN IV PRN (08:29)
--- NOTE | 2020-08-13 08:30 | NUR ---
silver nitrate sticks used by wound care for pt. care.
[2020-08-13] MEDS: NUT.TX.GLUC.INTOLER,LAC-FR,SOY (GLUCERNA) 237 ML PO SCH ×3 (08:38→18:00)
[2020-08-13] MEDS ORDERED: silver nitrate applicator stick TP ONE (08:50)
[2020-08-13 11:00] VITALS: BP 92/46
--- NOTE | 2020-08-13 12:19 | NUR ---
Reassessment: Pt on carb controlled diet, BODY AND FRAME MAN advanced diet to regular consistency foods and thin liquids on 08/11. Per WOC notes pt has full thickness surgical wound to L groin with muscle visible and bleeding. PO intake average 75% and ONS intake 100%, pt meeting needs with adequate protein to promote wound healing. Last BM 08/09, receiving routine colace and received one time dose of MoM 08/12. No further nutrition intervention implemented at this time, will continue to monitor for protein needs and ONS acceptance. Rec: 1. continue carb controlled, regular texture per BODY AND FRAME MAN recs 2. Glucerna TIDWM 3. routine bowel care 4. weekly wts 5. MVI for wound healing needs post-op Addendum: 08/13/20 at [address] Amended: Links added. Addendum: 08/13/20 at [address] I have reviewed and agree with note by Director Market Research. Savannah Schaefer, RD
[2020-08-13] MEDS: insulin Lispro (HumaLOG) vial - multi-dose SQ SCH ×2 (14:19→19:32)
--- NOTE | 2020-08-13 14:50 | NUR ---
Student documentation: I have reviewed and agree with all interventions, assessments performed and documented by JESSICA Polanco.
[2020-08-13 15:00] VITALS: BP 106/53
[2020-08-13 18:00] VITALS: BP 98/60
--- NOTE | 2020-08-13 18:48 | NUR ---
Patient in room MED 315. I have received report from Ebonie MAZARIEGOS and had the opportunity to ask questions and assume patient care.
--- NOTE | 2020-08-13 18:48 | NUR ---
Problems reprioritized. Patient report given, questions answered & plan of care reviewed with DELILAH Díaz.
[2020-08-13] MEDS: traZODone 50mg tablet PO SCH (20:45)
[2020-08-13] MEDS: atorvastatin 20mg tablet PO SCH (20:45)
[2020-08-13] MEDS: Melatonin 3mg tablet PO SCH (20:46)
[2020-08-13] MEDS: colchicine 0.6mg tablet PO SCH (20:46)
[2020-08-13] MEDS: insulin glargine (Lantus) pen - multi-dose SQ SCH (21:32)
--- NOTE | 2020-08-13 21:45 | NUR ---
Dr. Medina came to check on patient. Patient wound dressing was wet to dry and was weeping serosanguineous fluid. He ordered wound dressings to be changed daily to dry dressings .
[2020-08-13 22:00] VITALS: BP 113/64
[2020-08-14] MEDS: piperacillin/tazo 3.375gm/50ml 50 ML IV SCH ×3 (00:37→16:07)
[2020-08-14] MEDS ORDERED: tPA-cathflo 2 MG/2 ml IV flush IVF ONE ×2 (00:55→04:45)
[2020-08-14 02:00] VITALS: BP 106/73
[2020-08-14 05:52] LABS: BASOPHILS # (AUTO) 0.1 X10'3 (0-0.2); EOSINOPHILS # (AUTO) 0.3 X10'3 (0-0.9); EOSINOPHILS % (AUTO) 4.7 % (0-6); HEMATOCRIT 28.1 % (42.0-52.0); HEMOGLOBIN 9.5 g/dl (14.0-17.9); LYMPHOCYTES # (AUTO) 1.3 X10'3 (1.1-4.8); LYMPHOCYTES % (AUTO) 20.3 % (21-51); MEAN CORPUSCULAR HEMOGLOBIN 31.4 PG (27.0-31.0); MEAN CORPUSCULAR HGB CONC 33.9 g/dL (33.0-36.5); MEAN CORPUSCULAR VOLUME 92.8 FL (78-98); MEAN PLATELET VOLUME 8.8 FL (7.4-10.4); MONOCYTES # (AUTO) 0.8 X10'3 (0-0.9); NEUTROPHILS # (AUTO) 3.8 X10'3 (1.8-7.7); PLATELET COUNT 398 X10'3 (140-440); RED BLOOD COUNT 3.03 X10'6 (4.70-6.10); RED CELL DISTRIBUTION WIDTH 14.6 % (11.5-14.5); WHITE BLOOD COUNT 6.2 X10'3 (4.5-11.0)
[2020-08-14 06:00] VITALS: BP 114/44
[2020-08-14 06:01] LABS: ALBUMIN 2.2 G/DL (3.4-5.0); ANION GAP 7 (8-16); BLOOD UREA NITROGEN 44 MG/DL (7-18); BUN/CREATININE RATIO 18.4 (5.4-32.0); CALCIUM 8.5 MG/DL (8.5-10.1); CHLORIDE 101 MMOL/L (99-107); CREATININE 2.39 MG/DL (0.60-1.10); GLUCOSE 144 MG/DL (70-104); MAGNESIUM 2.1 MG/DL (1.5-2.4); POTASSIUM 4.4 MMOL/L (3.5-5.1); SODIUM 136 MMOL/L (135-145); TOTAL CARBON DIOXIDE 27.6 MMOL/L (24-32); eGFR 27 ML/MIN
--- NOTE | 2020-08-14 06:40 | NUR ---
Problems reprioritized. Patient report given, questions answered & plan of care reviewed with Ebonie MAZARIEGOS.
[2020-08-14] MEDS: K and/or MAG REPLACEMENT MC SCH ×2 (08:00→20:00)
[2020-08-14] MEDS: NUT.TX.GLUC.INTOLER,LAC-FR,SOY (GLUCERNA) 237 ML PO SCH ×3 (08:00→18:07)
[2020-08-14] MEDS: docusate sod 100mg capsule PO SCH ×2 (09:06→20:13)
[2020-08-14] MEDS: pantoprazole 40mg Tablet.DR PO SCH (09:06)
[2020-08-14] MEDS: ferrous sulfate 325mg tablet PO SCH (09:06)
[2020-08-14] MEDS: lactobacillus rhamnosus 10,000 MMU CELLS/CAPSULE PO SCH ×2 (09:06→20:14)
[2020-08-14] MEDS: folic acid 1mg tablet PO SCH (09:07)
[2020-08-14] MEDS: furosemide 20MG tablet PO SCH (09:07)
[2020-08-14] MEDS: fenofibrate 145mg tablet PO SCH (09:07)
[2020-08-14] MEDS: multivitamins, therapeutics tablet PO SCH (09:07)
[2020-08-14] MEDS: aspirin 325mg tablet PO SCH (09:07)
[2020-08-14] MEDS: vitamin D (cholecalciferol) 1,000 unit tablet PO SCH (09:08)
[2020-08-14] MEDS: sacubitril/valsartan 24mg-26mg tablet PO SCH ×2 (09:08→20:00)
[2020-08-14] MEDS: rivaroxaban 15mg tablet PO SCH (09:08)
[2020-08-14] MEDS: clopidogrel 75mg tablet PO SCH (09:08)
[2020-08-14] MEDS: carVEDilol 12.5mg tablet PO SCH ×2 (09:08→20:00)
[2020-08-14] MEDS: insulin Lispro (HumaLOG) vial - multi-dose SQ SCH ×3 (09:16→20:12)
[2020-08-14] MEDS: HYDROcodone/acetaminophen 10/325mg tab PO PRN ×2 (09:21→14:36)
[2020-08-14 10:00] VITALS: BP 119/51
[2020-08-14 14:00] VITALS: BP 107/52
[2020-08-14 18:00] VITALS: BP 96/61
--- NOTE | 2020-08-14 18:07 | NUR ---
Problems reprioritized. Patient report given, questions answered & plan of care reviewed with DELILAH Díaz.
--- NOTE | 2020-08-14 18:28 | NUR ---
Problems reprioritized. Patient report given, questions answered & plan of care reviewed with DELILAH Reyes.
--- NOTE | 2020-08-14 18:30 | NUR ---
Patient left AMA papers signed Rusu paged
--- NOTE | 2020-08-14 18:33 | NUR ---
Patient in room MED 315. I have received report from Tristen MAZARIEGOS and had the opportunity to ask questions and assume patient care.
[2020-08-14 22:00] VITALS: BP 123/53
[2020-08-14] MEDS: insulin glargine (Lantus) pen - multi-dose SQ SCH (23:47)
[2020-08-14] MEDS: atorvastatin 20mg tablet PO SCH (23:48)
[2020-08-14] MEDS: traZODone 50mg tablet PO SCH (23:49)
[2020-08-14] MEDS: Melatonin 3mg tablet PO SCH (23:49)
[2020-08-15 02:00] VITALS: BP 110/63
[2020-08-15] MEDS: colchicine 0.6mg tablet PO SCH ×2 (02:32→21:45)
[2020-08-15] MEDS: piperacillin/tazo 3.375gm/50ml 50 ML IV SCH ×3 (02:35→16:57)
[2020-08-15] MEDS: HYDROcodone/acetaminophen 10/325mg tab PO PRN ×3 (03:13→21:52)
[2020-08-15 06:00] VITALS: BP 117/48
[2020-08-15 06:00] LABS: BASOPHILS # (AUTO) 0.1 X10'3 (0-0.2); EOSINOPHILS # (AUTO) 0.3 X10'3 (0-0.9); HEMOGLOBIN 9.3 g/dl (14.0-17.9)
[2020-08-15 06:02] LABS: BASOPHILS % (AUTO) 1.2 % (0-1); EOSINOPHILS % (AUTO) 4.4 % (0-6); HEMATOCRIT 26.9 % (42.0-52.0); LYMPHOCYTES # (AUTO) 1.2 X10'3 (1.1-4.8); MEAN CORPUSCULAR HEMOGLOBIN 32.1 PG (27.0-31.0); MEAN CORPUSCULAR HGB CONC 34.7 g/dL (33.0-36.5); MEAN CORPUSCULAR VOLUME 92.5 FL (78-98); MONOCYTES % (AUTO) 13.9 % (2-12); NEUTROPHILS # (AUTO) 4.7 X10'3 (1.8-7.7); NEUTROPHILS % (AUTO) 63.5 % (42-75); PLATELET COUNT 391 X10'3 (140-440); RED BLOOD COUNT 2.91 X10'6 (4.70-6.10); RED CELL DISTRIBUTION WIDTH 14.5 % (11.5-14.5); WHITE BLOOD COUNT 7.3 X10'3 (4.5-11.0)
--- NOTE | 2020-08-15 06:15 | NUR ---
Problems reprioritized. Patient report given, questions answered & plan of care reviewed with Chayo MAZARIEGOS.
[2020-08-15 06:17] LABS: ALBUMIN 2.2 G/DL (3.4-5.0); ANION GAP 8 (8-16); BLOOD UREA NITROGEN 44 MG/DL (7-18); BUN/CREATININE RATIO 18.3 (5.4-32.0); CALCIUM 8.7 MG/DL (8.5-10.1); CHLORIDE 102 MMOL/L (99-107); GLUCOSE 121 MG/DL (70-104); MAGNESIUM 2.1 MG/DL (1.5-2.4); SODIUM 138 MMOL/L (135-145); TOTAL CARBON DIOXIDE 28.4 MMOL/L (24-32); eGFR 26 ML/MIN
--- NOTE | 2020-08-15 06:38 | NUR ---
Patient in room MED 315. I have received report from Amy MAZARIEGSO and had the opportunity to ask questions and assume patient care.
[2020-08-15] MEDS: NUT.TX.GLUC.INTOLER,LAC-FR,SOY (GLUCERNA) 237 ML PO SCH ×3 (08:00→18:00)
[2020-08-15] MEDS: aspirin 325mg tablet PO SCH (08:00)
[2020-08-15] MEDS: K and/or MAG REPLACEMENT MC SCH ×2 (08:00→20:00)
[2020-08-15] MEDS: vitamin D (cholecalciferol) 1,000 unit tablet PO SCH (08:57)
[2020-08-15] MEDS: fenofibrate 145mg tablet PO SCH (08:57)
[2020-08-15] MEDS: sacubitril/valsartan 24mg-26mg tablet PO SCH ×2 (08:57→21:44)
[2020-08-15] MEDS: rivaroxaban 15mg tablet PO SCH (08:58)
[2020-08-15] MEDS: carVEDilol 12.5mg tablet PO SCH ×2 (08:58→21:44)
[2020-08-15] MEDS: ferrous sulfate 325mg tablet PO SCH (08:59)
[2020-08-15] MEDS: folic acid 1mg tablet PO SCH (08:59)
[2020-08-15] MEDS: lactobacillus rhamnosus 10,000 MMU CELLS/CAPSULE PO SCH ×2 (08:59→21:44)
[2020-08-15] MEDS: docusate sod 100mg capsule PO SCH ×2 (08:59→21:43)
[2020-08-15] MEDS: multivitamins, therapeutics tablet PO SCH (08:59)
[2020-08-15] MEDS: furosemide 20MG tablet PO SCH (08:59)
[2020-08-15] MEDS: clopidogrel 75mg tablet PO SCH (08:59)
[2020-08-15] MEDS: methylnaltrexone br 12mg/0.6ml inj***SubQ only SQ SCH (09:00)
[2020-08-15] MEDS: pantoprazole 40mg Tablet.DR PO SCH (09:14)
[2020-08-15] MEDS: insulin Lispro (HumaLOG) vial - multi-dose SQ SCH ×3 (09:43→19:16)
[2020-08-15 10:00] VITALS: BP 123/54
--- NOTE | 2020-08-15 11:02 | NUR ---
NOC Nurse had hung the Zosyn (0800 dose at shift change and did not scan it) the tubing was not working alarming high pressure due to the the the clip was rolled down Day Nurse opened clamp and finished administrating the Zosyn and scanned it as well when Emar was checked and med not scanned.
--- NOTE | 2020-08-15 12:24 | NUR ---
315 Hu Hallman. Pt states he has not had a regular BM for six days he states he had a very small one yesterday. He had just a smear on bed miner today. He and his are requesting MOM I think maybe suppository if it is stuck and wont come out. Thanks
--- NOTE | 2020-08-15 12:24 | NUR ---
Patient had large BM on bedside commode he tried earlier in a bedpan with just a smear. Encouraged getting up to the commode to help with BM, he agreed and stated understanding. Dr Georges came to check pt and she was told about BM and she also ordered MOM prn if needed for constipation,
[2020-08-15 14:00] VITALS: BP 104/41
[2020-08-15 18:00] VITALS: BP 112/47
--- NOTE | 2020-08-15 18:35 | NUR ---
Patient in room MED 315. I have received report from Chayo MAZARIEGOS and had the opportunity to ask questions and assume patient care.
--- NOTE | 2020-08-15 18:40 | NUR ---
Problems reprioritized. Patient report given, questions answered & plan of care reviewed with Shelby MAZARIEGOS.
[2020-08-15] MEDS: traZODone 50mg tablet PO SCH (21:44)
[2020-08-15] MEDS: Melatonin 3mg tablet PO SCH (21:44)
[2020-08-15] MEDS: atorvastatin 20mg tablet PO SCH (21:44)
[2020-08-15 22:00] VITALS: BP 111/56
[2020-08-15] MEDS: magnesium hydroxide 30ml (MOM) UD suspension PO PRN (22:08)
[2020-08-15] MEDS: insulin glargine (Lantus) pen - multi-dose SQ SCH (22:08)
[2020-08-16] MEDS: piperacillin/tazo 3.375gm/50ml 50 ML IV SCH ×3 (00:15→17:26)
[2020-08-16 02:00] VITALS: BP 115/60
[2020-08-16] MEDS: HYDROcodone/acetaminophen 10/325mg tab PO PRN ×3 (02:06→20:57)
--- NOTE | 2020-08-16 03:00 | NUR ---
DRESSING TO LEFT GROIN SATURATED. REMOVED OLD DRESSING. WITH STERILE TECHNIQUE, RE-DRESSED WOUND WITH STERILE 4X4'S AND COVERED WITH ABD DRESSING AND TAPE. PATIENT TOLERATED WELL.
[2020-08-16 05:52] LABS: ALBUMIN 2.2 G/DL (3.4-5.0); ANION GAP 7 (8-16); BLOOD UREA NITROGEN 40 MG/DL (7-18); BUN/CREATININE RATIO 16.5 (5.4-32.0); CALCIUM 8.7 MG/DL (8.5-10.1); CHLORIDE 102 MMOL/L (99-107); CREATININE 2.42 MG/DL (0.60-1.10); GLUCOSE 155 MG/DL (70-104); MAGNESIUM 2.2 MG/DL (1.5-2.4); POTASSIUM 4.3 MMOL/L (3.5-5.1); SODIUM 139 MMOL/L (135-145); eGFR 26 ML/MIN
[2020-08-16 05:55] LABS: EOSINOPHILS # (AUTO) 0.3 X10'3 (0-0.9); LYMPHOCYTES # (AUTO) 1.6 X10'3 (1.1-4.8)
[2020-08-16 05:57] LABS: BASOPHILS % (AUTO) 0.8 % (0-1); HEMATOCRIT 26.9 % (42.0-52.0); LYMPHOCYTES % (AUTO) 24.5 % (21-51); MEAN CORPUSCULAR HEMOGLOBIN 30.9 PG (27.0-31.0); MEAN CORPUSCULAR HGB CONC 33.4 g/dL (33.0-36.5); MEAN CORPUSCULAR VOLUME 92.6 FL (78-98); MEAN PLATELET VOLUME 8.8 FL (7.4-10.4); MONOCYTES % (AUTO) 14.8 % (2-12); NEUTROPHILS # (AUTO) 3.6 X10'3 (1.8-7.7); NEUTROPHILS % (AUTO) 54.9 % (42-75); PLATELET COUNT 392 X10'3 (140-440); RED CELL DISTRIBUTION WIDTH 14.7 % (11.5-14.5); WHITE BLOOD COUNT 6.6 X10'3 (4.5-11.0)
[2020-08-16] MEDS: vitamin D (cholecalciferol) 1,000 unit tablet PO SCH (08:00)
[2020-08-16] MEDS: furosemide 20MG tablet PO SCH (10:50)
[2020-08-16] MEDS: sacubitril/valsartan 24mg-26mg tablet PO SCH ×2 (10:50→20:57)
[2020-08-16] MEDS: aspirin 325mg tablet PO SCH (10:51)
[2020-08-16] MEDS: lactobacillus rhamnosus 10,000 MMU CELLS/CAPSULE PO SCH ×2 (10:51→20:57)
[2020-08-16] MEDS: carVEDilol 12.5mg tablet PO SCH ×2 (10:54→20:57)
[2020-08-16] MEDS: fenofibrate 145mg tablet PO SCH (10:54)
[2020-08-16] MEDS: folic acid 1mg tablet PO SCH (10:54)
[2020-08-16] MEDS: docusate sod 100mg capsule PO SCH ×2 (10:54→20:57)
[2020-08-16] MEDS: ferrous sulfate 325mg tablet PO SCH (10:54)
[2020-08-16] MEDS: clopidogrel 75mg tablet PO SCH (10:54)
[2020-08-16] MEDS: rivaroxaban 15mg tablet PO SCH (10:55)
[2020-08-16] MEDS: multivitamins, therapeutics tablet PO SCH (10:55)
[2020-08-16] MEDS: pantoprazole 40mg Tablet.DR PO SCH (10:55)
[2020-08-16] MEDS: magnesium hydroxide 30ml (MOM) UD suspension PO PRN (11:20)
--- NOTE | 2020-08-16 11:54 | NUR ---
Reassessment: Pt continues on CHO controlled diet with average 75-100% PO intake of meals and 100% PO intake of Glucerna TID meeting estimated nutrient needs with adequate protein to promote wound healing. Wound care continues to follow. Constipation resolved, LBM 08/15. No further nutrition intervention implemented at this time. Will continue to follow. Rec: 1. continue carb controlled diet with regular texture per WASTE REMOVALIST recs 2. Glucerna TIDWM 3. routine bowel care 4. weekly wts 5. MVI for wound healing needs post-op Addendum: 08/16/20 at [address] Amended: Links added.
[2020-08-16] MEDS: insulin Lispro (HumaLOG) vial - multi-dose SQ SCH (13:50)
[2020-08-16 18:00] VITALS: BP 103/55
[2020-08-16] MEDS: NUT.TX.GLUC.INTOLER,LAC-FR,SOY (GLUCERNA) 237 ML PO SCH (18:00)
--- NOTE | 2020-08-16 18:00 | NUR ---
Problems reprioritized. Patient report given, questions answered & plan of care reviewed with He MAZARIEGOS.
--- NOTE | 2020-08-16 18:45 | NUR ---
Patient in room MED 315. I have received report from Dirk, and had the opportunity to ask questions and assume patient care.
[2020-08-16] MEDS: normal saline 1000ml 1,000 ML IV SCH (19:15)
--- NOTE | 2020-08-16 19:35 | NUR ---
Patient's dinner blood sugar coverage not done due to late hand off report. Will recheck the patient's blood sugar at 2100.
[2020-08-16] MEDS: K and/or MAG REPLACEMENT MC SCH (20:00)
[2020-08-16] MEDS: atorvastatin 20mg tablet PO SCH (20:57)
[2020-08-16] MEDS: Melatonin 3mg tablet PO SCH (20:57)
[2020-08-16] MEDS: colchicine 0.6mg tablet PO SCH (20:57)
[2020-08-16] MEDS: traZODone 50mg tablet PO SCH (21:01)
[2020-08-16] MEDS: insulin glargine (Lantus) pen - multi-dose SQ SCH (21:10)
[2020-08-16 22:00] VITALS: BP 103/50
[2020-08-17] MEDS: piperacillin/tazo 3.375gm/50ml 50 ML IV SCH ×4 (00:17→23:29)
[2020-08-17] MEDS: HYDROcodone/acetaminophen 10/325mg tab PO PRN ×2 (00:33→20:02)
[2020-08-17] MEDS: normal saline 1000ml 1,000 ML IV SCH (05:15)
[2020-08-17 06:00] VITALS: BP 105/57
[2020-08-17 06:03] LABS: BASOPHILS # (AUTO) 0.1 X10'3 (0-0.2); HEMOGLOBIN 9.2 g/dl (14.0-17.9); LYMPHOCYTES % (AUTO) 22.7 % (21-51); MEAN CORPUSCULAR HEMOGLOBIN 31.2 PG (27.0-31.0); MEAN PLATELET VOLUME 8.5 FL (7.4-10.4)
[2020-08-17 06:05] LABS: BASOPHILS % (AUTO) 0.9 % (0-1); EOSINOPHILS # (AUTO) 0.4 X10'3 (0-0.9); EOSINOPHILS % (AUTO) 5.9 % (0-6); HEMATOCRIT 27.6 % (42.0-52.0); LYMPHOCYTES # (AUTO) 1.4 X10'3 (1.1-4.8); MEAN CORPUSCULAR HGB CONC 33.5 g/dL (33.0-36.5); MONOCYTES % (AUTO) 16.2 % (2-12); NEUTROPHILS # (AUTO) 3.3 X10'3 (1.8-7.7); NEUTROPHILS % (AUTO) 54.3 % (42-75); PLATELET COUNT 377 X10'3 (140-440); RED BLOOD COUNT 2.97 X10'6 (4.70-6.10); RED CELL DISTRIBUTION WIDTH 15.2 % (11.5-14.5); WHITE BLOOD COUNT 6.2 X10'3 (4.5-11.0)
[2020-08-17 06:12] LABS: ALBUMIN 2.3 G/DL (3.4-5.0); ANION GAP 6 (8-16); BLOOD UREA NITROGEN 44 MG/DL (7-18); BUN/CREATININE RATIO 17.5 (5.4-32.0); CALCIUM 8.7 MG/DL (8.5-10.1); CHLORIDE 102 MMOL/L (99-107); CREATININE 2.52 MG/DL (0.60-1.10); GLUCOSE 154 MG/DL (70-104); MAGNESIUM 2.2 MG/DL (1.5-2.4); POTASSIUM 4.4 MMOL/L (3.5-5.1); SODIUM 138 MMOL/L (135-145); TOTAL CARBON DIOXIDE 29.8 MMOL/L (24-32); eGFR 25 ML/MIN
--- NOTE | 2020-08-17 06:45 | NUR ---
Patient in room MED 315. I have received report from mary ann malagon and had the opportunity to ask questions and assume patient care.
[2020-08-17 07:17] LABS: ANISOCYTOSIS 1+; LARGE PLATELETS FEW; PLATELET ESTIMATE NORMAL; POLYCHROMASIA 1+; TOTAL CELLS COUNTED 100
[2020-08-17] MEDS: clopidogrel 75mg tablet PO SCH (08:51)
[2020-08-17] MEDS: ferrous sulfate 325mg tablet PO SCH (08:51)
[2020-08-17] MEDS: multivitamins, therapeutics tablet PO SCH (08:51)
[2020-08-17] MEDS: docusate sod 100mg capsule PO SCH ×2 (08:51→20:01)
[2020-08-17] MEDS: lactobacillus rhamnosus 10,000 MMU CELLS/CAPSULE PO SCH ×2 (08:51→20:01)
[2020-08-17] MEDS: furosemide 20MG tablet PO SCH (08:52)
[2020-08-17] MEDS: fenofibrate 145mg tablet PO SCH (08:52)
[2020-08-17] MEDS: carVEDilol 12.5mg tablet PO SCH ×2 (08:52→20:01)
[2020-08-17] MEDS: rivaroxaban 15mg tablet PO SCH (08:52)
[2020-08-17] MEDS: aspirin 325mg tablet PO SCH (08:52)
[2020-08-17] MEDS: folic acid 1mg tablet PO SCH (08:53)
[2020-08-17] MEDS: sacubitril/valsartan 24mg-26mg tablet PO SCH ×2 (08:53→20:01)
[2020-08-17] MEDS: methylnaltrexone br 12mg/0.6ml inj***SubQ only SQ SCH (08:53)
[2020-08-17] MEDS: vitamin D (cholecalciferol) 1,000 unit tablet PO SCH (08:53)
[2020-08-17] MEDS: NUT.TX.GLUC.INTOLER,LAC-FR,SOY (GLUCERNA) 237 ML PO SCH ×3 (08:54→18:00)
[2020-08-17] MEDS: K and/or MAG REPLACEMENT MC SCH ×2 (08:55→20:00)
[2020-08-17] MEDS: pantoprazole 40mg Tablet.DR PO SCH (08:57)
[2020-08-17] MEDS: insulin Lispro (HumaLOG) vial - multi-dose SQ SCH ×2 (09:31→13:21)
[2020-08-17] MEDS: magnesium hydroxide 30ml (MOM) UD suspension PO PRN (09:58)
[2020-08-17 10:00] VITALS: BP 123/63
[2020-08-17 14:00] VITALS: BP 135/68
--- NOTE | 2020-08-17 14:00 | NUR ---
dressing changed to left groin saturated with serous drainage,removed with sterile gloves,dry dressing replaced with sterile 4x4s, small amt blood pooled at base of wound,photos taken covered with abd,patti intact to abd,cleansed and covered with island dressing
[2020-08-17] MEDS: HYDROcodone/acetaminophen 5mg/325mg tablet PO PRN (14:40)
--- NOTE | 2020-08-17 18:29 | NUR ---
Problems reprioritized. Patient report given, questions answered & plan of care reviewed with DELILAH Cutler.
[2020-08-17 19:00] VITALS: BP 101/48
--- NOTE | 2020-08-17 19:20 | NUR ---
Paged pharmacy to get the lispro to cover the patient's dinner blood sugar coverage.
--- NOTE | 2020-08-17 19:50 | NUR ---
Patient's dinner blood sugar coverage not completed due to pharmacy delay to get the medication on time. Will recheck his blood sugar at 2100.
[2020-08-17] MEDS: atorvastatin 20mg tablet PO SCH (20:01)
[2020-08-17] MEDS: colchicine 0.6mg tablet PO SCH (20:01)
[2020-08-17] MEDS: traZODone 50mg tablet PO SCH (20:01)
[2020-08-17] MEDS: Melatonin 3mg tablet PO SCH (20:02)
[2020-08-17] MEDS: insulin glargine (Lantus) pen - multi-dose SQ SCH (21:26)
[2020-08-17 22:18] VITALS: BP 106/58
[2020-08-18] MEDS: HYDROcodone/acetaminophen 10/325mg tab PO PRN ×5 (01:08→20:22)
[2020-08-18 04:30] VITALS: BP 113/56
[2020-08-18 05:30] LABS: ALBUMIN 2.4 G/DL (3.4-5.0); ANION GAP 5 (8-16); BLOOD UREA NITROGEN 39 MG/DL (7-18); BUN/CREATININE RATIO 16.2 (5.4-32.0); CALCIUM 8.9 MG/DL (8.5-10.1); CHLORIDE 102 MMOL/L (99-107); CREATININE 2.41 MG/DL (0.60-1.10); GLUCOSE 142 MG/DL (70-104); MAGNESIUM 2.3 MG/DL (1.5-2.4); POTASSIUM 4.5 MMOL/L (3.5-5.1); SODIUM 137 MMOL/L (135-145); eGFR 26 ML/MIN
--- NOTE | 2020-08-18 05:45 | NUR ---
patient had carpenter care, linens changed, dressing was changed. Patient was premedicated with Narco 10 for pain. He tolerated well.
[2020-08-18 05:48] LABS: BASOPHILS # (AUTO) 0.1 X10'3 (0-0.2); EOSINOPHILS # (AUTO) 0.4 X10'3 (0-0.9); EOSINOPHILS % (AUTO) 6.9 % (0-6); LYMPHOCYTES # (AUTO) 1.5 X10'3 (1.1-4.8); MEAN CORPUSCULAR HGB CONC 33.4 g/dL (33.0-36.5); MEAN PLATELET VOLUME 8.4 FL (7.4-10.4); RED BLOOD COUNT 3.05 X10'6 (4.70-6.10)
[2020-08-18 05:51] LABS: BASOPHILS % (AUTO) 1.3 % (0-1); HEMATOCRIT 28.3 % (42.0-52.0); HEMOGLOBIN 9.4 g/dl (14.0-17.9); LYMPHOCYTES % (AUTO) 23.5 % (21-51); MEAN CORPUSCULAR VOLUME 92.8 FL (78-98); MONOCYTES # (AUTO) 1.1 X10'3 (0-0.9); MONOCYTES % (AUTO) 17.6 % (2-12); NEUTROPHILS # (AUTO) 3.2 X10'3 (1.8-7.7); NEUTROPHILS % (AUTO) 50.7 % (42-75); PLATELET COUNT 376 X10'3 (140-440); RED CELL DISTRIBUTION WIDTH 14.9 % (11.5-14.5); WHITE BLOOD COUNT 6.2 X10'3 (4.5-11.0)
[2020-08-18 06:00] VITALS: BP 115/66
--- NOTE | 2020-08-18 06:27 | NUR ---
Problems reprioritized. Patient report given to Kayley, questions answered & plan of care reviewed with .
[2020-08-18] MEDS: NUT.TX.GLUC.INTOLER,LAC-FR,SOY (GLUCERNA) 237 ML PO SCH ×4 (08:00→19:18)
[2020-08-18] MEDS: K and/or MAG REPLACEMENT MC SCH ×2 (08:00→20:00)
[2020-08-18] MEDS: sacubitril/valsartan 24mg-26mg tablet PO SCH ×2 (08:00→20:21)
[2020-08-18 10:00] VITALS: BP 109/72
[2020-08-18] MEDS: multivitamins, therapeutics tablet PO SCH (10:10)
[2020-08-18] MEDS: pantoprazole 40mg Tablet.DR PO SCH (10:11)
[2020-08-18] MEDS: fenofibrate 145mg tablet PO SCH (10:11)
[2020-08-18] MEDS: docusate sod 100mg capsule PO SCH ×2 (10:11→20:21)
[2020-08-18] MEDS: vitamin D (cholecalciferol) 1,000 unit tablet PO SCH (10:11)
[2020-08-18] MEDS: aspirin 325mg tablet PO SCH (10:11)
[2020-08-18] MEDS: carVEDilol 12.5mg tablet PO SCH ×2 (10:12→20:22)
[2020-08-18] MEDS: folic acid 1mg tablet PO SCH (10:12)
[2020-08-18] MEDS: ferrous sulfate 325mg tablet PO SCH (10:12)
[2020-08-18] MEDS: furosemide 20MG tablet PO SCH (10:12)
[2020-08-18] MEDS: clopidogrel 75mg tablet PO SCH (10:13)
[2020-08-18] MEDS: rivaroxaban 15mg tablet PO SCH (10:13)
[2020-08-18] MEDS: piperacillin/tazo 3.375gm/50ml 50 ML IV SCH ×2 (10:21→16:00)
[2020-08-18] MEDS: lactobacillus rhamnosus 10,000 MMU CELLS/CAPSULE PO SCH ×2 (10:22→20:21)
[2020-08-18] MEDS: insulin Lispro (HumaLOG) vial - multi-dose SQ SCH ×2 (10:35→14:27)
[2020-08-18 14:00] VITALS: BP 112/67
--- NOTE | 2020-08-18 18:25 | NUR ---
Problems reprioritized. Patient report given, questions answered & plan of care reviewed with mary ann Calvo.
--- NOTE | 2020-08-18 18:38 | NUR ---
Patient in room MED 315. I have received report from Kayley, and had the opportunity to ask questions and assume patient care.
[2020-08-18 18:53] VITALS: BP 113/53
--- NOTE | 2020-08-18 19:10 | NUR ---
Low blood sugar, will skip blood sugar coverage for the dinner. Recheck at 2100. Patient is alert, oriented x4.
[2020-08-18] MEDS: atorvastatin 20mg tablet PO SCH (20:21)
[2020-08-18] MEDS: Melatonin 3mg tablet PO SCH (20:22)
[2020-08-18] MEDS: colchicine 0.6mg tablet PO SCH (20:22)
[2020-08-18] MEDS: traZODone 50mg tablet PO SCH (20:22)
[2020-08-18 22:00] VITALS: BP 104/43
[2020-08-18] MEDS: insulin glargine (Lantus) pen - multi-dose SQ SCH (22:42)
[2020-08-19] MEDS: piperacillin/tazo 3.375gm/50ml 50 ML IV SCH ×3 (00:17→16:00)
--- NOTE | 2020-08-19 01:00 | NUR ---
Wound dressing change completed. Resting comfortably.
[2020-08-19] MEDS: HYDROcodone/acetaminophen 10/325mg tab PO PRN ×2 (01:15→20:14)
[2020-08-19 02:00] VITALS: BP 126/54
[2020-08-19 05:59] LABS: BASOPHILS # (AUTO) 0.1 X10'3 (0-0.2); EOSINOPHILS # (AUTO) 0.4 X10'3 (0-0.9); EOSINOPHILS % (AUTO) 7.8 % (0-6); HEMOGLOBIN 9.7 g/dl (14.0-17.9); LYMPHOCYTES # (AUTO) 1.4 X10'3 (1.1-4.8); NEUTROPHILS # (AUTO) 2.8 X10'3 (1.8-7.7); RED CELL DISTRIBUTION WIDTH 15.2 % (11.5-14.5)
[2020-08-19 06:00] VITALS: BP 121/54
[2020-08-19 06:01] LABS: BASOPHILS % (AUTO) 1.4 % (0-1); HEMATOCRIT 28.3 % (42.0-52.0); LYMPHOCYTES % (AUTO) 25.5 % (21-51); MEAN CORPUSCULAR HGB CONC 34.2 g/dL (33.0-36.5); MEAN CORPUSCULAR VOLUME 93.6 FL (78-98); MEAN PLATELET VOLUME 8.2 FL (7.4-10.4); MONOCYTES # (AUTO) 0.9 X10'3 (0-0.9); MONOCYTES % (AUTO) 15.7 % (2-12); NEUTROPHILS % (AUTO) 49.6 % (42-75); PLATELET COUNT 352 X10'3 (140-440); RED BLOOD COUNT 3.03 X10'6 (4.70-6.10); WHITE BLOOD COUNT 5.6 X10'3 (4.5-11.0)
[2020-08-19 06:06] LABS: ALBUMIN 2.4 G/DL (3.4-5.0); ANION GAP 4 (8-16); BLOOD UREA NITROGEN 43 MG/DL (7-18); BUN/CREATININE RATIO 17.9 (5.4-32.0); CALCIUM 8.9 MG/DL (8.5-10.1); CHLORIDE 102 MMOL/L (99-107); GLUCOSE 155 MG/DL (70-104); MAGNESIUM 2.3 MG/DL (1.5-2.4); POTASSIUM 4.8 MMOL/L (3.5-5.1); SODIUM 137 MMOL/L (135-145); TOTAL CARBON DIOXIDE 30.6 MMOL/L (24-32); eGFR 26 ML/MIN
--- NOTE | 2020-08-19 06:20 | NUR ---
Patient in room MED 315. I have received report from mary ann Cutler and had the opportunity to ask questions and assume patient care.
--- NOTE | 2020-08-19 06:21 | NUR ---
Problems reprioritized. Patient report given to Kayley, questions answered & plan of care reviewed with .
[2020-08-19] MEDS: K and/or MAG REPLACEMENT MC SCH ×2 (08:00→20:00)
[2020-08-19] MEDS: sacubitril/valsartan 24mg-26mg tablet PO SCH ×2 (09:28→20:12)
[2020-08-19] MEDS: vitamin D (cholecalciferol) 1,000 unit tablet PO SCH (09:28)
[2020-08-19] MEDS: folic acid 1mg tablet PO SCH (09:29)
[2020-08-19] MEDS: clopidogrel 75mg tablet PO SCH (09:29)
[2020-08-19] MEDS: aspirin 325mg tablet PO SCH (09:29)
[2020-08-19] MEDS: docusate sod 100mg capsule PO SCH ×2 (09:29→20:12)
[2020-08-19] MEDS: lactobacillus rhamnosus 10,000 MMU CELLS/CAPSULE PO SCH ×2 (09:29→20:12)
[2020-08-19] MEDS: pantoprazole 40mg Tablet.DR PO SCH (09:29)
[2020-08-19] MEDS: magnesium hydroxide 30ml (MOM) UD suspension PO PRN (09:30)
[2020-08-19] MEDS: fenofibrate 145mg tablet PO SCH (09:30)
[2020-08-19] MEDS: rivaroxaban 15mg tablet PO SCH (09:30)
[2020-08-19] MEDS: ferrous sulfate 325mg tablet PO SCH (09:30)
[2020-08-19] MEDS: multivitamins, therapeutics tablet PO SCH (09:30)
[2020-08-19] MEDS: methylnaltrexone br 12mg/0.6ml inj***SubQ only SQ SCH (09:30)
[2020-08-19] MEDS: carVEDilol 12.5mg tablet PO SCH ×2 (09:30→20:12)
[2020-08-19] MEDS: insulin Lispro (HumaLOG) vial - multi-dose SQ SCH ×3 (09:47→20:06)
[2020-08-19 10:00] VITALS: BP 121/56
[2020-08-19] MEDS: furosemide 20MG tablet PO SCH (11:51)
[2020-08-19] MEDS: NUT.TX.GLUC.INTOLER,LAC-FR,SOY (GLUCERNA) 237 ML PO SCH ×2 (13:30→18:00)
[2020-08-19 14:00] VITALS: BP 90/49
[2020-08-19] MEDS: HYDROcodone/acetaminophen 5mg/325mg tablet PO PRN (14:54)
--- NOTE | 2020-08-19 18:30 | NUR ---
Problems reprioritized. Patient report given, questions answered & plan of care reviewed with DELILAH HERRMANN.
[2020-08-19 19:00] VITALS: BP 108/37
[2020-08-19] MEDS: atorvastatin 20mg tablet PO SCH (20:10)
[2020-08-19] MEDS: traZODone 50mg tablet PO SCH (20:13)
[2020-08-19] MEDS: Melatonin 3mg tablet PO SCH (20:13)
[2020-08-19] MEDS: colchicine 0.6mg tablet PO SCH (20:13)
[2020-08-19] MEDS: insulin glargine (Lantus) pen - multi-dose SQ SCH (21:08)
[2020-08-19 22:25] VITALS: BP 97/46
[2020-08-20] MEDS: piperacillin/tazo 3.375gm/50ml 50 ML IV SCH ×4 (00:24→23:56)
[2020-08-20 02:00] VITALS: BP 93/48
[2020-08-20] MEDS: HYDROcodone/acetaminophen 10/325mg tab PO PRN ×4 (04:50→21:05)
[2020-08-20 06:00] VITALS: BP 119/58
--- NOTE | 2020-08-20 06:28 | NUR ---
Problems reprioritized. Patient report given to TiaRN, questions answered & plan of care reviewed with .
--- NOTE | 2020-08-20 06:56 | NUR ---
Patient in room MED 315. I have received report from DELILAH Cutler and had the opportunity to ask questions and assume patient care.
[2020-08-20] MEDS: K and/or MAG REPLACEMENT MC SCH ×2 (08:00→20:00)
[2020-08-20] MEDS: NUT.TX.GLUC.INTOLER,LAC-FR,SOY (GLUCERNA) 237 ML PO SCH ×3 (08:00→18:00)
[2020-08-20] MEDS: pantoprazole 40mg Tablet.DR PO SCH (08:19)
[2020-08-20] MEDS: carVEDilol 12.5mg tablet PO SCH ×2 (08:19→21:04)
[2020-08-20] MEDS: docusate sod 100mg capsule PO SCH ×2 (08:19→21:04)
[2020-08-20] MEDS: aspirin 325mg tablet PO SCH (08:19)
[2020-08-20] MEDS: sacubitril/valsartan 24mg-26mg tablet PO SCH ×2 (08:20→20:00)
[2020-08-20] MEDS: lactobacillus rhamnosus 10,000 MMU CELLS/CAPSULE PO SCH ×2 (08:20→21:04)
[2020-08-20] MEDS: folic acid 1mg tablet PO SCH (08:21)
[2020-08-20] MEDS: ferrous sulfate 325mg tablet PO SCH (08:21)
[2020-08-20] MEDS: clopidogrel 75mg tablet PO SCH (08:22)
[2020-08-20] MEDS: furosemide 20MG tablet PO SCH (08:22)
[2020-08-20] MEDS: fenofibrate 145mg tablet PO SCH (08:23)
[2020-08-20] MEDS: multivitamins, therapeutics tablet PO SCH (08:23)
[2020-08-20] MEDS: vitamin D (cholecalciferol) 1,000 unit tablet PO SCH (08:24)
[2020-08-20] MEDS: rivaroxaban 15mg tablet PO SCH (08:24)
[2020-08-20 08:39] LABS: ALANINE AMINOTRANSFERASE 21 U/L (12-78); ALBUMIN 2.5 G/DL (3.4-5.0); ALBUMIN/GLOBULIN RATIO 0.7 (1.1-1.5); ALKALINE PHOSPHATASE 47 IU/L (46-116); ANION GAP 8 (8-16); ASPARTATE AMINO TRANSFERASE 17 U/L (10-37); BILIRUBIN,TOTAL 0.3 MG/DL (0.1-1.0); BLOOD UREA NITROGEN 39 MG/DL (7-18); BUN/CREATININE RATIO 16.4 (5.4-32.0); CALCIUM 9.1 MG/DL (8.5-10.1); CHLORIDE 105 MMOL/L (99-107); CREATININE 2.38 MG/DL (0.60-1.10); GLUCOSE 136 MG/DL (70-104); POTASSIUM 4.4 MMOL/L (3.5-5.1); SODIUM 141 MMOL/L (135-145); TOTAL CARBON DIOXIDE 28.3 MMOL/L (24-32); TOTAL PROTEIN 6.3 G/DL (6.4-8.2); eGFR 27 ML/MIN
[2020-08-20] MEDS: insulin Lispro (HumaLOG) vial - multi-dose SQ SCH ×3 (09:30→19:00)
[2020-08-20 11:00] VITALS: BP 119/47
--- NOTE | 2020-08-20 11:00 | NUR ---
WOUND INFECTION EDUCATION PROVIDED BY WOUND CARE 1. Patient instructed to call their primary doctor, or go the ED immediately if any of the following symptoms occur: * Increased pain in wound * Increase in drainage from the wound * Redness in the skin surrounding the wound * Warmth in the skin surrounding the wound * Bleeding from the wound * Temperature of 101 or greater 2. If any of these occur while in the hospital tell a nurse immediately. WOUND VAC EDUCATION PROVIDED BY WOUND CARE 1. Patient instructed to call the Wound Center or their Home Health Agency immediately if: * They notice a change in the color or amount of the fluid in the canister. * Their wound looks more red than usual or has a foul smell. * The skin around their wound looks reddened or irritated. * The dressing feels loose or appears to be loose. * They experience any increase or changes in their pain. * The alarm will not turn off. 2. Patient instructed that they should not be disconnected from suction for more than 2 hours at a time. * If they are not able to get the suction back on, they need to remove the dressing and take all of the foam out of the wound. * Then moisten sterile gauze with normal saline and place on/in the wound. * Change the dressing once a day until arrangements have been made to replace the wound vac dressing. 3. Patient instructed to turn the wound vac machine OFF and call 911 or go to the ED immediately if their canister fills rapidly with blood. 4. If any of these occur while in the hospital tell a nurse immediately. Addendum: 08/20/20 at 1100 by Janessa Anne RN Amended: Links added.
[2020-08-20 11:20] LABS: MAGNESIUM 2.1 MG/DL (1.5-2.4)
[2020-08-20 15:00] VITALS: BP 102/39
[2020-08-20] MEDS: magnesium hydroxide 30ml (MOM) UD suspension PO PRN (16:14)
--- NOTE | 2020-08-20 17:29 | NUR ---
Student documentation: I have reviewed and agree with all interventions, assessments performed and documented by JESSICA Garrido.
[2020-08-20 18:00] VITALS: BP 107/52
--- NOTE | 2020-08-20 18:20 | NUR ---
Patient in room MED 315. I have received report from Ebonie MAZARIEGOS and had the opportunity to ask questions and assume patient care.
[2020-08-20] MEDS: Melatonin 3mg tablet PO SCH (21:05)
[2020-08-20] MEDS: atorvastatin 20mg tablet PO SCH (21:05)
[2020-08-20] MEDS: traZODone 50mg tablet PO SCH (21:05)
[2020-08-20] MEDS: colchicine 0.6mg tablet PO SCH (21:07)
[2020-08-20] MEDS: insulin glargine (Lantus) pen - multi-dose SQ SCH (21:17)
[2020-08-20 22:00] VITALS: BP 107/47
[2020-08-21 02:00] VITALS: BP 121/56
[2020-08-21] MEDS: HYDROcodone/acetaminophen 10/325mg tab PO PRN ×2 (02:01→19:27)
[2020-08-21 06:00] VITALS: BP 108/47
--- NOTE | 2020-08-21 06:12 | NUR ---
Problems reprioritized. Patient report given, questions answered & plan of care reviewed with Ebonie MAZARIEGOS.
--- NOTE | 2020-08-21 06:13 | NUR ---
Patient in room MED 315. I have received report from DELILAH Díaz and had the opportunity to ask questions and assume patient care.
[2020-08-21] MEDS: K and/or MAG REPLACEMENT MC SCH ×2 (08:00→20:00)
[2020-08-21] MEDS: ferrous sulfate 325mg tablet PO SCH (08:44)
[2020-08-21] MEDS: piperacillin/tazo 3.375gm/50ml 50 ML IV SCH ×2 (08:44→16:33)
[2020-08-21] MEDS: pantoprazole 40mg Tablet.DR PO SCH (08:44)
[2020-08-21] MEDS: sacubitril/valsartan 24mg-26mg tablet PO SCH ×2 (08:44→20:00)
[2020-08-21] MEDS: methylnaltrexone br 12mg/0.6ml inj***SubQ only SQ SCH (08:44)
[2020-08-21] MEDS: aspirin 325mg tablet PO SCH (08:45)
[2020-08-21] MEDS: lactobacillus rhamnosus 10,000 MMU CELLS/CAPSULE PO SCH ×2 (08:45→21:55)
[2020-08-21] MEDS: clopidogrel 75mg tablet PO SCH (08:45)
[2020-08-21] MEDS: carVEDilol 12.5mg tablet PO SCH ×2 (08:45→20:00)
[2020-08-21] MEDS: multivitamins, therapeutics tablet PO SCH (08:45)
[2020-08-21] MEDS: docusate sod 100mg capsule PO SCH ×2 (08:45→21:55)
[2020-08-21] MEDS: rivaroxaban 15mg tablet PO SCH (08:45)
[2020-08-21] MEDS: vitamin D (cholecalciferol) 1,000 unit tablet PO SCH (08:45)
[2020-08-21] MEDS: fenofibrate 145mg tablet PO SCH (08:46)
[2020-08-21] MEDS: furosemide 20MG tablet PO SCH (08:46)
[2020-08-21] MEDS: folic acid 1mg tablet PO SCH (08:46)
[2020-08-21] MEDS: insulin Lispro (HumaLOG) vial - multi-dose SQ SCH ×2 (08:48→13:12)
[2020-08-21] MEDS: NUT.TX.GLUC.INTOLER,LAC-FR,SOY (GLUCERNA) 237 ML PO SCH ×3 (08:56→18:00)
[2020-08-21 10:01] LABS: BASOPHILS # (AUTO) 0.1 X10'3 (0-0.2); BASOPHILS % (AUTO) 1.1 % (0-1); EOSINOPHILS # (AUTO) 0.3 X10'3 (0-0.9); EOSINOPHILS % (AUTO) 5.4 % (0-6); HEMATOCRIT 30.7 % (42.0-52.0); HEMOGLOBIN 10.3 g/dl (14.0-17.9); LYMPHOCYTES # (AUTO) 0.9 X10'3 (1.1-4.8); MEAN CORPUSCULAR HEMOGLOBIN 31.2 PG (27.0-31.0); MEAN CORPUSCULAR HGB CONC 33.5 g/dL (33.0-36.5); MEAN CORPUSCULAR VOLUME 93.2 FL (78-98); MONOCYTES # (AUTO) 0.7 X10'3 (0-0.9); NEUTROPHILS # (AUTO) 3.9 X10'3 (1.8-7.7); NEUTROPHILS % (AUTO) 65.5 % (42-75); PLATELET COUNT 322 X10'3 (140-440); RED BLOOD COUNT 3.29 X10'6 (4.70-6.10); RED CELL DISTRIBUTION WIDTH 15.4 % (11.5-14.5); WHITE BLOOD COUNT 5.9 X10'3 (4.5-11.0)
[2020-08-21 10:06] LABS: ALBUMIN 2.7 G/DL (3.4-5.0); ANION GAP 6 (8-16); BLOOD UREA NITROGEN 41 MG/DL (7-18); BUN/CREATININE RATIO 17.2 (5.4-32.0); CALCIUM 9.1 MG/DL (8.5-10.1); CHLORIDE 105 MMOL/L (99-107); CREATININE 2.39 MG/DL (0.60-1.10); GLUCOSE 229 MG/DL (70-104); MAGNESIUM 2.1 MG/DL (1.5-2.4); POTASSIUM 4.4 MMOL/L (3.5-5.1); SODIUM 141 MMOL/L (135-145); TOTAL CARBON DIOXIDE 30.4 MMOL/L (24-32); eGFR 27 ML/MIN
[2020-08-21 11:00] VITALS: BP 113/60
--- NOTE | 2020-08-21 11:38 | NUR ---
Reassessment: Pt continues on CHO controlled diet with average 75-100% PO intake of meals and 100% PO intake of Glucerna TID meeting estimated nutrient needs with adequate protein to promote wound healing. Wound care continues to follow. Constipation resolved, Last BM 08/20 large. No further nutrition intervention implemented at this time. Will continue to follow. Rec: 1. continue carb controlled diet with regular texture per CASTING ASSISTANT recs 2. Glucerna TIDWM 3. routine bowel care 4. weekly wts 5. MVI for wound healing needs Addendum: 08/21/20 at [address] La [address] Amended: Links added.
[2020-08-21 15:00] VITALS: BP 103/63
[2020-08-21] MEDS: dextrose ORAL solution 15 GM/59 ML bottle PO PRN (17:46)
[2020-08-21 18:00] VITALS: BP 113/53
--- NOTE | 2020-08-21 19:00 | NUR ---
Patient in room MED 315. I have received report from Ebonie MAZARIEGOS and had the opportunity to ask questions and assume patient care.
--- NOTE | 2020-08-21 19:05 | NUR ---
Problems reprioritized. Patient report given, questions answered & plan of care reviewed with DELILAH Díaz.
[2020-08-21] MEDS: colchicine 0.6mg tablet PO SCH (21:56)
[2020-08-21] MEDS: traZODone 50mg tablet PO SCH (21:56)
[2020-08-21] MEDS: atorvastatin 20mg tablet PO SCH (21:56)
[2020-08-21] MEDS: Melatonin 3mg tablet PO SCH (21:56)
[2020-08-21 22:00] VITALS: BP 92/59
[2020-08-21] MEDS: insulin glargine (Lantus) pen - multi-dose SQ SCH (22:19)
[2020-08-22] MEDS: piperacillin/tazo 3.375gm/50ml 50 ML IV SCH ×3 (00:35→16:19)
[2020-08-22] MEDS: HYDROcodone/acetaminophen 10/325mg tab PO PRN ×3 (00:42→20:14)
[2020-08-22 02:00] VITALS: BP 124/65
[2020-08-22 06:00] VITALS: BP 129/73
--- NOTE | 2020-08-22 06:10 | NUR ---
Patient in room MED 315. I have received report from DELILAH Díaz and had the opportunity to ask questions and assume patient care.
--- NOTE | 2020-08-22 06:12 | NUR ---
Problems reprioritized. Patient report given, questions answered & plan of care reviewed with Tristen MAZARIEGOS.
[2020-08-22 07:37] LABS: ALBUMIN 2.6 G/DL (3.4-5.0); ANION GAP 7 (8-16); BLOOD UREA NITROGEN 39 MG/DL (7-18); BUN/CREATININE RATIO 17.9 (5.4-32.0); CALCIUM 9.2 MG/DL (8.5-10.1); CHLORIDE 106 MMOL/L (99-107); CREATININE 2.18 MG/DL (0.60-1.10); GLUCOSE 138 MG/DL (70-104); SODIUM 143 MMOL/L (135-145); TOTAL CARBON DIOXIDE 29.9 MMOL/L (24-32); eGFR 30 ML/MIN
[2020-08-22] MEDS: K and/or MAG REPLACEMENT MC SCH ×2 (08:00→20:00)
[2020-08-22] MEDS: vitamin D (cholecalciferol) 1,000 unit tablet PO SCH (08:51)
[2020-08-22] MEDS: ferrous sulfate 325mg tablet PO SCH (08:52)
[2020-08-22] MEDS: fenofibrate 145mg tablet PO SCH (08:52)
[2020-08-22] MEDS: carVEDilol 12.5mg tablet PO SCH ×2 (08:52→20:12)
[2020-08-22] MEDS: furosemide 20MG tablet PO SCH (08:52)
[2020-08-22] MEDS: aspirin 325mg tablet PO SCH (08:52)
[2020-08-22] MEDS: pantoprazole 40mg Tablet.DR PO SCH (08:52)
[2020-08-22] MEDS: docusate sod 100mg capsule PO SCH ×2 (08:52→20:12)
[2020-08-22] MEDS: clopidogrel 75mg tablet PO SCH (08:52)
[2020-08-22] MEDS: multivitamins, therapeutics tablet PO SCH (08:52)
[2020-08-22] MEDS: folic acid 1mg tablet PO SCH (08:52)
[2020-08-22] MEDS: lactobacillus rhamnosus 10,000 MMU CELLS/CAPSULE PO SCH ×2 (08:52→20:12)
[2020-08-22] MEDS: sacubitril/valsartan 24mg-26mg tablet PO SCH ×2 (08:52→20:12)
[2020-08-22] MEDS: rivaroxaban 15mg tablet PO SCH (08:53)
[2020-08-22] MEDS: NUT.TX.GLUC.INTOLER,LAC-FR,SOY (GLUCERNA) 237 ML PO SCH ×3 (08:56→18:04)
[2020-08-22] MEDS: insulin Lispro (HumaLOG) vial - multi-dose SQ SCH ×2 (09:03→13:29)
[2020-08-22 09:35] LABS: BASOPHILS # (AUTO) 0.1 X10'3 (0-0.2); BASOPHILS % (AUTO) 1.5 % (0-1); EOSINOPHILS # (AUTO) 0.3 X10'3 (0-0.9); EOSINOPHILS % (AUTO) 6.3 % (0-6); HEMATOCRIT 30.2 % (42.0-52.0); LYMPHOCYTES # (AUTO) 0.9 X10'3 (1.1-4.8); MEAN CORPUSCULAR HGB CONC 33.2 g/dL (33.0-36.5); MEAN CORPUSCULAR VOLUME 93.6 FL (78-98); MEAN PLATELET VOLUME 8.3 FL (7.4-10.4); MONOCYTES # (AUTO) 0.7 X10'3 (0-0.9); MONOCYTES % (AUTO) 15.7 % (2-12); NEUTROPHILS # (AUTO) 2.6 X10'3 (1.8-7.7); NEUTROPHILS % (AUTO) 57.5 % (42-75); PLATELET COUNT 268 X10'3 (140-440); RED BLOOD COUNT 3.23 X10'6 (4.70-6.10); WHITE BLOOD COUNT 4.5 X10'3 (4.5-11.0)
[2020-08-22 11:00] VITALS: BP 113/64
[2020-08-22 18:00] VITALS: BP 106/61
--- NOTE | 2020-08-22 18:09 | NUR ---
Patient in room MED 315. I have received report from Tristen MAZARIEGOS and had the opportunity to ask questions and assume patient care.
--- NOTE | 2020-08-22 19:00 | NUR ---
Spoke with patient regarding turning more frequently while in bed. He said it hurt to much to turn onto one side or the other but that he is good with a pillow under each hip. I explained to him that it wouldn't take the pressure off his tailbone area. I asked if he wanted to try the recliner with the padded cushion and he said he would prefer not too as he can only stand being in that for about an hour. Will continue to educate
[2020-08-22] MEDS: colchicine 0.6mg tablet PO SCH (20:12)
[2020-08-22] MEDS: magnesium hydroxide 30ml (MOM) UD suspension PO PRN (20:12)
[2020-08-22] MEDS: traZODone 50mg tablet PO SCH (20:12)
[2020-08-22] MEDS: atorvastatin 20mg tablet PO SCH (20:12)
[2020-08-22] MEDS: Melatonin 3mg tablet PO SCH (20:12)
[2020-08-22] MEDS: insulin glargine (Lantus) pen - multi-dose SQ SCH (21:30)
[2020-08-22 22:00] VITALS: BP 115/59
[2020-08-23] MEDS: piperacillin/tazo 3.375gm/50ml 50 ML IV SCH ×4 (00:25→23:38)
[2020-08-23 02:00] VITALS: BP 126/66
[2020-08-23] MEDS: HYDROcodone/acetaminophen 10/325mg tab PO PRN ×2 (02:07→18:55)
--- NOTE | 2020-08-23 06:05 | NUR ---
Problems reprioritized. Patient report given, questions answered & plan of care reviewed with Tristen MAZARIEGOS.
[2020-08-23 06:07] LABS: BASOPHILS # (AUTO) 0.1 X10'3 (0-0.2); BASOPHILS % (AUTO) 1.2 % (0-1); EOSINOPHILS # (AUTO) 0.4 X10'3 (0-0.9); EOSINOPHILS % (AUTO) 6.3 % (0-6); HEMOGLOBIN 10.3 g/dl (14.0-17.9); LYMPHOCYTES # (AUTO) 1.4 X10'3 (1.1-4.8); MEAN PLATELET VOLUME 8.7 FL (7.4-10.4); MONOCYTES # (AUTO) 0.9 X10'3 (0-0.9); NEUTROPHILS # (AUTO) 3.1 X10'3 (1.8-7.7); WHITE BLOOD COUNT 5.9 X10'3 (4.5-11.0)
[2020-08-23 06:09] LABS: HEMATOCRIT 30.1 % (42.0-52.0); LYMPHOCYTES % (AUTO) 23.7 % (21-51); MEAN CORPUSCULAR HEMOGLOBIN 32.1 PG (27.0-31.0); MEAN CORPUSCULAR HGB CONC 34.1 g/dL (33.0-36.5); MEAN CORPUSCULAR VOLUME 94.2 FL (78-98); MONOCYTES % (AUTO) 15.5 % (2-12); NEUTROPHILS % (AUTO) 53.3 % (42-75); PLATELET COUNT 258 X10'3 (140-440)
--- NOTE | 2020-08-23 06:13 | NUR ---
Patient in room MED 315. I have received report from DELILAH Díaz and had the opportunity to ask questions and assume patient care.
[2020-08-23 06:22] LABS: ALBUMIN 2.7 G/DL (3.4-5.0); ANION GAP 7 (8-16); BLOOD UREA NITROGEN 41 MG/DL (7-18); BUN/CREATININE RATIO 17.8 (5.4-32.0); CALCIUM 9.4 MG/DL (8.5-10.1); CHLORIDE 106 MMOL/L (99-107); GLUCOSE 136 MG/DL (70-104); MAGNESIUM 2.3 MG/DL (1.5-2.4); POTASSIUM 4.2 MMOL/L (3.5-5.1); SODIUM 142 MMOL/L (135-145); TOTAL CARBON DIOXIDE 29.1 MMOL/L (24-32); eGFR 28 ML/MIN
[2020-08-23 07:43] VITALS: BP 124/51
[2020-08-23] MEDS: NUT.TX.GLUC.INTOLER,LAC-FR,SOY (GLUCERNA) 237 ML PO SCH ×3 (07:48→18:01)
[2020-08-23] MEDS: K and/or MAG REPLACEMENT MC SCH ×2 (07:48→20:00)
[2020-08-23] MEDS: methylnaltrexone br 12mg/0.6ml inj***SubQ only SQ SCH (07:54)
[2020-08-23] MEDS: aspirin 325mg tablet PO SCH (07:55)
[2020-08-23] MEDS: furosemide 20MG tablet PO SCH (07:55)
[2020-08-23] MEDS: sacubitril/valsartan 24mg-26mg tablet PO SCH ×2 (07:55→21:04)
[2020-08-23] MEDS: lactobacillus rhamnosus 10,000 MMU CELLS/CAPSULE PO SCH ×2 (07:55→21:04)
[2020-08-23] MEDS: rivaroxaban 15mg tablet PO SCH (07:55)
[2020-08-23] MEDS: fenofibrate 145mg tablet PO SCH (07:55)
[2020-08-23] MEDS: carVEDilol 12.5mg tablet PO SCH ×2 (07:56→21:04)
[2020-08-23] MEDS: clopidogrel 75mg tablet PO SCH (07:56)
[2020-08-23] MEDS: docusate sod 100mg capsule PO SCH ×2 (07:56→21:04)
[2020-08-23] MEDS: folic acid 1mg tablet PO SCH (07:56)
[2020-08-23] MEDS: ferrous sulfate 325mg tablet PO SCH (07:56)
[2020-08-23] MEDS: multivitamins, therapeutics tablet PO SCH (07:56)
[2020-08-23] MEDS: vitamin D (cholecalciferol) 1,000 unit tablet PO SCH (07:56)
[2020-08-23] MEDS: pantoprazole 40mg Tablet.DR PO SCH (07:56)
[2020-08-23] MEDS: insulin Lispro (HumaLOG) vial - multi-dose SQ SCH ×3 (08:21→18:57)
[2020-08-23 11:00] VITALS: BP 123/58
[2020-08-23 15:00] VITALS: BP 133/62
[2020-08-23 18:00] VITALS: BP 130/73
--- NOTE | 2020-08-23 18:01 | NUR ---
Problems reprioritized. Patient report given, questions answered & plan of care reviewed with DELILAH Díaz.
--- NOTE | 2020-08-23 18:27 | NUR ---
Patient in room MED 315. I have received report from Tristen MAZARIEGOS and had the opportunity to ask questions and assume patient care.
[2020-08-23] MEDS: Melatonin 3mg tablet PO SCH (21:04)
[2020-08-23] MEDS: traZODone 50mg tablet PO SCH (21:04)
[2020-08-23] MEDS: atorvastatin 20mg tablet PO SCH (21:04)
[2020-08-23] MEDS: colchicine 0.6mg tablet PO SCH (21:05)
[2020-08-23] MEDS: insulin glargine (Lantus) pen - multi-dose SQ SCH (21:11)
[2020-08-23 22:00] VITALS: BP 120/60
[2020-08-24] MEDS: HYDROcodone/acetaminophen 10/325mg tab PO PRN ×2 (01:25→20:02)
[2020-08-24 02:00] VITALS: BP 104/44
[2020-08-24 05:55] LABS: BASOPHILS # (AUTO) 0.1 X10'3 (0-0.2); EOSINOPHILS # (AUTO) 0.3 X10'3 (0-0.9); HEMATOCRIT 29.7 % (42.0-52.0); HEMOGLOBIN 10.1 g/dl (14.0-17.9); LYMPHOCYTES # (AUTO) 1.3 X10'3 (1.1-4.8); LYMPHOCYTES % (AUTO) 26.1 % (21-51); MEAN CORPUSCULAR HGB CONC 34.1 g/dL (33.0-36.5); MEAN CORPUSCULAR VOLUME 93.7 FL (78-98); MEAN PLATELET VOLUME 8.3 FL (7.4-10.4); MONOCYTES # (AUTO) 0.8 X10'3 (0-0.9); MONOCYTES % (AUTO) 16.8 % (2-12); NEUTROPHILS # (AUTO) 2.4 X10'3 (1.8-7.7); NEUTROPHILS % (AUTO) 49.1 % (42-75); PLATELET COUNT 225 X10'3 (140-440); RED BLOOD COUNT 3.17 X10'6 (4.70-6.10); RED CELL DISTRIBUTION WIDTH 15.7 % (11.5-14.5); WHITE BLOOD COUNT 4.9 X10'3 (4.5-11.0)
[2020-08-24 06:00] VITALS: BP 127/57
--- NOTE | 2020-08-24 06:20 | NUR ---
Problems reprioritized. Patient report given, questions answered & plan of care reviewed with Ebonie MAZARIEGOS.
[2020-08-24 06:24] LABS: ALBUMIN 2.7 G/DL (3.4-5.0); ANION GAP 8 (8-16); BLOOD UREA NITROGEN 38 MG/DL (7-18); BUN/CREATININE RATIO 16.6 (5.4-32.0); CALCIUM 9.2 MG/DL (8.5-10.1); CHLORIDE 107 MMOL/L (99-107); CREATININE 2.29 MG/DL (0.60-1.10); GLUCOSE 116 MG/DL (70-104); POTASSIUM 4.2 MMOL/L (3.5-5.1); SODIUM 143 MMOL/L (135-145); TOTAL CARBON DIOXIDE 28.1 MMOL/L (24-32); eGFR 28 ML/MIN
--- NOTE | 2020-08-24 06:38 | NUR ---
Patient in room MED 315. I have received report from DELILAH Díaz and had the opportunity to ask questions and assume patient care.
[2020-08-24] MEDS: NUT.TX.GLUC.INTOLER,LAC-FR,SOY (GLUCERNA) 237 ML PO SCH ×3 (08:00→18:00)
[2020-08-24] MEDS: K and/or MAG REPLACEMENT MC SCH ×2 (08:00→19:53)
[2020-08-24] MEDS: multivitamins, therapeutics tablet PO SCH (08:54)
[2020-08-24] MEDS: pantoprazole 40mg Tablet.DR PO SCH (08:54)
[2020-08-24] MEDS: ferrous sulfate 325mg tablet PO SCH (08:54)
[2020-08-24] MEDS: folic acid 1mg tablet PO SCH (08:54)
[2020-08-24] MEDS: lactobacillus rhamnosus 10,000 MMU CELLS/CAPSULE PO SCH ×2 (08:54→19:52)
[2020-08-24] MEDS: fenofibrate 145mg tablet PO SCH (08:54)
[2020-08-24] MEDS: vitamin D (cholecalciferol) 1,000 unit tablet PO SCH (08:54)
[2020-08-24] MEDS: aspirin 325mg tablet PO SCH (08:55)
[2020-08-24] MEDS: docusate sod 100mg capsule PO SCH ×2 (08:55→19:52)
[2020-08-24] MEDS: furosemide 20MG tablet PO SCH (08:55)
[2020-08-24] MEDS: carVEDilol 12.5mg tablet PO SCH ×2 (08:55→19:52)
[2020-08-24] MEDS: rivaroxaban 15mg tablet PO SCH (08:55)
[2020-08-24] MEDS: clopidogrel 75mg tablet PO SCH (08:55)
[2020-08-24] MEDS: sacubitril/valsartan 24mg-26mg tablet PO SCH ×2 (08:55→19:53)
[2020-08-24] MEDS: piperacillin/tazo 3.375gm/50ml 50 ML IV SCH ×2 (08:56→16:21)
[2020-08-24] MEDS: insulin Lispro (HumaLOG) vial - multi-dose SQ SCH ×3 (09:07→19:50)
[2020-08-24 11:00] VITALS: BP 100/57
--- NOTE | 2020-08-24 11:58 | NUR ---
Reassessment: Pt PO 75-100% meals w/ ONS meeting needs. LBM 08/23. Noted -23L fluid balance this admit; JENNIFER recommended updated wt since no scaled wt this admit and receiving lasix. notified. No nutrition concerns at this time. Will continue to monitor. Rec: 1. continue carb controlled diet with regular texture per COAL CUTTING MACHINE OPERATOR recs 2. Glucerna TIDWM 3. routine bowel care 4. weekly scaled wts 5. MVI for wound healing needs Addendum: 08/24/20 at [address] Amended: Links added.
--- NOTE | 2020-08-24 13:49 | NUR ---
RN TC: RN d/w RD regarding lower carb ONS options given pt good PO on carb controlled diet. RD recommended ensure high protein TIDWM instead of current Glucerna ONS since lower CHO and still decent protein content. Rec: 1. continue carb controlled diet with regular texture per PAPER SALES REPRESENTATIVE recs 2. Ensure High Protein TIDWM 3. routine bowel care 4. weekly scaled wts Addendum: 08/24/20 at [address] Amended: Links added.
[2020-08-24 15:00] VITALS: BP 110/56
[2020-08-24 18:00] VITALS: BP 115/62
--- NOTE | 2020-08-24 18:25 | NUR ---
Patient in room MED 315. I have received report from Ebonie MAZARIEGOS and had the opportunity to ask questions and assume patient care.
--- NOTE | 2020-08-24 18:41 | NUR ---
Problems reprioritized. Patient report given, questions answered & plan of care reviewed with DELILAH Reyes.
[2020-08-24] MEDS: colchicine 0.6mg tablet PO SCH (19:54)
[2020-08-24] MEDS: atorvastatin 20mg tablet PO SCH (20:01)
[2020-08-24] MEDS: Melatonin 3mg tablet PO SCH (20:02)
[2020-08-24] MEDS: traZODone 50mg tablet PO SCH (21:15)
[2020-08-24] MEDS: insulin glargine (Lantus) pen - multi-dose SQ SCH (21:31)
[2020-08-24 22:00] VITALS: BP 133/67
[2020-08-25] MEDS: piperacillin/tazo 3.375gm/50ml 50 ML IV SCH ×3 (00:18→16:46)
[2020-08-25] MEDS: HYDROcodone/acetaminophen 10/325mg tab PO PRN ×3 (00:19→21:27)
[2020-08-25] MEDS ORDERED: HYDROcodone/acetaminophen 10/325mg tab PO ONE (00:30)
[2020-08-25 06:00] VITALS: BP 104/54
--- NOTE | 2020-08-25 06:00 | NUR ---
Problems reprioritized. Patient report given, questions answered & plan of care reviewed with juvenal MAZARIEGOS.
[2020-08-25] MEDS: NUT.TX.GLUC.INTOLER,LAC-FR,SOY (GLUCERNA) 237 ML PO SCH ×3 (08:00→18:00)
[2020-08-25] MEDS: K and/or MAG REPLACEMENT MC SCH ×2 (08:00→20:00)
[2020-08-25] MEDS: vitamin D (cholecalciferol) 1,000 unit tablet PO SCH (09:32)
[2020-08-25] MEDS: lactobacillus rhamnosus 10,000 MMU CELLS/CAPSULE PO SCH ×2 (09:32→21:26)
[2020-08-25] MEDS: methylnaltrexone br 12mg/0.6ml inj***SubQ only SQ SCH (09:32)
[2020-08-25] MEDS: clopidogrel 75mg tablet PO SCH (09:32)
[2020-08-25] MEDS: aspirin 325mg tablet PO SCH (09:32)
[2020-08-25] MEDS: docusate sod 100mg capsule PO SCH ×2 (09:32→21:26)
[2020-08-25] MEDS: sacubitril/valsartan 24mg-26mg tablet PO SCH ×2 (09:32→21:26)
[2020-08-25] MEDS: rivaroxaban 15mg tablet PO SCH (09:34)
[2020-08-25] MEDS: folic acid 1mg tablet PO SCH (09:34)
[2020-08-25] MEDS: furosemide 20MG tablet PO SCH (09:34)
[2020-08-25] MEDS: multivitamins, therapeutics tablet PO SCH (09:34)
[2020-08-25] MEDS: fenofibrate 145mg tablet PO SCH (09:34)
[2020-08-25] MEDS: ferrous sulfate 325mg tablet PO SCH (09:34)
[2020-08-25] MEDS: pantoprazole 40mg Tablet.DR PO SCH (09:34)
[2020-08-25] MEDS: carVEDilol 12.5mg tablet PO SCH ×2 (09:34→21:26)
[2020-08-25] MEDS: insulin Lispro (HumaLOG) vial - multi-dose SQ SCH ×2 (09:42→14:09)
[2020-08-25 10:00] VITALS: BP 105/54
--- NOTE | 2020-08-25 13:37 | NUR ---
PAGER ID: [phone] MESSAGE: rm 315. pt. Carlos Hallman. pt. has been eating well can we change his glucerna drink over to Ensure High protein for less carbs d/t his diabetes? also pt. no longer has routine labs. do you want to continue them? Ebonie [phone]
[2020-08-25 14:46] VITALS: BP 117/59
--- NOTE | 2020-08-25 14:54 | NUR ---
CHECKED ON PT. CHECKED HIS V/S-STABLE. PT IS NOW WITH PHYSICAL THERAPY AMBULATING.
--- NOTE | 2020-08-25 18:37 | NUR ---
Problems reprioritized. Patient report given, questions answered & plan of care reviewed with DELILAH Cutler.
--- NOTE | 2020-08-25 18:40 | NUR ---
Patient in room MED 315. I have received report from Nasir, and had the opportunity to ask questions and assume patient care.
[2020-08-25 19:00] VITALS: BP 124/66
--- NOTE | 2020-08-25 20:02 | NUR ---
patient had his dinner over 45 minutes. Skip the dinner blood sugar coverage. Will recheck his blood sugar at 2100.
[2020-08-25] MEDS: traZODone 50mg tablet PO SCH (21:26)
[2020-08-25] MEDS: atorvastatin 20mg tablet PO SCH (21:26)
[2020-08-25] MEDS: Melatonin 3mg tablet PO SCH (21:26)
[2020-08-25] MEDS: colchicine 0.6mg tablet PO SCH (21:27)
[2020-08-25] MEDS: insulin glargine (Lantus) pen - multi-dose SQ SCH (21:41)
[2020-08-25 22:00] VITALS: BP 110/38
[2020-08-26] MEDS: piperacillin/tazo 3.375gm/50ml 50 ML IV SCH ×4 (00:37→23:34)
[2020-08-26] MEDS: HYDROcodone/acetaminophen 10/325mg tab PO PRN ×2 (00:49→20:28)
[2020-08-26 02:00] VITALS: BP 114/45
[2020-08-26 06:30] VITALS: BP 118/50
--- NOTE | 2020-08-26 06:47 | NUR ---
Problems reprioritized. Patient report given to Thais, questions answered & plan of care reviewed with .
[2020-08-26] MEDS: NUT.TX.GLUC.INTOLER,LAC-FR,SOY (GLUCERNA) 237 ML PO SCH ×3 (08:00→18:00)
[2020-08-26] MEDS: sacubitril/valsartan 24mg-26mg tablet PO SCH ×2 (08:00→20:37)
[2020-08-26] MEDS: K and/or MAG REPLACEMENT MC SCH ×2 (08:00→20:00)
[2020-08-26] MEDS: lactobacillus rhamnosus 10,000 MMU CELLS/CAPSULE PO SCH ×2 (09:20→20:37)
[2020-08-26] MEDS: pantoprazole 40mg Tablet.DR PO SCH (09:20)
[2020-08-26] MEDS: ferrous sulfate 325mg tablet PO SCH (09:20)
[2020-08-26] MEDS: fenofibrate 145mg tablet PO SCH (09:20)
[2020-08-26] MEDS: docusate sod 100mg capsule PO SCH ×2 (09:20→20:37)
[2020-08-26] MEDS: aspirin 325mg tablet PO SCH (09:20)
[2020-08-26] MEDS: carVEDilol 12.5mg tablet PO SCH ×2 (09:21→20:37)
[2020-08-26] MEDS: multivitamins, therapeutics tablet PO SCH (09:21)
[2020-08-26] MEDS: clopidogrel 75mg tablet PO SCH (09:21)
[2020-08-26] MEDS: folic acid 1mg tablet PO SCH (09:21)
[2020-08-26] MEDS: furosemide 20MG tablet PO SCH (09:22)
[2020-08-26] MEDS: vitamin D (cholecalciferol) 1,000 unit tablet PO SCH (09:22)
[2020-08-26] MEDS: rivaroxaban 15mg tablet PO SCH (09:23)
[2020-08-26] MEDS: insulin Lispro (HumaLOG) vial - multi-dose SQ SCH ×2 (09:26→14:19)
[2020-08-26 11:00] VITALS: BP 117/43
[2020-08-26] MEDS: magnesium hydroxide 30ml (MOM) UD suspension PO PRN (14:10)
[2020-08-26 15:00] VITALS: BP 107/48
[2020-08-26 18:46] LABS: POTASSIUM 3.8 MMOL/L (3.5-5.1)
--- NOTE | 2020-08-26 19:05 | NUR ---
Patient in room MED 315. I have received report from Thais, and had the opportunity to ask questions and assume patient care.
--- NOTE | 2020-08-26 19:23 | NUR ---
Patient resting late report, did not cover his dinner blood sugar. Will recheck his blood sugar at 2100.
[2020-08-26] MEDS: traZODone 50mg tablet PO SCH (20:37)
[2020-08-26] MEDS: colchicine 0.6mg tablet PO SCH (20:37)
[2020-08-26] MEDS: Melatonin 3mg tablet PO SCH (20:38)
[2020-08-26] MEDS: atorvastatin 20mg tablet PO SCH (20:38)
[2020-08-26 20:43] VITALS: BP 96/51
[2020-08-26] MEDS: insulin glargine (Lantus) pen - multi-dose SQ SCH (20:53)
[2020-08-26 23:30] VITALS: BP 102/57
[2020-08-27] MEDS: HYDROcodone/acetaminophen 10/325mg tab PO PRN ×2 (01:52→10:11)
[2020-08-27 02:00] VITALS: BP 106/55
[2020-08-27 06:00] VITALS: BP 117/64
--- NOTE | 2020-08-27 06:34 | NUR ---
Problems reprioritized. Patient report given to Dirk, questions answered & plan of care reviewed with .
[2020-08-27] MEDS: K and/or MAG REPLACEMENT MC SCH ×2 (08:00→20:00)
[2020-08-27] MEDS: NUT.TX.GLUC.INTOLER,LAC-FR,SOY (GLUCERNA) 237 ML PO SCH ×3 (08:00→18:00)
[2020-08-27] MEDS: insulin Lispro (HumaLOG) vial - multi-dose SQ SCH ×2 (09:36→20:07)
[2020-08-27 10:00] VITALS: BP 102/59
[2020-08-27] MEDS: lactobacillus rhamnosus 10,000 MMU CELLS/CAPSULE PO SCH ×2 (10:10→20:08)
[2020-08-27] MEDS: ferrous sulfate 325mg tablet PO SCH (10:10)
[2020-08-27] MEDS: pantoprazole 40mg Tablet.DR PO SCH (10:10)
[2020-08-27] MEDS: carVEDilol 12.5mg tablet PO SCH ×2 (10:12→20:08)
[2020-08-27] MEDS: clopidogrel 75mg tablet PO SCH (10:12)
[2020-08-27] MEDS: aspirin 325mg tablet PO SCH (10:12)
[2020-08-27] MEDS: docusate sod 100mg capsule PO SCH ×2 (10:12→20:08)
[2020-08-27] MEDS: multivitamins, therapeutics tablet PO SCH (10:12)
[2020-08-27] MEDS: vitamin D (cholecalciferol) 1,000 unit tablet PO SCH (10:13)
[2020-08-27] MEDS: fenofibrate 145mg tablet PO SCH (10:13)
[2020-08-27] MEDS: folic acid 1mg tablet PO SCH (10:13)
[2020-08-27] MEDS: furosemide 20MG tablet PO SCH (10:14)
[2020-08-27] MEDS: magnesium hydroxide 30ml (MOM) UD suspension PO PRN (10:14)
[2020-08-27] MEDS: piperacillin/tazo 3.375gm/50ml 50 ML IV SCH ×2 (10:14→18:28)
[2020-08-27] MEDS: rivaroxaban 15mg tablet PO SCH (10:16)
[2020-08-27] MEDS: methylnaltrexone br 12mg/0.6ml inj***SubQ only SQ SCH (10:17)
[2020-08-27] MEDS: sacubitril/valsartan 24mg-26mg tablet PO SCH ×2 (11:09→20:08)
[2020-08-27 14:00] VITALS: BP 108/54
[2020-08-27 18:00] VITALS: BP 123/58
--- NOTE | 2020-08-27 18:35 | NUR ---
Patient in room MED 315. I have received report from Dirk, and had the opportunity to ask questions and assume patient care.
[2020-08-27] MEDS: Melatonin 3mg tablet PO SCH (20:08)
[2020-08-27] MEDS: colchicine 0.6mg tablet PO SCH (20:08)
[2020-08-27] MEDS: atorvastatin 20mg tablet PO SCH (20:08)
[2020-08-27] MEDS: traZODone 50mg tablet PO SCH (20:08)
[2020-08-27] MEDS: insulin glargine (Lantus) pen - multi-dose SQ SCH (21:50)
[2020-08-27 22:00] VITALS: BP 86/41
--- NOTE | 2020-08-27 23:25 | NUR ---
Dr. Meidna in ACCE unit. Ordered to remove the patti. No other orders were given at this time.
[2020-08-28] MEDS: HYDROcodone/acetaminophen 10/325mg tab PO PRN ×3 (00:41→19:55)
[2020-08-28] MEDS: piperacillin/tazo 3.375gm/50ml 50 ML IV SCH ×3 (00:41→16:21)
--- NOTE | 2020-08-28 01:45 | NUR ---
The lower mid abdominal patti(22) removed. Patient tolerated well. Addendum: 08/28/20 at 0338 by He Chan RN Per Dr. Adam barone.
--- NOTE | 2020-08-28 06:30 | NUR ---
Problems reprioritized. Patient report given to Dirk, questions answered & plan of care reviewed with .
[2020-08-28 06:33] LABS: BASOPHILS # (AUTO) 0.1 X10'3 (0-0.2); EOSINOPHILS # (AUTO) 0.4 X10'3 (0-0.9); HEMOGLOBIN 9.3 g/dl (14.0-17.9); MONOCYTES # (AUTO) 0.8 X10'3 (0-0.9)
[2020-08-28 06:35] LABS: BASOPHILS % (AUTO) 1.4 % (0-1); EOSINOPHILS % (AUTO) 7.6 % (0-6); HEMATOCRIT 27.5 % (42.0-52.0); LYMPHOCYTES # (AUTO) 1.3 X10'3 (1.1-4.8); MEAN CORPUSCULAR HEMOGLOBIN 31.6 PG (27.0-31.0); MEAN CORPUSCULAR HGB CONC 33.7 g/dL (33.0-36.5); MEAN CORPUSCULAR VOLUME 93.6 FL (78-98); MEAN PLATELET VOLUME 8.7 FL (7.4-10.4); MONOCYTES % (AUTO) 16.3 % (2-12); NEUTROPHILS # (AUTO) 2.2 X10'3 (1.8-7.7); NEUTROPHILS % (AUTO) 47.7 % (42-75); PLATELET COUNT 195 X10'3 (140-440); RED BLOOD COUNT 2.94 X10'6 (4.70-6.10); RED CELL DISTRIBUTION WIDTH 15.9 % (11.5-14.5); WHITE BLOOD COUNT 4.7 X10'3 (4.5-11.0)
[2020-08-28 07:23] LABS: ALBUMIN 2.6 G/DL (3.4-5.0); ANION GAP 5 (8-16); BLOOD UREA NITROGEN 30 MG/DL (7-18); BUN/CREATININE RATIO 14.5 (5.4-32.0); CALCIUM 8.8 MG/DL (8.5-10.1); CHLORIDE 106 MMOL/L (99-107); CREATININE 2.07 MG/DL (0.60-1.10); GLUCOSE 113 MG/DL (70-104); POTASSIUM 4.1 MMOL/L (3.5-5.1); SODIUM 141 MMOL/L (135-145); TOTAL CARBON DIOXIDE 29.7 MMOL/L (24-32); eGFR 31 ML/MIN
[2020-08-28] MEDS: K and/or MAG REPLACEMENT MC SCH ×2 (08:00→19:43)
[2020-08-28] MEDS: NUT.TX.GLUC.INTOLER,LAC-FR,SOY (GLUCERNA) 237 ML PO SCH ×3 (08:00→18:00)
[2020-08-28] MEDS: pantoprazole 40mg Tablet.DR PO SCH (09:01)
[2020-08-28] MEDS: lactobacillus rhamnosus 10,000 MMU CELLS/CAPSULE PO SCH ×2 (09:02→19:54)
[2020-08-28] MEDS: sacubitril/valsartan 24mg-26mg tablet PO SCH ×2 (09:02→19:54)
[2020-08-28] MEDS: vitamin D (cholecalciferol) 1,000 unit tablet PO SCH (09:02)
[2020-08-28] MEDS: aspirin 325mg tablet PO SCH (09:03)
[2020-08-28] MEDS: ferrous sulfate 325mg tablet PO SCH (09:04)
[2020-08-28] MEDS: docusate sod 100mg capsule PO SCH ×2 (09:04→19:53)
[2020-08-28] MEDS: fenofibrate 145mg tablet PO SCH (09:04)
[2020-08-28] MEDS: furosemide 20MG tablet PO SCH (09:04)
[2020-08-28] MEDS: carVEDilol 12.5mg tablet PO SCH ×2 (09:04→19:56)
[2020-08-28] MEDS: rivaroxaban 15mg tablet PO SCH (09:05)
[2020-08-28] MEDS: multivitamins, therapeutics tablet PO SCH (09:05)
[2020-08-28] MEDS: clopidogrel 75mg tablet PO SCH (09:06)
[2020-08-28] MEDS: folic acid 1mg tablet PO SCH (09:10)
[2020-08-28] MEDS: insulin Lispro (HumaLOG) vial - multi-dose SQ SCH ×3 (09:31→19:53)
[2020-08-28 18:00] VITALS: BP 125/70
[2020-08-28] MEDS: traZODone 50mg tablet PO SCH (21:58)
[2020-08-28] MEDS: atorvastatin 20mg tablet PO SCH (21:59)
[2020-08-28] MEDS: colchicine 0.6mg tablet PO SCH (21:59)
[2020-08-28] MEDS: Melatonin 3mg tablet PO SCH (21:59)
[2020-08-28 22:00] VITALS: BP 127/49
[2020-08-28] MEDS: insulin glargine (Lantus) pen - multi-dose SQ SCH (22:03)
[2020-08-29] MEDS: piperacillin/tazo 3.375gm/50ml 50 ML IV SCH ×3 (00:17→17:22)
[2020-08-29] MEDS: HYDROcodone/acetaminophen 10/325mg tab PO PRN ×4 (00:42→21:38)
[2020-08-29 02:00] VITALS: BP 102/45
[2020-08-29 06:00] VITALS: BP 113/52
[2020-08-29] MEDS: NUT.TX.GLUC.INTOLER,LAC-FR,SOY (GLUCERNA) 237 ML PO SCH ×2 (08:00→18:00)
[2020-08-29] MEDS: multivitamins, therapeutics tablet PO SCH (08:00)
[2020-08-29] MEDS: K and/or MAG REPLACEMENT MC SCH ×2 (08:00→20:00)
[2020-08-29] MEDS: insulin Lispro (HumaLOG) vial - multi-dose SQ SCH ×3 (09:21→19:56)
[2020-08-29] MEDS: vitamin D (cholecalciferol) 1,000 unit tablet PO SCH (09:24)
[2020-08-29] MEDS: ferrous sulfate 325mg tablet PO SCH (09:25)
[2020-08-29] MEDS: docusate sod 100mg capsule PO SCH ×2 (09:25→19:49)
[2020-08-29] MEDS: clopidogrel 75mg tablet PO SCH (09:25)
[2020-08-29] MEDS: aspirin 325mg tablet PO SCH (09:25)
[2020-08-29] MEDS: carVEDilol 12.5mg tablet PO SCH ×2 (09:25→19:49)
[2020-08-29] MEDS: folic acid 1mg tablet PO SCH (09:25)
[2020-08-29] MEDS: furosemide 20MG tablet PO SCH (09:25)
[2020-08-29] MEDS: rivaroxaban 15mg tablet PO SCH (09:25)
[2020-08-29] MEDS: fenofibrate 145mg tablet PO SCH (09:26)
[2020-08-29] MEDS: magnesium hydroxide 30ml (MOM) UD suspension PO PRN (09:29)
[2020-08-29] MEDS: pantoprazole 40mg Tablet.DR PO SCH (09:29)
[2020-08-29 11:00] VITALS: BP 102/45
[2020-08-29] MEDS: sacubitril/valsartan 24mg-26mg tablet PO SCH ×2 (11:28→19:49)
[2020-08-29] MEDS: lactobacillus rhamnosus 10,000 MMU CELLS/CAPSULE PO SCH ×2 (11:28→19:49)
[2020-08-29] MEDS: methylnaltrexone br 12mg/0.6ml inj***SubQ only SQ SCH (11:28)
[2020-08-29 18:00] VITALS: BP 116/55
[2020-08-29] MEDS: Melatonin 3mg tablet PO SCH (21:39)
[2020-08-29] MEDS: atorvastatin 20mg tablet PO SCH (21:39)
[2020-08-29] MEDS: colchicine 0.6mg tablet PO SCH (21:39)
[2020-08-29] MEDS: traZODone 50mg tablet PO SCH (21:39)
[2020-08-29] MEDS: insulin glargine (Lantus) pen - multi-dose SQ SCH (21:43)
[2020-08-29 22:00] VITALS: BP 138/54
[2020-08-30] MEDS: piperacillin/tazo 3.375gm/50ml 50 ML IV SCH ×3 (00:07→16:13)
[2020-08-30 02:00] VITALS: BP 108/45
[2020-08-30] MEDS: HYDROcodone/acetaminophen 10/325mg tab PO PRN ×2 (02:20→19:53)
[2020-08-30 06:00] VITALS: BP 104/58
--- NOTE | 2020-08-30 07:06 | NUR ---
Patient in room MED 315. I have received report from DELILAH MUNGUIA and had the opportunity to ask questions and assume patient care.
[2020-08-30] MEDS: insulin Lispro (HumaLOG) vial - multi-dose SQ SCH ×2 (08:02→13:34)
[2020-08-30] MEDS: vitamin D (cholecalciferol) 1,000 unit tablet PO SCH (08:04)
[2020-08-30] MEDS: furosemide 20MG tablet PO SCH (08:04)
[2020-08-30] MEDS: clopidogrel 75mg tablet PO SCH (08:05)
[2020-08-30] MEDS: pantoprazole 40mg Tablet.DR PO SCH (08:05)
[2020-08-30] MEDS: carVEDilol 12.5mg tablet PO SCH ×2 (08:05→19:52)
[2020-08-30] MEDS: multivitamins, therapeutics tablet PO SCH (08:05)
[2020-08-30] MEDS: lactobacillus rhamnosus 10,000 MMU CELLS/CAPSULE PO SCH ×2 (08:05→19:52)
[2020-08-30] MEDS: docusate sod 100mg capsule PO SCH ×2 (08:05→19:52)
[2020-08-30] MEDS: folic acid 1mg tablet PO SCH (08:05)
[2020-08-30] MEDS: ferrous sulfate 325mg tablet PO SCH (08:05)
[2020-08-30] MEDS: fenofibrate 145mg tablet PO SCH (08:05)
[2020-08-30] MEDS: rivaroxaban 15mg tablet PO SCH (08:05)
[2020-08-30] MEDS: aspirin 325mg tablet PO SCH (08:05)
[2020-08-30] MEDS: NUT.TX.GLUC.INTOLER,LAC-FR,SOY (GLUCERNA) 237 ML PO SCH ×3 (08:10→18:00)
[2020-08-30] MEDS: sacubitril/valsartan 24mg-26mg tablet PO SCH ×2 (10:00→19:52)
[2020-08-30 11:00] VITALS: BP 112/57
--- NOTE | 2020-08-30 12:30 | NUR ---
DR. NAIR PAGED: PAGER ID: [phone] MESSAGE: 315: [facility] - can we d/c tele and transfer to surgical? need to close ACCE, sleep medicine physician nightmare :( [facility] [phone]
[2020-08-30 14:00] VITALS: BP 123/46
--- NOTE | 2020-08-30 15:54 | NUR ---
RECEIVED REPORT FROM FLAKO MAZARIEGOS AND ASSUMED CARE OF PATIENT. Addendum: 08/30/20 at 1555 by Patrica Koo RN Amended: Links added.
--- NOTE | 2020-08-30 15:55 | NUR ---
TRANSFERRED PATIENT VIA W/C, WITH ALL BELONGINGS, TO ROOM 301. NO C/O AT THIS TIME. BED LOW AND LOCKED CALL LIGHT IN REACH. Addendum: 08/30/20 at 1557 by Patrica Koo RN Amended: Links added.
[2020-08-30 19:00] VITALS: BP 149/68
[2020-08-30] MEDS: K and/or MAG REPLACEMENT MC SCH (20:00)
[2020-08-30] MEDS: traZODone 50mg tablet PO SCH (21:00)
[2020-08-30] MEDS: colchicine 0.6mg tablet PO SCH (21:00)
[2020-08-30] MEDS: atorvastatin 20mg tablet PO SCH (21:00)
[2020-08-30] MEDS: insulin glargine (Lantus) pen - multi-dose SQ SCH (21:00)
[2020-08-30] MEDS: Melatonin 3mg tablet PO SCH (21:00)
[2020-08-31] MEDS: piperacillin/tazo 3.375gm/50ml 50 ML IV SCH ×4 (00:59→23:06)
[2020-08-31] MEDS: HYDROcodone/acetaminophen 10/325mg tab PO PRN ×3 (00:59→23:01)
[2020-08-31 02:00] VITALS: BP 129/53
[2020-08-31 05:13] LABS: ALBUMIN 2.6 G/DL (3.4-5.0); ANION GAP 10 (8-16); BLOOD UREA NITROGEN 29 MG/DL (7-18); BUN/CREATININE RATIO 14.9 (5.4-32.0); CHLORIDE 104 MMOL/L (99-107); CREATININE 1.94 MG/DL (0.60-1.10); GLUCOSE 154 MG/DL (70-104); MAGNESIUM 1.9 MG/DL (1.5-2.4); POTASSIUM 3.9 MMOL/L (3.5-5.1); SODIUM 139 MMOL/L (135-145); TOTAL CARBON DIOXIDE 25.5 MMOL/L (24-32); eGFR 34 ML/MIN
[2020-08-31 05:19] LABS: EOSINOPHILS # (AUTO) 0.3 X10'3 (0-0.9); HEMOGLOBIN 9.4 g/dl (14.0-17.9); LYMPHOCYTES # (AUTO) 1.2 X10'3 (1.1-4.8); LYMPHOCYTES % (AUTO) 24.1 % (21-51); MEAN PLATELET VOLUME 9.1 FL (7.4-10.4); MONOCYTES # (AUTO) 0.8 X10'3 (0-0.9)
[2020-08-31 05:26] LABS: BASOPHILS % (AUTO) 0.8 % (0-1); EOSINOPHILS % (AUTO) 6.6 % (0-6); HEMATOCRIT 27.8 % (42.0-52.0); MEAN CORPUSCULAR HEMOGLOBIN 31.4 PG (27.0-31.0); MEAN CORPUSCULAR HGB CONC 33.6 g/dL (33.0-36.5); MEAN CORPUSCULAR VOLUME 93.3 FL (78-98); MONOCYTES % (AUTO) 16.4 % (2-12); NEUTROPHILS # (AUTO) 2.6 X10'3 (1.8-7.7); NEUTROPHILS % (AUTO) 52.1 % (42-75); PLATELET COUNT 212 X10'3 (140-440); RED BLOOD COUNT 2.98 X10'6 (4.70-6.10); RED CELL DISTRIBUTION WIDTH 15.9 % (11.5-14.5)
--- NOTE | 2020-08-31 06:42 | NUR ---
Patient in room PCU 3013. I have received report from Chelsea MAZARIEGOS and had the opportunity to ask questions and assume patient care.
[2020-08-31 06:57] LABS: PLATELET ESTIMATE NORMAL
[2020-08-31 06:58] LABS: ANISOCYTOSIS 1+; ELLIPTOCYTES 1+; POLYCHROMASIA 1+
[2020-08-31 07:00] VITALS: BP 127/64
[2020-08-31] MEDS: NUT.TX.GLUC.INTOLER,LAC-FR,SOY (GLUCERNA) 237 ML PO SCH ×3 (08:00→18:00)
[2020-08-31] MEDS: K and/or MAG REPLACEMENT MC SCH ×2 (08:00→20:00)
[2020-08-31] MEDS: lactobacillus rhamnosus 10,000 MMU CELLS/CAPSULE PO SCH ×2 (08:11→20:56)
[2020-08-31] MEDS: ferrous sulfate 325mg tablet PO SCH (08:12)
[2020-08-31] MEDS: multivitamins, therapeutics tablet PO SCH (08:12)
[2020-08-31] MEDS: aspirin 325mg tablet PO SCH (08:12)
[2020-08-31] MEDS: pantoprazole 40mg Tablet.DR PO SCH (08:13)
[2020-08-31] MEDS: carVEDilol 12.5mg tablet PO SCH ×2 (08:13→20:55)
[2020-08-31] MEDS: folic acid 1mg tablet PO SCH (08:13)
[2020-08-31] MEDS: rivaroxaban 15mg tablet PO SCH (08:13)
[2020-08-31] MEDS: furosemide 20MG tablet PO SCH (08:14)
[2020-08-31] MEDS: vitamin D (cholecalciferol) 1,000 unit tablet PO SCH (08:14)
[2020-08-31] MEDS: docusate sod 100mg capsule PO SCH ×2 (08:15→20:56)
[2020-08-31] MEDS: clopidogrel 75mg tablet PO SCH (08:15)
[2020-08-31] MEDS: fenofibrate 145mg tablet PO SCH (08:15)
[2020-08-31] MEDS: methylnaltrexone br 12mg/0.6ml inj***SubQ only SQ SCH (08:16)
[2020-08-31] MEDS: insulin Lispro (HumaLOG) vial - multi-dose SQ SCH ×3 (09:08→19:03)
[2020-08-31] MEDS: sacubitril/valsartan 24mg-26mg tablet PO SCH ×2 (09:10→21:00)
[2020-08-31 11:00] VITALS: BP 114/57
--- NOTE | 2020-08-31 13:03 | NUR ---
F/u 08/31: Pt PO 75-100% avg carb controlled diet w/ Glucerna TIDWM meeting needs. Ensure high protein never ordered following prior RD recommendation to RN(see prior note) but Glucerna still appropriate ONS. LBM 08/27 receiving routine colace, relistor, probiotic, and PRN MoM; MD is aware of constipation per EMR. Prior 109kg standing scaled wt likely more accurate than current 115kg given negative fluid balance this admit making BMI 34. Will continue to monitor. Rec: 1. continue carb controlled diet with regular texture per BUSINESS CONTINUITY CONSULTANT recs 2. Glucerna TIDWM; consider ensure high protein instead IF lower CHO ONS requested 3. routine bowel care 4. weekly scaled wts 5. MVI for wound healing needs Addendum: 08/31/20 at [address] Amended: Links added.
[2020-08-31 15:00] VITALS: BP 112/64
[2020-08-31] MEDS: magnesium hydroxide 30ml (MOM) UD suspension PO PRN (16:47)
[2020-08-31 18:00] VITALS: BP 127/60
--- NOTE | 2020-08-31 18:00 | NUR ---
Patient in room PCU 3013. I have received report from Sammi MAZARIEGOS and had the opportunity to ask questions and assume patient care.
--- NOTE | 2020-08-31 18:19 | NUR ---
Orientee documentation: I have reviewed and agree with all interventions, assessments performed and documented by Avril MAZARIEGOS.
--- NOTE | 2020-08-31 18:19 | NUR ---
Problems reprioritized. Patient report given, questions answered & plan of care reviewed with Aretha MAZARIEGOS.
[2020-08-31] MEDS: atorvastatin 20mg tablet PO SCH (20:55)
[2020-08-31] MEDS: colchicine 0.6mg tablet PO SCH (20:55)
[2020-08-31] MEDS: traZODone 50mg tablet PO SCH (20:56)
[2020-08-31] MEDS: Melatonin 3mg tablet PO SCH (20:56)
[2020-08-31] MEDS: insulin glargine (Lantus) pen - multi-dose SQ SCH (21:09)
[2020-08-31 22:00] VITALS: BP 121/57
--- NOTE | 2020-09-01 01:57 | NUR ---
An alarm was going off on wound vac said pressure low. Checked the wound and the tegaderm looked loose on the superior side, so put another another tegaderm over the original and it stopped the leak alarm
[2020-09-01 02:00] VITALS: BP 124/71
--- NOTE | 2020-09-01 06:16 | NUR ---
Problems reprioritized. Patient report given, questions answered & plan of care reviewed with Sammi MAZARIEGOS.
--- NOTE | 2020-09-01 06:19 | NUR ---
Patient in room PCU 3013. I have received report from Aretha MAZARIEGOS and had the opportunity to ask questions and assume patient care.
[2020-09-01 07:00] VITALS: BP 116/59
[2020-09-01] MEDS: furosemide 20MG tablet PO SCH (07:36)
[2020-09-01] MEDS: fenofibrate 145mg tablet PO SCH (07:36)
[2020-09-01] MEDS: docusate sod 100mg capsule PO SCH ×2 (07:36→21:05)
[2020-09-01] MEDS: multivitamins, therapeutics tablet PO SCH (07:37)
[2020-09-01] MEDS: pantoprazole 40mg Tablet.DR PO SCH (07:37)
[2020-09-01] MEDS: carVEDilol 12.5mg tablet PO SCH ×2 (07:37→21:06)
[2020-09-01] MEDS: rivaroxaban 15mg tablet PO SCH (07:37)
[2020-09-01] MEDS: vitamin D (cholecalciferol) 1,000 unit tablet PO SCH (07:38)
[2020-09-01] MEDS: aspirin 325mg tablet PO SCH (07:38)
[2020-09-01] MEDS: ferrous sulfate 325mg tablet PO SCH (07:38)
[2020-09-01] MEDS: lactobacillus rhamnosus 10,000 MMU CELLS/CAPSULE PO SCH ×2 (07:38→21:05)
[2020-09-01] MEDS: clopidogrel 75mg tablet PO SCH (07:39)
[2020-09-01] MEDS: folic acid 1mg tablet PO SCH (07:39)
[2020-09-01] MEDS: K and/or MAG REPLACEMENT MC SCH ×2 (08:00→20:00)
[2020-09-01] MEDS: piperacillin/tazo 3.375gm/50ml 50 ML IV SCH ×2 (08:03→16:21)
[2020-09-01 08:04] LABS: ALANINE AMINOTRANSFERASE 23 U/L (12-78); ALBUMIN 2.9 G/DL (3.4-5.0); ALBUMIN/GLOBULIN RATIO 0.8 (1.1-1.5); ALKALINE PHOSPHATASE 48 IU/L (46-116); ANION GAP 8 (8-16); ASPARTATE AMINO TRANSFERASE 21 U/L (10-37); BILIRUBIN,TOTAL 0.4 MG/DL (0.1-1.0); BLOOD UREA NITROGEN 29 MG/DL (7-18); BUN/CREATININE RATIO 15.8 (5.4-32.0); CALCIUM 9.3 MG/DL (8.5-10.1); CHLORIDE 105 MMOL/L (99-107); CREATININE 1.84 MG/DL (0.60-1.10); GLUCOSE 150 MG/DL (70-104); POTASSIUM 3.8 MMOL/L (3.5-5.1); SODIUM 140 MMOL/L (135-145); TOTAL CARBON DIOXIDE 26.9 MMOL/L (24-32); TOTAL PROTEIN 6.5 G/DL (6.4-8.2); eGFR 36 ML/MIN
[2020-09-01] MEDS: sacubitril/valsartan 24mg-26mg tablet PO SCH ×2 (08:06→21:08)
[2020-09-01] MEDS: insulin Lispro (HumaLOG) vial - multi-dose SQ SCH ×3 (08:10→19:31)
[2020-09-01 08:17] LABS: BASOPHILS # (AUTO) 0.1 X10'3 (0-0.2); BASOPHILS % (AUTO) 1.1 % (0-1); EOSINOPHILS # (AUTO) 0.3 X10'3 (0-0.9); LYMPHOCYTES # (AUTO) 1.3 X10'3 (1.1-4.8); MONOCYTES # (AUTO) 0.9 X10'3 (0-0.9); NEUTROPHILS # (AUTO) 3.3 X10'3 (1.8-7.7); WHITE BLOOD COUNT 5.9 X10'3 (4.5-11.0)
[2020-09-01 08:18] LABS: EOSINOPHILS % (AUTO) 5.6 % (0-6); HEMATOCRIT 29.7 % (42.0-52.0); HEMOGLOBIN 10.2 g/dl (14.0-17.9); LYMPHOCYTES % (AUTO) 22.3 % (21-51); MEAN CORPUSCULAR HEMOGLOBIN 32.2 PG (27.0-31.0); MEAN CORPUSCULAR HGB CONC 34.4 g/dL (33.0-36.5); MEAN CORPUSCULAR VOLUME 93.6 FL (78-98); MEAN PLATELET VOLUME 8.8 FL (7.4-10.4); MONOCYTES % (AUTO) 14.8 % (2-12); NEUTROPHILS % (AUTO) 56.2 % (42-75); PLATELET COUNT 202 X10'3 (140-440); RED BLOOD COUNT 3.17 X10'6 (4.70-6.10); RED CELL DISTRIBUTION WIDTH 15.6 % (11.5-14.5)
[2020-09-01] MEDS: NUT.TX.GLUC.INTOLER,LAC-FR,SOY (GLUCERNA) 237 ML PO SCH ×3 (08:24→19:22)
[2020-09-01 09:16] LABS: ANISOCYTOSIS FEW; LARGE PLATELETS FEW; PLATELET ESTIMATE NORMAL; TOTAL CELLS COUNTED 100
[2020-09-01 09:17] LABS: ELLIPTOCYTES 1+
[2020-09-01 11:00] VITALS: BP 105/57
--- NOTE | 2020-09-01 13:32 | NUR ---
PAGER ID: [phone] MESSAGE: [id number] Carlos Hallman, Pt. c/o gout pain, can we increase colchicine to 0.6 mg BID? Sammi MAZARIEGOS [phone]
[2020-09-01] MEDS: HYDROcodone/acetaminophen 10/325mg tab PO PRN ×2 (14:06→21:07)
[2020-09-01 15:00] VITALS: BP 115/64
[2020-09-01 18:00] VITALS: BP 137/78
--- NOTE | 2020-09-01 18:23 | NUR ---
Orientee documentation: I have reviewed and agree with all interventions, assessments performed and documented by Avril MAZARIEGOS.
--- NOTE | 2020-09-01 18:23 | NUR ---
Problems reprioritized. Patient report given, questions answered & plan of care reviewed with Carolyn MAZARIEGOS.
--- NOTE | 2020-09-01 18:30 | NUR ---
Patient in room PCU 3013. I have received report from ALTHEA MAZARIEGOS AND RIAN MAZARIEGOS and had the opportunity to ask questions and assume patient care.
[2020-09-01] MEDS: Melatonin 3mg tablet PO SCH (21:06)
[2020-09-01] MEDS: atorvastatin 20mg tablet PO SCH (21:06)
[2020-09-01] MEDS: traZODone 50mg tablet PO SCH (21:06)
[2020-09-01] MEDS: colchicine 0.6mg tablet PO SCH (21:09)
[2020-09-01] MEDS: insulin glargine (Lantus) pen - multi-dose SQ SCH (21:22)
[2020-09-01 22:00] VITALS: BP 117/55
[2020-09-02] MEDS: piperacillin/tazo 3.375gm/50ml 50 ML IV SCH ×4 (00:56→23:22)
[2020-09-02] MEDS: HYDROcodone/acetaminophen 10/325mg tab PO PRN ×2 (01:01→21:16)
[2020-09-02 02:00] VITALS: BP 120/63
[2020-09-02 06:00] VITALS: BP 124/61
--- NOTE | 2020-09-02 06:30 | NUR ---
Problems reprioritized. Patient report given, questions answered & plan of care reviewed with AM SHIFT RN.
[2020-09-02] MEDS: pantoprazole 40mg Tablet.DR PO SCH (07:19)
[2020-09-02] MEDS: methylnaltrexone br 12mg/0.6ml inj***SubQ only SQ SCH (07:48)
[2020-09-02] MEDS: ferrous sulfate 325mg tablet PO SCH (07:49)
[2020-09-02] MEDS: carVEDilol 12.5mg tablet PO SCH ×2 (07:49→21:12)
[2020-09-02] MEDS: lactobacillus rhamnosus 10,000 MMU CELLS/CAPSULE PO SCH ×2 (07:49→21:12)
[2020-09-02] MEDS: fenofibrate 145mg tablet PO SCH (07:49)
[2020-09-02] MEDS: docusate sod 100mg capsule PO SCH ×2 (07:49→21:11)
[2020-09-02] MEDS: aspirin 325mg tablet PO SCH (07:49)
[2020-09-02] MEDS: folic acid 1mg tablet PO SCH (07:49)
[2020-09-02] MEDS: furosemide 20MG tablet PO SCH (07:49)
[2020-09-02] MEDS: sacubitril/valsartan 24mg-26mg tablet PO SCH ×2 (07:49→21:12)
[2020-09-02] MEDS: multivitamins, therapeutics tablet PO SCH (07:49)
[2020-09-02] MEDS: clopidogrel 75mg tablet PO SCH (07:49)
[2020-09-02] MEDS: NUT.TX.GLUC.INTOLER,LAC-FR,SOY (GLUCERNA) 237 ML PO SCH ×3 (07:50→18:00)
[2020-09-02] MEDS: vitamin D (cholecalciferol) 1,000 unit tablet PO SCH (07:50)
[2020-09-02] MEDS: rivaroxaban 15mg tablet PO SCH (07:50)
[2020-09-02] MEDS: K and/or MAG REPLACEMENT MC SCH ×2 (08:00→19:37)
[2020-09-02 10:00] VITALS: BP 104/52
[2020-09-02] MEDS: magnesium hydroxide 30ml (MOM) UD suspension PO PRN (10:10)
[2020-09-02 11:31] LABS: CLARITY,URINE CLEAR (Clear); COLOR,URINE YELLOW (Yellow); GLUCOSE, URINE NEGATIVE (Neg); KETONES,URINE NEGATIVE (Neg); LEUKOCYTE ESTERASE ,URINE NEGATIVE (Neg); NITRITES, URINE NEGATIVE (Neg); OCCULT BLOOD,URINE NEGATIVE (Neg); PH,URINE 6.5 (4.8-8.0); PROTEIN,URINE NEGATIVE (Neg); UROBILINOGEN,URINE 0.2 E.U/dL (0.2-1.0)
[2020-09-02 11:37] LABS: UA COLLECTION TYPE NON-SPECIFIED
[2020-09-02] MEDS: insulin Lispro (HumaLOG) vial - multi-dose SQ SCH ×2 (13:40→19:40)
[2020-09-02 14:00] VITALS: BP 108/65
--- NOTE | 2020-09-02 18:17 | NUR ---
Problems reprioritized. Patient report given, questions answered & plan of care reviewed with Raquel MAZARIEGOS.
--- NOTE | 2020-09-02 18:18 | NUR ---
Patient in room MED 308. I have received report from DELILAH Nguyen and had the opportunity to ask questions and assume patient care.
[2020-09-02 20:00] VITALS: BP 121/52
[2020-09-02] MEDS: traZODone 50mg tablet PO SCH (21:13)
[2020-09-02] MEDS: atorvastatin 20mg tablet PO SCH (21:13)
[2020-09-02] MEDS: colchicine 0.6mg tablet PO SCH (21:13)
[2020-09-02] MEDS: Melatonin 3mg tablet PO SCH (21:14)
[2020-09-02] MEDS: insulin glargine (Lantus) pen - multi-dose SQ SCH (21:29)
[2020-09-02 22:00] VITALS: BP 122/49
[2020-09-03] MEDS: HYDROcodone/acetaminophen 10/325mg tab PO PRN ×3 (00:59→21:07)
[2020-09-03 01:01] VITALS: BP 125/56
[2020-09-03 06:00] VITALS: BP 116/64
--- NOTE | 2020-09-03 06:17 | NUR ---
Problems reprioritized. Patient report given, questions answered & plan of care reviewed with DELILAH Samaniego.
--- NOTE | 2020-09-03 06:24 | NUR ---
Patient in room MED 308. I have received report from DELILAH García and had the opportunity to ask questions and assume patient care.
[2020-09-03] MEDS: piperacillin/tazo 3.375gm/50ml 50 ML IV SCH ×2 (07:10→16:30)
[2020-09-03] MEDS: multivitamins, therapeutics tablet PO SCH (07:11)
[2020-09-03] MEDS: pantoprazole 40mg Tablet.DR PO SCH (07:14)
[2020-09-03] MEDS: sacubitril/valsartan 24mg-26mg tablet PO SCH ×2 (07:14→21:08)
[2020-09-03] MEDS: vitamin D (cholecalciferol) 1,000 unit tablet PO SCH (07:14)
[2020-09-03] MEDS: carVEDilol 12.5mg tablet PO SCH ×2 (07:14→21:08)
[2020-09-03] MEDS: docusate sod 100mg capsule PO SCH ×2 (07:14→21:08)
[2020-09-03] MEDS: aspirin 325mg tablet PO SCH (07:15)
[2020-09-03] MEDS: rivaroxaban 15mg tablet PO SCH (07:15)
[2020-09-03] MEDS: fenofibrate 145mg tablet PO SCH (07:15)
[2020-09-03] MEDS: furosemide 20MG tablet PO SCH (07:15)
[2020-09-03] MEDS: folic acid 1mg tablet PO SCH (07:15)
[2020-09-03] MEDS: clopidogrel 75mg tablet PO SCH (07:16)
[2020-09-03] MEDS: lactobacillus rhamnosus 10,000 MMU CELLS/CAPSULE PO SCH ×2 (07:16→21:09)
[2020-09-03] MEDS: ferrous sulfate 325mg tablet PO SCH (07:16)
[2020-09-03] MEDS: K and/or MAG REPLACEMENT MC SCH ×2 (08:00→20:00)
[2020-09-03] MEDS: NUT.TX.GLUC.INTOLER,LAC-FR,SOY (GLUCERNA) 237 ML PO SCH ×3 (08:00→18:50)
[2020-09-03] MEDS: insulin Lispro (HumaLOG) vial - multi-dose SQ SCH ×3 (09:09→19:04)
[2020-09-03 11:00] VITALS: BP 124/56
[2020-09-03] MEDS: magnesium hydroxide 30ml (MOM) UD suspension PO PRN (11:16)
[2020-09-03 15:00] VITALS: BP 119/60
[2020-09-03 18:00] VITALS: BP 113/45
--- NOTE | 2020-09-03 18:15 | NUR ---
Patient in room MED 308. I have received report from Danette MAZARIEGOS and had the opportunity to ask questions and assume patient care.
--- NOTE | 2020-09-03 18:49 | NUR ---
Problems reprioritized. Patient report given, questions answered & plan of care reviewed with DELILAH Díaz.
[2020-09-03] MEDS: Melatonin 3mg tablet PO SCH (21:07)
[2020-09-03] MEDS: atorvastatin 20mg tablet PO SCH (21:07)
[2020-09-03] MEDS: colchicine 0.6mg tablet PO SCH (21:08)
[2020-09-03] MEDS: traZODone 50mg tablet PO SCH (21:08)
[2020-09-03] MEDS: insulin glargine (Lantus) pen - multi-dose SQ SCH (21:17)
[2020-09-03 22:00] VITALS: BP 115/52
[2020-09-04] MEDS: piperacillin/tazo 3.375gm/50ml 50 ML IV SCH ×3 (00:05→16:42)
[2020-09-04] MEDS: HYDROcodone/acetaminophen 10/325mg tab PO PRN ×2 (01:15→21:18)
[2020-09-04 02:00] VITALS: BP 119/64
[2020-09-04 06:00] VITALS: BP 124/59
--- NOTE | 2020-09-04 06:15 | NUR ---
Problems reprioritized. Patient report given, questions answered & plan of care reviewed with Ebonie MAZARIEGOS.
--- NOTE | 2020-09-04 06:27 | NUR ---
Patient in room MED 308. I have received report from DELILAH Díaz and had the opportunity to ask questions and assume patient care.
[2020-09-04] MEDS: K and/or MAG REPLACEMENT MC SCH ×2 (08:00→20:00)
[2020-09-04] MEDS: methylnaltrexone br 12mg/0.6ml inj***SubQ only SQ SCH (08:42)
[2020-09-04] MEDS: clopidogrel 75mg tablet PO SCH (08:43)
[2020-09-04] MEDS: sacubitril/valsartan 24mg-26mg tablet PO SCH ×2 (08:43→21:24)
[2020-09-04] MEDS: docusate sod 100mg capsule PO SCH ×2 (08:43→21:21)
[2020-09-04] MEDS: vitamin D (cholecalciferol) 1,000 unit tablet PO SCH (08:43)
[2020-09-04] MEDS: fenofibrate 145mg tablet PO SCH (08:44)
[2020-09-04] MEDS: folic acid 1mg tablet PO SCH (08:44)
[2020-09-04] MEDS: lactobacillus rhamnosus 10,000 MMU CELLS/CAPSULE PO SCH ×2 (08:44→21:21)
[2020-09-04] MEDS: multivitamins, therapeutics tablet PO SCH (08:44)
[2020-09-04] MEDS: rivaroxaban 15mg tablet PO SCH (08:44)
[2020-09-04] MEDS: pantoprazole 40mg Tablet.DR PO SCH (08:44)
[2020-09-04] MEDS: ferrous sulfate 325mg tablet PO SCH (08:44)
[2020-09-04] MEDS: aspirin 325mg tablet PO SCH (08:44)
[2020-09-04] MEDS: furosemide 20MG tablet PO SCH (08:45)
[2020-09-04] MEDS: carVEDilol 12.5mg tablet PO SCH ×2 (08:45→21:21)
[2020-09-04] MEDS: NUT.TX.GLUC.INTOLER,LAC-FR,SOY (GLUCERNA) 237 ML PO SCH ×3 (08:45→18:00)
[2020-09-04] MEDS: insulin Lispro (HumaLOG) vial - multi-dose SQ SCH ×3 (08:54→18:45)
[2020-09-04 11:00] VITALS: BP 112/62
[2020-09-04 15:00] VITALS: BP 121/56
[2020-09-04 18:00] VITALS: BP 124/59
--- NOTE | 2020-09-04 18:20 | NUR ---
Patient in room MED 308. I have received report from Ebonie MAZARIEGOS and had the opportunity to ask questions and assume patient care.
--- NOTE | 2020-09-04 18:45 | NUR ---
Problems reprioritized. Patient report given, questions answered & plan of care reviewed with DELILAH Díaz.
[2020-09-04] MEDS: colchicine 0.6mg tablet PO SCH (21:20)
[2020-09-04] MEDS: Melatonin 3mg tablet PO SCH (21:21)
[2020-09-04] MEDS: traZODone 50mg tablet PO SCH (21:21)
[2020-09-04] MEDS: atorvastatin 20mg tablet PO SCH (21:21)
[2020-09-04] MEDS: insulin glargine (Lantus) pen - multi-dose SQ SCH (21:42)
[2020-09-04 22:00] VITALS: BP 126/67
[2020-09-05] MEDS: piperacillin/tazo 3.375gm/50ml 50 ML IV SCH ×3 (00:32→16:21)
[2020-09-05] MEDS: HYDROcodone/acetaminophen 10/325mg tab PO PRN ×3 (01:19→20:22)
[2020-09-05 03:20] VITALS: BP 116/49
--- NOTE | 2020-09-05 04:36 | NUR ---
patient takes of his pulse oximetry throughout the night. RN educated patient and will continue to monitor patient.
--- NOTE | 2020-09-05 06:40 | NUR ---
Problems reprioritized. Patient report given, questions answered & plan of care reviewed with Mayte MAZARIEGOS.
--- NOTE | 2020-09-05 06:40 | NUR ---
Patient in room MED 308. I have received report from FLORES MAZARIEGOS and had the opportunity to ask questions and assume patient care.
[2020-09-05 06:55] LABS: ALBUMIN 2.6 G/DL (3.4-5.0); ANION GAP 9 (8-16); BLOOD UREA NITROGEN 32 MG/DL (7-18); BUN/CREATININE RATIO 15.4 (5.4-32.0); CALCIUM 8.9 MG/DL (8.5-10.1); CHLORIDE 106 MMOL/L (99-107); CREATININE 2.08 MG/DL (0.60-1.10); GLUCOSE 120 MG/DL (70-104); POTASSIUM 3.8 MMOL/L (3.5-5.1); SODIUM 142 MMOL/L (135-145); TOTAL CARBON DIOXIDE 27.2 MMOL/L (24-32); eGFR 31 ML/MIN
[2020-09-05] MEDS: K and/or MAG REPLACEMENT MC SCH ×2 (08:25→20:00)
[2020-09-05] MEDS: lactobacillus rhamnosus 10,000 MMU CELLS/CAPSULE PO SCH ×2 (08:33→20:20)
[2020-09-05] MEDS: insulin Lispro (HumaLOG) vial - multi-dose SQ SCH ×2 (08:34→13:05)
[2020-09-05] MEDS: fenofibrate 145mg tablet PO SCH (08:36)
[2020-09-05] MEDS: multivitamins, therapeutics tablet PO SCH (08:36)
[2020-09-05] MEDS: clopidogrel 75mg tablet PO SCH (08:36)
[2020-09-05] MEDS: sacubitril/valsartan 24mg-26mg tablet PO SCH ×2 (08:36→20:21)
[2020-09-05] MEDS: furosemide 20MG tablet PO SCH (08:36)
[2020-09-05] MEDS: ferrous sulfate 325mg tablet PO SCH (08:36)
[2020-09-05] MEDS: carVEDilol 12.5mg tablet PO SCH ×2 (08:36→20:21)
[2020-09-05] MEDS: folic acid 1mg tablet PO SCH (08:36)
[2020-09-05] MEDS: docusate sod 100mg capsule PO SCH ×2 (08:36→20:20)
[2020-09-05] MEDS: rivaroxaban 15mg tablet PO SCH (08:37)
[2020-09-05] MEDS: pantoprazole 40mg Tablet.DR PO SCH (08:37)
[2020-09-05] MEDS: vitamin D (cholecalciferol) 1,000 unit tablet PO SCH (08:37)
[2020-09-05] MEDS: aspirin 325mg tablet PO SCH (08:37)
[2020-09-05] MEDS: NUT.TX.GLUC.INTOLER,LAC-FR,SOY (GLUCERNA) 237 ML PO SCH ×3 (08:43→18:00)
[2020-09-05] MEDS: magnesium hydroxide 30ml (MOM) UD suspension PO PRN (09:00)
[2020-09-05 11:00] VITALS: BP 114/62
--- NOTE | 2020-09-05 12:07 | NUR ---
dr. cam paged: PAGER ID: [phone] MESSAGE: [phone]: LOOMIS - can we d/c tele? Afib controlled, no ectopy. ty nurse Perla [phone]
[2020-09-05 18:00] VITALS: BP 113/61
--- NOTE | 2020-09-05 18:00 | NUR ---
Patient in room MED 308. I have received report from Mayte MAZARIEGOS and had the opportunity to ask questions and assume patient care.
--- NOTE | 2020-09-05 18:16 | NUR ---
Problems reprioritized. Patient report given, questions answered & plan of care reviewed with Amy MAZARIEGOS.
[2020-09-05] MEDS: atorvastatin 20mg tablet PO SCH (20:20)
[2020-09-05] MEDS: traZODone 50mg tablet PO SCH (20:20)
[2020-09-05] MEDS: Melatonin 3mg tablet PO SCH (20:20)
[2020-09-05] MEDS: colchicine 0.6mg tablet PO SCH (20:22)
[2020-09-05] MEDS: insulin glargine (Lantus) pen - multi-dose SQ SCH (20:33)
--- NOTE | 2020-09-05 21:00 | NUR ---
patient in bed, weight with one pillow, two blankets, one sheet, draw sheet and bed cover Addendum: 09/05/20 at 2233 by Amy Macedo RN Amended: Links added.
[2020-09-05 22:00] VITALS: BP 123/42
[2020-09-06] MEDS: piperacillin/tazo 3.375gm/50ml 50 ML IV SCH ×3 (00:20→16:53)
[2020-09-06] MEDS: HYDROcodone/acetaminophen 10/325mg tab PO PRN ×2 (01:00→21:31)
[2020-09-06 02:00] VITALS: BP 131/49
--- NOTE | 2020-09-06 05:32 | NUR ---
SENT PAGE TO DR JOSE "PAGER ID: [phone] MESSAGE: INQUIRING ABOUT TELE ORDERS FOR PT LOOM[facility] IN 308, NEEDING TO MOVE ONE PT OFF FLOOR. PLEASE CALL. EZRA [phone]" NEW ORDERS RECEIVED TO TAKE PT OFF TELE
--- NOTE | 2020-09-06 05:40 | NUR ---
Patient transferred to Medical Surgical Per MD Sosa Telephone orders,. Gem MAZARIEGOS
--- NOTE | 2020-09-06 05:41 | NUR ---
Problems reprioritized. Patient report given, questions answered & plan of care reviewed with Jillian MAZARIEGOSneurology epilepsy physician [place].
[2020-09-06 05:50] VITALS: BP 133/71
--- NOTE | 2020-09-06 05:50 | NUR ---
PT TRANSFER FROM ACCE UNIT 10 MINUTES PRIOR TO CHANGE OF SHIFT. VSS AFEBRILE. REPORT GIVEN TO IRENA GUADARRAMA RN. PT DENIES PAIN RESTING COMFORTABLY
[2020-09-06 06:30] VITALS: BP 130/61
--- NOTE | 2020-09-06 06:50 | NUR ---
Patient in room AD 351. I have received report from DELILAH Walsh and had the opportunity to ask questions and assume patient care.
[2020-09-06] MEDS: NUT.TX.GLUC.INTOLER,LAC-FR,SOY (GLUCERNA) 237 ML PO SCH ×3 (08:00→18:07)
[2020-09-06] MEDS: K and/or MAG REPLACEMENT MC SCH ×2 (08:00→20:00)
[2020-09-06] MEDS: sacubitril/valsartan 24mg-26mg tablet PO SCH ×2 (09:07→19:48)
[2020-09-06] MEDS: carVEDilol 12.5mg tablet PO SCH ×2 (09:07→19:48)
[2020-09-06] MEDS: insulin Lispro (HumaLOG) vial - multi-dose SQ SCH ×3 (09:27→19:46)
[2020-09-06] MEDS: furosemide 20MG tablet PO SCH (09:38)
[2020-09-06] MEDS: clopidogrel 75mg tablet PO SCH (09:38)
[2020-09-06] MEDS: pantoprazole 40mg Tablet.DR PO SCH (09:38)
[2020-09-06] MEDS: fenofibrate 145mg tablet PO SCH (09:38)
[2020-09-06] MEDS: methylnaltrexone br 12mg/0.6ml inj***SubQ only SQ SCH (09:38)
[2020-09-06] MEDS: docusate sod 100mg capsule PO SCH ×2 (09:38→19:48)
[2020-09-06] MEDS: ferrous sulfate 325mg tablet PO SCH (09:38)
[2020-09-06] MEDS: lactobacillus rhamnosus 10,000 MMU CELLS/CAPSULE PO SCH ×2 (09:39→19:47)
[2020-09-06] MEDS: aspirin 325mg tablet PO SCH (09:39)
[2020-09-06] MEDS: vitamin D (cholecalciferol) 1,000 unit tablet PO SCH (09:39)
[2020-09-06] MEDS: folic acid 1mg tablet PO SCH (09:39)
[2020-09-06] MEDS: multivitamins, therapeutics tablet PO SCH (09:39)
[2020-09-06] MEDS: magnesium hydroxide 30ml (MOM) UD suspension PO PRN (10:00)
[2020-09-06 11:00] VITALS: BP 134/88
--- NOTE | 2020-09-06 18:40 | NUR ---
Problems reprioritized. Patient report given, questions answered & plan of care reviewed with Yanira Doyle RN.
--- NOTE | 2020-09-06 18:45 | NUR ---
Patient in room AD 351. I have received report from IRENA MAZARIEGOS and had the opportunity to ask questions and assume patient care.
[2020-09-06 19:00] VITALS: BP 139/78
[2020-09-06] MEDS: insulin glargine (Lantus) pen - multi-dose SQ SCH (21:26)
[2020-09-06] MEDS: traZODone 50mg tablet PO SCH (21:28)
[2020-09-06] MEDS: Melatonin 3mg tablet PO SCH (21:28)
[2020-09-06] MEDS: colchicine 0.6mg tablet PO SCH (21:28)
[2020-09-06] MEDS: atorvastatin 20mg tablet PO SCH (21:28)
[2020-09-07] VITALS: BP 130/62
[2020-09-07] MEDS: piperacillin/tazo 3.375gm/50ml 50 ML IV SCH ×3 (00:07→17:05)
[2020-09-07] MEDS: HYDROcodone/acetaminophen 10/325mg tab PO PRN ×2 (01:47→20:47)
--- NOTE | 2020-09-07 06:29 | NUR ---
Problems reprioritized. Patient report given, questions answered & plan of care reviewed with IRENA RN.
[2020-09-07 06:30] VITALS: BP 118/65
--- NOTE | 2020-09-07 06:35 | NUR ---
Patient in room AD 351. I have received report from Yanira Doyle RN and had the opportunity to ask questions and assume patient care.
[2020-09-07] MEDS: pantoprazole 40mg Tablet.DR PO SCH (07:30)
[2020-09-07] MEDS: NUT.TX.GLUC.INTOLER,LAC-FR,SOY (GLUCERNA) 237 ML PO SCH ×3 (07:40→17:05)
[2020-09-07] MEDS: K and/or MAG REPLACEMENT MC SCH ×2 (07:40→20:00)
[2020-09-07] MEDS: sacubitril/valsartan 24mg-26mg tablet PO SCH ×2 (08:00→20:46)
[2020-09-07] MEDS: carVEDilol 12.5mg tablet PO SCH ×2 (08:00→20:45)
[2020-09-07] MEDS: aspirin 325mg tablet PO SCH (09:47)
[2020-09-07] MEDS: docusate sod 100mg capsule PO SCH ×2 (09:47→20:45)
[2020-09-07] MEDS: lactobacillus rhamnosus 10,000 MMU CELLS/CAPSULE PO SCH ×2 (09:47→20:45)
[2020-09-07] MEDS: folic acid 1mg tablet PO SCH (09:47)
[2020-09-07] MEDS: clopidogrel 75mg tablet PO SCH (09:48)
[2020-09-07] MEDS: furosemide 20MG tablet PO SCH (09:48)
[2020-09-07] MEDS: ferrous sulfate 325mg tablet PO SCH (09:48)
[2020-09-07] MEDS: multivitamins, therapeutics tablet PO SCH (09:48)
[2020-09-07] MEDS: vitamin D (cholecalciferol) 1,000 unit tablet PO SCH (09:48)
[2020-09-07] MEDS: fenofibrate 145mg tablet PO SCH (09:49)
[2020-09-07] MEDS: insulin Lispro (HumaLOG) vial - multi-dose SQ SCH ×2 (09:53→18:44)
[2020-09-07 11:00] VITALS: BP 104/53
--- NOTE | 2020-09-07 15:44 | NUR ---
F/u 09/07: Pt PO 75-100% avg carb controlled diet w/ Glucerna TIDWM meeting needs. LBM 09/04 receiving routine colace, relistor, probiotic, and PRN MoM. Prior 109kg standing scaled wt likely more accurate than current wt given current bed scale vs prior standing scale wt making BMI 34. No new labs except for routine Glu checks 181 latest per EMR on hyperglycemia protocol. No nutrition concerns at this time. Will continue to monitor. Rec: 1. continue carb controlled diet with regular texture per [employer] DIVER recs 2. Glucerna TIDWM; consider ensure high protein instead IF lower CHO ONS requested 3. routine bowel care 4. weekly scaled wts 5. MVI for wound healing needs Addendum: 09/07/20 at [address] Amended: Links added.
--- NOTE | 2020-09-07 18:25 | NUR ---
Patient in room AD 351. I have received report from DELILAH Nguyen and had the opportunity to ask questions and assume patient care.
--- NOTE | 2020-09-07 18:40 | NUR ---
Problems reprioritized. Patient report given, questions answered & plan of care reviewed with Marilee Lobato RN.
[2020-09-07 20:00] VITALS: BP 137/68
[2020-09-07] MEDS: colchicine 0.6mg tablet PO SCH (20:45)
[2020-09-07] MEDS: atorvastatin 20mg tablet PO SCH (20:45)
[2020-09-07] MEDS: traZODone 50mg tablet PO SCH (20:45)
[2020-09-07] MEDS: insulin glargine (Lantus) pen - multi-dose SQ SCH (20:45)
[2020-09-07] MEDS: Melatonin 3mg tablet PO SCH (20:46)
[2020-09-08] VITALS: BP 136/73
[2020-09-08] MEDS: piperacillin/tazo 3.375gm/50ml 50 ML IV SCH ×4 (00:03→23:51)
[2020-09-08] MEDS: HYDROcodone/acetaminophen 10/325mg tab PO PRN ×2 (01:10→21:23)
--- NOTE | 2020-09-08 06:24 | NUR ---
Problems reprioritized. Patient report given, questions answered & plan of care reviewed with DELILAH Monterroso.
[2020-09-08 07:20] VITALS: BP 126/65
[2020-09-08] MEDS: carVEDilol 12.5mg tablet PO SCH ×2 (07:55→20:42)
[2020-09-08] MEDS: multivitamins, therapeutics tablet PO SCH (07:55)
[2020-09-08] MEDS: furosemide 20MG tablet PO SCH (07:55)
[2020-09-08] MEDS: docusate sod 100mg capsule PO SCH ×2 (07:56→20:00)
[2020-09-08] MEDS: vitamin D (cholecalciferol) 1,000 unit tablet PO SCH (07:56)
[2020-09-08] MEDS: pantoprazole 40mg Tablet.DR PO SCH (07:56)
[2020-09-08] MEDS: ferrous sulfate 325mg tablet PO SCH (07:56)
[2020-09-08] MEDS: clopidogrel 75mg tablet PO SCH (07:56)
[2020-09-08] MEDS: lactobacillus rhamnosus 10,000 MMU CELLS/CAPSULE PO SCH ×2 (07:56→20:42)
[2020-09-08] MEDS: fenofibrate 145mg tablet PO SCH (07:56)
[2020-09-08] MEDS: folic acid 1mg tablet PO SCH (07:56)
[2020-09-08] MEDS: aspirin 325mg tablet PO SCH (07:56)
[2020-09-08] MEDS: methylnaltrexone br 12mg/0.6ml inj***SubQ only SQ SCH (07:57)
[2020-09-08] MEDS: K and/or MAG REPLACEMENT MC SCH ×2 (08:00→20:00)
[2020-09-08] MEDS: NUT.TX.GLUC.INTOLER,LAC-FR,SOY (GLUCERNA) 237 ML PO SCH ×3 (08:01→18:10)
[2020-09-08] MEDS: sacubitril/valsartan 24mg-26mg tablet PO SCH ×2 (08:05→20:44)
[2020-09-08] MEDS: insulin Lispro (HumaLOG) vial - multi-dose SQ SCH ×2 (08:15→13:41)
[2020-09-08] MEDS: magnesium hydroxide 30ml (MOM) UD suspension PO PRN (08:16)
--- NOTE | 2020-09-08 08:19 | NUR ---
Doesn't like hot cereal, refused. Addendum: 09/08/20 at 0820 by Kriss Boateng RN Amended: Links added.
--- NOTE | 2020-09-08 18:17 | NUR ---
Problems reprioritized. Patient report given, questions answered & plan of care reviewed with Wallace MAZARIEGOS.
[2020-09-08 18:50] VITALS: BP 137/74
[2020-09-08 19:45] VITALS: BP 137/74
[2020-09-08] MEDS: colchicine 0.6mg tablet PO SCH (20:42)
[2020-09-08] MEDS: Melatonin 3mg tablet PO SCH (20:43)
[2020-09-08] MEDS: atorvastatin 20mg tablet PO SCH (20:43)
[2020-09-08] MEDS: traZODone 50mg tablet PO SCH (20:43)
[2020-09-08] MEDS: insulin glargine (Lantus) pen - multi-dose SQ SCH (21:20)
[2020-09-09] VITALS: BP 137/85
[2020-09-09] MEDS: HYDROcodone/acetaminophen 10/325mg tab PO PRN ×2 (01:19→21:25)
--- NOTE | 2020-09-09 06:45 | NUR ---
Problems reprioritized. Patient report given, questions answered & plan of care reviewed with Rozina. Addendum: 09/09/20 at 0646 by Michael Conner RN Amended: Links added.
[2020-09-09 07:00] VITALS: BP 124/64
[2020-09-09] MEDS: piperacillin/tazo 3.375gm/50ml 50 ML IV SCH ×2 (07:14→16:08)
[2020-09-09] MEDS: fenofibrate 145mg tablet PO SCH (07:15)
[2020-09-09] MEDS: vitamin D (cholecalciferol) 1,000 unit tablet PO SCH (07:15)
[2020-09-09] MEDS: carVEDilol 12.5mg tablet PO SCH ×2 (07:15→21:19)
[2020-09-09] MEDS: aspirin 325mg tablet PO SCH (07:15)
[2020-09-09] MEDS: folic acid 1mg tablet PO SCH (07:15)
[2020-09-09] MEDS: clopidogrel 75mg tablet PO SCH (07:15)
[2020-09-09] MEDS: furosemide 20MG tablet PO SCH (07:15)
[2020-09-09] MEDS: ferrous sulfate 325mg tablet PO SCH (07:16)
[2020-09-09] MEDS: multivitamins, therapeutics tablet PO SCH (07:16)
[2020-09-09] MEDS: docusate sod 100mg capsule PO SCH ×2 (07:16→21:19)
[2020-09-09] MEDS: lactobacillus rhamnosus 10,000 MMU CELLS/CAPSULE PO SCH ×2 (07:16→21:19)
[2020-09-09] MEDS: pantoprazole 40mg Tablet.DR PO SCH (07:16)
[2020-09-09] MEDS: sacubitril/valsartan 24mg-26mg tablet PO SCH ×2 (07:43→21:19)
[2020-09-09] MEDS: NUT.TX.GLUC.INTOLER,LAC-FR,SOY (GLUCERNA) 237 ML PO SCH ×3 (07:43→18:00)
[2020-09-09] MEDS: K and/or MAG REPLACEMENT MC SCH ×2 (08:00→20:00)
[2020-09-09] MEDS: insulin Lispro (HumaLOG) vial - multi-dose SQ SCH ×3 (09:02→18:51)
[2020-09-09 11:50] VITALS: BP 109/54
[2020-09-09] MEDS: dextrose ORAL solution 15 GM/59 ML bottle PO PRN (17:07)
--- NOTE | 2020-09-09 18:00 | NUR ---
Patient in room AD 351. I have received report from Rozina MAZARIEGOS and had the opportunity to ask questions and assume patient care.
[2020-09-09 20:00] VITALS: BP 122/58
[2020-09-09] MEDS: colchicine 0.6mg tablet PO SCH (21:18)
[2020-09-09] MEDS: atorvastatin 20mg tablet PO SCH (21:19)
[2020-09-09] MEDS: traZODone 50mg tablet PO SCH (21:19)
[2020-09-09] MEDS: Melatonin 3mg tablet PO SCH (21:19)
[2020-09-09] MEDS: insulin glargine (Lantus) pen - multi-dose SQ SCH (21:31)
[2020-09-10] VITALS: BP 147/58
[2020-09-10] MEDS: HYDROcodone/acetaminophen 10/325mg tab PO PRN ×2 (01:27→22:02)
[2020-09-10] MEDS: piperacillin/tazo 3.375gm/50ml 50 ML IV SCH ×4 (01:39→23:38)
--- NOTE | 2020-09-10 06:27 | NUR ---
Problems reprioritized. Patient report given, questions answered & plan of care reviewed with Lazaro RN.
--- NOTE | 2020-09-10 06:54 | NUR ---
Patient in room AD 351. I have received report from Aretha MAZARIEGOS and had the opportunity to ask questions and assume patient care.
[2020-09-10 07:31] VITALS: BP 177/63
[2020-09-10] MEDS: K and/or MAG REPLACEMENT MC SCH ×2 (08:00→18:59)
[2020-09-10] MEDS: NUT.TX.GLUC.INTOLER,LAC-FR,SOY (GLUCERNA) 237 ML PO SCH ×3 (08:00→18:06)
[2020-09-10] MEDS: multivitamins, therapeutics tablet PO SCH (08:26)
[2020-09-10] MEDS: carVEDilol 12.5mg tablet PO SCH ×2 (08:26→22:06)
[2020-09-10] MEDS: clopidogrel 75mg tablet PO SCH (08:26)
[2020-09-10] MEDS: sacubitril/valsartan 24mg-26mg tablet PO SCH ×2 (08:26→22:05)
[2020-09-10] MEDS: pantoprazole 40mg Tablet.DR PO SCH (08:27)
[2020-09-10] MEDS: vitamin D (cholecalciferol) 1,000 unit tablet PO SCH (08:27)
[2020-09-10] MEDS: aspirin 325mg tablet PO SCH (08:27)
[2020-09-10] MEDS: docusate sod 100mg capsule PO SCH ×2 (08:28→22:07)
[2020-09-10] MEDS: furosemide 20MG tablet PO SCH (08:28)
[2020-09-10] MEDS: folic acid 1mg tablet PO SCH (08:28)
[2020-09-10] MEDS: ferrous sulfate 325mg tablet PO SCH (08:28)
[2020-09-10] MEDS: fenofibrate 145mg tablet PO SCH (08:28)
[2020-09-10] MEDS: lactobacillus rhamnosus 10,000 MMU CELLS/CAPSULE PO SCH ×2 (08:28→21:58)
[2020-09-10] MEDS: methylnaltrexone br 12mg/0.6ml inj***SubQ only SQ SCH (08:29)
[2020-09-10] MEDS: magnesium hydroxide 30ml (MOM) UD suspension PO PRN (08:29)
[2020-09-10] MEDS: insulin Lispro (HumaLOG) vial - multi-dose SQ SCH ×3 (10:26→19:32)
[2020-09-10 11:00] VITALS: BP 142/79
--- NOTE | 2020-09-10 18:49 | NUR ---
Problems reprioritized. Patient report given, questions answered & plan of care reviewed with Nell MAZARIEGOS.
[2020-09-10 20:00] VITALS: BP 115/58
[2020-09-10] MEDS: insulin glargine (Lantus) pen - multi-dose SQ SCH (22:01)
[2020-09-10] MEDS: Melatonin 3mg tablet PO SCH (22:05)
[2020-09-10] MEDS: atorvastatin 20mg tablet PO SCH (22:05)
[2020-09-10] MEDS: traZODone 50mg tablet PO SCH (22:06)
[2020-09-10] MEDS: colchicine 0.6mg tablet PO SCH (22:06)
[2020-09-11] VITALS: BP 126/63
[2020-09-11] MEDS: HYDROcodone/acetaminophen 10/325mg tab PO PRN ×2 (02:39→20:22)
[2020-09-11 07:00] VITALS: BP 133/64
[2020-09-11] MEDS: K and/or MAG REPLACEMENT MC SCH ×2 (08:00→20:00)
[2020-09-11] MEDS: NUT.TX.GLUC.INTOLER,LAC-FR,SOY (GLUCERNA) 237 ML PO SCH ×4 (08:00→18:02)
[2020-09-11] MEDS: piperacillin/tazo 3.375gm/50ml 50 ML IV SCH ×2 (08:21→16:38)
[2020-09-11] MEDS: carVEDilol 12.5mg tablet PO SCH ×2 (08:22→20:00)
[2020-09-11] MEDS: vitamin D (cholecalciferol) 1,000 unit tablet PO SCH (08:22)
[2020-09-11] MEDS: lactobacillus rhamnosus 10,000 MMU CELLS/CAPSULE PO SCH ×2 (08:22→20:22)
[2020-09-11] MEDS: aspirin 325mg tablet PO SCH (08:22)
[2020-09-11] MEDS: folic acid 1mg tablet PO SCH (08:22)
[2020-09-11] MEDS: sacubitril/valsartan 24mg-26mg tablet PO SCH ×2 (08:22→20:22)
[2020-09-11] MEDS: fenofibrate 145mg tablet PO SCH (08:22)
[2020-09-11] MEDS: docusate sod 100mg capsule PO SCH ×2 (08:23→20:22)
[2020-09-11] MEDS: ferrous sulfate 325mg tablet PO SCH (08:23)
[2020-09-11] MEDS: multivitamins, therapeutics tablet PO SCH (08:23)
[2020-09-11] MEDS: clopidogrel 75mg tablet PO SCH (08:23)
[2020-09-11] MEDS: furosemide 20MG tablet PO SCH (08:23)
[2020-09-11] MEDS: pantoprazole 40mg Tablet.DR PO SCH (08:23)
[2020-09-11] MEDS: insulin Lispro (HumaLOG) vial - multi-dose SQ SCH ×3 (08:32→19:21)
[2020-09-11] MEDS: magnesium hydroxide 30ml (MOM) UD suspension PO PRN (08:33)
[2020-09-11 11:00] VITALS: BP 121/59
[2020-09-11 18:00] VITALS: BP 117/60
--- NOTE | 2020-09-11 18:27 | NUR ---
PAGER ID: [phone] MESSAGE: Yolanda-Surg [phone] Re: Lexx 351 noticed your note states patient on Xarelto he is not taking it please call
--- NOTE | 2020-09-11 18:44 | NUR ---
Problems reprioritized. Patient report given, questions answered & plan of care reviewed with Juarez MAZARIEGOS.
[2020-09-11] MEDS: traZODone 50mg tablet PO SCH (20:22)
[2020-09-11] MEDS: Melatonin 3mg tablet PO SCH (20:22)
[2020-09-11] MEDS: atorvastatin 20mg tablet PO SCH (20:23)
[2020-09-11] MEDS: colchicine 0.6mg tablet PO SCH (20:23)
[2020-09-11] MEDS: insulin glargine (Lantus) pen - multi-dose SQ SCH (20:40)
[2020-09-12] VITALS: BP 120/64
[2020-09-12] MEDS: piperacillin/tazo 3.375gm/50ml 50 ML IV SCH ×3 (00:52→15:42)
[2020-09-12] MEDS: HYDROcodone/acetaminophen 10/325mg tab PO PRN ×3 (01:40→18:40)
[2020-09-12 07:00] VITALS: BP 122/61
[2020-09-12] MEDS: NUT.TX.GLUC.INTOLER,LAC-FR,SOY (GLUCERNA) 237 ML PO SCH ×3 (08:00→18:49)
[2020-09-12] MEDS: K and/or MAG REPLACEMENT MC SCH ×2 (08:00→19:45)
[2020-09-12] MEDS: insulin Lispro (HumaLOG) vial - multi-dose SQ SCH ×3 (09:18→18:54)
[2020-09-12] MEDS: methylnaltrexone br 12mg/0.6ml inj***SubQ only SQ SCH (09:19)
[2020-09-12] MEDS: pantoprazole 40mg Tablet.DR PO SCH (09:20)
[2020-09-12] MEDS: docusate sod 100mg capsule PO SCH ×2 (09:20→20:30)
[2020-09-12] MEDS: furosemide 20MG tablet PO SCH (09:20)
[2020-09-12] MEDS: lactobacillus rhamnosus 10,000 MMU CELLS/CAPSULE PO SCH ×2 (09:20→20:30)
[2020-09-12] MEDS: sacubitril/valsartan 24mg-26mg tablet PO SCH ×2 (09:20→20:30)
[2020-09-12] MEDS: aspirin 325mg tablet PO SCH (09:20)
[2020-09-12] MEDS: vitamin D (cholecalciferol) 1,000 unit tablet PO SCH (09:21)
[2020-09-12] MEDS: multivitamins, therapeutics tablet PO SCH (09:21)
[2020-09-12] MEDS: clopidogrel 75mg tablet PO SCH (09:21)
[2020-09-12] MEDS: folic acid 1mg tablet PO SCH (09:21)
[2020-09-12] MEDS: ferrous sulfate 325mg tablet PO SCH (09:21)
[2020-09-12] MEDS: carVEDilol 12.5mg tablet PO SCH ×2 (09:22→20:00)
[2020-09-12] MEDS: fenofibrate 145mg tablet PO SCH (09:22)
[2020-09-12 11:00] VITALS: BP 122/69
--- NOTE | 2020-09-12 11:51 | NUR ---
Dr Cheung aware that patient has not been on Xarelto and he will check patients chart and address.
[2020-09-12 18:00] VITALS: BP 109/55
[2020-09-12] MEDS ORDERED: rivaroxaban 15mg tablet PO SCH (18:00)
--- NOTE | 2020-09-12 18:00 | NUR ---
Problems reprioritized. Patient report given, questions answered & plan of care reviewed with Juarez MAZARIEGOS.
[2020-09-12] MEDS: traZODone 50mg tablet PO SCH (20:30)
[2020-09-12] MEDS: atorvastatin 20mg tablet PO SCH (20:30)
[2020-09-12] MEDS: Melatonin 3mg tablet PO SCH (20:30)
[2020-09-12] MEDS: colchicine 0.6mg tablet PO SCH (20:31)
[2020-09-12] MEDS: insulin glargine (Lantus) pen - multi-dose SQ SCH (20:38)
[2020-09-13] VITALS: BP 104/74
[2020-09-13] MEDS: piperacillin/tazo 3.375gm/50ml 50 ML IV SCH ×2 (00:38→09:01)
[2020-09-13] MEDS: HYDROcodone/acetaminophen 10/325mg tab PO PRN (00:41)
[2020-09-13 07:00] VITALS: BP 142/84
[2020-09-13] MEDS: NUT.TX.GLUC.INTOLER,LAC-FR,SOY (GLUCERNA) 237 ML PO SCH (08:00)
[2020-09-13] MEDS: K and/or MAG REPLACEMENT MC SCH (08:00)
[2020-09-13] MEDS: folic acid 1mg tablet PO SCH (08:00)
[2020-09-13] MEDS: insulin Lispro (HumaLOG) vial - multi-dose SQ SCH (08:58)
[2020-09-13] MEDS: vitamin D (cholecalciferol) 1,000 unit tablet PO SCH (08:59)
[2020-09-13] MEDS: fenofibrate 145mg tablet PO SCH (08:59)
[2020-09-13] MEDS: carVEDilol 12.5mg tablet PO SCH (08:59)
[2020-09-13] MEDS: lactobacillus rhamnosus 10,000 MMU CELLS/CAPSULE PO SCH (09:00)
[2020-09-13] MEDS: clopidogrel 75mg tablet PO SCH (09:00)
[2020-09-13] MEDS: ferrous sulfate 325mg tablet PO SCH (09:00)
[2020-09-13] MEDS: aspirin 325mg tablet PO SCH (09:00)
[2020-09-13] MEDS: furosemide 20MG tablet PO SCH (09:00)
[2020-09-13] MEDS: multivitamins, therapeutics tablet PO SCH (09:00)
[2020-09-13] MEDS: docusate sod 100mg capsule PO SCH (09:00)
[2020-09-13] MEDS: sacubitril/valsartan 24mg-26mg tablet PO SCH (09:01)
[2020-09-13] MEDS: pantoprazole 40mg Tablet.DR PO SCH (09:01)
--- NOTE | 2020-09-13 09:54 | NUR ---
No electrolytes drawn today
[2020-09-13] MEDS ORDERED: FURO20TA4 PO (10:19)
[2020-09-13] MEDS ORDERED: HYDR-4353 PO (12:21)
--- NOTE | 2020-09-13 13:36 | NUR ---
Patients discharge instructions reviewed with patient and his Florence at bedside. Patients did patients dressing change with verbal instructions at the time. Patients PICC Dc'd Cannula intact from LIS. PIV Dc'd for discharge cannula intact. Patients states she has all his belongings. Patient taken to vehicle via wheelchair to vehicle where drove him home. RX for patient [place] given to .
--- NOTE | 2020-09-13 13:42 | NUR ---
Called patients Florence I had forgotten to MRSA nasal swab patient for discharge. Per Florence its ok we refuse at this time.
== END 2020-09-13 13:00 | disposition home or self-care (01) | DRG 252 ==
LOC: ER 23:26 → ED HOLD 08-02 01:37 → MED 3N 08-02 03:55 → CICU 2S 08-03 00:17 → MED 3N 08-04 16:00 → PCU 3S 08-30 15:45 → MED 3N 09-02 08:29 → SUR 3N 09-06 05:45
PROVIDERS: ADMIT Family Medicine; ATTEND Family Medicine
PROC: 30233N1 Transfusion of Nonautologous Red Blood Cells into Peripheral Vein, Percutaneous Approach (ICD-10-PCS; 2020-08-02)
PROC: 04CL0ZZ Extirpation of Matter from Left Femoral Artery, Open Approach (ICD-10-PCS; principal; 2020-08-03)
PROC: 0KXR0ZZ Transfer Left Upper Leg Muscle, Open Approach (ICD-10-PCS; 2020-08-03)
PROC: 04UL07Z Supplement Left Femoral Artery with Autologous Tissue Substitute, Open Approach (ICD-10-PCS; 2020-08-03)
PROC: 05HY33Z Insertion of Infusion Device into Upper Vein, Percutaneous Approach (ICD-10-PCS; 2020-08-07)
DX: I72.4 Aneurysm of artery of lower extremity (principal); J96.00 Acute respiratory failure, unspecified whether with hypoxia or hypercapnia; I13.0 Hypertensive heart and chronic kidney disease with heart failure and stage 1 through stage 4 chronic kidney disease, or unspecified chronic kidney disease; I48.20 Chronic atrial fibrillation, unspecified; I50.32 Chronic diastolic (congestive) heart failure; K92.2 Gastrointestinal hemorrhage, unspecified; L03.314 Cellulitis of groin; N18.4 Chronic kidney disease, stage 4 (severe); D64.9 Anemia, unspecified; E11.22 Type 2 diabetes mellitus with diabetic chronic kidney disease; E11.649 Type 2 diabetes mellitus with hypoglycemia without coma; E66.9 Obesity, unspecified; E78.5 Hyperlipidemia, unspecified; I25.10 Atherosclerotic heart disease of native coronary artery without angina pectoris; K59.00 Constipation, unspecified; S30.1XXA Contusion of abdominal wall, initial encounter; X58.XXXA Exposure to other specified factors, initial encounter; M19.90 Unspecified osteoarthritis, unspecified site; Z79.01 Long term (current) use of anticoagulants; I25.2 Old myocardial infarction; Z79.02 Long term (current) use of antithrombotics/antiplatelets; Z79.4 Long term (current) use of insulin; Z79.82 Long term (current) use of aspirin; Z79.899 Other long term (current) drug therapy; Z82.3 Family history of stroke; Z82.49 Family history of ischemic heart disease and other diseases of the circulatory system; Z82.5 Family history of asthma and other chronic lower respiratory diseases; Z86.73 Personal history of transient ischemic attack (TIA), and cerebral infarction without residual deficits; Z95.1 Presence of aortocoronary bypass graft; Z95.2 Presence of prosthetic heart valve; Z95.5 Presence of coronary angioplasty implant and graft; Y93.89 Activity, other specified; Y92.89 Other specified places as the place of occurrence of the external cause; Y99.8 Other external cause status; Z68.34 Body mass index [BMI] 34.0-34.9, adult
CPT/HCPCS: 36430; 36573; 96374; 99285; Z7506; Z7508; 36415; 36600; 70450; 71045; 74018; 74176; 80047; 80048; 80053; 81003; 82803; 82948; 83036; 83735; 83880; 84100; 84132; 84145; 84550; 85007; 85008; 85018; 85025; 85027; 85610; 85730; 86885; 86900; 86901; 86920; 87070; 87075; 87076; 87077; 87081; 87186; 92508; 92616; 93005; 93926; 94002; 94003; 94640; 94760; 97110; 97116; 97162; 97530; 97535; A4618; A6402; A6550; A7000; C1758; C1768; C9132; C9290; G0378; J0131; J0694; J1100; J1170; J1644; J1815; J1940; J2212; J2250; J2270; J2543; J3010; J3370; J3490; J7040; J7042; J7120; P9016

== ENCOUNTER 2020-09-15 08:11 | Outpatient (CLI) | payer BC, MEDICARE ==
[~2020-09-15 08:11] MED LIST changes: -ASPI-1265 PO; +FERR-29 PO; -FERR325T28 PO; -FURO-150 PO; +FURO20TA4 PO; +HYDR-4353 PO; +TRAZ-251 PO; +[UNRECOGNIZED DRUG - CODE] PO
[2020-09-15] MEDS ORDERED: LIDOcaine 2% 5ml jelly ONE ×2 (08:54)
== END 2020-09-15 23:59 | disposition home or self-care (01) ==
LOC: WOUND CARE 08:11
PROVIDERS: ATTEND Nurse Practitioner Family
DX: T81.89XA Other complications of procedures, not elsewhere classified, initial encounter (principal); E11.22 Type 2 diabetes mellitus with diabetic chronic kidney disease; I13.0 Hypertensive heart and chronic kidney disease with heart failure and stage 1 through stage 4 chronic kidney disease, or unspecified chronic kidney disease; I50.32 Chronic diastolic (congestive) heart failure; N18.4 Chronic kidney disease, stage 4 (severe); I25.10 Atherosclerotic heart disease of native coronary artery without angina pectoris; I48.20 Chronic atrial fibrillation, unspecified; E78.5 Hyperlipidemia, unspecified; E66.9 Obesity, unspecified; M19.90 Unspecified osteoarthritis, unspecified site; I25.2 Old myocardial infarction; K21.9 Gastro-esophageal reflux disease without esophagitis; Z79.01 Long term (current) use of anticoagulants; Z79.02 Long term (current) use of antithrombotics/antiplatelets; Z79.4 Long term (current) use of insulin; Z79.82 Long term (current) use of aspirin; Z79.899 Other long term (current) drug therapy; Z95.1 Presence of aortocoronary bypass graft; Z95.5 Presence of coronary angioplasty implant and graft; Z86.73 Personal history of transient ischemic attack (TIA), and cerebral infarction without residual deficits; Z87.891 Personal history of nicotine dependence; Z90.49 Acquired absence of other specified parts of digestive tract; Z68.33 Body mass index [BMI] 33.0-33.9, adult; Y83.8 Other surgical procedures as the cause of abnormal reaction of the patient, or of later complication, without mention of misadventure at the time of the procedure; Y92.238 Other place in hospital as the place of occurrence of the external cause
CPT/HCPCS: 97597; 97598

== ENCOUNTER 2020-09-22 07:50 | Outpatient (CLI) | payer BC, MEDICARE ==
[2020-09-22] MEDS ORDERED: LIDOcaine 2% 5ml jelly ONE (08:32)
== END 2020-09-22 23:59 | disposition home or self-care (01) ==
LOC: WOUND CARE 07:50
PROVIDERS: ATTEND Nurse Practitioner Family
DX: T81.89XD Other complications of procedures, not elsewhere classified, subsequent encounter (principal); E11.622 Type 2 diabetes mellitus with other skin ulcer; L98.492 Non-pressure chronic ulcer of skin of other sites with fat layer exposed; E11.22 Type 2 diabetes mellitus with diabetic chronic kidney disease; I13.0 Hypertensive heart and chronic kidney disease with heart failure and stage 1 through stage 4 chronic kidney disease, or unspecified chronic kidney disease; I50.32 Chronic diastolic (congestive) heart failure; N18.4 Chronic kidney disease, stage 4 (severe); E11.649 Type 2 diabetes mellitus with hypoglycemia without coma; I25.10 Atherosclerotic heart disease of native coronary artery without angina pectoris; I48.20 Chronic atrial fibrillation, unspecified; E78.5 Hyperlipidemia, unspecified; E66.9 Obesity, unspecified; M19.90 Unspecified osteoarthritis, unspecified site; I25.2 Old myocardial infarction; K21.9 Gastro-esophageal reflux disease without esophagitis; Z79.01 Long term (current) use of anticoagulants; Z79.02 Long term (current) use of antithrombotics/antiplatelets; Z79.4 Long term (current) use of insulin; Z79.82 Long term (current) use of aspirin; Z79.899 Other long term (current) drug therapy; Z95.1 Presence of aortocoronary bypass graft; Z95.5 Presence of coronary angioplasty implant and graft; Z86.73 Personal history of transient ischemic attack (TIA), and cerebral infarction without residual deficits; Z87.891 Personal history of nicotine dependence; Z90.49 Acquired absence of other specified parts of digestive tract; Z68.33 Body mass index [BMI] 33.0-33.9, adult; Y83.8 Other surgical procedures as the cause of abnormal reaction of the patient, or of later complication, without mention of misadventure at the time of the procedure
CPT/HCPCS: 11042; 11045; 82948

== ENCOUNTER 2020-10-06 07:57 | Outpatient (CLI) | payer BC, MEDICARE | END 2020-10-06 23:59 | disposition home or self-care (01) | LOC: WOUND CARE 07:57 | PROVIDERS: ATTEND Nurse Practitioner Family | DX: T81.89XD Other complications of procedures, not elsewhere classified, subsequent encounter (principal); E11.622 Type 2 diabetes mellitus with other skin ulcer; L98.492 Non-pressure chronic ulcer of skin of other sites with fat layer exposed; E11.22 Type 2 diabetes mellitus with diabetic chronic kidney disease; I13.0 Hypertensive heart and chronic kidney disease with heart failure and stage 1 through stage 4 chronic kidney disease, or unspecified chronic kidney disease; I50.32 Chronic diastolic (congestive) heart failure; N18.4 Chronic kidney disease, stage 4 (severe); E11.649 Type 2 diabetes mellitus with hypoglycemia without coma; I25.10 Atherosclerotic heart disease of native coronary artery without angina pectoris; I48.20 Chronic atrial fibrillation, unspecified; E78.5 Hyperlipidemia, unspecified; E66.9 Obesity, unspecified; M19.90 Unspecified osteoarthritis, unspecified site; I25.2 Old myocardial infarction; K21.9 Gastro-esophageal reflux disease without esophagitis; Z79.01 Long term (current) use of anticoagulants; Z79.02 Long term (current) use of antithrombotics/antiplatelets; Z79.4 Long term (current) use of insulin; Z79.82 Long term (current) use of aspirin; Z79.899 Other long term (current) drug therapy; Z95.1 Presence of aortocoronary bypass graft; Z95.5 Presence of coronary angioplasty implant and graft; Z86.73 Personal history of transient ischemic attack (TIA), and cerebral infarction without residual deficits; Z87.891 Personal history of nicotine dependence; Z90.49 Acquired absence of other specified parts of digestive tract; Z68.33 Body mass index [BMI] 33.0-33.9, adult; Y83.8 Other surgical procedures as the cause of abnormal reaction of the patient, or of later complication, without mention of misadventure at the time of the procedure | CPT/HCPCS: 82948; 93926; G0463 ==

== ENCOUNTER 2020-10-07 07:58 | Outpatient (CLI) | payer BC, MEDICARE ==
[2020-10-07 08:41] LABS: BASOPHILS % (AUTO) 0.6 % (0-1); EOSINOPHILS # (AUTO) 0.1 X10'3 (0-0.9); HEMOGLOBIN 12.3 g/dl (14.0-17.9); LYMPHOCYTES # (AUTO) 1.9 X10'3 (1.1-4.8); NEUTROPHILS # (AUTO) 2.4 X10'3 (1.8-7.7); RED CELL DISTRIBUTION WIDTH 15.1 % (11.5-14.5); WHITE BLOOD COUNT 5.4 X10'3 (4.5-11.0)
[2020-10-07 08:45] LABS: EOSINOPHILS % (AUTO) 1.8 % (0-6); HEMATOCRIT 37.3 % (42.0-52.0); MEAN CORPUSCULAR HEMOGLOBIN 30.7 PG (27.0-31.0); MEAN CORPUSCULAR HGB CONC 32.9 g/dL (33.0-36.5); MEAN CORPUSCULAR VOLUME 93.5 FL (78-98); MEAN PLATELET VOLUME 8.5 FL (7.4-10.4); MONOCYTES # (AUTO) 0.9 X10'3 (0-0.9); MONOCYTES % (AUTO) 17.5 % (2-12); NEUTROPHILS % (AUTO) 44.1 % (42-75); PLATELET COUNT 237 X10'3 (140-440); RED BLOOD COUNT 3.99 X10'6 (4.70-6.10)
[2020-10-07 08:49] LABS: HEMOGLOBIN A1C 6.8 % (4.5-6.2)
[2020-10-07 09:16] LABS: ALANINE AMINOTRANSFERASE 43 U/L (12-78); ALBUMIN 3.2 G/DL (3.4-5.0); ALBUMIN/GLOBULIN RATIO 0.9 (1.1-1.5); ALKALINE PHOSPHATASE 65 IU/L (46-116); ANION GAP 12 (8-16); ASPARTATE AMINO TRANSFERASE 56 U/L (10-37); BILIRUBIN,TOTAL 0.5 MG/DL (0.1-1.0); BLOOD UREA NITROGEN 25 MG/DL (7-18); BUN/CREATININE RATIO 15.7 (5.4-32.0); CHLORIDE 104 MMOL/L (99-107); CREATININE 1.59 MG/DL (0.60-1.10); GLUCOSE 101 MG/DL (70-104); POTASSIUM 3.6 MMOL/L (3.5-5.1); SODIUM 142 MMOL/L (135-145); TOTAL CARBON DIOXIDE 26.4 MMOL/L (24-32); TOTAL PROTEIN 6.9 G/DL (6.4-8.2); eGFR 42 ML/MIN
[2020-10-07 09:22] LABS: PLATELET ESTIMATE NORMAL; TOTAL CELLS COUNTED 100
== END 2020-10-07 23:59 | disposition home or self-care (01) ==
LOC: LAB 07:58
PROVIDERS: ATTEND Internal Medicine
DX: E11.65 Type 2 diabetes mellitus with hyperglycemia (principal); N18.2 Chronic kidney disease, stage 2 (mild); I48.91 Unspecified atrial fibrillation; L03.116 Cellulitis of left lower limb; R09.02 Hypoxemia; I50.9 Heart failure, unspecified
CPT/HCPCS: 36415; 80053; 83036; 83880; 85007; 85025

== ENCOUNTER 2020-10-09 07:40 | Outpatient (CLI) | payer BC, MEDICARE ==
[2020-10-09] MEDS ORDERED: LIDOcaine 2% 5ml jelly ONE (08:11)
== END 2020-10-09 23:59 | disposition home or self-care (01) ==
LOC: WOUND CARE 07:40
PROVIDERS: ATTEND Nurse Practitioner
DX: T81.89XD Other complications of procedures, not elsewhere classified, subsequent encounter (principal); E11.622 Type 2 diabetes mellitus with other skin ulcer; L98.492 Non-pressure chronic ulcer of skin of other sites with fat layer exposed; E11.22 Type 2 diabetes mellitus with diabetic chronic kidney disease; I13.0 Hypertensive heart and chronic kidney disease with heart failure and stage 1 through stage 4 chronic kidney disease, or unspecified chronic kidney disease; I50.32 Chronic diastolic (congestive) heart failure; N18.4 Chronic kidney disease, stage 4 (severe); E11.649 Type 2 diabetes mellitus with hypoglycemia without coma; I25.10 Atherosclerotic heart disease of native coronary artery without angina pectoris; I48.20 Chronic atrial fibrillation, unspecified; E78.5 Hyperlipidemia, unspecified; E66.9 Obesity, unspecified; M19.90 Unspecified osteoarthritis, unspecified site; I25.2 Old myocardial infarction; K21.9 Gastro-esophageal reflux disease without esophagitis; Z79.01 Long term (current) use of anticoagulants; Z79.02 Long term (current) use of antithrombotics/antiplatelets; Z79.4 Long term (current) use of insulin; Z79.82 Long term (current) use of aspirin; Z79.899 Other long term (current) drug therapy; Z95.1 Presence of aortocoronary bypass graft; Z95.5 Presence of coronary angioplasty implant and graft; Z86.73 Personal history of transient ischemic attack (TIA), and cerebral infarction without residual deficits; Z87.891 Personal history of nicotine dependence; Z90.49 Acquired absence of other specified parts of digestive tract; Z68.33 Body mass index [BMI] 33.0-33.9, adult; Y83.8 Other surgical procedures as the cause of abnormal reaction of the patient, or of later complication, without mention of misadventure at the time of the procedure
CPT/HCPCS: 11042; 82948

== ENCOUNTER 2020-11-07 08:41 | Outpatient (CLI) | payer BC, MEDICARE ==
[2020-11-07 09:16] LABS: BASOPHILS % (AUTO) 0.7 % (0-1); EOSINOPHILS # (AUTO) 0.2 X10'3 (0-0.9); EOSINOPHILS % (AUTO) 4.1 % (0-6); HEMATOCRIT 41.1 % (42.0-52.0); HEMOGLOBIN 13.7 g/dl (14.0-17.9); LYMPHOCYTES # (AUTO) 1.7 X10'3 (1.1-4.8); LYMPHOCYTES % (AUTO) 31.2 % (21-51); MEAN CORPUSCULAR HEMOGLOBIN 29.9 PG (27.0-31.0); MEAN CORPUSCULAR HGB CONC 33.3 g/dL (33.0-36.5); MEAN CORPUSCULAR VOLUME 89.9 FL (78-98); MEAN PLATELET VOLUME 8.8 FL (7.4-10.4); MONOCYTES # (AUTO) 0.7 X10'3 (0-0.9); MONOCYTES % (AUTO) 11.8 % (2-12); NEUTROPHILS # (AUTO) 2.9 X10'3 (1.8-7.7); NEUTROPHILS % (AUTO) 52.2 % (42-75); PLATELET COUNT 247 X10'3 (140-440); RED BLOOD COUNT 4.57 X10'6 (4.70-6.10); RED CELL DISTRIBUTION WIDTH 15.5 % (11.5-14.5); WHITE BLOOD COUNT 5.6 X10'3 (4.5-11.0)
[2020-11-07 09:30] LABS: CLARITY,URINE CLEAR (Clear); COLOR,URINE YELLOW (Yellow); GLUCOSE, URINE NEGATIVE (Neg); KETONES,URINE NEGATIVE (Neg); LEUKOCYTE ESTERASE ,URINE NEGATIVE (Neg); NITRITES, URINE NEGATIVE (Neg); OCCULT BLOOD,URINE NEGATIVE (Neg); PROTEIN,URINE 30 mg/dl (Neg); UROBILINOGEN,URINE 0.2 E.U/dL (0.2-1.0)
[2020-11-07 09:37] LABS: TOTAL PROTEIN,URINE RANDOM 41.8 MG/DL; UA PROTEIN/CREATININE RATIO 0.34 mg/mg Cr (0-0.16)
[2020-11-07 09:41] LABS: UA COLLECTION TYPE NON-SPECIFIED
[2020-11-07 09:43] LABS: HYALINE CASTS 0-3 /LPF (NEGATIVE); MUCUS STRANDS FEW /LPF (Neg); SQUAMOUS EPITHELIAL CELL,UR FEW /LPF (FEW)
[2020-11-07 09:44] LABS: RBC,URINE 0-2 /HPF (0-2); WBC,URINE 0-4 /HPF (0-4)
[2020-11-07 09:45] LABS: BACTERIA,URINE NONE SEEN /HPF (Neg)
[2020-11-07 09:47] LABS: ALBUMIN 3.7 G/DL (3.4-5.0); ANION GAP 8 (8-16); BLOOD UREA NITROGEN 32 MG/DL (7-18); BUN/CREATININE RATIO 18.9 (5.4-32.0); CALCIUM 9.1 MG/DL (8.5-10.1); CHLORIDE 105 MMOL/L (99-107); CREATININE 1.69 MG/DL (0.60-1.10); FERRITIN 91 NG/ML (26-388); GLUCOSE 126 MG/DL (70-104); MAGNESIUM 1.9 MG/DL (1.5-2.4); PHOSPHORUS 3.4 MG/DL (2.3-4.5); POTASSIUM 4.1 MMOL/L (3.5-5.1); SODIUM 142 MMOL/L (135-145); TOTAL CARBON DIOXIDE 28.6 MMOL/L (24-32); eGFR 40 ML/MIN
[2020-11-07 10:14] LABS: % IRON SATURATION 25 % (11-46); IRON 92 UG/DL (53-167); TOTAL IRON BINDING CAPACITY 374 UG/DL (259-388)
== END 2020-11-07 23:59 | disposition home or self-care (01) ==
LOC: LAB 08:41
PROVIDERS: ATTEND Internal Medicine Critical Care Medicine
DX: N39.0 Urinary tract infection, site not specified (principal); D63.1 Anemia in chronic kidney disease; N18.30 Chronic kidney disease, stage 3 unspecified; E83.40 Disorders of magnesium metabolism, unspecified; R94.4 Abnormal results of kidney function studies; E83.30 Disorder of phosphorus metabolism, unspecified; D50.8 Other iron deficiency anemias; E83.52 Hypercalcemia; R80.9 Proteinuria, unspecified; R82.79 Other abnormal findings on microbiological examination of urine
CPT/HCPCS: 36415; 80069; 81001; 82306; 82570; 82728; 83540; 83550; 83735; 83970; 84156; 85025

== ENCOUNTER 2020-11-26 14:15 | Outpatient (CLI) | payer BC, MEDICARE ==
[~2020-11-26] VITALS: Ht 177.8 cm; Wt 104.3 kg
[~2020-11-26 14:15] MED LIST changes: +LIDOcaine 2% 5ml jelly ONE
[2020-11-26] MEDS ORDERED: albuterol 2.5 MG/3 ML nebule NEB ONE (15:00)
== END 2020-11-26 23:59 | disposition home or self-care (01) ==
LOC: RT 14:15
PROVIDERS: ATTEND Internal Medicine Critical Care Medicine
DX: J44.9 Chronic obstructive pulmonary disease, unspecified (principal); J84.10 Pulmonary fibrosis, unspecified; R06.02 Shortness of breath; R09.02 Hypoxemia; R06.89 Other abnormalities of breathing
CPT/HCPCS: 94060; 94760

== ENCOUNTER 2020-12-02 08:11 | Outpatient (CLI) | payer BC, MEDICARE ==
[~2020-12-02 08:11] MED LIST changes: -LIDOcaine 2% 5ml jelly ONE
[2020-12-02 09:05] LABS: BASOPHILS % (AUTO) 0.8 % (0-1); EOSINOPHILS # (AUTO) 0.2 X10'3 (0-0.9); EOSINOPHILS % (AUTO) 3.6 % (0-6); HEMATOCRIT 42.8 % (42.0-52.0); HEMOGLOBIN 14.1 g/dl (14.0-17.9); LYMPHOCYTES # (AUTO) 1.8 X10'3 (1.1-4.8); LYMPHOCYTES % (AUTO) 32.1 % (21-51); MEAN CORPUSCULAR VOLUME 90.9 FL (78-98); MEAN PLATELET VOLUME 8.8 FL (7.4-10.4); MONOCYTES # (AUTO) 0.6 X10'3 (0-0.9); MONOCYTES % (AUTO) 11.9 % (2-12); NEUTROPHILS # (AUTO) 2.8 X10'3 (1.8-7.7); NEUTROPHILS % (AUTO) 51.6 % (42-75); PLATELET COUNT 242 X10'3 (140-440); RED BLOOD COUNT 4.71 X10'6 (4.70-6.10); RED CELL DISTRIBUTION WIDTH 16.4 % (11.5-14.5); WHITE BLOOD COUNT 5.5 X10'3 (4.5-11.0)
[2020-12-02 09:09] LABS: CLARITY,URINE CLEAR (Clear); COLOR,URINE YELLOW (Yellow); GLUCOSE, URINE NEGATIVE (Neg); KETONES,URINE NEGATIVE (Neg); LEUKOCYTE ESTERASE ,URINE NEGATIVE (Neg); NITRITES, URINE NEGATIVE (Neg); OCCULT BLOOD,URINE NEGATIVE (Neg); PROTEIN,URINE NEGATIVE (Neg); UROBILINOGEN,URINE 0.2 E.U/dL (0.2-1.0)
[2020-12-02 09:15] LABS: UA COLLECTION TYPE CLN CATCH MIDSTREAM
[2020-12-02 09:38] LABS: ALANINE AMINOTRANSFERASE 50 U/L (12-78); ALBUMIN 4.2 G/DL (3.4-5.0); ALBUMIN/GLOBULIN RATIO 1.3 (1.1-1.5); ALKALINE PHOSPHATASE 57 IU/L (46-116); ANION GAP 5 (8-16); ASPARTATE AMINO TRANSFERASE 59 U/L (10-37); BILIRUBIN,TOTAL 0.6 MG/DL (0.1-1.0); BLOOD UREA NITROGEN 29 MG/DL (7-18); BUN/CREATININE RATIO 17.8 (5.4-32.0); CALCIUM 9.7 MG/DL (8.5-10.1); CHLORIDE 105 MMOL/L (99-107); CHOL/HDL RATIO 4.1 (0.00-4.99); CHOLESTEROL 149 MG/DL (0-200); CREATININE 1.63 MG/DL (0.60-1.10); GLUCOSE 122 MG/DL (70-104); HDL CHOLESTEROL 36 MG/DL (35-60); LDL CHOLESTEROL 94 MG/DL (50-100); POTASSIUM 4.1 MMOL/L (3.5-5.1); SODIUM 139 MMOL/L (135-145); TOTAL CARBON DIOXIDE 29.2 MMOL/L (24-32); TOTAL PROTEIN 7.5 G/DL (6.4-8.2); TRIGLYCERIDES 93 MG/DL (20-135); eGFR 41 ML/MIN
== END 2020-12-02 23:59 | disposition home or self-care (01) ==
LOC: LAB 08:11
PROVIDERS: ATTEND Internal Medicine Cardiovascular Disease
DX: I10 Essential (primary) hypertension (principal); E78.5 Hyperlipidemia, unspecified; E11.65 Type 2 diabetes mellitus with hyperglycemia; N39.0 Urinary tract infection, site not specified
CPT/HCPCS: 36415; 80053; 80061; 81003; 82043; 85025

== ENCOUNTER 2021-01-08 10:52 | Outpatient (CLI) | payer BC, MEDICARE ==
[~2021-01-08 10:52] MED LIST changes: +ASPI325T5 PO; -[UNRECOGNIZED DRUG - CODE] PO
[2021-01-08 12:50] LABS: ALBUMIN 3.7 G/DL (3.4-5.0); ANION GAP 11 (8-16); BLOOD UREA NITROGEN 26 MG/DL (7-18); BUN/CREATININE RATIO 17.7 (5.4-32.0); CALCIUM 9.4 MG/DL (8.5-10.1); CHLORIDE 104 MMOL/L (99-107); CREATININE 1.47 MG/DL (0.60-1.10); GLUCOSE 163 MG/DL (70-104); SODIUM 141 MMOL/L (135-145); TOTAL CARBON DIOXIDE 26.1 MMOL/L (24-32); eGFR 46 ML/MIN
== END 2021-01-08 23:59 | disposition home or self-care (01) ==
LOC: LAB 10:52
PROVIDERS: ATTEND Internal Medicine Cardiovascular Disease
DX: R06.02 Shortness of breath (principal)
CPT/HCPCS: 36415; 80048; 83880

== ENCOUNTER 2021-02-03 07:57 | Outpatient (CLI) | payer BC, MEDICARE ==
[2021-02-03 08:40] LABS: CLARITY,URINE CLEAR (Clear); COLOR,URINE YELLOW (Yellow); GLUCOSE, URINE NEGATIVE (Neg); KETONES,URINE NEGATIVE (Neg); LEUKOCYTE ESTERASE ,URINE NEGATIVE (Neg); NITRITES, URINE NEGATIVE (Neg); OCCULT BLOOD,URINE NEGATIVE (Neg); PROTEIN,URINE NEGATIVE (Neg); UROBILINOGEN,URINE 0.2 E.U/dL (0.2-1.0)
[2021-02-03 08:42] LABS: BASOPHILS % (AUTO) 0.7 % (0-1); EOSINOPHILS # (AUTO) 0.2 X10'3 (0-0.9); EOSINOPHILS % (AUTO) 3.1 % (0-6); HEMATOCRIT 43.2 % (42.0-52.0); HEMOGLOBIN 14.4 g/dl (14.0-17.9); LYMPHOCYTES # (AUTO) 1.6 X10'3 (1.1-4.8); LYMPHOCYTES % (AUTO) 28.1 % (21-51); MEAN CORPUSCULAR HEMOGLOBIN 30.8 PG (27.0-31.0); MEAN CORPUSCULAR HGB CONC 33.5 g/dL (33.0-36.5); MEAN CORPUSCULAR VOLUME 92.1 FL (78-98); MEAN PLATELET VOLUME 9.7 FL (7.4-10.4); MONOCYTES # (AUTO) 0.7 X10'3 (0-0.9); MONOCYTES % (AUTO) 12.4 % (2-12); NEUTROPHILS # (AUTO) 3.2 X10'3 (1.8-7.7); NEUTROPHILS % (AUTO) 55.7 % (42-75); PLATELET COUNT 237 X10'3 (140-440); RED BLOOD COUNT 4.69 X10'6 (4.70-6.10); RED CELL DISTRIBUTION WIDTH 15.3 % (11.5-14.5); WHITE BLOOD COUNT 5.7 X10'3 (4.5-11.0)
[2021-02-03 08:47] LABS: HEMOGLOBIN A1C 8.9 % (4.5-6.2)
[2021-02-03 08:49] LABS: UA COLLECTION TYPE CLN CATCH MIDSTREAM
[2021-02-03 08:52] LABS: ALANINE AMINOTRANSFERASE 47 U/L (12-78); ALBUMIN 3.9 G/DL (3.4-5.0); ALBUMIN/GLOBULIN RATIO 1.1 (1.1-1.5); ALKALINE PHOSPHATASE 68 IU/L (46-116); ANION GAP 9 (8-16); ASPARTATE AMINO TRANSFERASE 66 U/L (10-37); BILIRUBIN,TOTAL 0.7 MG/DL (0.1-1.0); BLOOD UREA NITROGEN 39 MG/DL (7-18); BUN/CREATININE RATIO 21.1 (5.4-32.0); CALCIUM 9.5 MG/DL (8.5-10.1); CHLORIDE 105 MMOL/L (99-107); CHOLESTEROL 149 MG/DL (0-200); CREATININE 1.85 MG/DL (0.60-1.10); GLUCOSE 123 MG/DL (70-104); HDL CHOLESTEROL 30 MG/DL (35-60); LDL CHOLESTEROL 94 MG/DL (50-100); POTASSIUM 3.5 MMOL/L (3.5-5.1); SODIUM 143 MMOL/L (135-145); TOTAL CARBON DIOXIDE 29.1 MMOL/L (24-32); TOTAL PROTEIN 7.4 G/DL (6.4-8.2); TRIGLYCERIDES 127 MG/DL (20-135); eGFR 36 ML/MIN
== END 2021-02-03 23:59 | disposition home or self-care (01) ==
LOC: LAB 07:57
PROVIDERS: ATTEND Internal Medicine
DX: I10 Essential (primary) hypertension (principal); E78.5 Hyperlipidemia, unspecified; N39.0 Urinary tract infection, site not specified
CPT/HCPCS: 36415; 80053; 80061; 81003; 82043; 83036; 85025

== ENCOUNTER 2021-04-14 08:23 | Outpatient (CLI) | payer BC, MEDICARE ==
[2021-04-14 09:10] LABS: BASOPHILS % (AUTO) 0.6 % (0-1); EOSINOPHILS # (AUTO) 0.1 X10'3 (0-0.9); EOSINOPHILS % (AUTO) 2.1 % (0-6); HEMATOCRIT 41.2 % (42.0-52.0); HEMOGLOBIN 13.9 g/dl (14.0-17.9); LYMPHOCYTES # (AUTO) 1.8 X10'3 (1.1-4.8); LYMPHOCYTES % (AUTO) 29.5 % (21-51); MEAN CORPUSCULAR HEMOGLOBIN 31.4 PG (27.0-31.0); MEAN CORPUSCULAR HGB CONC 33.7 g/dL (33.0-36.5); MEAN CORPUSCULAR VOLUME 93.3 FL (78-98); MEAN PLATELET VOLUME 9.3 FL (7.4-10.4); MONOCYTES # (AUTO) 0.8 X10'3 (0-0.9); MONOCYTES % (AUTO) 12.8 % (2-12); NEUTROPHILS # (AUTO) 3.3 X10'3 (1.8-7.7); PLATELET COUNT 204 X10'3 (140-440); RED BLOOD COUNT 4.42 X10'6 (4.70-6.10); RED CELL DISTRIBUTION WIDTH 14.7 % (11.5-14.5); WHITE BLOOD COUNT 5.9 X10'3 (4.5-11.0)
[2021-04-14 09:23] LABS: ALANINE AMINOTRANSFERASE 56 U/L (12-78); ALBUMIN 3.8 G/DL (3.4-5.0); ALBUMIN/GLOBULIN RATIO 1.2 (1.1-1.5); ALKALINE PHOSPHATASE 57 IU/L (46-116); ANION GAP 10 (8-16); ASPARTATE AMINO TRANSFERASE 50 U/L (10-37); BILIRUBIN,TOTAL 0.5 MG/DL (0.1-1.0); BLOOD UREA NITROGEN 37 MG/DL (7-18); BUN/CREATININE RATIO 18.4 (5.4-32.0); CALCIUM 8.6 MG/DL (8.5-10.1); CHLORIDE 105 MMOL/L (99-107); CHOL/HDL RATIO 5.1 (0.00-4.99); CHOLESTEROL 133 MG/DL (0-200); CREATININE 2.01 MG/DL (0.60-1.10); GLUCOSE 145 MG/DL (70-104); HDL CHOLESTEROL 26 MG/DL (35-60); LDL CHOLESTEROL 86 MG/DL (50-100); SODIUM 142 MMOL/L (135-145); TOTAL CARBON DIOXIDE 27.3 MMOL/L (24-32); TRIGLYCERIDES 136 MG/DL (20-135); eGFR 32 ML/MIN
[2021-04-14 09:25] LABS: CLARITY,URINE CLEAR (Clear); COLOR,URINE YELLOW (Yellow); GLUCOSE, URINE NEGATIVE (Neg); KETONES,URINE NEGATIVE (Neg); LEUKOCYTE ESTERASE ,URINE NEGATIVE (Neg); NITRITES, URINE NEGATIVE (Neg); OCCULT BLOOD,URINE NEGATIVE (Neg); PROTEIN,URINE NEGATIVE (Neg); UROBILINOGEN,URINE 0.2 E.U/dL (0.2-1.0)
[2021-04-14 09:25] LABS: HEMOGLOBIN A1C 8.8 % (4.5-6.2)
[2021-04-14 09:46] LABS: UA COLLECTION TYPE CLN CATCH MIDSTREAM
== END 2021-04-14 23:59 | disposition home or self-care (01) ==
LOC: LAB 08:23
PROVIDERS: ATTEND Internal Medicine
DX: I10 Essential (primary) hypertension (principal); E78.5 Hyperlipidemia, unspecified; N39.0 Urinary tract infection, site not specified; I73.9 Peripheral vascular disease, unspecified; I25.10 Atherosclerotic heart disease of native coronary artery without angina pectoris; E11.21 Type 2 diabetes mellitus with diabetic nephropathy
CPT/HCPCS: 36415; 80053; 80061; 81003; 82043; 83036; 85025

== ENCOUNTER 2021-05-14 10:30 | Outpatient (CLI) | payer BC, MEDICARE ==
[~2021-05-14 10:30] MED LIST changes: -ASPI325T5 PO; +[UNRECOGNIZED DRUG - CODE] PO
[2021-05-14 11:38] LABS: CLARITY,URINE CLEAR (Clear); COLOR,URINE STRAW (Yellow); GLUCOSE, URINE 250 mg/dl (Neg); KETONES,URINE NEGATIVE (Neg); LEUKOCYTE ESTERASE ,URINE NEGATIVE (Neg); NITRITES, URINE NEGATIVE (Neg); OCCULT BLOOD,URINE NEGATIVE (Neg); PH,URINE 5.5 (4.8-8.0); PROTEIN,URINE NEGATIVE (Neg); UROBILINOGEN,URINE 0.2 E.U/dL (0.2-1.0)
[2021-05-14 11:39] LABS: UA COLLECTION TYPE VOIDED
[2021-05-14 11:50] LABS: BASOPHILS % (AUTO) 0.6 % (0-1); EOSINOPHILS # (AUTO) 0.1 X10'3 (0-0.9); EOSINOPHILS % (AUTO) 2.4 % (0-6); HEMATOCRIT 41.7 % (42.0-52.0); HEMOGLOBIN 13.9 g/dl (14.0-17.9); LYMPHOCYTES # (AUTO) 1.7 X10'3 (1.1-4.8); LYMPHOCYTES % (AUTO) 29.7 % (21-51); MEAN CORPUSCULAR HEMOGLOBIN 30.8 PG (27.0-31.0); MEAN CORPUSCULAR HGB CONC 33.3 g/dL (33.0-36.5); MEAN CORPUSCULAR VOLUME 92.5 FL (78-98); MEAN PLATELET VOLUME 10.2 FL (7.4-10.4); MONOCYTES # (AUTO) 0.6 X10'3 (0-0.9); MONOCYTES % (AUTO) 11.4 % (2-12); NEUTROPHILS # (AUTO) 3.2 X10'3 (1.8-7.7); NEUTROPHILS % (AUTO) 55.9 % (42-75); PLATELET COUNT 213 X10'3 (140-440); RED BLOOD COUNT 4.51 X10'6 (4.70-6.10); RED CELL DISTRIBUTION WIDTH 15.1 % (11.5-14.5); WHITE BLOOD COUNT 5.7 X10'3 (4.5-11.0)
[2021-05-14 12:29] LABS: ALBUMIN 3.7 G/DL (3.4-5.0); ANION GAP 10 (8-16); BLOOD UREA NITROGEN 43 MG/DL (7-18); BUN/CREATININE RATIO 21.4 (5.4-32.0); CHLORIDE 103 MMOL/L (99-107); CREATININE 2.01 MG/DL (0.60-1.10); FERRITIN 75 NG/ML (26-388); GLUCOSE 276 MG/DL (70-104); MAGNESIUM 1.8 MG/DL (1.5-2.4); POTASSIUM 4.1 MMOL/L (3.5-5.1); SODIUM 140 MMOL/L (135-145); TOTAL CARBON DIOXIDE 27.1 MMOL/L (24-32); eGFR 32 ML/MIN
[2021-05-14 12:36] LABS: TOTAL PROTEIN,URINE RANDOM 7.7 MG/DL; UA PROTEIN/CREATININE RATIO 0.22 mg/mg Cr (0-0.16)
[2021-05-14 12:38] LABS: % IRON SATURATION 36 % (11-46); IRON 124 UG/DL (53-167); TOTAL IRON BINDING CAPACITY 345 UG/DL (259-388)
== END 2021-05-14 23:59 | disposition home or self-care (01) ==
LOC: RAD 10:30
PROVIDERS: ATTEND Internal Medicine Critical Care Medicine
DX: E11.22 Type 2 diabetes mellitus with diabetic chronic kidney disease (principal); N18.32 Chronic kidney disease, stage 3b; R94.4 Abnormal results of kidney function studies; D63.1 Anemia in chronic kidney disease; D50.8 Other iron deficiency anemias; E55.9 Vitamin D deficiency, unspecified; R80.9 Proteinuria, unspecified; R82.79 Other abnormal findings on microbiological examination of urine; N39.0 Urinary tract infection, site not specified; E11.29 Type 2 diabetes mellitus with other diabetic kidney complication
CPT/HCPCS: 36415; 80069; 81003; 82306; 82570; 82728; 83540; 83550; 83735; 83970; 84156; 85025

== ENCOUNTER 2021-05-27 07:33 | Outpatient (CLI) | payer BC, MEDICARE | END 2021-05-27 23:59 | disposition home or self-care (01) | LOC: CARD DIAG 07:33 | PROVIDERS: ATTEND Internal Medicine Cardiovascular Disease | DX: I37.1 Nonrheumatic pulmonary valve insufficiency (principal); I50.9 Heart failure, unspecified | CPT/HCPCS: 93306 ==

== ENCOUNTER → 2021-05-28 | Outpatient (CLI) | payer BC, MEDICARE ==
[2021-05-28] VITALS (8 sets, daily range): BP systolic 134–162; BP diastolic 53–85
[~2021-05-28] VITALS: Ht 177.8 cm; Wt 106.0 kg
[~2021-05-28] MED LIST changes: +aminophylline 250mg/10ml inj. IV PRN; +nitroGLYCERIN 0.4mg SUBLingual tab SL PRN; +normal saline 500ml IV soln 500 ML IV ONE; +regadenoson 0.4mg/5ml syringe IV ONE
== END | disposition home or self-care (01) ==
LOC: RAD 07:46
PROVIDERS: ATTEND Internal Medicine Cardiovascular Disease
DX: I50.40 Unspecified combined systolic (congestive) and diastolic (congestive) heart failure (principal); R07.9 Chest pain, unspecified
CPT/HCPCS: 78452; 93017; A9500; J2785; J7040

== ENCOUNTER 2021-06-17 08:25 | Day surgery (SDC) | payer BC, MEDICARE ==
[2021-06-16 09:50] LABS: BASOPHILS % (AUTO) 0.7 % (0-1); EOSINOPHILS # (AUTO) 0.2 X10'3 (0-0.9); EOSINOPHILS % (AUTO) 2.8 % (0-6); HEMATOCRIT 43.3 % (42.0-52.0); HEMOGLOBIN 14.5 g/dl (14.0-17.9); LYMPHOCYTES # (AUTO) 1.6 X10'3 (1.1-4.8); LYMPHOCYTES % (AUTO) 27.3 % (21-51); MEAN CORPUSCULAR HEMOGLOBIN 31.3 PG (27.0-31.0); MEAN CORPUSCULAR HGB CONC 33.4 g/dL (33.0-36.5); MEAN CORPUSCULAR VOLUME 93.8 FL (78-98); MONOCYTES # (AUTO) 0.8 X10'3 (0-0.9); MONOCYTES % (AUTO) 13.6 % (2-12); NEUTROPHILS # (AUTO) 3.2 X10'3 (1.8-7.7); NEUTROPHILS % (AUTO) 55.6 % (42-75); PLATELET COUNT 215 X10'3 (140-440); RED BLOOD COUNT 4.62 X10'6 (4.70-6.10); RED CELL DISTRIBUTION WIDTH 14.6 % (11.5-14.5); WHITE BLOOD COUNT 5.8 X10'3 (4.5-11.0)
[2021-06-16 09:57] LABS: ALBUMIN 3.8 G/DL (3.4-5.0); ANION GAP 11 (8-16); BLOOD UREA NITROGEN 26 MG/DL (7-18); BUN/CREATININE RATIO 14.2 (5.4-32.0); CHLORIDE 104 MMOL/L (99-107); CREATININE 1.83 MG/DL (0.60-1.10); GLUCOSE 188 MG/DL (70-104); SODIUM 142 MMOL/L (135-145); TOTAL CARBON DIOXIDE 27.2 MMOL/L (24-32); eGFR 36 ML/MIN
[2021-06-16 10:00] LABS: PARTIAL THROMBOPLASTIN TIME 23 SECONDS (22-32)
[2021-06-17] VITALS (13 sets, daily range): BP systolic 97–153; BP diastolic 40–84
[~2021-06-17] VITALS: Ht 177.8 cm; Wt 107.0 kg
[~2021-06-17 08:25] MED LIST changes: -aminophylline 250mg/10ml inj. IV PRN; -nitroGLYCERIN 0.4mg SUBLingual tab SL PRN; -normal saline 500ml IV soln 500 ML IV ONE; -regadenoson 0.4mg/5ml syringe IV ONE
[2021-06-17] MEDS ORDERED: ISOS60TA71 PO (08:51)
[2021-06-17] MEDS ORDERED: normal saline 1,000 ML IV SCH (08:55)
[2021-06-17] MEDS ORDERED: diphenhydrAMINE 25mg capsule PO PRN (08:55)
[2021-06-17] MEDS ORDERED: LORazepam 0.5 MG tablet PO PRN (08:55)
[2021-06-17] MEDS ORDERED: sodium bicarbonate (8.4%) inj. 150 ML in dextrose 5%-water 1,000 ML IV ONE ×2 (09:00→13:45)
[2021-06-17] MEDS ORDERED: LIDOcaine/PRILOcaine 5gm cream TP ONE (09:00)
[2021-06-17] MEDS ORDERED: FURO-150 PO (09:08)
[2021-06-17] MEDS: acetylcysteine 200 MG/ml 4ml vial PO PRN ×2 (09:48→18:51)
[2021-06-17] MEDS ORDERED: nitroGLYCERIN-Tridil 50MG/D5W 250 ML IV ONE (10:56)
[2021-06-17] MEDS ORDERED: verapamil 2.5 mg/ml inj IV ONE (10:56)
[2021-06-17] MEDS ORDERED: heparin 1,000unit/ml 10ml vial 10 ML ONE (10:57)
[2021-06-17] MEDS ORDERED: midazolam 1 mg/ML 2ml injection ONE (10:57)
[2021-06-17] MEDS ORDERED: LIDOcaine 1% (10mg/ml)w/preservative injection 20ml MDV ONE (10:57)
[2021-06-17] MEDS ORDERED: iohexol 350MG/ML 100ml bottle IV ONE ×2 (10:57→12:11)
[2021-06-17] MEDS ORDERED: fentaNYL/PF 50MCG/1 ML 2ML syringe ONE (10:57)
[2021-06-17] MEDS ORDERED: iohexol 350 MG/ML 50ML vial IV ONE (10:57)
[2021-06-17] MEDS ORDERED: heparin 25,000 UNIT/250ml bag 250 ML IV ONE (12:30)
[2021-06-17] MEDS ORDERED: clopidogrel 300mg tablet ONE (12:45)
[2021-06-18] MEDS ORDERED: clopidogrel 75mg tablet PO SCH (08:00)
== END 2021-06-17 19:50 | disposition home or self-care (01) ==
LOC: SSTAY O 08:25
PROVIDERS: ATTEND Internal Medicine Cardiovascular Disease
DX: T82.855A Stenosis of coronary artery stent, initial encounter (principal); I25.810 Atherosclerosis of coronary artery bypass graft(s) without angina pectoris; I42.8 Other cardiomyopathies; I11.0 Hypertensive heart disease with heart failure; I50.40 Unspecified combined systolic (congestive) and diastolic (congestive) heart failure; I34.0 Nonrheumatic mitral (valve) insufficiency; E11.9 Type 2 diabetes mellitus without complications; E78.49 Other hyperlipidemia; E66.9 Obesity, unspecified; Z68.33 Body mass index [BMI] 33.0-33.9, adult; M10.9 Gout, unspecified; I48.20 Chronic atrial fibrillation, unspecified; Z90.49 Acquired absence of other specified parts of digestive tract; Z79.899 Other long term (current) drug therapy; Z79.01 Long term (current) use of anticoagulants; Z79.4 Long term (current) use of insulin; Z79.82 Long term (current) use of aspirin; Z98.890 Other specified postprocedural states; Z82.49 Family history of ischemic heart disease and other diseases of the circulatory system; Z83.3 Family history of diabetes mellitus; Z83.6 Family history of other diseases of the respiratory system; Y83.8 Other surgical procedures as the cause of abnormal reaction of the patient, or of later complication, without mention of misadventure at the time of the procedure; Y92.89 Other specified places as the place of occurrence of the external cause
CPT/HCPCS: 36415; 76937; 80048; 82948; 85025; 85347; 85610; 85730; 92920; 93005; 93459; 99152; 99153; C1725; C1751; C1769; C1894; J1644; J2001; J2250; J3010; J7030; Q0163; Q9967; A4620; A6258; A6449; J3490

== ENCOUNTER → 2021-07-02 | Outpatient (CLI) | payer BC, MEDICARE ==
[~2021-07-02] MED LIST changes: -FERR-29 PO; +FURO-150 PO; -FURO20TA4 PO; -HYDR-4353 PO; +ISOS60TA71 PO
[2021-07-02 09:00] LABS: BASOPHILS # (AUTO) 0.1 X10'3 (0-0.2); BASOPHILS % (AUTO) 0.9 % (0-1); EOSINOPHILS # (AUTO) 0.2 X10'3 (0-0.9); EOSINOPHILS % (AUTO) 3.5 % (0-6); HEMATOCRIT 41.8 % (42.0-52.0); HEMOGLOBIN 14.5 g/dl (14.0-17.9); LYMPHOCYTES # (AUTO) 1.8 X10'3 (1.1-4.8); LYMPHOCYTES % (AUTO) 30.4 % (21-51); MEAN CORPUSCULAR HEMOGLOBIN 32.1 PG (27.0-31.0); MEAN CORPUSCULAR HGB CONC 34.5 g/dL (33.0-36.5); MEAN PLATELET VOLUME 8.9 FL (7.4-10.4); MONOCYTES # (AUTO) 0.8 X10'3 (0-0.9); MONOCYTES % (AUTO) 13.3 % (2-12); NEUTROPHILS # (AUTO) 3.1 X10'3 (1.8-7.7); NEUTROPHILS % (AUTO) 51.9 % (42-75); PLATELET COUNT 279 X10'3 (140-440); RED CELL DISTRIBUTION WIDTH 14.4 % (11.5-14.5)
[2021-07-02 09:16] LABS: ALANINE AMINOTRANSFERASE 52 U/L (12-78); ALBUMIN 3.8 G/DL (3.4-5.0); ALBUMIN/GLOBULIN RATIO 1.1 (1.1-1.5); ALKALINE PHOSPHATASE 67 IU/L (46-116); ANION GAP 13 (8-16); ASPARTATE AMINO TRANSFERASE 50 U/L (10-37); BILIRUBIN,TOTAL 0.6 MG/DL (0.1-1.0); BLOOD UREA NITROGEN 36 MG/DL (7-18); CHLORIDE 108 MMOL/L (99-107); CHOLESTEROL 146 MG/DL (0-200); GLUCOSE 90 MG/DL (70-104); HDL CHOLESTEROL 29 MG/DL (35-60); LDL CHOLESTEROL 100 MG/DL (50-100); POTASSIUM 3.9 MMOL/L (3.5-5.1); SODIUM 147 MMOL/L (135-145); TOTAL CARBON DIOXIDE 26.2 MMOL/L (24-32); TOTAL PROTEIN 7.4 G/DL (6.4-8.2); TRIGLYCERIDES 116 MG/DL (20-135); eGFR 37 ML/MIN
[2021-07-02 09:20] LABS: UA COLLECTION TYPE CLN CATCH MIDSTREAM
[2021-07-02 09:21] LABS: CLARITY,URINE CLEAR (Clear); COLOR,URINE YELLOW (Yellow); GLUCOSE, URINE NEGATIVE (Neg); KETONES,URINE NEGATIVE (Neg); LEUKOCYTE ESTERASE ,URINE NEGATIVE (Neg); NITRITES, URINE NEGATIVE (Neg); OCCULT BLOOD,URINE NEGATIVE (Neg); PROTEIN,URINE NEGATIVE (Neg); UROBILINOGEN,URINE 0.2 E.U/dL (0.2-1.0)
[2021-07-02 09:29] LABS: HEMOGLOBIN A1C 8.8 % (4.5-6.2)
== END | disposition home or self-care (01) ==
LOC: LAB 08:15
PROVIDERS: ATTEND Internal Medicine
DX: I10 Essential (primary) hypertension (principal); E11.65 Type 2 diabetes mellitus with hyperglycemia; E78.5 Hyperlipidemia, unspecified; N39.0 Urinary tract infection, site not specified
CPT/HCPCS: 36415; 80053; 80061; 81003; 82043; 83036; 85025

== ENCOUNTER 2021-10-13 08:17 | Outpatient (CLI) | payer BC, MEDICARE ==
[2021-10-13 09:06] LABS: EOSINOPHILS # (AUTO) 0.2 X10'3 (0-0.9); MONOCYTES # (AUTO) 0.9 X10'3 (0-0.9); PLATELET COUNT 246 X10'3 (140-440)
[2021-10-13 09:08] LABS: BASOPHILS % (AUTO) 0.6 % (0-1); EOSINOPHILS % (AUTO) 2.6 % (0-6); HEMATOCRIT 44.4 % (42.0-52.0); LYMPHOCYTES % (AUTO) 30.2 % (21-51); MEAN CORPUSCULAR HEMOGLOBIN 31.8 PG (27.0-31.0); MEAN CORPUSCULAR HGB CONC 33.9 g/dL (33.0-36.5); MEAN CORPUSCULAR VOLUME 93.9 FL (78-98); MEAN PLATELET VOLUME 9.5 FL (7.4-10.4); MONOCYTES % (AUTO) 13.5 % (2-12); NEUTROPHILS # (AUTO) 3.5 X10'3 (1.8-7.7); NEUTROPHILS % (AUTO) 53.1 % (42-75); RED BLOOD COUNT 4.73 X10'6 (4.70-6.10); RED CELL DISTRIBUTION WIDTH 14.8 % (11.5-14.5); WHITE BLOOD COUNT 6.6 X10'3 (4.5-11.0)
[2021-10-13 09:14] LABS: CLARITY,URINE CLEAR (Clear); COLOR,URINE YELLOW (Yellow); GLUCOSE, URINE NEGATIVE (Neg); KETONES,URINE NEGATIVE (Neg); LEUKOCYTE ESTERASE ,URINE NEGATIVE (Neg); NITRITES, URINE NEGATIVE (Neg); OCCULT BLOOD,URINE NEGATIVE (Neg); PH,URINE 6.5 (4.8-8.0); PROTEIN,URINE NEGATIVE (Neg); UROBILINOGEN,URINE 0.2 E.U/dL (0.2-1.0)
[2021-10-13 09:19] LABS: UA COLLECTION TYPE CLN CATCH MIDSTREAM
[2021-10-13 09:21] LABS: ALANINE AMINOTRANSFERASE 58 U/L (12-78); ALBUMIN 3.8 G/DL (3.4-5.0); ALBUMIN/GLOBULIN RATIO 1.1 (1.1-1.5); ALKALINE PHOSPHATASE 69 IU/L (46-116); ANION GAP 10 (8-16); ASPARTATE AMINO TRANSFERASE 60 U/L (10-37); BILIRUBIN,TOTAL 0.5 MG/DL (0.1-1.0); BLOOD UREA NITROGEN 42 MG/DL (7-18); BUN/CREATININE RATIO 22.2 (5.4-32.0); CALCIUM 9.5 MG/DL (8.5-10.1); CHLORIDE 104 MMOL/L (99-107); CHOL/HDL RATIO 5.1 (0.00-4.99); CHOLESTEROL 148 MG/DL (0-200); CREATININE 1.89 MG/DL (0.60-1.10); GLUCOSE 98 MG/DL (70-104); HDL CHOLESTEROL 29 MG/DL (35-60); LDL CHOLESTEROL 95 MG/DL (50-100); PHOSPHORUS 3.6 MG/DL (2.3-4.5); SODIUM 143 MMOL/L (135-145); TOTAL CARBON DIOXIDE 28.8 MMOL/L (24-32); TOTAL PROTEIN 7.3 G/DL (6.4-8.2); TRIGLYCERIDES 132 MG/DL (20-135); eGFR 35 ML/MIN
== END 2021-10-13 23:59 | disposition home or self-care (01) ==
LOC: LAB 08:17
PROVIDERS: ATTEND Internal Medicine
DX: E11.65 Type 2 diabetes mellitus with hyperglycemia (principal); E78.5 Hyperlipidemia, unspecified; I10 Essential (primary) hypertension
CPT/HCPCS: 36415; 80053; 80061; 80069; 81003; 83036; 85025

== ENCOUNTER 2021-11-18 14:21 | Outpatient (CLI) | payer BC, MEDICARE | END 2021-11-18 23:59 | disposition home or self-care (01) | LOC: RT 14:21 | PROVIDERS: ATTEND Internal Medicine Critical Care Medicine | DX: R94.2 Abnormal results of pulmonary function studies (principal); R06.02 Shortness of breath | CPT/HCPCS: 94010; 94727; 94729 ==

== ENCOUNTER 2021-12-09 08:42 | Outpatient (CLI) | payer BC, MEDICARE | END 2021-12-09 23:59 | disposition home or self-care (01) | LOC: CARD DIAG 08:42 | PROVIDERS: ATTEND Internal Medicine Cardiovascular Disease | DX: I08.8 Other rheumatic multiple valve diseases (principal); I25.810 Atherosclerosis of coronary artery bypass graft(s) without angina pectoris; I50.30 Unspecified diastolic (congestive) heart failure; I48.91 Unspecified atrial fibrillation; E11.9 Type 2 diabetes mellitus without complications; Z95.1 Presence of aortocoronary bypass graft | CPT/HCPCS: 93306 ==

== ENCOUNTER 2021-12-16 08:41 | Outpatient (CLI) | payer BC ==
[2021-12-16 09:27] LABS: BASOPHILS % (AUTO) 0.6 % (0-1); EOSINOPHILS # (AUTO) 0.2 X10'3 (0-0.9); EOSINOPHILS % (AUTO) 3.9 % (0-6); HEMATOCRIT 43.7 % (42.0-52.0); HEMOGLOBIN 14.5 g/dl (14.0-17.9); LYMPHOCYTES # (AUTO) 1.4 X10'3 (1.1-4.8); MEAN CORPUSCULAR HEMOGLOBIN 31.2 PG (27.0-31.0); MEAN CORPUSCULAR HGB CONC 33.3 g/dL (33.0-36.5); MEAN CORPUSCULAR VOLUME 93.8 FL (78-98); MEAN PLATELET VOLUME 9.7 FL (7.4-10.4); MONOCYTES # (AUTO) 0.6 X10'3 (0-0.9); MONOCYTES % (AUTO) 12.6 % (2-12); NEUTROPHILS # (AUTO) 2.2 X10'3 (1.8-7.7); NEUTROPHILS % (AUTO) 50.9 % (42-75); PLATELET COUNT 194 X10'3 (140-440); RED BLOOD COUNT 4.66 X10'6 (4.70-6.10); RED CELL DISTRIBUTION WIDTH 14.2 % (11.5-14.5); WHITE BLOOD COUNT 4.4 X10'3 (4.5-11.0)
[2021-12-16 09:36] LABS: CLARITY,URINE CLEAR (Clear); COLOR,URINE YELLOW (Yellow); GLUCOSE, URINE NEGATIVE (Neg); KETONES,URINE NEGATIVE (Neg); LEUKOCYTE ESTERASE ,URINE NEGATIVE (Neg); NITRITES, URINE NEGATIVE (Neg); OCCULT BLOOD,URINE NEGATIVE (Neg); PROTEIN,URINE NEGATIVE (Neg); UROBILINOGEN,URINE 0.2 E.U/dL (0.2-1.0)
[2021-12-16 09:41] LABS: HEMOGLOBIN A1C 7.9 % (4.5-6.2)
[2021-12-16 09:46] LABS: UA COLLECTION TYPE VOIDED
[2021-12-16 09:48] LABS: TOTAL PROTEIN,URINE RANDOM 16.4 MG/DL; UA PROTEIN/CREATININE RATIO 0.19 mg/mg Cr (0-0.16)
[2021-12-16 09:51] LABS: % IRON SATURATION 31 % (11-46); IRON 126 UG/DL (53-167); TOTAL IRON BINDING CAPACITY 406 UG/DL (259-388)
[2021-12-16 10:03] LABS: ALBUMIN 4.2 G/DL (3.4-5.0); ANION GAP 9 (8-16); BLOOD UREA NITROGEN 55 MG/DL (7-18); BUN/CREATININE RATIO 26.8 (5.4-32.0); CHLORIDE 104 MMOL/L (99-107); CREATININE 2.05 MG/DL (0.60-1.10); FERRITIN 73 NG/ML (26-388); GLUCOSE 195 MG/DL (70-104); MAGNESIUM 2.2 MG/DL (1.5-2.4); PHOSPHORUS 4.3 MG/DL (2.3-4.5); POTASSIUM 4.2 MMOL/L (3.5-5.1); SODIUM 140 MMOL/L (135-145); TOTAL CARBON DIOXIDE 27.5 MMOL/L (24-32); eGFR 32 ML/MIN
== END 2021-12-16 23:59 | disposition home or self-care (01) ==
LOC: LAB 08:41
PROVIDERS: ATTEND Internal Medicine Critical Care Medicine
DX: E11.22 Type 2 diabetes mellitus with diabetic chronic kidney disease (principal); N18.31 Chronic kidney disease, stage 3a; D63.1 Anemia in chronic kidney disease; R94.4 Abnormal results of kidney function studies; D50.8 Other iron deficiency anemias; E55.9 Vitamin D deficiency, unspecified; R80.9 Proteinuria, unspecified; R82.79 Other abnormal findings on microbiological examination of urine; N39.0 Urinary tract infection, site not specified; E11.29 Type 2 diabetes mellitus with other diabetic kidney complication
CPT/HCPCS: 36415; 80069; 81003; 82306; 82570; 82728; 83036; 83540; 83550; 83735; 83970; 84156; 85025

== ENCOUNTER 2021-12-26 19:18 | Inpatient (IN) | payer BC ==
[~2021-12-26] VITALS: Ht 177.8 cm; Wt 103.6 kg
[2021-12-26] MEDS ORDERED: aspirin 325mg tablet, delayed-release (Ecotrin) PO ONE (19:35)
[2021-12-26] MEDS: nitroGLYCERIN 0.4mg SUBLingual tab SL PRN ×2 (19:36→20:29)
[2021-12-26 19:58] LABS: BASOPHILS % (AUTO) 0.5 % (0-1); EOSINOPHILS # (AUTO) 0.1 X10'3 (0-0.9); EOSINOPHILS % (AUTO) 2.7 % (0-6); HEMATOCRIT 39.5 % (42.0-52.0); HEMOGLOBIN 13.3 g/dl (14.0-17.9); LYMPHOCYTES # (AUTO) 1.8 X10'3 (1.1-4.8); LYMPHOCYTES % (AUTO) 39.9 % (21-51); MEAN CORPUSCULAR HEMOGLOBIN 31.6 PG (27.0-31.0); MEAN CORPUSCULAR HGB CONC 33.7 g/dL (33.0-36.5); MEAN CORPUSCULAR VOLUME 93.7 FL (78-98); MEAN PLATELET VOLUME 9.8 FL (7.4-10.4); MONOCYTES # (AUTO) 0.7 X10'3 (0-0.9); MONOCYTES % (AUTO) 14.3 % (2-12); NEUTROPHILS # (AUTO) 1.9 X10'3 (1.8-7.7); NEUTROPHILS % (AUTO) 42.6 % (42-75); PLATELET COUNT 192 X10'3 (140-440); RED BLOOD COUNT 4.22 X10'6 (4.70-6.10); RED CELL DISTRIBUTION WIDTH 14.4 % (11.5-14.5); WHITE BLOOD COUNT 4.6 X10'3 (4.5-11.0)
[2021-12-26 20:02] LABS: ALANINE AMINOTRANSFERASE 45 U/L (12-78); ALBUMIN 3.9 G/DL (3.4-5.0); ALBUMIN/GLOBULIN RATIO 1.3 (1.1-1.5); ALKALINE PHOSPHATASE 53 IU/L (46-116); ANION GAP 16 (8-16); ASPARTATE AMINO TRANSFERASE 54 U/L (10-37); BILIRUBIN,TOTAL 0.7 MG/DL (0.1-1.0); BLOOD UREA NITROGEN 51 MG/DL (7-18); BUN/CREATININE RATIO 23.2 (5.4-32.0); CALCIUM 9.1 MG/DL (8.5-10.1); CHLORIDE 101 MMOL/L (99-107); GLUCOSE 232 MG/DL (70-104); POTASSIUM 4.2 MMOL/L (3.5-5.1); SODIUM 140 MMOL/L (135-145); TOTAL CARBON DIOXIDE 22.9 MMOL/L (24-32); TOTAL PROTEIN 6.8 G/DL (6.4-8.2); eGFR 29 ML/MIN
--- NOTE | 2021-12-26 21:41 | NUR ---
TROPONIN 278
[2021-12-26] MEDS ORDERED: heparin 10,000 units/1 ML INJ IV ONE (22:00)
[2021-12-26] MEDS ORDERED: heparin 10,000 units/1 ML INJ IV PRN ×2 (22:00→22:25)
[2021-12-26] MEDS ORDERED: nitroGLYCERIN 0.4mg SUBLingual tab SL PRN (22:05)
[2021-12-26] MEDS ORDERED: HYDROcodone/acetaminophen 5mg/325mg tablet PO PRN (22:20)
[2021-12-26] MEDS ORDERED: HYDROcodone/acetaminophen 10/325mg tab PO PRN (22:20)
[2021-12-26] MEDS ORDERED: morphine 2 MG/ML inj. syringe IV PRN ×2 (22:20)
[2021-12-26] MEDS ORDERED: magnesium 4gm in 100ml NS 100 ML IV PRN (22:20)
[2021-12-26] MEDS ORDERED: magnesium Cl slow-release 64mg tablet PO PRN (22:20)
[2021-12-26] MEDS ORDERED: ondansetron/PF 4mg/2ml inj IV PRN (22:20)
[2021-12-26] MEDS ORDERED: acetaminophen 325mg tablet PO PRN ×2 (22:20)
[2021-12-26] MEDS ORDERED: magnesium 2GM in 50ml NS 50 ML IV PRN (22:20)
[2021-12-26] MEDS ORDERED: potassium CL 10mEq/100ml bag 100 ML IV PRN (22:20)
[2021-12-26] MEDS ORDERED: potassium Cl 20 mEq SR tablet PO PRN ×2 (22:20)
[2021-12-26] MEDS ORDERED: heparin 25,000 UNIT/250ml bag 250 ML IV SCH (22:25)
[2021-12-26 22:33] LABS: APTT 31 SECONDS (22-32)
[2021-12-26] MEDS ORDERED: DEXTROSE 15 GM of carb/4 tabs (each vial/BOTTLE has 4 tablets) PO PRN ×2 (22:50)
[2021-12-26] MEDS ORDERED: dextrose 50%-water 50ml dispensing syringe IV PRN ×2 (22:50)
[2021-12-26] MEDS ORDERED: MESSAGE TO PHARMACY PO ONE (22:50)
[2021-12-26] MEDS ORDERED: glucagon, human recombinant 1mg kit SUBCUT PRN (22:50)
[2021-12-26] MEDS: heparin 25,000 UNIT/250ml bag 250 ML IV SCH (22:54)
[2021-12-26] MEDS: normal saline 1000ml 1,000 ML IV SCH (22:54)
--- NOTE | 2021-12-26 22:54 | NUR ---
HEPARIN DRIP INITIATED, APTT ADJUSTMENT 0600
[2021-12-26] MEDS ORDERED: FENO145T25 PO (22:56)
[2021-12-26] MEDS ORDERED: CLOP75TA34 PO (22:56)
[2021-12-26] MEDS ORDERED: NOVLG SQ (22:56)
[2021-12-26] MEDS ORDERED: FOLI1TAB27 PO (22:56)
[2021-12-26] MEDS ORDERED: ASPI81TA30 PO (22:56)
[2021-12-26] MEDS ORDERED: ATOR-2 PO (22:56)
[2021-12-26] MEDS ORDERED: MULT-1074 PO (22:56)
[2021-12-26] MEDS ORDERED: CARV12.545 PO (22:56)
[2021-12-26] MEDS ORDERED: FURO20TA4 PO (22:56)
--- NOTE | 2021-12-27 00:30 | NUR ---
PT BEDDED IN ER, GIVEN A HOSPITAL BED FOR COMFORT
[2021-12-27 06:39] LABS: BASOPHILS % (AUTO) 0.9 % (0-1); EOSINOPHILS # (AUTO) 0.1 X10'3 (0-0.9); EOSINOPHILS % (AUTO) 2.4 % (0-6); HEMATOCRIT 37.7 % (42.0-52.0); HEMOGLOBIN 12.6 g/dl (14.0-17.9); LYMPHOCYTES # (AUTO) 1.9 X10'3 (1.1-4.8); LYMPHOCYTES % (AUTO) 38.2 % (21-51); MEAN CORPUSCULAR HEMOGLOBIN 31.2 PG (27.0-31.0); MEAN CORPUSCULAR HGB CONC 33.5 g/dL (33.0-36.5); MEAN CORPUSCULAR VOLUME 93.1 FL (78-98); MEAN PLATELET VOLUME 10.6 FL (7.4-10.4); MONOCYTES # (AUTO) 0.6 X10'3 (0-0.9); MONOCYTES % (AUTO) 12.6 % (2-12); NEUTROPHILS # (AUTO) 2.3 X10'3 (1.8-7.7); NEUTROPHILS % (AUTO) 45.9 % (42-75); PLATELET COUNT 164 X10'3 (140-440); RED BLOOD COUNT 4.05 X10'6 (4.70-6.10); RED CELL DISTRIBUTION WIDTH 14.2 % (11.5-14.5)
[2021-12-27 07:00] LABS: ALANINE AMINOTRANSFERASE 40 U/L (12-78); ALBUMIN 3.3 G/DL (3.4-5.0); ALBUMIN/GLOBULIN RATIO 1.2 (1.1-1.5); ALKALINE PHOSPHATASE 44 IU/L (46-116); ANION GAP 13 (8-16); ASPARTATE AMINO TRANSFERASE 48 U/L (10-37); BILIRUBIN,TOTAL 0.5 MG/DL (0.1-1.0); BLOOD UREA NITROGEN 46 MG/DL (7-18); BUN/CREATININE RATIO 26.1 (5.4-32.0); CALCIUM 8.7 MG/DL (8.5-10.1); CHLORIDE 107 MMOL/L (99-107); CREATININE 1.76 MG/DL (0.60-1.10); GLUCOSE 158 MG/DL (70-104); POTASSIUM 3.6 MMOL/L (3.5-5.1); SODIUM 144 MMOL/L (135-145); eGFR 38 ML/MIN
--- NOTE | 2021-12-27 07:06 | NUR ---
LAB CALLED WITH CRITICAL TROPONIN LEVEL OF 2456. DR. HAYDEN PAGED WITH RESULTS. PAGER ID: [phone] MESSAGE: Good Morning. ER Bed #15 [place]-Troponin 2456. Thanks, DELILAH Butler Ext [phone]
[2021-12-27 07:13] LABS: BURR CELLS 1+; LARGE PLATELETS FEW; PLATELET ESTIMATE NORMAL
[2021-12-27] MEDS: K and/or MAG REPLACEMENT MC SCH ×2 (08:00→20:00)
[2021-12-27] MEDS: atorvastatin 20mg tablet PO SCH (08:51)
[2021-12-27] MEDS: carVEDilol 12.5mg tablet PO SCH ×2 (08:51→20:00)
[2021-12-27] MEDS: clopidogrel 75mg tablet PO SCH (08:51)
[2021-12-27] MEDS: sacubitril/valsartan 24mg-26mg tablet PO SCH ×2 (08:51→20:00)
[2021-12-27] MEDS: fenofibrate 145mg tablet PO SCH (08:51)
[2021-12-27] MEDS: pantoprazole 40mg Tablet.DR PO SCH (08:51)
--- NOTE | 2021-12-27 09:10 | NUR ---
Patient in room ED 15. I have received report from DELILAH FLYNN, and had the opportunity to ask questions and assume patient care.
[2021-12-27 09:43] VITALS: BP 119/63
--- NOTE | 2021-12-27 10:11 | NUR ---
PAGE SENT PAGER ID: [phone] MESSAGE: 312, NGOZI LOOMIS, PT'S TROPS - [phone], [phone]. THANK YOU, ELA Caballero [phone]
[2021-12-27 11:00] VITALS: BP 121/56
[2021-12-27] MEDS: normal saline 1000ml 1,000 ML IV SCH (11:35)
[2021-12-27 14:45] VITALS: BP 97/63
[2021-12-27 18:00] VITALS: BP 111/54
--- NOTE | 2021-12-27 18:38 | NUR ---
Problems reprioritized. Patient report given, questions answered & plan of care reviewed with DELILAH SINGER.
[2021-12-27] MEDS: traZODone 50mg tablet PO SCH (20:53)
[2021-12-27] MEDS: insulin glargine (Lantus) pen - multi-dose SQ SCH (21:02)
[2021-12-27 22:00] VITALS: BP 94/39
[2021-12-27] MEDS: heparin 25,000 UNIT/250ml bag 250 ML IV SCH (23:38)
[2021-12-28] VITALS (13 sets, daily range): BP systolic 102–159; BP diastolic 49–110
[2021-12-28] MEDS: normal saline 1000ml 1,000 ML IV SCH (02:58)
[2021-12-28 04:26] LABS: BASOPHILS % (AUTO) 0.4 % (0-1); EOSINOPHILS # (AUTO) 0.1 X10'3 (0-0.9); EOSINOPHILS % (AUTO) 2.1 % (0-6); HEMATOCRIT 37.5 % (42.0-52.0); HEMOGLOBIN 12.5 g/dl (14.0-17.9); LYMPHOCYTES # (AUTO) 1.1 X10'3 (1.1-4.8); LYMPHOCYTES % (AUTO) 20.4 % (21-51); MEAN CORPUSCULAR HEMOGLOBIN 31.1 PG (27.0-31.0); MEAN CORPUSCULAR HGB CONC 33.5 g/dL (33.0-36.5); MEAN CORPUSCULAR VOLUME 92.8 FL (78-98); MEAN PLATELET VOLUME 9.7 FL (7.4-10.4); MONOCYTES # (AUTO) 0.7 X10'3 (0-0.9); MONOCYTES % (AUTO) 13.9 % (2-12); NEUTROPHILS # (AUTO) 3.3 X10'3 (1.8-7.7); NEUTROPHILS % (AUTO) 63.2 % (42-75); PLATELET COUNT 160 X10'3 (140-440); RED BLOOD COUNT 4.04 X10'6 (4.70-6.10); RED CELL DISTRIBUTION WIDTH 14.5 % (11.5-14.5); WHITE BLOOD COUNT 5.2 X10'3 (4.5-11.0)
[2021-12-28 04:50] LABS: ALANINE AMINOTRANSFERASE 38 U/L (12-78); ALBUMIN 3.2 G/DL (3.4-5.0); ALBUMIN/GLOBULIN RATIO 1.1 (1.1-1.5); ALKALINE PHOSPHATASE 41 IU/L (46-116); ANION GAP 12 (8-16); ASPARTATE AMINO TRANSFERASE 47 U/L (10-37); BILIRUBIN,TOTAL 0.7 MG/DL (0.1-1.0); BLOOD UREA NITROGEN 31 MG/DL (7-18); BUN/CREATININE RATIO 18.5 (5.4-32.0); CALCIUM 8.9 MG/DL (8.5-10.1); CHLORIDE 107 MMOL/L (99-107); CREATININE 1.68 MG/DL (0.60-1.10); GLUCOSE 158 MG/DL (70-104); SODIUM 141 MMOL/L (135-145); TOTAL CARBON DIOXIDE 22.3 MMOL/L (24-32); TOTAL PROTEIN 6.1 G/DL (6.4-8.2); eGFR 40 ML/MIN
--- NOTE | 2021-12-28 06:10 | NUR ---
received report from mary ann ma
--- NOTE | 2021-12-28 06:18 | NUR ---
Problems reprioritized. Patient report given, questions answered & plan of care reviewed with DELILAH RAMON AND DELILAH TRACY.
[2021-12-28] MEDS: clopidogrel 75mg tablet PO SCH (07:44)
[2021-12-28] MEDS: fenofibrate 145mg tablet PO SCH (07:44)
--- NOTE | 2021-12-28 07:44 | NUR ---
I spoke to Dr. Acosta and took new orders for bicarb gtt with 3 amps in 1/2 NS @100/ml per hour, also mucomist 600mg po bid. patient also to remain npo per
[2021-12-28] MEDS: atorvastatin 20mg tablet PO SCH (07:49)
[2021-12-28] MEDS: sacubitril/valsartan 24mg-26mg tablet PO SCH ×2 (07:59→19:21)
[2021-12-28] MEDS: carVEDilol 12.5mg tablet PO SCH ×2 (07:59→19:21)
[2021-12-28] MEDS: pantoprazole 40mg Tablet.DR PO SCH (08:00)
[2021-12-28] MEDS: K and/or MAG REPLACEMENT MC SCH ×2 (08:00→20:00)
--- NOTE | 2021-12-28 08:55 | NUR ---
This RN at bedside with Dr. Cruz to consent pt for heart cath. Order received for Serax 1 dose due now.
[2021-12-28] MEDS ORDERED: OXAZEpam 15mg capsule PO ONE (09:00)
[2021-12-28] MEDS: sodium bicarbonate (8.4%) inj. 150 MEQ in sodium chloride 0.45% 1,000 ML IV SCH ×2 (09:09→20:45)
[2021-12-28] MEDS: acetylcysteine 200 MG/ml 4ml vial PO SCH ×2 (09:29→19:21)
[2021-12-28] MEDS ORDERED: heparin 1,000unit/ml 10ml vial 10 ML ONE (10:22)
[2021-12-28] MEDS ORDERED: LIDOcaine 1% (10mg/ml)w/preservative inj. 20ml MDV ONE (10:22)
[2021-12-28] MEDS ORDERED: midazolam 1 mg/ML 2ml injection ONE (10:22)
[2021-12-28] MEDS ORDERED: fentaNYL/PF 50MCG/1 ML 2ML syringe ONE (10:22)
[2021-12-28] MEDS ORDERED: verapamil 2.5 mg/ml inj IV ONE (10:22)
[2021-12-28] MEDS ORDERED: iohexol 350 MG/ML 50ML vial IV ONE (10:23)
[2021-12-28] MEDS ORDERED: iohexol 350MG/ML 100ml bottle IV ONE ×2 (10:23→11:54)
[2021-12-28] MEDS ORDERED: nitroGLYCERIN-Tridil 50MG/D5W 250 ML IV ONE (10:23)
[2021-12-28 11:04] LABS: CHOL/HDL RATIO 4.1 (0.00-4.99); CHOLESTEROL 110 MG/DL (0-200); HDL CHOLESTEROL 27 MG/DL (35-60); LDL CHOLESTEROL 69 MG/DL (50-100); TRIGLYCERIDES 113 MG/DL (20-135)
--- NOTE | 2021-12-28 11:13 | NUR ---
pt wheeled down to laboratory phlebotomist at 1049, the cardiac ptt is low but unable to treat at this time due to patient down at laboratory phlebotomist
--- NOTE | 2021-12-28 11:47 | NUR ---
DM consult: Noted pt w/ hx of DM, A1c 7.9 on 12/16/21. Written DM ed w/ RD contact info placed in pt chart Addendum: 12/28/21 at [address] Amended: Links added.
--- NOTE | 2021-12-28 12:09 | NUR ---
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
[2021-12-28] MEDS ORDERED: ticagrelor 90mg tablet ONE (12:33)
--- NOTE | 2021-12-28 13:24 | NUR ---
RECEIVED REPORT AT BEDSIDE FROM DELILAH IBRAHIM FROM REPAIR DEPARTMENT SUPERVISOR PATRICE REPORTED THAT REPAIR DEPARTMENT SUPERVISOR ADJUSTED HEP GTT PER PROTOCOL AND TO D/C HEP DGTT AT 1340
[2021-12-28] MEDS ORDERED: aspirin 81mg tab.chew PO ONE (13:32)
--- NOTE | 2021-12-28 17:52 | NUR ---
per pt and fam request, i sent a page to hospitalist letting her know that pt is feeling sob and would like to continue his lasix and to have iv lasix for his current sob
--- NOTE | 2021-12-28 18:24 | NUR ---
gave report to mary ann ma
[2021-12-28] MEDS: furosemide 20MG tablet PO SCH (19:15)
[2021-12-28] MEDS: insulin Lispro (HumaLOG) vial - multi-dose SQ SCH (19:15)
[2021-12-28] MEDS: ticagrelor 90mg tablet PO SCH (19:21)
[2021-12-28] MEDS: traZODone 50mg tablet PO SCH (19:21)
[2021-12-28] MEDS: insulin glargine (Lantus) pen - multi-dose SQ SCH (20:51)
[2021-12-29 02:00] VITALS: BP 116/50
[2021-12-29 06:00] VITALS: BP 113/81
--- NOTE | 2021-12-29 06:13 | NUR ---
Problems reprioritized. Patient report given, questions answered & plan of care reviewed with mary ann Oreilly.
[2021-12-29 07:32] LABS: BASOPHILS % (AUTO) 0.3 % (0-1); EOSINOPHILS % (AUTO) 0.3 % (0-6); HEMATOCRIT 35.7 % (42.0-52.0); LYMPHOCYTES # (AUTO) 1.1 X10'3 (1.1-4.8); MEAN CORPUSCULAR HEMOGLOBIN 31.5 PG (27.0-31.0); MEAN CORPUSCULAR HGB CONC 33.7 g/dL (33.0-36.5); MEAN CORPUSCULAR VOLUME 93.6 FL (78-98); MONOCYTES % (AUTO) 14.1 % (2-12); NEUTROPHILS # (AUTO) 4.9 X10'3 (1.8-7.7); NEUTROPHILS % (AUTO) 70.3 % (42-75); PLATELET COUNT 166 X10'3 (140-440); RED BLOOD COUNT 3.81 X10'6 (4.70-6.10); RED CELL DISTRIBUTION WIDTH 14.7 % (11.5-14.5)
--- NOTE | 2021-12-29 07:35 | NUR ---
Patient in room MED 312. I have received report from SENA MAZARIEGOS, and had the opportunity to ask questions and assume patient care.
[2021-12-29] MEDS: K and/or MAG REPLACEMENT MC SCH (08:00)
[2021-12-29 08:07] LABS: GLUCOSE 157 MG/DL (70-104)
[2021-12-29 08:08] LABS: ALANINE AMINOTRANSFERASE 32 U/L (12-78); ALBUMIN 3.1 G/DL (3.4-5.0); ALBUMIN/GLOBULIN RATIO 0.9 (1.1-1.5); ALKALINE PHOSPHATASE 41 IU/L (46-116); ANION GAP 12 (8-16); ASPARTATE AMINO TRANSFERASE 36 U/L (10-37); BILIRUBIN,TOTAL 1.4 MG/DL (0.1-1.0); BLOOD UREA NITROGEN 26 MG/DL (7-18); BUN/CREATININE RATIO 15.9 (5.4-32.0); CALCIUM 8.9 MG/DL (8.5-10.1); CHLORIDE 110 MMOL/L (99-107); CREATININE 1.64 MG/DL (0.60-1.10); SODIUM 146 MMOL/L (135-145); TOTAL CARBON DIOXIDE 23.9 MMOL/L (24-32); TOTAL PROTEIN 6.4 G/DL (6.4-8.2); eGFR 41 ML/MIN
[2021-12-29] MEDS: acetylcysteine 200 MG/ml 4ml vial PO SCH (08:39)
[2021-12-29] MEDS: fenofibrate 145mg tablet PO SCH (08:41)
[2021-12-29] MEDS: sacubitril/valsartan 24mg-26mg tablet PO SCH (08:42)
[2021-12-29] MEDS: carVEDilol 12.5mg tablet PO SCH (08:42)
[2021-12-29] MEDS: ticagrelor 90mg tablet PO SCH (08:42)
[2021-12-29] MEDS: furosemide 20MG tablet PO SCH ×2 (08:42→12:59)
[2021-12-29] MEDS: pantoprazole 40mg Tablet.DR PO SCH (08:42)
[2021-12-29] MEDS: sodium bicarbonate (8.4%) inj. 150 MEQ in sodium chloride 0.45% 1,000 ML IV SCH (08:46)
[2021-12-29] MEDS: insulin Lispro (HumaLOG) vial - multi-dose SQ SCH ×2 (08:49→13:02)
[2021-12-29] MEDS: atorvastatin 20mg tablet PO SCH (10:53)
[2021-12-29 11:00] VITALS: BP 121/70
[2021-12-29] MEDS ORDERED: NITR0.4T51 SL (12:08)
--- NOTE | 2021-12-29 14:09 | NUR ---
312, NGOZI LOOMIS, WAS HE TO DISCHARGE TODAY WITH BRILLINTA? THANK YOU, ELA [phone]
--- NOTE | 2021-12-29 14:30 | NUR ---
PT STABLE FOR DISCHARGE PER MD. DISCHARGE INSTRUCTIONS REVIEWED AND APPROPRIATE PAPERWORK SIGNED. PIV REMOVED WITH TIP INTACT. TELE MONITORING REMOVED. PT WHEELED TO PRIVATE VEHICLE BY HOSPITAL STAFF. PT DISCHARGED TO HOME.
[2021-12-29] MEDS ORDERED: TICA90TA PO (15:02)
== END 2021-12-29 14:20 | disposition home or self-care (01) | DRG 246 ==
LOC: ER 19:18 → ED HOLD 22:21 → MED 3N 12-27 09:15
PROVIDERS: ADMIT Internal Medicine; ATTEND Internal Medicine
PROC: 027034Z Dilation of Coronary Artery, One Artery with Drug-eluting Intraluminal Device, Percutaneous Approach (ICD-10-PCS; principal; 2021-12-28)
PROC: 4A023N7 Measurement of Cardiac Sampling and Pressure, Left Heart, Percutaneous Approach (ICD-10-PCS; 2021-12-28)
PROC: B2111ZZ Fluoroscopy of Multiple Coronary Arteries using Low Osmolar Contrast (ICD-10-PCS; 2021-12-28)
PROC: B2131ZZ Fluoroscopy of Multiple Coronary Artery Bypass Grafts using Low Osmolar Contrast (ICD-10-PCS; 2021-12-28)
PROC: B2151ZZ Fluoroscopy of Left Heart using Low Osmolar Contrast (ICD-10-PCS; 2021-12-28)
DX: T82.855A Stenosis of coronary artery stent, initial encounter (principal); I21.4 Non-ST elevation (NSTEMI) myocardial infarction; I50.42 Chronic combined systolic (congestive) and diastolic (congestive) heart failure; I48.21 Permanent atrial fibrillation; I13.0 Hypertensive heart and chronic kidney disease with heart failure and stage 1 through stage 4 chronic kidney disease, or unspecified chronic kidney disease; I69.354 Hemiplegia and hemiparesis following cerebral infarction affecting left non-dominant side; N17.9 Acute kidney failure, unspecified; I25.110 Atherosclerotic heart disease of native coronary artery with unstable angina pectoris; T82.858A Stenosis of other vascular prosthetic devices, implants and grafts, initial encounter; E66.9 Obesity, unspecified; N18.9 Chronic kidney disease, unspecified; E11.22 Type 2 diabetes mellitus with diabetic chronic kidney disease; E78.5 Hyperlipidemia, unspecified; K21.9 Gastro-esophageal reflux disease without esophagitis; J44.9 Chronic obstructive pulmonary disease, unspecified; Z20.822 Contact with and (suspected) exposure to COVID-19; Y83.1 Surgical operation with implant of artificial internal device as the cause of abnormal reaction of the patient, or of later complication, without mention of misadventure at the time of the procedure; Y83.2 Surgical operation with anastomosis, bypass or graft as the cause of abnormal reaction of the patient, or of later complication, without mention of misadventure at the time of the procedure; I25.2 Old myocardial infarction; Z82.49 Family history of ischemic heart disease and other diseases of the circulatory system; Z82.5 Family history of asthma and other chronic lower respiratory diseases; Z79.899 Other long term (current) drug therapy; Z79.01 Long term (current) use of anticoagulants; Z68.32 Body mass index [BMI] 32.0-32.9, adult; Z79.82 Long term (current) use of aspirin; Z79.02 Long term (current) use of antithrombotics/antiplatelets; Z90.49 Acquired absence of other specified parts of digestive tract; Z95.1 Presence of aortocoronary bypass graft; Z82.3 Family history of stroke; Y92.89 Other specified places as the place of occurrence of the external cause
CPT/HCPCS: 93308; 93459; 99285; C9600; 36415; 71045; 76937; 80053; 80061; 82948; 83036; 83880; 84484; 85008; 85025; 85347; 85610; 85730; 87081; 87635; 93005; 97116; 97161; 97530; 99152; 99153; A4620; A5120; A6258; C1725; C1751; C1769; C1874; C1894; G0378; J1644; J1815; J2250; J3010; J3490; J7030; Q9967

== ENCOUNTER 2022-01-14 08:08 | Outpatient (CLI) | payer BC, MEDICARE ==
[~2022-01-14 08:08] MED LIST changes: +ASPI81TA30 PO; +ATOR-2 PO; -ATOR40TA PO; -CARV12.5 PO; +CARV12.545 PO; -CHOL20004 PO; -CLOP75TA15 PO; +CLOP75TA34 PO; -COLC0.6T66 PO; +FENO145T25 PO; -FENO145T38 PO; -FOLI-43 PO; +FOLI1TAB27 PO; -FURO-150 PO; +FURO20TA4 PO; -HUM7525 SQ; -ISOS60TA71 PO; +MULT-1074 PO; -MULT-620 PO; +NITR0.4T51 SL; +NOVLG SQ; +TICA90TA PO; -[UNRECOGNIZED DRUG - CODE] PO
[2022-01-14 09:16] LABS: ALBUMIN 3.5 G/DL (3.4-5.0); BLOOD UREA NITROGEN 52 MG/DL (7-18); BUN/CREATININE RATIO 25.7 (5.4-32.0); CALCIUM 9.1 MG/DL (8.5-10.1); CREATININE 2.02 MG/DL (0.60-1.10); GLUCOSE 166 MG/DL (70-104); PHOSPHORUS 3.8 MG/DL (2.3-4.5); POTASSIUM 4.6 MMOL/L (3.5-5.1); SODIUM 139 MMOL/L (135-145); eGFR 32 ML/MIN
[2022-01-14 09:18] LABS: ANION GAP 10 (8-16); CHLORIDE 104 MMOL/L (99-107); TOTAL CARBON DIOXIDE 24.8 MMOL/L (24-32)
== END 2022-01-14 23:59 | disposition home or self-care (01) ==
LOC: LAB 08:08
PROVIDERS: ATTEND Internal Medicine Critical Care Medicine
DX: N18.31 Chronic kidney disease, stage 3a (principal); R94.4 Abnormal results of kidney function studies
CPT/HCPCS: 36415; 80069

== ENCOUNTER 2022-02-01 09:18 | Outpatient (CLI) | payer BC, MEDICARE | END 2022-02-01 23:59 | disposition home or self-care (01) | LOC: VAS 09:18 | PROVIDERS: ATTEND Internal Medicine | DX: I70.201 Unspecified atherosclerosis of native arteries of extremities, right leg (principal) | CPT/HCPCS: 93925 ==

== ENCOUNTER 2022-06-15 08:47 | Outpatient (CLI) | payer BC, MEDICARE ==
[2022-06-15 09:40] LABS: BASOPHILS % (AUTO) 0.6 % (0-1); EOSINOPHILS # (AUTO) 0.2 X10'3 (0-0.9); EOSINOPHILS % (AUTO) 2.7 % (0-6); HEMATOCRIT 37.8 % (42.0-52.0); HEMOGLOBIN 12.6 g/dl (14.0-17.9); LYMPHOCYTES # (AUTO) 1.4 X10'3 (1.1-4.8); LYMPHOCYTES % (AUTO) 25.4 % (21-51); MEAN CORPUSCULAR HEMOGLOBIN 30.7 PG (27.0-31.0); MEAN CORPUSCULAR HGB CONC 33.4 g/dL (33.0-36.5); MEAN CORPUSCULAR VOLUME 91.9 FL (78-98); MEAN PLATELET VOLUME 9.3 FL (7.4-10.4); MONOCYTES # (AUTO) 0.8 X10'3 (0-0.9); MONOCYTES % (AUTO) 13.4 % (2-12); NEUTROPHILS # (AUTO) 3.3 X10'3 (1.8-7.7); NEUTROPHILS % (AUTO) 57.9 % (42-75); PLATELET COUNT 222 X10'3 (140-440); RED BLOOD COUNT 4.11 X10'6 (4.70-6.10); RED CELL DISTRIBUTION WIDTH 13.5 % (11.5-14.5); WHITE BLOOD COUNT 5.7 X10'3 (4.5-11.0)
[2022-06-15 09:52] LABS: CLARITY,URINE CLEAR (Clear); COLOR,URINE YELLOW (Yellow); GLUCOSE, URINE 500 mg/dl (Neg); KETONES,URINE NEGATIVE (Neg); LEUKOCYTE ESTERASE ,URINE NEGATIVE (Neg); NITRITES, URINE NEGATIVE (Neg); OCCULT BLOOD,URINE NEGATIVE (Neg); PROTEIN,URINE 30 mg/dl (Neg); UROBILINOGEN,URINE 0.2 E.U/dL (0.2-1.0)
[2022-06-15 10:00] LABS: UA COLLECTION TYPE CLN CATCH MIDSTREAM
[2022-06-15 10:02] LABS: RBC,URINE NONE SEEN /HPF (0-2); WBC,URINE 0-4 /HPF (0-4)
[2022-06-15 10:03] LABS: BACTERIA,URINE NONE SEEN /HPF (Neg); SQUAMOUS EPITHELIAL CELL,UR NONE SEEN /LPF (FEW)
[2022-06-15 10:22] LABS: % IRON SATURATION 15 % (11-46); IRON 61 UG/DL (53-167); TOTAL IRON BINDING CAPACITY 410 UG/DL (259-388)
[2022-06-15 10:29] LABS: ALBUMIN 3.6 G/DL (3.4-5.0); ANION GAP 7 (8-16); BLOOD UREA NITROGEN 32 MG/DL (7-18); BUN/CREATININE RATIO 16.7 (5.4-32.0); CALCIUM 8.9 MG/DL (8.5-10.1); CHLORIDE 102 MMOL/L (99-107); CREATININE 1.92 MG/DL (0.60-1.10); FERRITIN 42 NG/ML (26-388); GLUCOSE 239 MG/DL (70-104); MAGNESIUM 1.8 MG/DL (1.5-2.4); PHOSPHORUS 3.2 MG/DL (2.3-4.5); POTASSIUM 4.3 MMOL/L (3.5-5.1); SODIUM 137 MMOL/L (135-145); TOTAL CARBON DIOXIDE 28.4 MMOL/L (24-32); eGFR 34 ML/MIN
== END 2022-06-15 23:59 | disposition home or self-care (01) ==
LOC: LAB 08:47
PROVIDERS: ATTEND Internal Medicine Critical Care Medicine
DX: E11.22 Type 2 diabetes mellitus with diabetic chronic kidney disease (principal); N18.31 Chronic kidney disease, stage 3a; D63.1 Anemia in chronic kidney disease; R94.4 Abnormal results of kidney function studies; D50.8 Other iron deficiency anemias; E55.9 Vitamin D deficiency, unspecified; R80.9 Proteinuria, unspecified; R82.79 Other abnormal findings on microbiological examination of urine; N39.0 Urinary tract infection, site not specified; E11.29 Type 2 diabetes mellitus with other diabetic kidney complication
CPT/HCPCS: 36415; 80069; 81001; 82043; 82306; 82570; 82728; 83540; 83550; 83735; 83970; 85025; 87088

== ENCOUNTER 2022-06-22 07:32 | Outpatient (CLI) | payer BC, MEDICARE ==
[~2022-06-22] VITALS: Ht 213.4 cm; Wt 102.3 kg
[2022-06-22] VITALS (7 sets, daily range): BP systolic 115–139; BP diastolic 49–78
[2022-06-22] MEDS ORDERED: regadenoson 0.4mg/5ml syringe IV ONE (08:15)
== END 2022-06-22 23:59 | disposition home or self-care (01) ==
LOC: RAD 07:32
PROVIDERS: ATTEND Internal Medicine Cardiovascular Disease
DX: I25.10 Atherosclerotic heart disease of native coronary artery without angina pectoris (principal); R07.9 Chest pain, unspecified
CPT/HCPCS: 78452; 93017; A9500; J2785

== ENCOUNTER 2022-07-16 08:13 | Outpatient (CLI) | payer BC, MEDICARE ==
[2022-07-16 08:47] LABS: BASOPHILS % (AUTO) 0.8 % (0-1); EOSINOPHILS # (AUTO) 0.2 X10'3 (0-0.9); EOSINOPHILS % (AUTO) 3.2 % (0-6); HEMATOCRIT 42.1 % (42.0-52.0); HEMOGLOBIN 14.1 g/dl (14.0-17.9); LYMPHOCYTES # (AUTO) 1.8 X10'3 (1.1-4.8); LYMPHOCYTES % (AUTO) 30.3 % (21-51); MEAN CORPUSCULAR HEMOGLOBIN 29.9 PG (27.0-31.0); MEAN CORPUSCULAR HGB CONC 33.4 g/dL (33.0-36.5); MEAN CORPUSCULAR VOLUME 89.6 FL (78-98); MEAN PLATELET VOLUME 8.8 FL (7.4-10.4); MONOCYTES # (AUTO) 0.8 X10'3 (0-0.9); MONOCYTES % (AUTO) 13.9 % (2-12); NEUTROPHILS % (AUTO) 51.8 % (42-75); PLATELET COUNT 229 X10'3 (140-440); RED CELL DISTRIBUTION WIDTH 14.7 % (11.5-14.5); WHITE BLOOD COUNT 5.8 X10'3 (4.5-11.0)
[2022-07-16 08:51] LABS: CLARITY,URINE CLEAR (Clear); COLOR,URINE YELLOW (Yellow); GLUCOSE, URINE NEGATIVE (Neg); KETONES,URINE NEGATIVE (Neg); LEUKOCYTE ESTERASE ,URINE NEGATIVE (Neg); NITRITES, URINE NEGATIVE (Neg); OCCULT BLOOD,URINE NEGATIVE (Neg); PROTEIN,URINE NEGATIVE (Neg); UROBILINOGEN,URINE 0.2 E.U/dL (0.2-1.0)
[2022-07-16 08:56] LABS: UA COLLECTION TYPE VOIDED
[2022-07-16 09:05] LABS: HEMOGLOBIN A1C 8.6 % (4.5-6.2)
[2022-07-16 09:09] LABS: ALBUMIN/GLOBULIN RATIO 1.1 (1.1-1.5); ANION GAP 10 (8-16); ASPARTATE AMINO TRANSFERASE 38 U/L (10-37); BILIRUBIN,TOTAL 0.6 MG/DL (0.1-1.0); BLOOD UREA NITROGEN 42 MG/DL (7-18); BUN/CREATININE RATIO 18.9 (5.4-32.0); CALCIUM 10.1 MG/DL (8.5-10.1); CHLORIDE 106 MMOL/L (99-107); CREATININE 2.22 MG/DL (0.60-1.10); GLUCOSE 59 MG/DL (70-104); POTASSIUM 4.5 MMOL/L (3.5-5.1); SODIUM 143 MMOL/L (135-145); TOTAL CARBON DIOXIDE 26.6 MMOL/L (24-32); TOTAL PROTEIN 7.7 G/DL (6.4-8.2); eGFR 29 ML/MIN
[2022-07-16 09:10] LABS: ALANINE AMINOTRANSFERASE 36 U/L (12-78); ALKALINE PHOSPHATASE 59 IU/L (46-116); CHOL/HDL RATIO 5.4 (0.00-4.99); CHOLESTEROL 145 MG/DL (0-200); HDL CHOLESTEROL 27 MG/DL (35-60); LDL CHOLESTEROL 89 MG/DL (50-100); TRIGLYCERIDES 137 MG/DL (20-135)
== END 2022-07-16 23:59 | disposition home or self-care (01) ==
LOC: LAB 08:13
PROVIDERS: ATTEND Internal Medicine
DX: E11.21 Type 2 diabetes mellitus with diabetic nephropathy (principal); E11.8 Type 2 diabetes mellitus with unspecified complications; I10 Essential (primary) hypertension; N42.9 Disorder of prostate, unspecified; E78.5 Hyperlipidemia, unspecified
CPT/HCPCS: 36415; 80053; 80061; 81003; 82043; 83036; 84550; 85025

== ENCOUNTER 2022-08-06 09:38 | Inpatient (IN) | payer BC, MEDICARE ==
[~2022-08-06] VITALS: Ht 182.9 cm; Wt 102.6 kg
[~2022-08-06 09:38] MED LIST changes: +albumin (human) 25% 100 ML IV solution IV ONE; +aminocaproic acid 250 MG/1 ML inj. ONE; +calcium chloride 100 MG/1 ML inj IV ONE; +heparin 1,000 units/ml 10ml inj ONE; +heparin 10,000 units/1 ML INJ ONE; +mannitol 12.5gm/50mL VIAL IV ONE; +methylPREDNISolone sod. succ. 500mg inj ONE; +phenylephrine 10mg/ml inj. -priapism dosing ONE; +sodium bicarbonate (8.4%) 1 mEq/ml syringe ONE
[2022-08-06 11:39] LABS: EOSINOPHILS # (AUTO) 0.1 X10'3 (0-0.9); HEMOGLOBIN 12.9 g/dl (14.0-17.9); LYMPHOCYTES # (AUTO) 1.3 X10'3 (1.1-4.8); MONOCYTES # (AUTO) 1.1 X10'3 (0-0.9)
[2022-08-06 11:41] LABS: BASOPHILS % (AUTO) 0.5 % (0-1); HEMATOCRIT 37.8 % (42.0-52.0); LYMPHOCYTES % (AUTO) 20.9 % (21-51); MEAN CORPUSCULAR HEMOGLOBIN 29.9 PG (27.0-31.0); MEAN CORPUSCULAR VOLUME 87.8 FL (78-98); MEAN PLATELET VOLUME 8.7 FL (7.4-10.4); MONOCYTES % (AUTO) 17.5 % (2-12); NEUTROPHILS # (AUTO) 3.7 X10'3 (1.8-7.7); NEUTROPHILS % (AUTO) 59.1 % (42-75); PLATELET COUNT 233 X10'3 (140-440); WHITE BLOOD COUNT 6.2 X10'3 (4.5-11.0)
[2022-08-06 11:50] LABS: ALANINE AMINOTRANSFERASE 36 U/L (12-78); ALBUMIN 3.9 G/DL (3.4-5.0); ALKALINE PHOSPHATASE 61 IU/L (46-116); ANION GAP 9 (8-16); ASPARTATE AMINO TRANSFERASE 37 U/L (10-37); BILIRUBIN,TOTAL 0.8 MG/DL (0.1-1.0); BLOOD UREA NITROGEN 33 MG/DL (7-18); BUN/CREATININE RATIO 15.3 (5.4-32.0); CALCIUM 9.6 MG/DL (8.5-10.1); CHLORIDE 104 MMOL/L (99-107); CREATININE 2.16 MG/DL (0.60-1.10); GLUCOSE 248 MG/DL (70-104); POTASSIUM 4.7 MMOL/L (3.5-5.1); SODIUM 139 MMOL/L (135-145); TOTAL PROTEIN 7.7 G/DL (6.4-8.2); eGFR 30 ML/MIN
[2022-08-06] MEDS ORDERED: morphine 2 MG/ML inj. syringe IV PRN (16:10)
[2022-08-06] MEDS ORDERED: potassium Cl 20 mEq SR tablet PO PRN ×2 (16:10)
[2022-08-06] MEDS ORDERED: acetaminophen 325mg tablet PO PRN (16:10)
[2022-08-06] MEDS ORDERED: ondansetron/PF 4mg/2ml inj IV PRN (16:10)
[2022-08-06] MEDS ORDERED: magnesium Cl slow-release 64mg tablet PO PRN (16:10)
[2022-08-06] MEDS ORDERED: potassium Cl 40MEQ/1/2NS 520ml 520 ML IV PRN (16:10)
[2022-08-06] MEDS ORDERED: magnesium 4gm in 100ml NS 100 ML IV PRN (16:10)
[2022-08-06] MEDS ORDERED: mag hydrox/Alum hydrox/simeth 30ml oral suspension PO PRN (16:10)
[2022-08-06] MEDS ORDERED: magnesium hydroxide 30ml (MOM) UD suspension PO PRN (16:10)
[2022-08-06] MEDS: K and/or MAG REPLACEMENT MC SCH (16:26)
[2022-08-06] MEDS: normal saline 1000ml 1,000 ML IV SCH (16:26)
[2022-08-06] MEDS ORDERED: BUME1TAB8 PO (16:28)
[2022-08-06] MEDS ORDERED: KRIL1CAP21 PO (16:28)
[2022-08-06] MEDS ORDERED: RANO500T6 PO (16:28)
[2022-08-06] MEDS ORDERED: COLC0.6C PO (16:28)
[2022-08-06] MEDS ORDERED: POTA-188 PO (16:28)
[2022-08-06] MEDS ORDERED: UBID200C37 PO (16:30)
[2022-08-06] MEDS ORDERED: ASPI-611 PO (16:33)
[2022-08-06] MEDS ORDERED: TICA90TA PO (16:33)
[2022-08-06] MEDS ORDERED: nitroGLYCERIN 0.4mg/hour patch TD ONE (19:00)
[2022-08-06] MEDS: morphine 2 MG/ML inj. syringe IV PRN ×2 (19:25→23:23)
--- NOTE | 2022-08-06 20:09 | NUR ---
Patient complaint of chest pain 9/10 described as sharp. EKG ordered and Dr. Dodge notified. New orders for Nitro patch 0.4 mcg/hr.
--- NOTE | 2022-08-06 20:14 | NUR ---
At 1930 pt pain did not decrease from administration of Nitro patch. Pt given 2 mg morphine for pain. Pain at 02/09
[2022-08-06 21:30] VITALS: BP 156/87
[2022-08-06] MEDS: ticagrelor 90mg tablet PO SCH (22:41)
[2022-08-06] MEDS: docusate sod 100mg capsule PO SCH (22:41)
[2022-08-06] MEDS: carVEDilol 12.5mg tablet PO SCH (22:42)
[2022-08-06] MEDS: traZODone 50mg tablet PO SCH (22:42)
[2022-08-06] MEDS: sacubitril/valsartan 24mg-26mg tablet PO SCH (22:43)
[2022-08-06] MEDS: Melatonin 3mg tablet PO SCH (22:47)
[2022-08-06 22:50] VITALS: BP 134/82
[2022-08-07] VITALS (13 sets, daily range): BP systolic 82–149; BP diastolic 45–78
[2022-08-07] MEDS: normal saline 1000ml 1,000 ML IV SCH ×3 (02:10→22:10)
--- NOTE | 2022-08-07 06:45 | NUR ---
Problems reprioritized. Patient report given, questions answered & plan of care reviewed with iLzeth MAZARIEGOS/Shu Macias RN.
[2022-08-07 06:54] LABS: BASOPHILS % (AUTO) 0.4 % (0-1); EOSINOPHILS # (AUTO) 0.1 X10'3 (0-0.9); EOSINOPHILS % (AUTO) 1.9 % (0-6); HEMATOCRIT 31.1 % (42.0-52.0); HEMOGLOBIN 10.7 g/dl (14.0-17.9); LYMPHOCYTES # (AUTO) 0.9 X10'3 (1.1-4.8); LYMPHOCYTES % (AUTO) 16.4 % (21-51); MEAN CORPUSCULAR HGB CONC 34.3 g/dL (33.0-36.5); MEAN CORPUSCULAR VOLUME 87.4 FL (78-98); MEAN PLATELET VOLUME 9.2 FL (7.4-10.4); MONOCYTES # (AUTO) 1.1 X10'3 (0-0.9); MONOCYTES % (AUTO) 19.9 % (2-12); NEUTROPHILS # (AUTO) 3.4 X10'3 (1.8-7.7); NEUTROPHILS % (AUTO) 61.4 % (42-75); PLATELET COUNT 190 X10'3 (140-440); RED BLOOD COUNT 3.56 X10'6 (4.70-6.10); RED CELL DISTRIBUTION WIDTH 14.7 % (11.5-14.5); WHITE BLOOD COUNT 5.6 X10'3 (4.5-11.0)
[2022-08-07 07:06] LABS: ALBUMIN 2.9 G/DL (3.4-5.0); ANION GAP 10 (8-16); BLOOD UREA NITROGEN 29 MG/DL (7-18); BUN/CREATININE RATIO 13.6 (5.4-32.0); CALCIUM 8.8 MG/DL (8.5-10.1); CHLORIDE 104 MMOL/L (99-107); CREATININE 2.13 MG/DL (0.60-1.10); GLUCOSE 169 MG/DL (70-104); MAGNESIUM 1.5 MG/DL (1.5-2.4); POTASSIUM 4.4 MMOL/L (3.5-5.1); SODIUM 138 MMOL/L (135-145); TOTAL CARBON DIOXIDE 24.3 MMOL/L (24-32); eGFR 30 ML/MIN
[2022-08-07] MEDS: folic acid 1mg tablet PO SCH (07:36)
[2022-08-07] MEDS: potassium chloride 10mEq ER tablet PO SCH (07:36)
[2022-08-07] MEDS: fenofibrate 145mg tablet PO SCH (07:37)
[2022-08-07] MEDS: carVEDilol 12.5mg tablet PO SCH ×2 (07:37→20:00)
[2022-08-07] MEDS: ticagrelor 90mg tablet PO SCH (07:37)
[2022-08-07] MEDS: multivitamins, therapeutics tablet PO SCH (07:37)
[2022-08-07] MEDS: pantoprazole 40mg Tablet.DR PO SCH (07:37)
[2022-08-07] MEDS: docusate sod 100mg capsule PO SCH ×2 (07:38→20:40)
[2022-08-07] MEDS: atorvastatin 20mg tablet PO SCH (07:39)
[2022-08-07] MEDS: colchicine 0.6mg tablet PO SCH ×2 (07:39→07:41)
[2022-08-07] MEDS: sacubitril/valsartan 24mg-26mg tablet PO SCH ×2 (07:40→20:40)
[2022-08-07] MEDS: bumetanide 1mg tablet PO SCH (07:40)
[2022-08-07] MEDS: OMEGA-3/DHA/EPA/FISH OIL 1 EACH CAPSULE.DR PO SCH (08:00)
[2022-08-07] MEDS: K and/or MAG REPLACEMENT MC SCH ×2 (08:00→20:00)
[2022-08-07] MEDS ORDERED: aspirin 81mg, enteric-coated 1 TAB TABLET.DR PO SCH (08:00)
[2022-08-07] MEDS ORDERED: UBIDECARENONE PO SCH (08:00)
[2022-08-07] MEDS ORDERED: acetylcysteine sol. 200 MG/ML 4ml vial PO SCH (09:00)
[2022-08-07] MEDS ORDERED: sodium bicarbonate (8.4%) inj. 150 MEQ in sodium chloride 0.45% 1,000 ML IV ONE (09:30)
[2022-08-07] MEDS ORDERED: nitroGLYCERIN-Tridil 50MG/D5W 250 ML IV ONE (10:53)
[2022-08-07] MEDS ORDERED: fentaNYL/PF 50MCG/1 ML 2ML syringe ONE (10:53)
[2022-08-07] MEDS ORDERED: LIDOcaine 1% (10mg/ml) 2ml vial ONE (10:53)
[2022-08-07] MEDS ORDERED: iohexol 350MG/ML 100ml bottle IV ONE (10:53)
[2022-08-07] MEDS ORDERED: heparin 1,000unit/ml 10ml vial 10 ML ONE (10:53)
[2022-08-07] MEDS ORDERED: midazolam 1 mg/ML 2ml injection ONE (10:53)
[2022-08-07] MEDS ORDERED: verapamil 2.5 mg/ml inj IV ONE (10:53)
[2022-08-07] MEDS ORDERED: HEPARIN SOD,PORK IN 0.45% NACL 250 ML IV ONE (12:23)
[2022-08-07] MEDS ORDERED: tirofiban 5mg in NS 100mL 100 ML IV ONE (13:04)
[2022-08-07] MEDS: sodium bicarbonate (8.4%) inj. 50 MEQ in dextrose 5%-water 1,000 ML IV SCH (14:00)
[2022-08-07] MEDS ORDERED: acetylcysteine 200 MG/ml 4ml vial PO ONE (14:15)
[2022-08-07] MEDS ORDERED: aspirin 81mg, enteric-coated 1 TAB TABLET.DR PO ONE ×2 (14:20→14:55)
[2022-08-07] MEDS ORDERED: tirofiban 12.5mg in NS 250mL IV SCH (14:20)
[2022-08-07] MEDS ORDERED: furosemide 20 MG/2 ML vial IV ONE (15:00)
[2022-08-07] MEDS ORDERED: heparin 10,000 units/1 ML INJ IV ONE (15:10)
[2022-08-07] MEDS ORDERED: heparin 25,000 UNIT/250ml bag 250 ML IV PRN (15:10)
[2022-08-07] MEDS ORDERED: heparin 10,000 units/1 ML INJ IV PRN (15:10)
--- NOTE | 2022-08-07 15:26 | NUR ---
pt back from circus laborer in stable condition. AOX4, vss, on 2L nc, pulses palp, BUE cool to touch, pt denies pain, numbness, and tingling. radial band air removed per protocol. next PTT to be ordered for 1800 per circus laborer, A. Aggrastat, heparin, and sodium bicarb infusing per orders. Call light within reach, and vs taken per protocol.
[2022-08-07 17:53] LABS: BASOPHILS % (AUTO) 0.5 % (0-1); EOSINOPHILS # (AUTO) 0.1 X10'3 (0-0.9); HEMATOCRIT 33.1 % (42.0-52.0); HEMOGLOBIN 11.2 g/dl (14.0-17.9); LYMPHOCYTES # (AUTO) 1.1 X10'3 (1.1-4.8); LYMPHOCYTES % (AUTO) 25.5 % (21-51); MEAN CORPUSCULAR HEMOGLOBIN 29.9 PG (27.0-31.0); MEAN CORPUSCULAR HGB CONC 33.8 g/dL (33.0-36.5); MEAN CORPUSCULAR VOLUME 88.5 FL (78-98); MEAN PLATELET VOLUME 8.5 FL (7.4-10.4); MONOCYTES # (AUTO) 0.8 X10'3 (0-0.9); MONOCYTES % (AUTO) 18.1 % (2-12); NEUTROPHILS # (AUTO) 2.4 X10'3 (1.8-7.7); NEUTROPHILS % (AUTO) 53.9 % (42-75); PLATELET COUNT 200 X10'3 (140-440); RED BLOOD COUNT 3.74 X10'6 (4.70-6.10); RED CELL DISTRIBUTION WIDTH 14.8 % (11.5-14.5); WHITE BLOOD COUNT 4.5 X10'3 (4.5-11.0)
[2022-08-07 18:04] LABS: APTT 34 SECONDS (22-32)
--- NOTE | 2022-08-07 18:19 | NUR ---
Patient in room PCU 3010. I have received report from YENNY MAZARIEGOS and had the opportunity to ask questions and assume patient care.
[2022-08-07] MEDS: tirofiban 5mg in NS 100mL 100 ML IV SCH (20:41)
[2022-08-07] MEDS: Melatonin 3mg tablet PO SCH (21:13)
[2022-08-07] MEDS: traZODone 50mg tablet PO SCH (21:13)
[2022-08-08] MEDS: sodium bicarbonate (8.4%) inj. 50 MEQ in dextrose 5%-water 1,000 ML IV SCH ×2 (00:17→12:29)
[2022-08-08 00:43] LABS: APTT 42 SECONDS (22-32)
[2022-08-08 02:00] VITALS: BP 91/61
[2022-08-08 04:00] VITALS: BP 91/61
[2022-08-08] MEDS: tirofiban 5mg in NS 100mL 100 ML IV SCH ×2 (04:33→15:36)
--- NOTE | 2022-08-08 06:32 | NUR ---
Problems reprioritized. Patient report given, questions answered & plan of care reviewed with Ashley MAZARIEOGS .
[2022-08-08] MEDS ORDERED: dextrose 50%-water 50ml dispensing syringe IV PRN ×2 (06:45)
[2022-08-08] MEDS ORDERED: glucagon, human recombinant 1mg kit SUBCUT PRN (06:45)
[2022-08-08] MEDS ORDERED: DEXTROSE 15 GM of carb/4 tabs (each vial/BOTTLE has 4 tablets) PO PRN ×2 (06:45)
[2022-08-08] MEDS ORDERED: MESSAGE TO PHARMACY PO ONE (06:45)
[2022-08-08 07:00] VITALS: BP 105/58
[2022-08-08] MEDS: K and/or MAG REPLACEMENT MC SCH ×2 (08:00→20:00)
[2022-08-08] MEDS: normal saline 1000ml 1,000 ML IV SCH ×2 (08:10→19:23)
[2022-08-08] MEDS: folic acid 1mg tablet PO SCH (08:23)
[2022-08-08] MEDS: colchicine 0.6mg tablet PO SCH (08:23)
[2022-08-08] MEDS: docusate sod 100mg capsule PO SCH ×2 (08:23→20:02)
[2022-08-08] MEDS: furosemide 20 MG/2 ML vial IV SCH (08:23)
[2022-08-08] MEDS: fenofibrate 145mg tablet PO SCH (08:23)
[2022-08-08] MEDS: atorvastatin 20mg tablet PO SCH (08:23)
[2022-08-08] MEDS: carVEDilol 12.5mg tablet PO SCH ×2 (08:23→20:02)
[2022-08-08] MEDS: potassium chloride 10mEq ER tablet PO SCH (08:23)
[2022-08-08] MEDS: aspirin 325mg tablet PO SCH (08:23)
[2022-08-08] MEDS: OMEGA-3/DHA/EPA/FISH OIL 1 EACH CAPSULE.DR PO SCH (08:23)
[2022-08-08] MEDS: multivitamins, therapeutics tablet PO SCH (08:23)
[2022-08-08] MEDS: sacubitril/valsartan 24mg-26mg tablet PO SCH ×2 (08:23→20:03)
[2022-08-08] MEDS: pantoprazole 40mg Tablet.DR PO SCH (08:23)
[2022-08-08] MEDS: acetylcysteine sol. 200 MG/ML 4ml vial PO SCH ×2 (08:24→20:08)
[2022-08-08] MEDS: bumetanide 1mg tablet PO SCH (08:24)
[2022-08-08 09:24] LABS: BASOPHILS % (AUTO) 0.6 % (0-1); EOSINOPHILS # (AUTO) 0.1 X10'3 (0-0.9); EOSINOPHILS % (AUTO) 2.4 % (0-6); HEMOGLOBIN 10.7 g/dl (14.0-17.9); LYMPHOCYTES # (AUTO) 0.9 X10'3 (1.1-4.8); LYMPHOCYTES % (AUTO) 21.9 % (21-51); MEAN CORPUSCULAR HEMOGLOBIN 29.8 PG (27.0-31.0); MEAN CORPUSCULAR HGB CONC 33.5 g/dL (33.0-36.5); MEAN PLATELET VOLUME 10.4 FL (7.4-10.4); MONOCYTES # (AUTO) 0.8 X10'3 (0-0.9); MONOCYTES % (AUTO) 19.9 % (2-12); NEUTROPHILS # (AUTO) 2.3 X10'3 (1.8-7.7); NEUTROPHILS % (AUTO) 55.2 % (42-75); PLATELET COUNT 196 X10'3 (140-440); RED BLOOD COUNT 3.59 X10'6 (4.70-6.10); RED CELL DISTRIBUTION WIDTH 15.1 % (11.5-14.5); WHITE BLOOD COUNT 4.2 X10'3 (4.5-11.0)
[2022-08-08 09:36] LABS: ALBUMIN 2.7 G/DL (3.4-5.0); ANION GAP 8 (8-16); BLOOD UREA NITROGEN 26 MG/DL (7-18); BUN/CREATININE RATIO 13.1 (5.4-32.0); CALCIUM 8.6 MG/DL (8.5-10.1); CHLORIDE 99 MMOL/L (99-107); CHOL/HDL RATIO 3.3 (0.00-4.99); CHOLESTEROL 89 MG/DL (0-200); CREATININE 1.99 MG/DL (0.60-1.10); GLUCOSE 169 MG/DL (70-104); HDL CHOLESTEROL 27 MG/DL (35-60); LDL CHOLESTEROL 55 MG/DL (50-100); MAGNESIUM 1.8 MG/DL (1.5-2.4); POTASSIUM 3.7 MMOL/L (3.5-5.1); SODIUM 134 MMOL/L (135-145); TOTAL CARBON DIOXIDE 27.3 MMOL/L (24-32); TRIGLYCERIDES 104 MG/DL (20-135); eGFR 33 ML/MIN
[2022-08-08 11:00] VITALS: BP 106/42
[2022-08-08] MEDS: insulin Lispro (HumaLOG) vial - multi-dose SQ SCH ×2 (13:07→18:44)
[2022-08-08] MEDS ORDERED: heparin 10,000 units/1 ML INJ IV ONE (13:10)
[2022-08-08] MEDS: heparin 25,000 UNIT/250ml bag 250 ML IV PRN (13:40)
[2022-08-08 14:48] LABS: APTT 52 SECONDS (22-32)
[2022-08-08 15:00] VITALS: BP 104/49
[2022-08-08 18:00] VITALS: BP 105/57
--- NOTE | 2022-08-08 18:12 | NUR ---
Problems reprioritized. Patient report given, questions answered & plan of care reviewed with Lisette MAZARIEGOS.
[2022-08-08] MEDS: Melatonin 3mg tablet PO SCH (20:02)
[2022-08-08] MEDS: traZODone 50mg tablet PO SCH (20:02)
[2022-08-08] MEDS: heparin 10,000 units/1 ML INJ IV PRN (21:56)
[2022-08-08] MEDS: insulin glargine (Lantus) pen - multi-dose SQ SCH (21:57)
[2022-08-09] VITALS (7 sets, daily range): BP systolic 97–130; BP diastolic 41–76
[2022-08-09] MEDS: tirofiban 5mg in NS 100mL 100 ML IV SCH (02:07)
[2022-08-09] MEDS: normal saline 1000ml 1,000 ML IV SCH (04:10)
[2022-08-09 04:21] LABS: BASOPHILS % (AUTO) 0.8 % (0-1); EOSINOPHILS # (AUTO) 0.1 X10'3 (0-0.9); HEMATOCRIT 31.6 % (42.0-52.0); HEMOGLOBIN 10.6 g/dl (14.0-17.9); LYMPHOCYTES # (AUTO) 1.4 X10'3 (1.1-4.8); LYMPHOCYTES % (AUTO) 31.5 % (21-51); MEAN CORPUSCULAR HEMOGLOBIN 29.2 PG (27.0-31.0); MEAN CORPUSCULAR HGB CONC 33.5 g/dL (33.0-36.5); MEAN CORPUSCULAR VOLUME 87.1 FL (78-98); MONOCYTES # (AUTO) 0.9 X10'3 (0-0.9); MONOCYTES % (AUTO) 18.8 % (2-12); NEUTROPHILS # (AUTO) 2.1 X10'3 (1.8-7.7); NEUTROPHILS % (AUTO) 45.9 % (42-75); PLATELET COUNT 194 X10'3 (140-440); RED BLOOD COUNT 3.63 X10'6 (4.70-6.10); RED CELL DISTRIBUTION WIDTH 15.3 % (11.5-14.5); WHITE BLOOD COUNT 4.6 X10'3 (4.5-11.0)
[2022-08-09 04:42] LABS: ALBUMIN 2.6 G/DL (3.4-5.0); ANION GAP 9 (8-16); BLOOD UREA NITROGEN 29 MG/DL (7-18); BUN/CREATININE RATIO 13.4 (5.4-32.0); CALCIUM 8.8 MG/DL (8.5-10.1); CHLORIDE 98 MMOL/L (99-107); CREATININE 2.16 MG/DL (0.60-1.10); GLUCOSE 170 MG/DL (70-104); MAGNESIUM 1.7 MG/DL (1.5-2.4); POTASSIUM 3.5 MMOL/L (3.5-5.1); SODIUM 135 MMOL/L (135-145); TOTAL CARBON DIOXIDE 28.5 MMOL/L (24-32); eGFR 30 ML/MIN
[2022-08-09] MEDS: heparin 10,000 units/1 ML INJ IV PRN (05:07)
[2022-08-09] MEDS: tirofiban 12.5mg in NS 250mL IV SCH (05:24)
--- NOTE | 2022-08-09 06:23 | NUR ---
Problems reprioritized. Patient report given, questions answered & plan of care reviewed with DELILAH Guevara.
[2022-08-09] MEDS: K and/or MAG REPLACEMENT MC SCH ×2 (08:00→20:00)
[2022-08-09] MEDS: docusate sod 100mg capsule PO SCH ×2 (08:02→20:39)
[2022-08-09] MEDS: acetylcysteine sol. 200 MG/ML 4ml vial PO SCH ×2 (08:02→20:40)
[2022-08-09] MEDS: sacubitril/valsartan 24mg-26mg tablet PO SCH ×2 (08:03→20:39)
[2022-08-09] MEDS: bumetanide 1mg tablet PO SCH (08:03)
[2022-08-09] MEDS: multivitamins, therapeutics tablet PO SCH (08:03)
[2022-08-09] MEDS: OMEGA-3/DHA/EPA/FISH OIL 1 EACH CAPSULE.DR PO SCH (08:03)
[2022-08-09] MEDS: aspirin 325mg tablet PO SCH (08:04)
[2022-08-09] MEDS: atorvastatin 20mg tablet PO SCH (08:04)
[2022-08-09] MEDS: pantoprazole 40mg Tablet.DR PO SCH (08:04)
[2022-08-09] MEDS: carVEDilol 12.5mg tablet PO SCH ×2 (08:04→20:39)
[2022-08-09] MEDS: potassium chloride 10mEq ER tablet PO SCH (08:04)
[2022-08-09] MEDS: colchicine 0.6mg tablet PO SCH (08:05)
[2022-08-09] MEDS: fenofibrate 145mg tablet PO SCH (08:07)
[2022-08-09] MEDS: folic acid 1mg tablet PO SCH (08:07)
[2022-08-09] MEDS: furosemide 20 MG/2 ML vial IV SCH (08:07)
[2022-08-09] MEDS: insulin Lispro (HumaLOG) vial - multi-dose SQ SCH ×2 (08:10→14:01)
[2022-08-09] MEDS: heparin 25,000 UNIT/250ml bag 250 ML IV PRN (10:44)
[2022-08-09] MEDS ORDERED: potassium Cl 20 mEq SR tablet PO PRN (12:50)
[2022-08-09] MEDS ORDERED: magnesium 2GM in 50ml NS 50 ML IV PRN (12:50)
[2022-08-09] MEDS ORDERED: potassium Cl 40MEQ/270ML bag 250 ML IV PRN (12:50)
[2022-08-09] MEDS ORDERED: potassium CL 10mEq/100ml bag 100 ML IV PRN (12:50)
[2022-08-09] MEDS ORDERED: potassium Cl 40MEQ/1/2NS 520ml 520 ML IV PRN (12:50)
[2022-08-09] MEDS ORDERED: MESSAGE TO NURSING PO ONE ×4 (12:50)
[2022-08-09] MEDS ORDERED: potassium Cl 20mEq/100mL bag 100 ML IV PRN (12:50)
[2022-08-09] MEDS ORDERED: magnesium 4gm in 100ml NS 100 ML IV PRN (12:50)
--- NOTE | 2022-08-09 13:55 | NUR ---
page to respiratory 3010 Lexx. PT has CABG on THurs needs PFTs. Thank you. Paola @[phone]
--- NOTE | 2022-08-09 13:56 | NUR ---
page to vascular 3010 Lexx. PT has CABG on Tuesday needs vein mapping. Paola@[phone]
--- NOTE | 2022-08-09 15:10 | NUR ---
I relayed message from lab to Ernst Schultz that orders for type and screen, FFP, PLT, and RBCS need to be reordered on Tue.
--- NOTE | 2022-08-09 18:15 | NUR ---
Problems reprioritized. Patient report given, questions answered & plan of care reviewed with Anny MAZARIEGOS.
--- NOTE | 2022-08-09 18:16 | NUR ---
Orientee documentation: I have reviewed and agree with all interventions, assessments performed and documented by Wallace MAZARIEGOS . Orientkristy Medication Administration: For this medication-pass time frame, all medication were reviewed, dispensed, administered and documented per hospital policy by Wallace MAZARIEGOS .
[2022-08-09] MEDS: Melatonin 3mg tablet PO SCH (20:39)
[2022-08-09] MEDS: traZODone 50mg tablet PO SCH (20:39)
[2022-08-09 20:42] LABS: ABG BASE EXCESS 0.9 mmol/L (-2.0-2.0); ABG HCO3 23.9 mmol/L (22.0-26.0); ABG OXYGEN SATURATION 96.4 % (94-97); ABG PCO2 (T) 32.2 mmHg (35.0-48.0); ABG PO2 (T) 87.9 mmHg (75.0-100.0); FCOHb 0.3 % (0.0-3.9); FLOW 2 L/min; FMetHb 0.2 % (0.0-1.5); FO2Hb 95.9 % (94-97); PATIENT TEMPERATURE 36.6; TOTAL HEMOGLOBIN 11.3 G/dl (14.0-17.9)
[2022-08-09] MEDS: insulin glargine (Lantus) pen - multi-dose SQ SCH (20:56)
[2022-08-10 02:00] VITALS: BP 113/51
[2022-08-10] MEDS: heparin 10,000 units/1 ML INJ IV PRN (02:59)
[2022-08-10] MEDS: heparin 25,000 UNIT/250ml bag 250 ML IV PRN (04:24)
[2022-08-10 05:00] LABS: CLARITY,URINE CLEAR (Clear); COLOR,URINE YELLOW (Yellow); GLUCOSE, URINE NEGATIVE (Neg); KETONES,URINE NEGATIVE (Neg); LEUKOCYTE ESTERASE ,URINE NEGATIVE (Neg); NITRITES, URINE NEGATIVE (Neg); OCCULT BLOOD,URINE SMALL (Neg); PROTEIN,URINE NEGATIVE (Neg)
[2022-08-10 05:02] LABS: UA COLLECTION TYPE VOIDED
[2022-08-10 05:05] LABS: WBC,URINE 0-4 /HPF (0-4)
[2022-08-10 05:06] LABS: BACTERIA,URINE NONE SEEN /HPF (Neg); MUCUS STRANDS NONE SEEN /LPF (Neg); SQUAMOUS EPITHELIAL CELL,UR FEW /LPF (FEW)
--- NOTE | 2022-08-10 06:10 | NUR ---
Patient in room PCU 3010. I have received report from Anny MAZARIEGOS and had the opportunity to ask questions and assume patient care.
--- NOTE | 2022-08-10 07:58 | NUR ---
Initial: Pt admitted w/ angina and CAD, possible CABG on per EMR. Currently on Carb control diet w/ mostly 100% intake of meals meeting est needs at this time. Noted pt w/ hx of DM A1c 8.7. Provided pt w/ written and verbal DM ed w/ RD contact info. LB 08/05 receiving routine and PRN bowel care. Will continue to monitor. Recs; 1. Continue Carb control diet as tolerated 2. Double protein WB 3. Routine bowel care 4. Weekly wts Addendum: 08/10/22 at [address] Amended: Links added.
[2022-08-10] MEDS: K and/or MAG REPLACEMENT MC SCH ×2 (08:00→19:43)
[2022-08-10 08:28] VITALS: BP 130/72
[2022-08-10 09:20] LABS: BASOPHILS % (AUTO) 0.8 % (0-1); EOSINOPHILS # (AUTO) 0.1 X10'3 (0-0.9); EOSINOPHILS % (AUTO) 1.9 % (0-6); HEMATOCRIT 31.1 % (42.0-52.0); HEMOGLOBIN 10.2 g/dl (14.0-17.9); LYMPHOCYTES % (AUTO) 20.4 % (21-51); MEAN CORPUSCULAR HEMOGLOBIN 28.9 PG (27.0-31.0); MEAN CORPUSCULAR HGB CONC 32.8 g/dL (33.0-36.5); MEAN CORPUSCULAR VOLUME 88.1 FL (78-98); MEAN PLATELET VOLUME 9.6 FL (7.4-10.4); MONOCYTES # (AUTO) 0.8 X10'3 (0-0.9); MONOCYTES % (AUTO) 16.9 % (2-12); NEUTROPHILS # (AUTO) 2.9 X10'3 (1.8-7.7); PLATELET COUNT 217 X10'3 (140-440); RED BLOOD COUNT 3.53 X10'6 (4.70-6.10); RED CELL DISTRIBUTION WIDTH 14.8 % (11.5-14.5); WHITE BLOOD COUNT 4.8 X10'3 (4.5-11.0)
[2022-08-10 09:27] LABS: ALBUMIN 2.8 G/DL (3.4-5.0); ANION GAP 8 (8-16); BLOOD UREA NITROGEN 31 MG/DL (7-18); BUN/CREATININE RATIO 14.4 (5.4-32.0); CHLORIDE 98 MMOL/L (99-107); CREATININE 2.16 MG/DL (0.60-1.10); GLUCOSE 219 MG/DL (70-104); MAGNESIUM 1.8 MG/DL (1.5-2.4); SODIUM 134 MMOL/L (135-145); TOTAL CARBON DIOXIDE 28.4 MMOL/L (24-32); eGFR 30 ML/MIN
[2022-08-10] MEDS: furosemide 20 MG/2 ML vial IV SCH (09:53)
[2022-08-10] MEDS: carVEDilol 12.5mg tablet PO SCH ×2 (09:58→22:03)
[2022-08-10] MEDS: fenofibrate 145mg tablet PO SCH (09:58)
[2022-08-10] MEDS: OMEGA-3/DHA/EPA/FISH OIL 1 EACH CAPSULE.DR PO SCH (09:58)
[2022-08-10] MEDS: sacubitril/valsartan 24mg-26mg tablet PO SCH ×2 (09:58→22:03)
[2022-08-10] MEDS: atorvastatin 20mg tablet PO SCH (09:59)
[2022-08-10] MEDS: folic acid 1mg tablet PO SCH (09:59)
[2022-08-10] MEDS: aspirin 325mg tablet PO SCH (10:00)
[2022-08-10] MEDS: docusate sod 100mg capsule PO SCH ×2 (10:00→22:03)
[2022-08-10] MEDS: pantoprazole 40mg Tablet.DR PO SCH (10:00)
[2022-08-10] MEDS: potassium chloride 10mEq ER tablet PO SCH (10:00)
[2022-08-10] MEDS ORDERED: MESSAGE TO NURSING PO ONE (10:00)
[2022-08-10] MEDS: bumetanide 1mg tablet PO SCH (10:00)
[2022-08-10] MEDS: multivitamins, therapeutics tablet PO SCH (10:00)
[2022-08-10] MEDS: acetylcysteine sol. 200 MG/ML 4ml vial PO SCH (10:02)
[2022-08-10] MEDS: colchicine 0.6mg tablet PO SCH (10:02)
[2022-08-10] MEDS: insulin Lispro (HumaLOG) vial - multi-dose SQ SCH (10:11)
[2022-08-10] MEDS: tirofiban 12.5mg in NS 250mL IV SCH (10:45)
[2022-08-10 12:15] VITALS: BP 118/57
[2022-08-10 18:00] VITALS: BP 107/76
--- NOTE | 2022-08-10 18:38 | NUR ---
Problems reprioritized. Patient report given, questions answered & plan of care reviewed with Elaine MAZARIEGOS, patient stable at transfer of care.
[2022-08-10] MEDS: MESSAGE TO NURSING PO SCH (20:00)
[2022-08-10] MEDS: insulin glargine (Lantus) pen - multi-dose SQ SCH (21:00)
[2022-08-10] MEDS: Melatonin 3mg tablet PO SCH (21:00)
[2022-08-10 21:46] VITALS: BP 141/82
[2022-08-10] MEDS: morphine 2 MG/ML inj. syringe IV PRN (21:47)
[2022-08-10] MEDS ORDERED: nitroGLYCERIN 0.4mg SUBLingual tab SL ONE (21:52)
[2022-08-10 22:00] VITALS: BP 146/76
[2022-08-10] MEDS: traZODone 50mg tablet PO SCH (22:03)
--- NOTE | 2022-08-10 22:07 | NUR ---
Patient complained of CP 5/, non- radiating. Gave PRN morphine 2 ml, incr. o2 @ 3L Nitro tab 0.4 mg. ![address] Pollock. Pt leticia stated CP at 10/12. Ni signs if distress. Resting comfortably. Continue to monitor.
[2022-08-11 02:00] VITALS: BP 132/62
[2022-08-11 03:03] LABS: BASOPHILS % (AUTO) 0.9 % (0-1); EOSINOPHILS # (AUTO) 0.1 X10'3 (0-0.9); EOSINOPHILS % (AUTO) 2.7 % (0-6); HEMATOCRIT 30.7 % (42.0-52.0); HEMOGLOBIN 10.4 g/dl (14.0-17.9); LYMPHOCYTES # (AUTO) 1.6 X10'3 (1.1-4.8); LYMPHOCYTES % (AUTO) 30.8 % (21-51); MEAN CORPUSCULAR HEMOGLOBIN 29.8 PG (27.0-31.0); MEAN CORPUSCULAR HGB CONC 33.8 g/dL (33.0-36.5); MEAN CORPUSCULAR VOLUME 88.1 FL (78-98); MONOCYTES # (AUTO) 0.8 X10'3 (0-0.9); MONOCYTES % (AUTO) 15.8 % (2-12); NEUTROPHILS # (AUTO) 2.6 X10'3 (1.8-7.7); NEUTROPHILS % (AUTO) 49.8 % (42-75); PLATELET COUNT 218 X10'3 (140-440); RED BLOOD COUNT 3.49 X10'6 (4.70-6.10); RED CELL DISTRIBUTION WIDTH 14.9 % (11.5-14.5); WHITE BLOOD COUNT 5.2 X10'3 (4.5-11.0)
[2022-08-11 03:09] LABS: ALBUMIN 2.8 G/DL (3.4-5.0); ANION GAP 8 (8-16); BLOOD UREA NITROGEN 34 MG/DL (7-18); BUN/CREATININE RATIO 16.5 (5.4-32.0); CALCIUM 9.3 MG/DL (8.5-10.1); CHLORIDE 100 MMOL/L (99-107); CREATININE 2.06 MG/DL (0.60-1.10); GLUCOSE 185 MG/DL (70-104); POTASSIUM 3.7 MMOL/L (3.5-5.1); SODIUM 136 MMOL/L (135-145); TOTAL CARBON DIOXIDE 28.5 MMOL/L (24-32); eGFR 31 ML/MIN
--- NOTE | 2022-08-11 06:20 | NUR ---
Patient in room PCU 3010. I have received report from Elaine MAZARIEGOS and had the opportunity to ask questions and assume patient care.
[2022-08-11] MEDS ORDERED: insulin glargine (Lantus) pen - multi-dose SQ PRN (07:45)
[2022-08-11] MEDS ORDERED: cefazolin/dext.iso 2gm/50ml 50 ML IV ONE (07:45)
[2022-08-11] MEDS ORDERED: MESSAGE TO PHARMACY IJ ONE (07:45)
[2022-08-11] MEDS ORDERED: dextrose 50%-water 50ml dispensing syringe IV PRN (07:45)
[2022-08-11] MEDS ORDERED: gabapentin 400mg capsule PO ONE (07:45)
[2022-08-11] MEDS ORDERED: Insulin Reg/NS 100units/100mL 100 ML IV SCH (07:45)
[2022-08-11 07:46] VITALS: BP 104/53
[2022-08-11] MEDS: fenofibrate 145mg tablet PO SCH (08:00)
[2022-08-11] MEDS: OMEGA-3/DHA/EPA/FISH OIL 1 EACH CAPSULE.DR PO SCH (08:00)
[2022-08-11] MEDS: multivitamins, therapeutics tablet PO SCH (08:00)
[2022-08-11] MEDS: folic acid 1mg tablet PO SCH (08:00)
[2022-08-11] MEDS: docusate sod 100mg capsule PO SCH ×2 (08:00→21:26)
[2022-08-11] MEDS: furosemide 20 MG/2 ML vial IV SCH (08:00)
[2022-08-11] MEDS: carVEDilol 12.5mg tablet PO SCH ×2 (08:00→21:26)
[2022-08-11] MEDS: sacubitril/valsartan 24mg-26mg tablet PO SCH ×2 (08:00→21:26)
[2022-08-11] MEDS: acetylcysteine sol. 200 MG/ML 4ml vial PO SCH ×2 (08:00→21:27)
[2022-08-11] MEDS: atorvastatin 20mg tablet PO SCH (08:00)
[2022-08-11] MEDS: bumetanide 1mg tablet PO SCH (08:00)
[2022-08-11] MEDS: K and/or MAG REPLACEMENT MC SCH ×2 (08:00→20:00)
[2022-08-11] MEDS ORDERED: mupirocin 2% ointment 22GM NS SCH (08:00)
[2022-08-11] MEDS: colchicine 0.6mg tablet PO SCH (08:00)
[2022-08-11] MEDS: pantoprazole 40mg Tablet.DR PO SCH (08:00)
[2022-08-11] MEDS: potassium chloride 10mEq ER tablet PO SCH (08:00)
[2022-08-11] MEDS ORDERED: nitroGLYCERIN 0.4mg/hour patch TD PRN (08:10)
[2022-08-11] MEDS: aspirin 325mg tablet PO SCH (08:30)
[2022-08-11] MEDS ORDERED: MESSAGE TO NURSING PO ONE (10:00)
[2022-08-11 11:35] VITALS: BP 128/69
[2022-08-11] MEDS: insulin Lispro (HumaLOG) vial - multi-dose SQ SCH (13:24)
[2022-08-11 17:04] VITALS: BP 106/69
[2022-08-11 18:00] VITALS: BP 114/59
--- NOTE | 2022-08-11 19:00 | NUR ---
Problems reprioritized. Patient report given, questions answered & plan of care reviewed with Elaine Mayfield, patient stable at transfer of care.
[2022-08-11] MEDS: sodium bicarbonate (8.4%) inj. 100 MEQ in dextrose 5%-water 1,000 ML IV SCH ×2 (20:14→21:04)
[2022-08-11] MEDS: heparin 25,000 UNIT/250ml bag 250 ML IV PRN (20:32)
[2022-08-11] MEDS: Melatonin 3mg tablet PO SCH (21:26)
[2022-08-11] MEDS: traZODone 50mg tablet PO SCH (21:26)
[2022-08-11] MEDS: insulin glargine (Lantus) pen - multi-dose SQ SCH (21:40)
[2022-08-11 22:00] VITALS: BP 112/62
[2022-08-12] VITALS (25 sets, daily range): BP systolic 64–159; BP diastolic 28–76
[2022-08-12] MEDS: heparin 25,000 UNIT/250ml bag 250 ML IV PRN (00:36)
[2022-08-12] MEDS ORDERED: epiNEPHrine 1 mg/ml inj ONE (04:48)
[2022-08-12] MEDS ORDERED: ceFAZolin 1000mg inj ONE ×4 (04:48→16:09)
--- NOTE | 2022-08-12 05:00 | NUR ---
pre surgical carbohydrate given at 0500
[2022-08-12] MEDS ORDERED: mupirocin 2% nasal ointment 1gm UD NS SCH (05:30)
[2022-08-12] MEDS ORDERED: gabapentin 400mg capsule PO ONE (05:30)
[2022-08-12] MEDS ORDERED: LIDOcaine 1% 30ml preserv. free vial ONE (05:56)
[2022-08-12] MEDS ORDERED: BUPIVAcaine/PF 5 mg/ml 10ml ONE (05:56)
[2022-08-12] MEDS ORDERED: Insulin Reg/NS 100units/100mL 100 ML IV SCH (06:00)
[2022-08-12] MEDS ORDERED: insulin glargine (Lantus) pen - multi-dose SQ PRN ×2 (06:00→10:45)
[2022-08-12] MEDS ORDERED: LORazepam 2 mg/ml vial IV ONE (06:45)
[2022-08-12] MEDS ORDERED: famotidine 20mg tablet PO ONE (06:45)
[2022-08-12 07:02] LABS: BASOPHILS % (AUTO) 1.1 % (0-1); EOSINOPHILS # (AUTO) 0.1 X10'3 (0-0.9); EOSINOPHILS % (AUTO) 1.7 % (0-6); HEMATOCRIT 29.1 % (42.0-52.0); HEMOGLOBIN 9.6 g/dl (14.0-17.9); LYMPHOCYTES # (AUTO) 1.1 X10'3 (1.1-4.8); LYMPHOCYTES % (AUTO) 23.9 % (21-51); MEAN CORPUSCULAR HEMOGLOBIN 29.1 PG (27.0-31.0); MEAN CORPUSCULAR HGB CONC 32.9 g/dL (33.0-36.5); MEAN CORPUSCULAR VOLUME 88.4 FL (78-98); MONOCYTES # (AUTO) 0.7 X10'3 (0-0.9); MONOCYTES % (AUTO) 14.1 % (2-12); NEUTROPHILS # (AUTO) 2.8 X10'3 (1.8-7.7); NEUTROPHILS % (AUTO) 59.2 % (42-75); PLATELET COUNT 188 X10'3 (140-440); RED BLOOD COUNT 3.29 X10'6 (4.70-6.10); RED CELL DISTRIBUTION WIDTH 15.3 % (11.5-14.5); WHITE BLOOD COUNT 4.7 X10'3 (4.5-11.0)
[2022-08-12 07:19] LABS: ALANINE AMINOTRANSFERASE 30 U/L (12-78); ALBUMIN 2.7 G/DL (3.4-5.0); ALBUMIN/GLOBULIN RATIO 0.8 (1.1-1.5); ALKALINE PHOSPHATASE 53 IU/L (46-116); ANION GAP 8 (8-16); ASPARTATE AMINO TRANSFERASE 33 U/L (10-37); BILIRUBIN,TOTAL 0.7 MG/DL (0.1-1.0); BLOOD UREA NITROGEN 34 MG/DL (7-18); BUN/CREATININE RATIO 17.9 (5.4-32.0); CHLORIDE 98 MMOL/L (99-107); GLUCOSE 303 MG/DL (70-104); POTASSIUM 3.9 MMOL/L (3.5-5.1); SODIUM 136 MMOL/L (135-145); TOTAL CARBON DIOXIDE 29.6 MMOL/L (24-32); eGFR 34 ML/MIN
[2022-08-12] MEDS: carVEDilol 12.5mg tablet PO SCH (07:22)
[2022-08-12] MEDS ORDERED: midazolam 1 mg/ML 2ml injection ONE (07:30)
[2022-08-12] MEDS ORDERED: fentaNYL /PF 50mcg/ml 5ml ampule ONE (07:30)
[2022-08-12] MEDS ORDERED: propofol inj 20 ML IV ONE (07:30)
[2022-08-12] MEDS ORDERED: rocuronium 10mg/ml inj IV ONE ×3 (07:30→12:45)
--- NOTE | 2022-08-12 07:58 | NUR ---
Patient in room PCU 3010. I have received report from Elaine MAZARIEGOS and had the opportunity to ask questions and assume patient care.
--- NOTE | 2022-08-12 07:59 | NUR ---
Pt left for CABG at 0745, will transfer to ICU post op.
[2022-08-12 08:47] LABS: ABG BASE EXCESS 1.9 mmol/L (-2.0-2.0); ABG HCO3 26.8 mmol/L (22.0-26.0); ABG OXYGEN SATURATION 92.4 % (94-97); ABG PCO2 42.9 mmHg (35.0-48.0); ABG PO2 71.3 mmHg (75.0-100.0); CL (ABG) 98 mmol/L (99-107); FCOHb 1.1 % (0.0-3.9); FMetHb 0.3 % (0.0-1.5); FO2Hb 91.1 % (94-97); GLUCOSE (ABG) 277 mg/dl (70-104); IONIZED CA (ABG) 1.14 mmol/L (1.10-1.30); K (ABG) 3.8 mmol/L (3.5-5.1); TOTAL HEMOGLOBIN 9.6 G/dl (14.0-17.9)
[2022-08-12] MEDS ORDERED: heparin 10,000 units/1 ML INJ IR ONE (09:15)
[2022-08-12 09:38] LABS: ABG BASE EXCESS VENOUS -0.4 mmol/L (-2.0 - 2.0); ABG HCO3 VENOUS 24.9 mmol/L (21.0-28.0); ABG PCO2 VENOUS 44.2 mmHg (41.0-54.0); ABG PO2 VENOUS 37.7 mmHg (25.0-35.0); CL (ABG) 100 mmol/L (99-107); FCOHb VENOUS 1.4 %; FHHb VENOUS 34.9 %; FMetHb VENOUS 0.3 % (0.0 - 0.5); FO2Hb VENOUS 63.4 %; GLUCOSE (ABG) 243 mg/dl (70-104); IONIZED CA (ABG) 1.09 mmol/L (1.10-1.30); K (ABG) 3.5 mmol/L (3.5-5.1); TOTAL HEMOGLOBIN 8.3 G/dl (14.0-17.9)
[2022-08-12 10:28] LABS: ABG BASE EXCESS VENOUS -2.6 mmol/L (-2.0 - 2.0); ABG HCO3 VENOUS 23.7 mmol/L (21.0-28.0); ABG PCO2 VENOUS 48.3 mmHg (41.0-54.0); CL (ABG) 102 mmol/L (99-107); FCOHb VENOUS 1.5 %; FHHb VENOUS 51.2 %; FMetHb VENOUS 0.3 % (0.0 - 0.5); GLUCOSE (ABG) 192 mg/dl (70-104); IONIZED CA (ABG) 1.15 mmol/L (1.10-1.30); K (ABG) 3.5 mmol/L (3.5-5.1)
[2022-08-12 10:29] LABS: ACTIVATED CLOTTING TIME 103 SEC (101-148)
[2022-08-12] MEDS ORDERED: magnesium citrate 296ml oral solution PO PRN (10:45)
[2022-08-12] MEDS ORDERED: sodium phosphate inj. 30 MMOL in dextrose 5%-water 250 ML IV PRN (10:45)
[2022-08-12] MEDS ORDERED: mineral oil 133ml enema RC PRN (10:45)
[2022-08-12] MEDS ORDERED: acetaminophen 325mg tablet PO PRN ×2 (10:45)
[2022-08-12] MEDS ORDERED: potassium Cl 40MEQ/1/2NS 520ml 520 ML IV PRN (10:45)
[2022-08-12] MEDS ORDERED: HYDROcodone/acetaminophen 10/325mg tab PO PRN ×2 (10:45)
[2022-08-12] MEDS ORDERED: bisacodyl 10mg suppository rectal RC PRN (10:45)
[2022-08-12] MEDS ORDERED: niCARDipine-NS 40mg/200ml IVPB 200 ML IV PRN (10:45)
[2022-08-12] MEDS ORDERED: sodium chloride 0.45% 1,000 ML IV SCH (10:45)
[2022-08-12] MEDS ORDERED: Neutra Phos packet PO PRN (10:45)
[2022-08-12] MEDS ORDERED: morphine 4 MG/ML inj SYRINge IV PRN (10:45)
[2022-08-12] MEDS ORDERED: potassium Cl 20 mEq SR tablet PO PRN (10:45)
[2022-08-12] MEDS ORDERED: dextrose 50%-water 50ml dispensing syringe IV PRN (10:45)
[2022-08-12] MEDS ORDERED: potassium Cl 40MEQ/270ML bag 250 ML IV PRN (10:45)
[2022-08-12] MEDS ORDERED: potassium CL 10mEq/100ml bag 100 ML IV PRN (10:45)
[2022-08-12] MEDS ORDERED: morphine 2 MG/ML inj. syringe IV PRN (10:45)
[2022-08-12] MEDS ORDERED: sodium phosphate inj. 15 MMOL in dextrose 5%-water 250 ML IV PRN (10:45)
[2022-08-12] MEDS ORDERED: ondansetron/PF 4mg/2ml inj IV PRN (10:45)
[2022-08-12] MEDS ORDERED: metoclopramide 5 mg/ml inj IV PRN (10:45)
[2022-08-12] MEDS ORDERED: nitroGLYCERIN-Tridil 50MG/D5W 250 ML IV SCH (10:45)
[2022-08-12] MEDS ORDERED: magnesium hydroxide 30ml (MOM) UD suspension PO PRN (10:45)
--- NOTE | 2022-08-12 10:58 | NUR ---
CABG Consult: Pt to OR today for redo CABG per EMR; would benefit from nutrition ed once appropriate post-op prior to discharge. Addendum: 08/12/22 at [address] Amended: Links added.
[2022-08-12 11:31] LABS: ABG BASE EXCESS -2.7 mmol/L (-2.0-2.0); ABG HCO3 22.9 mmol/L (22.0-26.0); ABG OXYGEN SATURATION 98.2 % (94-97); ABG PCO2 (T) 40.6 mmHg (35.0-48.0); FCOHb 0.3 % (0.0-3.9); FMetHb 0.4 % (0.0-1.5); FO2Hb 97.5 % (94-97); PATIENT TEMPERATURE 35.3; PEEP 5 cm H2O; RESPIRATORY RATE 12 b/min; TIDAL VOLUME 500 mL; TOTAL HEMOGLOBIN 9.1 G/dl (14.0-17.9)
[2022-08-12 11:45] LABS: BASOPHILS % (AUTO) 0.5 % (0-1); EOSINOPHILS # (AUTO) 0.1 X10'3 (0-0.9); EOSINOPHILS % (AUTO) 1.9 % (0-6); HEMOGLOBIN 7.5 g/dl (14.0-17.9); LYMPHOCYTES # (AUTO) 1.2 X10'3 (1.1-4.8); LYMPHOCYTES % (AUTO) 16.1 % (21-51); MEAN CORPUSCULAR HGB CONC 32.7 g/dL (33.0-36.5); MEAN CORPUSCULAR VOLUME 88.6 FL (78-98); MEAN PLATELET VOLUME 8.7 FL (7.4-10.4); MONOCYTES # (AUTO) 0.8 X10'3 (0-0.9); MONOCYTES % (AUTO) 11.3 % (2-12); NEUTROPHILS # (AUTO) 5.2 X10'3 (1.8-7.7); NEUTROPHILS % (AUTO) 70.2 % (42-75); PLATELET COUNT 154 X10'3 (140-440); RED BLOOD COUNT 2.59 X10'6 (4.70-6.10); RED CELL DISTRIBUTION WIDTH 15.1 % (11.5-14.5); WHITE BLOOD COUNT 7.4 X10'3 (4.5-11.0)
[2022-08-12 11:56] LABS: APTT 29 SECONDS (22-32)
[2022-08-12] MEDS ORDERED: calcium chloride 100 MG/1 ML inj IV ONE ×3 (11:56→13:25)
[2022-08-12 11:58] LABS: ALANINE AMINOTRANSFERASE 21 U/L (12-78); ALBUMIN 2.5 G/DL (3.4-5.0); ALBUMIN/GLOBULIN RATIO 1.2 (1.1-1.5); ALKALINE PHOSPHATASE 34 IU/L (46-116); ANION GAP 6 (8-16); ASPARTATE AMINO TRANSFERASE 23 U/L (10-37); BILIRUBIN,TOTAL 0.5 MG/DL (0.1-1.0); BLOOD UREA NITROGEN 28 MG/DL (7-18); BUN/CREATININE RATIO 18.9 (5.4-32.0); CALCIUM 7.9 MG/DL (8.5-10.1); CHLORIDE 109 MMOL/L (99-107); CREATININE 1.48 MG/DL (0.60-1.10); GLUCOSE 149 MG/DL (70-104); MAGNESIUM 1.4 MG/DL (1.5-2.4); PHOSPHORUS 3.4 MG/DL (2.3-4.5); POTASSIUM 3.2 MMOL/L (3.5-5.1); SODIUM 140 MMOL/L (135-145); TOTAL CARBON DIOXIDE 24.9 MMOL/L (24-32); TOTAL PROTEIN 4.6 G/DL (6.4-8.2); eGFR 46 ML/MIN
--- NOTE | 2022-08-12 12:00 | NUR ---
Received to room 2008, accompanied by Prashant Navarro and surgical crew. Placed on ventilator, to laboratory monitor, arterial line and PA line pressure zeroed & monitored. Chest tubes to suction at 20 cm. Hale cath to gravity drainage. Dressings are dry and intact. See assessment record. All vasoactive drugs are infusing via central line.
[2022-08-12] MEDS: albumin (Human) 5% 250ml 250 ML IV PRN ×4 (12:05→20:34)
[2022-08-12] MEDS: magnesium 4gm in 100ml NS 100 ML IV PRN ×2 (12:14→22:38)
[2022-08-12] MEDS: potassium Cl 20mEq/100mL bag 100 ML IV PRN ×4 (12:14→23:11)
[2022-08-12] MEDS: Insulin Reg/NS 100units/100mL 100 ML IV SCH (12:38)
[2022-08-12] MEDS ORDERED: nitroGLYCERIN-Tridil 50MG/D5W 250 ML IV PRN (12:45)
[2022-08-12] MEDS ORDERED: ePHEDrine 50MG/ML INJ. ONE (12:45)
[2022-08-12] MEDS: DOBUTamine-DoBUTrex 500mg/D5W 250 ML IV PRN (12:46)
[2022-08-12] MEDS ORDERED: albumin (Human) 5% 250ml 250 ML IV ONE ×4 (12:46→15:40)
[2022-08-12] MEDS: gabapentin 300mg capsule PO SCH ×2 (13:00→21:00)
[2022-08-12 13:56] LABS: ABG BASE EXCESS -8.3 mmol/L (-2.0-2.0); ABG HCO3 18.4 mmol/L (22.0-26.0); ABG OXYGEN SATURATION 87.9 % (94-97); ABG PCO2 (T) 39.8 mmHg (35.0-48.0); FCOHb 0.2 % (0.0-3.9); FMetHb 0.2 % (0.0-1.5); FO2Hb 87.5 % (94-97); PATIENT TEMPERATURE 35.4; PEEP 5 cm H2O; RESPIRATORY RATE 12 b/min; TIDAL VOLUME 500 mL
[2022-08-12] MEDS ORDERED: albuterol 2.5 MG/3 ML nebule ONE (14:12)
[2022-08-12] MEDS ORDERED: epiNEPHrine 0.1mg/ml 10ml syringe IV ONE ×2 (15:00→15:45)
[2022-08-12 15:30] LABS: ABG BASE EXCESS -14.5 mmol/L (-2.0-2.0); ABG HCO3 15.2 mmol/L (22.0-26.0); ABG PO2 337.4 mmHg (75.0-100.0); CL (ABG) 101 mmol/L (99-107); FCOHb 2.2 % (0.0-3.9); FMetHb 0.3 % (0.0-1.5); FO2Hb 97.5 % (94-97); GLUCOSE (ABG) 217 mg/dl (70-104); IONIZED CA (ABG) 1.17 mmol/L (1.10-1.30); K (ABG) 4.5 mmol/L (3.5-5.1)
[2022-08-12] MEDS ORDERED: epiNEPHrine 5 MG in NS 250ml IV.SOLN IV SCH (15:35)
[2022-08-12] MEDS ORDERED: epiNEPHrine 0.1mg/ml 10ml syringe ONE (15:45)
--- NOTE | 2022-08-12 15:45 | NUR ---
Take back. About 1505 pt was taken back to OR by surgical crew post open chest code. Pts bp was labile shortly after retuning to ICU. CN was consulted for options as well as calls to Dr. Alvarado. Orders received and initiated with transitory results. Pts BP continued to fall regardless of interventions taken. Dr. Alvarado notified, stated he was on his way in. Pt coded prior to his arrival, CPR initiated per protocols. Dr. Alvarado arrived, opened pts chest, OR crew arrived to assist with open chest code. Open cardiac massage performed by , internal paddles used to defib pt, IABP inserted during open chest code. and the pt taken back to OR.
[2022-08-12 15:52] LABS: ABG BASE EXCESS -8.2 mmol/L (-2.0-2.0); ABG HCO3 18.9 mmol/L (22.0-26.0); ABG OXYGEN SATURATION 99.9 % (94-97); ABG PCO2 46.7 mmHg (35.0-48.0); ABG PO2 411.3 mmHg (75.0-100.0); CL (ABG) 102 mmol/L (99-107); FCOHb 1.3 % (0.0-3.9); FMetHb 0.3 % (0.0-1.5); FO2Hb 98.3 % (94-97); GLUCOSE (ABG) 231 mg/dl (70-104); IONIZED CA (ABG) 1.13 mmol/L (1.10-1.30); K (ABG) 3.8 mmol/L (3.5-5.1)
[2022-08-12] MEDS: ceFAZolin/D5W- 1GM premix 50 ML IV SCH (16:00)
[2022-08-12 16:21] LABS: ABG BASE EXCESS -3.8 mmol/L (-2.0-2.0); ABG HCO3 21.5 mmol/L (22.0-26.0); ABG OXYGEN SATURATION 99.8 % (94-97); ABG PCO2 40.1 mmHg (35.0-48.0); ABG PO2 422.8 mmHg (75.0-100.0); CL (ABG) 101 mmol/L (99-107); FCOHb 1.4 % (0.0-3.9); FMetHb 0.3 % (0.0-1.5); FO2Hb 98.1 % (94-97); GLUCOSE (ABG) 189 mg/dl (70-104); IONIZED CA (ABG) 1.14 mmol/L (1.10-1.30); TOTAL HEMOGLOBIN 7.8 G/dl (14.0-17.9)
[2022-08-12 16:35] LABS: ABG BASE EXCESS -0.3 mmol/L (-2.0-2.0); ABG HCO3 24.1 mmol/L (22.0-26.0); ABG OXYGEN SATURATION 99.8 % (94-97); ABG PCO2 38.1 mmHg (35.0-48.0); CL (ABG) 102 mmol/L (99-107); FCOHb 1.5 % (0.0-3.9); FMetHb 0.3 % (0.0-1.5); GLUCOSE (ABG) 176 mg/dl (70-104); IONIZED CA (ABG) 1.56 mmol/L (1.10-1.30); K (ABG) 4.3 mmol/L (3.5-5.1)
[2022-08-12 16:57] LABS: ABG BASE EXCESS -0.2 mmol/L (-2.0-2.0); ABG OXYGEN SATURATION 99.6 % (94-97); ABG PO2 374.4 mmHg (75.0-100.0); CL (ABG) 102 mmol/L (99-107); FCOHb 1.1 % (0.0-3.9); FMetHb 0.3 % (0.0-1.5); FO2Hb 98.2 % (94-97); GLUCOSE (ABG) 156 mg/dl (70-104); IONIZED CA (ABG) 1.31 mmol/L (1.10-1.30); K (ABG) 4.3 mmol/L (3.5-5.1)
[2022-08-12] MEDS ORDERED: epiNEPHrine 1 mg/ml 30ml MDV ONE (17:34)
[2022-08-12 17:37] LABS: ABG BASE EXCESS -4.2 mmol/L (-2.0-2.0); ABG HCO3 23.2 mmol/L (22.0-26.0); CL (ABG) 104 mmol/L (99-107); FCOHb 1.8 % (0.0-3.9); FMetHb 0.8 % (0.0-1.5); FO2Hb 22.4 % (94-97); GLUCOSE (ABG) 154 mg/dl (70-104); IONIZED CA (ABG) 1.58 mmol/L (1.10-1.30); K (ABG) 5.2 mmol/L (3.5-5.1); TOTAL HEMOGLOBIN 7.6 G/dl (14.0-17.9)
[2022-08-12 17:41] LABS: ACTIVATED CLOTTING TIME 142 SEC (101-148)
--- NOTE | 2022-08-12 18:21 | NUR ---
Patient in room CICU 2008. I have received report from Levi MAZARIEGOS and had the opportunity to ask questions and assume patient care. Awaiting patient's arrival from [facility]
[2022-08-12] MEDS ORDERED: epiNEPHrine inj 5 MG in normal saline 250ml IV soln 245 ML IV PRN (18:45)
[2022-08-12] MEDS ORDERED: FENTANYL-0.9 % NACL/PF 100 ML IV PRN (18:45)
[2022-08-12] MEDS ORDERED: NORepinephrine 8mg/ 250ml NS 250 ML IV ONE (19:02)
[2022-08-12 19:03] LABS: BASOPHILS % (AUTO) 0.3 % (0-1); EOSINOPHILS % (AUTO) 0.2 % (0-6); HEMATOCRIT 33.5 % (42.0-52.0); HEMOGLOBIN 10.9 g/dl (14.0-17.9); LYMPHOCYTES % (AUTO) 12.9 % (21-51); MEAN CORPUSCULAR HEMOGLOBIN 29.3 PG (27.0-31.0); MEAN CORPUSCULAR HGB CONC 32.6 g/dL (33.0-36.5); MEAN PLATELET VOLUME 9.6 FL (7.4-10.4); MONOCYTES # (AUTO) 0.9 X10'3 (0-0.9); MONOCYTES % (AUTO) 5.8 % (2-12); NEUTROPHILS # (AUTO) 12.5 X10'3 (1.8-7.7); NEUTROPHILS % (AUTO) 80.8 % (42-75); PLATELET COUNT 84 X10'3 (140-440); RED BLOOD COUNT 3.72 X10'6 (4.70-6.10); RED CELL DISTRIBUTION WIDTH 14.9 % (11.5-14.5); WHITE BLOOD COUNT 15.5 X10'3 (4.5-11.0)
[2022-08-12 19:12] LABS: ALBUMIN 2.2 G/DL (3.4-5.0); ANION GAP 13 (8-16); BLOOD UREA NITROGEN 27 MG/DL (7-18); BUN/CREATININE RATIO 12.9 (5.4-32.0); CALCIUM 10.5 MG/DL (8.5-10.1); CHLORIDE 110 MMOL/L (99-107); GLUCOSE 125 MG/DL (70-104); MAGNESIUM 1.9 MG/DL (1.5-2.4); SODIUM 146 MMOL/L (135-145); TOTAL CARBON DIOXIDE 23.2 MMOL/L (24-32); eGFR 31 ML/MIN
[2022-08-12 19:21] LABS: POTASSIUM 3.6 MMOL/L (3.5-5.1)
[2022-08-12 19:27] LABS: PHOSPHORUS 4.6 MG/DL (2.3-4.5)
[2022-08-12 19:27] LABS: ABG BASE EXCESS -10.3 mmol/L (-2.0-2.0); ABG HCO3 18.3 mmol/L (22.0-26.0); ABG OXYGEN SATURATION 87.6 % (94-97); ABG PCO2 (T) 50.5 mmHg (35.0-48.0); FCOHb 0.3 % (0.0-3.9); FMetHb 0.2 % (0.0-1.5); FO2Hb 87.2 % (94-97); PATIENT TEMPERATURE 36.1; PEEP 5 cm H2O; RESPIRATORY RATE 12 b/min; TIDAL VOLUME 500 mL; TOTAL HEMOGLOBIN 11.9 G/dl (14.0-17.9)
[2022-08-12 19:44] LABS: APTT 59 SECONDS (22-32)
[2022-08-12] MEDS: fentaNYL 50mcg/ml PF inj. 2,500 MCG in normal saline 250ml IV soln 200 ML IV PRN ×3 (19:47→22:05)
[2022-08-12] MEDS: midazolam 100mg in NS 100ml 100 ML IV PRN (19:48)
[2022-08-12] MEDS: NORepinephrine inj. 32 MG in normal saline 250ml IV soln 218 ML IV SCH (19:49)
[2022-08-12] MEDS: MESSAGE TO NURSING PO SCH ×4 (19:53→20:54)
[2022-08-12] MEDS: sennosides/docusate sodium tablet PO SCH (20:00)
[2022-08-12] MEDS ORDERED: amiodarone 150mg/dext, iso-os 100 ML IV ONE ×2 (20:10→20:12)
[2022-08-12] MEDS: amiodarone/D5 360MG/200ML BAG 200 ML IV SCH (20:22)
[2022-08-12] MEDS: atorvastatin 10mg tablet PO SCH (20:55)
[2022-08-12] MEDS: milrinone (Primacor) 20mg/D5W 100 ML IV PRN ×2 (20:57→23:12)
[2022-08-12] MEDS: epiNEPHrine inj 10 MG in normal saline 250ml IV soln 240 ML IV SCH (21:02)
--- NOTE | 2022-08-12 21:21 | NUR ---
[id number] 1833:Received to room 2009, accompanied by MDs and surgical crew. Placed on ventilator, to monitoring engineer, arterial line and PA line pressure zeroed & monitored. Chest tubes to suction at 20 cm. Hale cath to gravity drainage. Dressings are dry and intact. See assessment record. All vasoactive drugs are infusing via central line. IABP to right groin insertion site, set at 1:1. V paced. L brachial arterial line placed by anesthesia, good wave form. 2010; Patient having self limiting runs of V-tach. See chart for strips. Dr. Alvarado notified, orders received for Amiodarone. Electrolye replacement already in progress. 2120: Titrating pressors to keep MAP greater than 70. CI unchanged p/albumin x3.
[2022-08-12 21:38] LABS: HYPERSEGMENTED NEUTROPHILS 1+; TOTAL CELLS COUNTED 100
[2022-08-12 21:39] LABS: ANISOCYTOSIS FEW; ELLIPTOCYTES 1+; LARGE PLATELETS FEW; PLATELET ESTIMATE DECREASED; POLYCHROMASIA FEW
[2022-08-12] MEDS: vancomycin/NS 1 GM ADD-VANTAGE 250 ML IV SCH (22:04)
[2022-08-12] MEDS: mupirocin 2% nasal ointment 1gm UD NS SCH (22:07)
[2022-08-13] VITALS (37 sets, daily range): BP systolic 75–124; BP diastolic 38–67
[2022-08-13] MEDS: ceFAZolin/D5W- 1GM premix 50 ML IV SCH ×3 (00:58→15:35)
[2022-08-13] MEDS: epiNEPHrine inj 10 MG in normal saline 250ml IV soln 240 ML IV SCH ×11 (01:05→21:46)
--- NOTE | 2022-08-13 01:43 | NUR ---
Patient weakly opened eyes slightly, denies pain,following commands. Versed and Fentanyl drips started for patient comfort and ventilator synchrony.
[2022-08-13] MEDS: amiodarone/D5 360MG/200ML BAG 200 ML IV SCH ×4 (01:55→21:59)
[2022-08-13 02:37] LABS: BASOPHILS % (AUTO) 0 % (0-1); EOSINOPHILS % (AUTO) 0.1 % (0-6); HEMATOCRIT 28.5 % (42.0-52.0); HEMOGLOBIN 9.4 g/dl (14.0-17.9); LYMPHOCYTES # (AUTO) 0.6 X10'3 (1.1-4.8); LYMPHOCYTES % (AUTO) 3.4 % (21-51); MEAN CORPUSCULAR HEMOGLOBIN 29.4 PG (27.0-31.0); MEAN CORPUSCULAR HGB CONC 32.9 g/dL (33.0-36.5); MEAN CORPUSCULAR VOLUME 89.6 FL (78-98); MEAN PLATELET VOLUME 8.9 FL (7.4-10.4); MONOCYTES # (AUTO) 1.3 X10'3 (0-0.9); MONOCYTES % (AUTO) 7.3 % (2-12); NEUTROPHILS # (AUTO) 15.6 X10'3 (1.8-7.7); NEUTROPHILS % (AUTO) 89.2 % (42-75); PLATELET COUNT 100 X10'3 (140-440); RED BLOOD COUNT 3.18 X10'6 (4.70-6.10); RED CELL DISTRIBUTION WIDTH 15.1 % (11.5-14.5); WHITE BLOOD COUNT 17.5 X10'3 (4.5-11.0)
[2022-08-13 02:55] LABS: ANION GAP 18 (8-16); BLOOD UREA NITROGEN 30 MG/DL (7-18); BUN/CREATININE RATIO 10.9 (5.4-32.0); CHLORIDE 109 MMOL/L (99-107); CREATININE 2.76 MG/DL (0.60-1.10); GLUCOSE 154 MG/DL (70-104); POTASSIUM 4.3 MMOL/L (3.5-5.1); SODIUM 143 MMOL/L (135-145); TOTAL CARBON DIOXIDE 16.5 MMOL/L (24-32)
[2022-08-13 02:56] LABS: ALANINE AMINOTRANSFERASE 595 U/L (12-78); ALBUMIN 2.9 G/DL (3.4-5.0); ALBUMIN/GLOBULIN RATIO 2.2 (1.1-1.5); ALKALINE PHOSPHATASE 38 IU/L (46-116); BILIRUBIN,TOTAL 1.9 MG/DL (0.1-1.0); CALCIUM 9.6 MG/DL (8.5-10.1); MAGNESIUM 2.4 MG/DL (1.5-2.4); TOTAL PROTEIN 4.2 G/DL (6.4-8.2); eGFR 22 ML/MIN
[2022-08-13 02:57] LABS: ASPARTATE AMINO TRANSFERASE 1180 U/L (10-37)
[2022-08-13] MEDS: potassium Cl 20mEq/100mL bag 100 ML IV PRN ×2 (03:15→20:29)
[2022-08-13 03:17] LABS: ABG BASE EXCESS -15.3 mmol/L (-2.0-2.0); ABG HCO3 13.4 mmol/L (22.0-26.0); ABG OXYGEN SATURATION 89.6 % (94-97); ABG PCO2 (T) 41.4 mmHg (35.0-48.0); ABG PO2 (T) 70.4 mmHg (75.0-100.0); FMetHb 0.4 % (0.0-1.5); FO2Hb 89.2 % (94-97); PATIENT TEMPERATURE 36.1; PEEP 5 cm H2O; RESPIRATORY RATE 16 b/min; TIDAL VOLUME 500 mL; TOTAL HEMOGLOBIN 10.3 G/dl (14.0-17.9)
[2022-08-13] MEDS: albumin (Human) 5% 250ml 250 ML IV PRN ×2 (03:27→07:49)
[2022-08-13] MEDS ORDERED: albumin (Human) 5% 250ml 250 ML IV ONE ×3 (04:10→07:50)
[2022-08-13] MEDS ORDERED: sodium bicarbonate (8.4%) 1 mEq/ml syringe IV ONE ×2 (04:10→08:05)
--- NOTE | 2022-08-13 04:10 | NUR ---
Dr. Alvarado updated on patient's current hemodynamics and AM ABG results. Orders received.
[2022-08-13] MEDS ORDERED: sodium bicarbonate (8.4%) 1 mEq/ml syringe ONE (04:12)
[2022-08-13] MEDS: NORepinephrine inj. 32 MG in normal saline 250ml IV soln 218 ML IV SCH ×4 (04:13→20:04)
[2022-08-13] MEDS: magnesium 2GM in 50ml NS 50 ML IV PRN ×2 (04:26→20:51)
[2022-08-13] MEDS: Insulin Reg/NS 100units/100mL 100 ML IV SCH ×2 (04:51→22:35)
[2022-08-13] MEDS: milrinone (Primacor) 20mg/D5W 100 ML IV PRN ×3 (05:41→21:14)
--- NOTE | 2022-08-13 06:22 | NUR ---
Problems reprioritized. Patient report given, questions answered & plan of care reviewed with Levi MAZARIEGOS.
--- NOTE | 2022-08-13 06:30 | NUR ---
Patient in room CICU 2008. I have received report from Aretha MAZARIEGOS and had the opportunity to ask questions and assume patient care.
--- NOTE | 2022-08-13 07:00 | NUR ---
Madonna King Was at bedside, updated on pts condition. Orders received.
[2022-08-13] MEDS: vancomycin/NS 1 GM ADD-VANTAGE 250 ML IV SCH ×2 (07:51→21:45)
[2022-08-13 07:56] LABS: ABG BASE EXCESS -11.7 mmol/L (-2.0-2.0); ABG HCO3 16.4 mmol/L (22.0-26.0); ABG OXYGEN SATURATION 88.3 % (94-97); ABG PCO2 (T) 48.2 mmHg (35.0-48.0); ABG PO2 (T) 70.7 mmHg (75.0-100.0); FCOHb 0.3 % (0.0-3.9); FMetHb 0.3 % (0.0-1.5); FO2Hb 87.8 % (94-97); PATIENT TEMPERATURE 37.5; PEEP 5 cm H2O; RESPIRATORY RATE 16 b/min; TIDAL VOLUME 500 mL; TOTAL HEMOGLOBIN 8.9 G/dl (14.0-17.9)
[2022-08-13] MEDS: sennosides/docusate sodium tablet PO SCH ×2 (08:00→20:00)
[2022-08-13] MEDS: mupirocin 2% nasal ointment 1gm UD NS SCH ×2 (08:00→20:00)
[2022-08-13] MEDS: metoprolol tartrate 12.5mg (1/2 tablet) PO SCH ×2 (08:00→20:00)
[2022-08-13] MEDS ORDERED: hydrocortisone sod succ/PF 250mg/2ml inj. IV SCH (08:25)
[2022-08-13] MEDS ORDERED: aspirin 81mg tab.chew PO SCH (08:30)
[2022-08-13 08:32] LABS: BASOPHILS % (AUTO) 0.1 % (0-1); EOSINOPHILS % (AUTO) 0 % (0-6); HEMATOCRIT 24.2 % (42.0-52.0); HEMOGLOBIN 7.7 g/dl (14.0-17.9); LYMPHOCYTES # (AUTO) 0.8 X10'3 (1.1-4.8); LYMPHOCYTES % (AUTO) 4.8 % (21-51); MEAN CORPUSCULAR HEMOGLOBIN 28.7 PG (27.0-31.0); MEAN CORPUSCULAR HGB CONC 31.9 g/dL (33.0-36.5); MEAN CORPUSCULAR VOLUME 90.1 FL (78-98); MEAN PLATELET VOLUME 9.7 FL (7.4-10.4); MONOCYTES # (AUTO) 1.4 X10'3 (0-0.9); MONOCYTES % (AUTO) 8.5 % (2-12); NEUTROPHILS # (AUTO) 13.9 X10'3 (1.8-7.7); NEUTROPHILS % (AUTO) 86.6 % (42-75); PLATELET COUNT 96 X10'3 (140-440); RED BLOOD COUNT 2.69 X10'6 (4.70-6.10); RED CELL DISTRIBUTION WIDTH 15.6 % (11.5-14.5)
[2022-08-13 08:49] LABS: PLATELET COUNT 96 X10'3 (140-440)
[2022-08-13] MEDS ORDERED: DOBUTamine-DoBUTrex 500mg/D5W 250 ML IV SCH (08:50)
[2022-08-13 08:52] LABS: NUCLEATED RED BLOOD CELLS 1 /100WBC (0-0); PLATELET ESTIMATE DECREASED; TOTAL CELLS COUNTED 100
[2022-08-13 08:54] LABS: ALBUMIN 3.3 G/DL (3.4-5.0); ALBUMIN/GLOBULIN RATIO 2.8 (1.1-1.5); ALKALINE PHOSPHATASE 30 IU/L (46-116); ANION GAP 19 (8-16); ANISOCYTOSIS 1+; BILIRUBIN,TOTAL 1.4 MG/DL (0.1-1.0); BLOOD UREA NITROGEN 33 MG/DL (7-18); BUN/CREATININE RATIO 10.5 (5.4-32.0); BURR CELLS 2+; CALCIUM 9.2 MG/DL (8.5-10.1); CHLORIDE 109 MMOL/L (99-107); CREATININE 3.14 MG/DL (0.60-1.10); GLUCOSE 137 MG/DL (70-104); POLYCHROMASIA 1+; SODIUM 145 MMOL/L (135-145); TOTAL CARBON DIOXIDE 17.2 MMOL/L (24-32); TOTAL PROTEIN 4.5 G/DL (6.4-8.2); eGFR 19 ML/MIN
[2022-08-13 08:57] LABS: ALANINE AMINOTRANSFERASE 1351 U/L (12-78)
[2022-08-13 09:00] LABS: APTT 56 SECONDS (22-32); D-DIMER 2.62 MG/L FEU (0-0.50)
[2022-08-13] MEDS: DOBUTamine-DoBUTrex 500mg/D5W 250 ML IV PRN (09:12)
[2022-08-13 09:13] LABS: ASPARTATE AMINO TRANSFERASE 2814 U/L (10-37)
[2022-08-13] MEDS ORDERED: potassium Cl 40MEQ/270ML bag 270 ML IV PRN (09:45)
[2022-08-13] MEDS ORDERED: Duosol 4k/NO Calcium 5,000 ML HE SCH (09:45)
[2022-08-13] MEDS ORDERED: magnesium 4gm in 100ml NS 100 ML IV PRN (09:45)
[2022-08-13] MEDS ORDERED: sodium phosphate inj. 30 MMOL in normal saline 250ml IV soln 250 ML IV PRN (09:45)
[2022-08-13] MEDS ORDERED: calcium chloride inj. 1,000 MG in normal saline 100ml IV soln 100 ML IV PRN (09:45)
--- NOTE | 2022-08-13 10:00 | NUR ---
Line placed. Pt prepped, Dr Yan at bedside to place line. Place at Left Subclavian. Pt tolerated procedure well. Post insertion x-ray completed.
[2022-08-13] MEDS: bicarb dialysis sol 2k/0 Ca2+ 5,000 ML HE SCH ×2 (10:41→21:54)
[2022-08-13] MEDS: calcium chloride inj. 10,000 MG in normal saline 500ml IV soln 400 ML IV PRN (11:21)
[2022-08-13] MEDS: citrate dextrose 1000ml IV sol 1,000 ML IV PRN ×4 (11:21→21:52)
[2022-08-13] MEDS ORDERED: calcium chloride 100 MG/1 ML inj IV ONE (11:45)
[2022-08-13 12:20] LABS: ABG BASE EXCESS -9.9 mmol/L (-2.0-2.0); ABG HCO3 16.6 mmol/L (22.0-26.0); ABG OXYGEN SATURATION 91.9 % (94-97); ABG PO2 (T) 74.3 mmHg (75.0-100.0); FCOHb 0.3 % (0.0-3.9); FMetHb 0.6 % (0.0-1.5); FO2Hb 91.1 % (94-97); PATIENT TEMPERATURE 36.4; PEEP 5 cm H2O; RESPIRATORY RATE 18 b/min; TIDAL VOLUME 600 mL
--- NOTE | 2022-08-13 13:00 | NUR ---
Pacer Dr Alvarado looked at pacer and its failure to capture despite max mAs. He changed the polarity on the pacemaker leads to see if it would capture better. After about 30 min it was capturing like it was pre polarity switch.
--- NOTE | 2022-08-13 13:00 | NUR ---
MD Dr. Yan and Ritika to see pt. Updated on pt condition and orders received.
--- NOTE | 2022-08-13 13:33 | NUR ---
Dr. Yan To see pt. Updated on pts conditions. He'll place dialysis line to left SC or IJ. Orders received.
[2022-08-13] MEDS ORDERED: albumin (human) 25% 100ml IV 100 ML in normal saline 500ml IV soln 400 ML IV PRN (13:50)
--- NOTE | 2022-08-13 14:31 | NUR ---
F/u 08/13: Pt remains intubated s/p code following CABx1 now s/p emergent re-sternotomy, re-op CABGx2 w/ open sternum per EMR. Pt to start CVVH today for lactate 7.7 per MD note. OG in place w/ MAP 69 this AM per EMR. Pt would benefit from EN to optimize nutrition status if prolonged intubation post-op given current catabolic state; TF recs below. LBM 08/09 previously receiving routine colace now changed to routine senna though held for NPO post-op per EMR. Will monitor for further nutrition intervention needs. Recs: 1. Consider EN to optimize nutrition status IF prolonged intubation on CVVH; IF TF Pivot 1.5 at 70ml/hr goal would provide 1680ml volume/day, 2520 kcals, 1260ml water, and 158g protein. 2. IF TF; additional free water per MD on CVVH. IF 180ml BID free water allowed consider Hair packet BID w/ flushes for wound healing 3. IF TF; PALB Q / 4. routine bowel care 5. daily scaled wts 6. upon extubation; advance diet per [employer] EXCHANGE WIRELESS MANAGER/MD recs to Carb controlled; consider resuming Double protein WB pending initial PO trends Addendum: 08/13/22 at [address] Amended: Links added.
[2022-08-13] MEDS: hydrocortisone sod succ/PF 100mg/2ml inj. IV SCH ×2 (15:35)
--- NOTE | 2022-08-13 16:14 | NUR ---
Afib Pts afib rate picked up over the paced rate of 100. Dr Alvarado aware. Rate increased to 120s and pacer was turned off after discussion w/CN. Pt also belly breathing on expiration. Discusses with Dr. Alvarado and he asked to have Dr. Harrington input on a paralytic as pt is on CVVH. Dr. Yan called and did not want to add paralytic at this point unless Dr. Alvarado was thought pts condition warranted it.
[2022-08-13 16:16] LABS: ABG BASE EXCESS -8.1 mmol/L (-2.0-2.0); ABG HCO3 18.7 mmol/L (22.0-26.0); ABG OXYGEN SATURATION 91.9 % (94-97); ABG PCO2 (T) 40.6 mmHg (35.0-48.0); ABG PO2 (T) 64.9 mmHg (75.0-100.0); FCOHb 0.2 % (0.0-3.9); FMetHb 0.3 % (0.0-1.5); FO2Hb 91.4 % (94-97); PATIENT TEMPERATURE 35.3; PEEP 5 cm H2O; RESPIRATORY RATE 18 b/min; TIDAL VOLUME 600 mL
[2022-08-13] MEDS ORDERED: CISatracurium besylate inj. 100 MG in normal saline 100ml IV soln 90 ML IV PRN (17:45)
[2022-08-13 18:03] LABS: APTT 39 SECONDS (22-32); D-DIMER 2.21 MG/L FEU (0-0.50)
[2022-08-13 18:10] LABS: ALBUMIN 3.5 G/DL (3.4-5.0); ALBUMIN/GLOBULIN RATIO 2.7 (1.1-1.5); ALKALINE PHOSPHATASE 36 IU/L (46-116); ANION GAP 19 (8-16); BILIRUBIN,TOTAL 1.6 MG/DL (0.1-1.0); BLOOD UREA NITROGEN 24 MG/DL (7-18); BUN/CREATININE RATIO 9.4 (5.4-32.0); CALCIUM 8.3 MG/DL (8.5-10.1); CHLORIDE 104 MMOL/L (99-107); CREATININE 2.56 MG/DL (0.60-1.10); GLUCOSE 164 MG/DL (70-104); POTASSIUM 3.5 MMOL/L (3.5-5.1); SODIUM 144 MMOL/L (135-145); TOTAL CARBON DIOXIDE 20.9 MMOL/L (24-32); TOTAL PROTEIN 4.8 G/DL (6.4-8.2); eGFR 24 ML/MIN
[2022-08-13 18:15] LABS: ALANINE AMINOTRANSFERASE 2049 U/L (12-78); BASOPHILS % (AUTO) 0.1 % (0-1); EOSINOPHILS % (AUTO) 0 % (0-6); HEMATOCRIT 26.7 % (42.0-52.0); HEMOGLOBIN 8.9 g/dl (14.0-17.9); LYMPHOCYTES # (AUTO) 0.8 X10'3 (1.1-4.8); LYMPHOCYTES % (AUTO) 5.4 % (21-51); MEAN CORPUSCULAR HEMOGLOBIN 29.7 PG (27.0-31.0); MEAN CORPUSCULAR HGB CONC 33.4 g/dL (33.0-36.5); MEAN PLATELET VOLUME 9.7 FL (7.4-10.4); MONOCYTES % (AUTO) 6.4 % (2-12); NEUTROPHILS # (AUTO) 13.7 X10'3 (1.8-7.7); NEUTROPHILS % (AUTO) 88.1 % (42-75); PLATELET COUNT 84 X10'3 (140-440); RED CELL DISTRIBUTION WIDTH 14.9 % (11.5-14.5); WHITE BLOOD COUNT 15.6 X10'3 (4.5-11.0)
--- NOTE | 2022-08-13 18:30 | NUR ---
Patient in room CICU 2008. I have received report from Levi MAZARIEGOS and had the opportunity to ask questions and assume patient care. IABP running via R femoral catheter, see chart for waveform strip. CVVH running via L subclavian dialysis catheter. Titrating pressors to maintain MAP and inotropes to maintain CI per MD orders. Titrating sedation and pain medications as tolerated for patient comfort and ventilator synchrony.
--- NOTE | 2022-08-13 18:46 | NUR ---
Shift end note. Dr. Alvarado to see pt again. Asked that we start Nimbex with resp pattern - belly breathing. Problems reprioritized. Patient report given, questions answered & plan of care reviewed with Aretha MAZARIEGOS. Reviewed Mary MAZARIEGOS's documentation and it is accurate.
[2022-08-13 18:49] LABS: ASPARTATE AMINO TRANSFERASE > 7000 U/L (10-37)
[2022-08-13 19:10] LABS: PLATELET COUNT 84 X10'3 (140-440)
[2022-08-13 20:01] LABS: ABG BASE EXCESS -4.1 mmol/L (-2.0-2.0); ABG HCO3 21.7 mmol/L (22.0-26.0); ABG OXYGEN SATURATION 93.1 % (94-97); ABG PCO2 (T) 40.6 mmHg (35.0-48.0); ABG PO2 (T) 67.3 mmHg (75.0-100.0); FCOHb 0.2 % (0.0-3.9); FMetHb 0.3 % (0.0-1.5); FO2Hb 92.6 % (94-97); PATIENT TEMPERATURE 35.8; PEEP 5 cm H2O; RESPIRATORY RATE 18 b/min; TIDAL VOLUME 600 mL; TOTAL HEMOGLOBIN 9.7 G/dl (14.0-17.9)
--- NOTE | 2022-08-13 20:23 | NUR ---
Dr. Yan updated about patient's status including latest ABG,current labs and CVVH. No new orders at this time. Patient is having increased amounts of ectopy and tachycardia, asynchronous with IABP. Dr. Alvarado notified, okayed to change IABP to 1:2.
[2022-08-13] MEDS: atorvastatin 10mg tablet PO SCH (21:00)
[2022-08-13] MEDS: midazolam 100mg in NS 100ml 100 ML IV PRN (23:25)
[2022-08-14] VITALS (11 sets, daily range): BP systolic 91–122; BP diastolic 45–58
[2022-08-14] MEDS: hydrocortisone sod succ/PF 100mg/2ml inj. IV SCH ×2 (00:01)
[2022-08-14] MEDS: ceFAZolin/D5W- 1GM premix 50 ML IV SCH (00:02)
[2022-08-14 00:12] LABS: ABG BASE EXCESS -0.6 mmol/L (-2.0-2.0); ABG HCO3 23.7 mmol/L (22.0-26.0); ABG OXYGEN SATURATION 92.6 % (94-97); ABG PCO2 (T) 36.8 mmHg (35.0-48.0); ABG PO2 (T) 67.3 mmHg (75.0-100.0); FCOHb 0.3 % (0.0-3.9); FMetHb 0.4 % (0.0-1.5); PATIENT TEMPERATURE 36.6; PEEP 5 cm H2O; RESPIRATORY RATE 18 b/min; TIDAL VOLUME 600 mL; TOTAL HEMOGLOBIN 9.2 G/dl (14.0-17.9)
[2022-08-14] MEDS: citrate dextrose 1000ml IV sol 1,000 ML IV PRN ×2 (00:40→03:49)
[2022-08-14 01:00] LABS: BASOPHILS % (AUTO) 0.2 % (0-1); EOSINOPHILS % (AUTO) 0 % (0-6); HEMATOCRIT 25.7 % (42.0-52.0); HEMOGLOBIN 8.7 g/dl (14.0-17.9); LYMPHOCYTES # (AUTO) 0.9 X10'3 (1.1-4.8); LYMPHOCYTES % (AUTO) 6.2 % (21-51); MEAN CORPUSCULAR HEMOGLOBIN 29.5 PG (27.0-31.0); MEAN CORPUSCULAR HGB CONC 33.7 g/dL (33.0-36.5); MEAN CORPUSCULAR VOLUME 87.5 FL (78-98); MEAN PLATELET VOLUME 10.3 FL (7.4-10.4); MONOCYTES # (AUTO) 0.8 X10'3 (0-0.9); MONOCYTES % (AUTO) 5.4 % (2-12); NEUTROPHILS # (AUTO) 13.2 X10'3 (1.8-7.7); NEUTROPHILS % (AUTO) 88.2 % (42-75); PLATELET COUNT 90 X10'3 (140-440); RED BLOOD COUNT 2.93 X10'6 (4.70-6.10); RED CELL DISTRIBUTION WIDTH 14.8 % (11.5-14.5)
[2022-08-14 01:23] LABS: ALBUMIN 3.1 G/DL (3.4-5.0); ALBUMIN/GLOBULIN RATIO 2.2 (1.1-1.5); ALKALINE PHOSPHATASE 36 IU/L (46-116); ANION GAP 14 (8-16); BILIRUBIN,TOTAL 1.8 MG/DL (0.1-1.0); BLOOD UREA NITROGEN 20 MG/DL (7-18); BUN/CREATININE RATIO 9.6 (5.4-32.0); CALCIUM 7.9 MG/DL (8.5-10.1); CHLORIDE 104 MMOL/L (99-107); CREATININE 2.09 MG/DL (0.60-1.10); GLUCOSE 121 MG/DL (70-104); MAGNESIUM 2.3 MG/DL (1.5-2.4); PHOSPHORUS 2.1 MG/DL (2.3-4.5); POTASSIUM 3.4 MMOL/L (3.5-5.1); SODIUM 144 MMOL/L (135-145); TOTAL CARBON DIOXIDE 26.5 MMOL/L (24-32); TOTAL PROTEIN 4.5 G/DL (6.4-8.2); eGFR 31 ML/MIN
[2022-08-14 01:28] LABS: APTT 37 SECONDS (22-32); D-DIMER 1.97 MG/L FEU (0-0.50)
[2022-08-14] MEDS: amiodarone/D5 360MG/200ML BAG 200 ML IV SCH (01:31)
[2022-08-14] MEDS: potassium Cl 20mEq/100mL bag 100 ML IV PRN ×3 (01:57→04:47)
[2022-08-14 02:20] LABS: ALANINE AMINOTRANSFERASE 1745 U/L (12-78)
[2022-08-14 02:24] LABS: ASPARTATE AMINO TRANSFERASE 6726 U/L (10-37)
[2022-08-14] MEDS: magnesium 2GM in 50ml NS 50 ML IV PRN (02:38)
[2022-08-14] MEDS: epiNEPHrine inj 10 MG in normal saline 250ml IV soln 240 ML IV SCH (03:39)
[2022-08-14 03:41] LABS: ABG BASE EXCESS 5.2 mmol/L (-2.0-2.0); ABG HCO3 29.9 mmol/L (22.0-26.0); ABG OXYGEN SATURATION 89.9 % (94-97); ABG PCO2 (T) 44.3 mmHg (35.0-48.0); ABG PO2 (T) 57.2 mmHg (75.0-100.0); FCOHb 0.3 % (0.0-3.9); FMetHb 0.2 % (0.0-1.5); FO2Hb 89.5 % (94-97); PATIENT TEMPERATURE 36.9; PEEP 5 cm H2O; RESPIRATORY RATE 18 b/min; TIDAL VOLUME 600 mL; TOTAL HEMOGLOBIN 9.6 G/dl (14.0-17.9)
[2022-08-14] MEDS: calcium chloride inj. 10,000 MG in normal saline 500ml IV soln 400 ML IV PRN (03:48)
[2022-08-14] MEDS: bicarb dialysis sol 2k/0 Ca2+ 5,000 ML HE SCH (03:59)
[2022-08-14 05:01] LABS: PLATELET COUNT 90 X10'3 (140-440)
[2022-08-14 05:08] LABS: ANISOCYTOSIS FEW; LARGE PLATELETS FEW; PLATELET ESTIMATE DECREASED; POIKILOCYTOSIS FEW; TOTAL CELLS COUNTED 100
[2022-08-14] MEDS: Insulin Reg/NS 100units/100mL 100 ML IV SCH (06:00)
--- NOTE | 2022-08-14 06:00 | NUR ---
[id number]: Dr. Yan called to inquire about patient's status, update given on latest labs and ABG. Orders received. AM labs drawn, results pending. Patient report given, questions answered & plan of care reviewed with Levi MAZARIEGOS. Patient hypotensive, CVVH rate turned down to 300, pressors at max dose to maintain MAP
[2022-08-14] MEDS: NORepinephrine inj. 32 MG in normal saline 250ml IV soln 218 ML IV SCH (06:01)
[2022-08-14] MEDS ORDERED: albumin (Human) 5% 250ml 250 ML IV SCH (06:45)
[2022-08-14] MEDS ORDERED: potassium phosphate inj 30 MMOL in normal saline 250ml IV soln 250 ML IV ONE (06:45)
[2022-08-14 06:47] LABS: BASOPHILS # (AUTO) 0.1 X10'3 (0-0.2); BASOPHILS % (AUTO) 0.4 % (0-1); EOSINOPHILS % (AUTO) 0 % (0-6); HEMATOCRIT 26.2 % (42.0-52.0); HEMOGLOBIN 8.8 g/dl (14.0-17.9); LYMPHOCYTES # (AUTO) 0.7 X10'3 (1.1-4.8); LYMPHOCYTES % (AUTO) 4.9 % (21-51); MEAN CORPUSCULAR HEMOGLOBIN 29.6 PG (27.0-31.0); MEAN CORPUSCULAR HGB CONC 33.5 g/dL (33.0-36.5); MEAN CORPUSCULAR VOLUME 88.3 FL (78-98); MEAN PLATELET VOLUME 10.3 FL (7.4-10.4); MONOCYTES # (AUTO) 1.1 X10'3 (0-0.9); MONOCYTES % (AUTO) 7.8 % (2-12); NEUTROPHILS # (AUTO) 12.7 X10'3 (1.8-7.7); NEUTROPHILS % (AUTO) 86.9 % (42-75); PLATELET COUNT 97 X10'3 (140-440); RED BLOOD COUNT 2.97 X10'6 (4.70-6.10); RED CELL DISTRIBUTION WIDTH 15.2 % (11.5-14.5); WHITE BLOOD COUNT 14.6 X10'3 (4.5-11.0)
[2022-08-14 07:06] LABS: CREATINE KINASE 789 U/L (39-308); MAGNESIUM 2.8 MG/DL (1.5-2.4); PHOSPHORUS 2.1 MG/DL (2.3-4.5)
--- NOTE | 2022-08-14 07:13 | NUR ---
Code Note Arrived on shift and pts BP gradually dropped. wax blender notified and came to bedside. Dr. Alvarado called and Albumin ordered. Pts BP continued to drop despite meds & fluids given. Unable to to CPR due to pts chest being open. Dr. Alvarado did not want anyone to do open cardiac massage. Pts & son contacted about situation. CN contacted Dr. Alvarado again after code had run for several minutes and he said to call the code. Family arrived after pt had and were escorted to bedside.
[2022-08-14] MEDS ORDERED: pantoprazole 40mg Tablet.DR PO SCH (07:30)
[2022-08-14] MEDS ORDERED: calcium chloride 100 MG/1 ML inj IV ONE (07:45)
[2022-08-14] MEDS ORDERED: adenosine 3mg/ml 2ml vial IV ONE (07:45)
[2022-08-14] MEDS ORDERED: epiNEPHrine 0.1mg/ml 10ml syringe ONE (07:45)
[2022-08-14] MEDS ORDERED: gabapentin 300mg capsule PO SCH (08:00)
--- NOTE | 2022-08-14 08:00 | NUR ---
RN IS TO DOCUMENT YES TO ALL APPLICABLE AREAS Pronouncement of : 1. Time Physician Notified: 50 2. Date of : 08/14/22 3. Time of : 50 4. DNR/Withdraw life support documented: N/A 5. Monitor strip has been placed on chart: Yes 6. Assessment process is of one-minute duration and includes following criteria: a) Patient is unresponsive to all stimuli: Yes b) Pupils fixed and non-reactive: Yes c) Auscultation of precordium reveals absence of heart tones: Yes d) Auscultation of lungs reveals absence of breath sounds: Yes e) Absence of blood pressure / all vital signs: Yes f) QRS complexes are not present on monitor / EKG strip: Yes g) Pacer spikes without capture: Pacer was off 4. Comments: Pts BP was dropping. CN notified and at bed side. MD's contacted and orders received. Family contacted and pt .
[2022-08-14 08:51] LABS: ALBUMIN/GLOBULIN RATIO 2.1 (1.1-1.5); ALKALINE PHOSPHATASE 45 IU/L (46-116); ANION GAP 14 (8-16); BLOOD UREA NITROGEN 16 MG/DL (7-18); BUN/CREATININE RATIO 8.2 (5.4-32.0); CALCIUM 7.6 MG/DL (8.5-10.1); CHLORIDE 104 MMOL/L (99-107); CREATININE 1.94 MG/DL (0.60-1.10); GLUCOSE 130 MG/DL (70-104); POTASSIUM 4.3 MMOL/L (3.5-5.1); SODIUM 142 MMOL/L (135-145); TOTAL CARBON DIOXIDE 23.9 MMOL/L (24-32); TOTAL PROTEIN 4.4 G/DL (6.4-8.2); eGFR 34 ML/MIN
[2022-08-14 09:06] LABS: ASPARTATE AMINO TRANSFERASE 5136 U/L (10-37)
[2022-08-14 09:07] LABS: ALANINE AMINOTRANSFERASE 1392 U/L (12-78)
[2022-08-16 07:08] LABS: ACT @ 1.70 U 247 SEC (193-297); ACT @ 2.84 U 343 SEC (260-420); BASELINE ACT 124 SEC (101-148)
[2022-08-16 11:43] LABS: ABG PCO2 60.1 mmHg (35.0-48.0); TOTAL HEMOGLOBIN 5.9 G/dl (14.0-17.9)
[2022-08-16 11:44] LABS: ABG PO2 20.1 mmHg (75.0-100.0)
== END 2022-08-14 11:17 | DRG 231 ==
LOC: ER 09:40 → ED HOLD 16:12 → PCU 3S 21:00 → CICU 2S 08-12 11:42
PROVIDERS: ADMIT Family Medicine; ATTEND Family Medicine
PROC: 4A023N7 Measurement of Cardiac Sampling and Pressure, Left Heart, Percutaneous Approach (ICD-10-PCS; principal; 2022-08-07)
PROC: 02703ZZ Dilation of Coronary Artery, One Artery, Percutaneous Approach (ICD-10-PCS; 2022-08-07)
PROC: B2111ZZ Fluoroscopy of Multiple Coronary Arteries using Low Osmolar Contrast (ICD-10-PCS; 2022-08-07)
PROC: B2151ZZ Fluoroscopy of Left Heart using Low Osmolar Contrast (ICD-10-PCS; 2022-08-07)
PROC: B31N1ZZ Fluoroscopy of Other Upper Arteries using Low Osmolar Contrast (ICD-10-PCS; 2022-08-07)
PROC: B2131ZZ Fluoroscopy of Multiple Coronary Artery Bypass Grafts using Low Osmolar Contrast (ICD-10-PCS; 2022-08-07)
PROC: 02100Z9 Bypass Coronary Artery, One Artery from Left Internal Mammary, Open Approach (ICD-10-PCS; 2022-08-12)
PROC: 5A02210 Assistance with Cardiac Output using Balloon Pump, Continuous (ICD-10-PCS; 2022-08-12)
PROC: 021109W Bypass Coronary Artery, Two Arteries from Aorta with Autologous Venous Tissue, Open Approach (ICD-10-PCS; 2022-08-12)
PROC: 06BP0ZZ Excision of Right Saphenous Vein, Open Approach (ICD-10-PCS; 2022-08-12)
PROC: 30233N1 Transfusion of Nonautologous Red Blood Cells into Peripheral Vein, Percutaneous Approach (ICD-10-PCS; 2022-08-12)
PROC: 5A12012 Performance of Cardiac Output, Single, Manual (ICD-10-PCS; 2022-08-12)
PROC: 5A1221Z Performance of Cardiac Output, Continuous (ICD-10-PCS; 2022-08-12)
PROC: B24BZZ4 Ultrasonography of Heart with Aorta, Transesophageal (ICD-10-PCS; 2022-08-12)
PROC: 5A1D90Z Performance of Urinary Filtration, Continuous, Greater than 18 hours Per Day (ICD-10-PCS; 2022-08-13)
PROC: 5A1D90Z Performance of Urinary Filtration, Continuous, Greater than 18 hours Per Day (ICD-10-PCS; 2022-08-14)
DX: I25.110 Atherosclerotic heart disease of native coronary artery with unstable angina pectoris (principal); I21.4 Non-ST elevation (NSTEMI) myocardial infarction; E87.20 Acidosis, unspecified; I13.0 Hypertensive heart and chronic kidney disease with heart failure and stage 1 through stage 4 chronic kidney disease, or unspecified chronic kidney disease; I48.20 Chronic atrial fibrillation, unspecified; I50.40 Unspecified combined systolic (congestive) and diastolic (congestive) heart failure; I47.20 Ventricular tachycardia, unspecified; Z20.822 Contact with and (suspected) exposure to COVID-19; E11.22 Type 2 diabetes mellitus with diabetic chronic kidney disease; I42.0 Dilated cardiomyopathy; E11.51 Type 2 diabetes mellitus with diabetic peripheral angiopathy without gangrene; E78.5 Hyperlipidemia, unspecified; D64.9 Anemia, unspecified; E66.01 Morbid (severe) obesity due to excess calories; F41.9 Anxiety disorder, unspecified; I25.5 Ischemic cardiomyopathy; I46.9 Cardiac arrest, cause unspecified; M10.9 Gout, unspecified; N18.30 Chronic kidney disease, stage 3 unspecified; I95.9 Hypotension, unspecified; Z79.82 Long term (current) use of aspirin; I25.2 Old myocardial infarction; Z79.899 Other long term (current) drug therapy; Z82.3 Family history of stroke; Z82.49 Family history of ischemic heart disease and other diseases of the circulatory system; Z82.5 Family history of asthma and other chronic lower respiratory diseases; Z68.30 Body mass index [BMI] 30.0-30.9, adult; Z90.49 Acquired absence of other specified parts of digestive tract; Z95.1 Presence of aortocoronary bypass graft
CPT/HCPCS: 92920; 92950; 93306; 93308; 93312; 93325; 93459; 99285; Z7506; Z7508; 36415; 36430; 36600; 71045; 71046; 71250; 76937; 80048; 80053; 80061; 81001; 82330; 82435; 82550; 82803; 82947; 82948; 83036; 83605; 83735; 83880; 84100; 84132; 84295; 84439; 84443; 84484; 85007; 85018; 85025; 85347; 85379; 85384; 85610; 85730; 86885; 86900; 86901; 86920; 87081; 87811; 88300; 93005; 93880; 93970; 94002; 94003; 94640; 94760; 99152; 99153; A4615; A4618; A6213; A6258; A6402; A6449; A7000; A7015; A7048; C1725; C1751; C1752; C1769; C1894; E1594; G0378; J0153; J0171; J0282; J0690; J1250; J1644; J1720; J1815; J1940; J2060; J2150; J2250; J2260; J2270; J2370; J2405; J2704; J2930; J3010; J3246; J3370; J3475; J3480; J3490; J7030; J7040; J7050; J7070; J7120; P9016; P9045; P9047; Q9967